=== PATIENT | female | born 1960 | race Caucasian/White ===

== ENCOUNTER 2016-07-17 15:49 | Observation (INO) ==
[2016-07-17] MEDS ORDERED: 0.9 % Sodium Chloride 1,000 ML IVC ONE ×2 (15:54→19:38)
--- NOTE | 2016-07-17 15:54 | Emergency Department Note ---
Disposition Clinical Impression: Generalized weakness, Hyperglycemia, Acute on chronic renal insufficiency, Hypotension Disposition: Admitted As Inpatient Condition: Fair General Adult HPI - General Chief complaint: ED Weakness Stated complaint: Generalized weakness Time Seen by Provider: 07/17/16 15:53 - Related Data Home Medications Medication Instructions Recorded Confirmed Aspirin Enteric Coated [Aspirin EC] 81 mg PO DAILY 12/30/14 07/17/16 Atorvastatin [Lipitor] 40 mg PO HS 12/30/14 07/17/16 Nitroglycerin [Nitrostat] 0.4 mg PO Q5M PRN 12/30/14 07/17/16 Sotalol HCl [Betapace] 80 mg PO BID 12/30/14 07/17/16 Gabapentin [Neurontin] 300 mg PO TID 10/11/15 07/17/16 Prazosin HCl [Minipress] 5 mg PO HS 10/11/15 07/17/16 Albuterol Sulfate [Ventolin Hfa] 2 puff IH QID PRN 10/12/15 07/17/16 Cholecalciferol (D-3) [Vitamin D] 1,000 unit PO BID 10/12/15 07/17/16 Cyclobenzaprine [Flexeril] 10 mg PO TID 10/12/15 07/17/16 Furosemide [Lasix] 40 mg PO QPM 10/12/15 07/17/16 Linagliptin [Tradjenta] 5 mg PO DAILY 10/12/15 07/17/16 Lisinopril [Zestril] 40 mg PO DAILY 10/12/15 07/17/16 Oxybutynin [Ditropan] 5 mg PO BID 10/12/15 07/17/16 Quetiapine Fumarate [Seroquel] 25 - 50 mg PO TID 10/12/15 07/17/16 Folic Acid 1 mg PO DAILY 02/29/16 07/17/16 Quetiapine Fumarate [Seroquel] 500 mg PO HS 02/29/16 07/17/16 Warfarin [Coumadin] 5 mg PO 1800 02/29/16 07/17/16 Buspirone HCl [Buspar] 7.5 mg PO BID 07/17/16 07/17/16 Furosemide [Lasix] 80 mg PO QAM 07/17/16 07/17/16 LORazepam [Lorazepam] 2 mg PO HS 07/17/16 07/17/16 Levothyroxine [Synthroid] 200 mcg PO QAM 07/17/16 07/17/16 Medroxyprogesterone Acetate 10 mg PO BID 07/17/16 07/17/16 [Provera] Metformin [Glucophage] 500 mg PO BIDWM 07/17/16 07/17/16 OxyCODONE/APAP 7.5/325 [Percocet 1 each PO Q6H PRN 07/17/16 07/17/16 7.5/325 MG] Pantoprazole Sodium [Protonix] 40 mg PO DAILY 07/17/16 07/17/16 Promethazine [Phenergan] 25 mg PO BID 07/17/16 07/17/16 Spironolactone [Aldactone] 25 mg PO DAILY 07/17/16 07/17/16 Trazodone HCl 100 mg PO HS 07/17/16 07/17/16 Previous Rx's Medication Instructions Recorded Amlodipine [Norvasc] 5 mg PO DAILY 30 Days 09/12/15 Isosorbide MONOnitrate (24 HR) 60 mg PO DAILY #30 tab.er.24h 10/15/15 [Imdur] Ranolazine [Ranexa] 500 mg PO BID #60 tab.er.12h 10/15/15 Docusate [Colace] 100 mg PO BID PRN #60 capsule 07/20/16 Allergies Allergy/AdvReac Type Severity Reaction Status Date / Time Latex, Natural Rubber Allergy Rash Verified 04/01/15 09:23 prednisone Allergy Rash Verified 04/01/15 09:23 Zolpidem [From Ambien] Allergy Hallucinati Verified 04/01/15 09:23 ng tape Allergy Rash Uncoded 09/08/15 03:19 Past Medical History - Past Medical History Medical history: Reports: arthritis, asthma, atrial fibrillation, coronary artery disease (mild, non-obstructive per [facility] in 2012. ), CVA, diabetes, GERD, hyperlipidemia, hypertension, myocardial infarction, osteoporosis, pulmonary embolus (August 2014, May 2015), renal disease, thyroid disease, TIA Surgical history: Reports: cholecystectomy, orthopedic, other Psychiatric history: Reports: anxiety, depression, PTSD, other [employer] history: Reports: no [employer] history - Social History Smoking Status: Never smoker Smokeless Tobacco Status: No Alcohol use: Reports: none Drug use: Reports: none Course Vital Signs Temperature 98.9 F 07/17/16 15:53 Pulse Rate 76 07/17/16 15:53 Respiratory Rate 18 07/17/16 15:53 Blood Pressure 70/46 07/17/16 15:53 O2 Sat by Pulse Oximetry 96 07/17/16 15:53 Temperature 98.0 F 07/20/16 14:47 Pulse Rate 79 07/20/16 14:47 Respiratory Rate 16 07/20/16 14:47 Blood Pressure 140/85 07/20/16 14:47 O2 Sat by Pulse Oximetry 92 L 07/20/16 16:37 Oxygen Delivery Oxygen Delivery Room Air Medical Decision Making - Lab Data Result diagrams: 07/18/16 00:31 07/19/16 04:08 Lab Results 07/17/16 07/17/16 07/17/16 Range/Units 17:14 17:20 17:20 WBC 10.3 (4.3-11.1) K/mcL RBC 4.55 (3.82-4.97) M/mcL Hgb 12.6 (11.5-15.4) g/dL Hct 38.0 (35.3-44.9) % MCV 83.5 (83.0-100.0) fL MCH 27.7 L (28.0-33.3) pg MCHC 33.2 (31.6-35.5) g/dL RDW 15.8 H (11.5-14.5) % Plt Count 292 (140-400) K/mcL MPV 9.6 (9.4-12.4) fL Immature Gran % 0.8 (0-4) % Seg Neutrophils % 60.8 % Lymphocytes % 30.4 % Monocytes % 7.0 % Eosinophils % 0.6 % Basophils % 0.4 % Neutrophils # 6.2 (1.6-8.9) K/mcL Lymphocytes # 3.1 (0.6-4.6) K/mcL Monocytes # 0.7 (0.0-1.3) K/mcL Eosinophils # 0.1 (0.0-0.6) K/mcL Basophils # 0.0 (0.0-0.2) K/mcL ESR 39 H (0-15) mm/hr Sodium 134 L (136-145) mEq/L Potassium 4.4 (3.5-4.5) mEq/L Chloride 105 (98-109) mEq/L Carbon Dioxide 13 L (19-29) mEq/L BUN 16 (7-20) mg/dL Creatinine 1.67 H (0.57-1.11) mg/dL Est GFR ( Amer) 39 L (> 60) Est GFR (Non-Af Amer) 32 L (> 60) BUN/Creatinine Ratio 10 (6-26) Glucose 344 H (70-99) mg/dL Calculated Osmolality 293 (280-300) Calcium 8.8 (8.6-10.8) mg/dL Ionized Calcium Cancelled Phosphorus 3.4 (2.3-4.7) mg/dL Magnesium 1.5 L (1.6-2.6) mg/dL Total Bilirubin 0.4 (0.2-1.2) mg/dL AST 10 (5-34) Units/L ALT 7 (0-55) Units/L Alkaline Phosphatase 76 (38-126) Units/L Creatine Kinase 34 (29-168) Units/L Troponin I (0-0.03) ng/mL Serum Total Protein 8.1 (6.0-8.3) g/dL Albumin 3.6 (3.5-5.0) g/dL Globulin 4.5 H (2.4-3.5) g/dL Albumin/Globulin Ratio 0.8 L (1.1-2.2) Beta-Hydroxybutyric Acd (0.02-0.27) mmol/L TSH 1.195 (0.350-4.840) mcIU/mL Urine Color (Yellow) Urine Clarity (Clear) Urine pH (5.0-8.0) pH Units Ur Specific [place] (1.010-1.025) Urine Protein (Neg-Trace) mg/dL Urine Glucose (UA) (Normal) mg/dL Urine Ketones (Negative) mg/dL Urine Blood (Negative) Urine Nitrite (Negative) Urine Bilirubin (Negative) Urine Urobilinogen (Normal) mg/dL Ur Leukocyte Esterase (Negative) Urine Microscopic RBC (0-3) per hpf Urine Microscopic WBC (0-3) per hpf Ur Squamous Epith Cells (None-Few) per lpf Calcium Oxalate Crystal Urine Bacteria (None-Few) per hpf Hyaline Casts (None-Few) per lpf Ur Culture Indicated? (NO) A. baumannii (TEM-PCR) (Not Detect) Ariela albicans (PCR) (Not Detect) C. glabrata (PCR) (Not Detect) C. krusei (PCR) (Not Detect) C. parapsilosis (PCR) (Not Detect) C. tropicalis (PCR) (Not Detect) Enterobacteriac sp PCR (Not Detect) E. cloacae complex PCR (Not Detect) Enterococcus sp PCR (Not Detect) E. coli (PCR) (Not Detect) H. influenzae DNA (Not Detect) Klebsiella oxytoca PCR (Not Detect) Klebsiella pneumoniae (Not Detect) Listeria (PCR) (Not Detect) N. meningitidis (PCR) (Not Detect) Proteus species (PCR) (Not Detect) Serratia marcescens PCR (Not Detect) Staphylococcus sp PCR (Not Detect) Staph aureus (PCR) (Not Detect) MRS (TEM-PCR) (Not Detect) Streptococcus sp PCR (Not Detect) Group A Strep DNA (Not Detect) Group B Strep (PCR) (Not Detect) Strep pneumoniae (PCR) (Not Detect) P. aeruginosa (TEM-PCR) (Not Detect) VRE (PCR) (Not Detect) KPC (blaKPC) Detect PCR (Not Detect) 07/17/16 07/17/16 07/17/16 Range/Units 17:20 17:20 17:20 WBC (4.3-11.1) K/mcL RBC (3.82-4.97) M/mcL Hgb (11.5-15.4) g/dL Hct (35.3-44.9) % MCV (83.0-100.0) fL MCH (28.0-33.3) pg MCHC (31.6-35.5) g/dL RDW (11.5-14.5) % Plt Count (140-400) K/mcL MPV (9.4-12.4) fL Immature Gran % (0-4) % Seg Neutrophils % % Lymphocytes % % Monocytes % % Eosinophils % % Basophils % % Neutrophils # (1.6-8.9) K/mcL Lymphocytes # (0.6-4.6) K/mcL Monocytes # (0.0-1.3) K/mcL Eosinophils # (0.0-0.6) K/mcL Basophils # (0.0-0.2) K/mcL ESR (0-15) mm/hr Sodium (136-145) mEq/L Potassium (3.5-4.5) mEq/L Chloride (98-109) mEq/L Carbon Dioxide (19-29) mEq/L BUN (7-20) mg/dL Creatinine (0.57-1.11) mg/dL Est GFR ( Amer) (> 60) Est GFR (Non-Af Amer) (> 60) BUN/Creatinine Ratio (6-26) Glucose (70-99) mg/dL Calculated Osmolality (280-300) Calcium (8.6-10.8) mg/dL Ionized Calcium Phosphorus (2.3-4.7) mg/dL Magnesium (1.6-2.6) mg/dL Total Bilirubin (0.2-1.2) mg/dL AST (5-34) Units/L ALT (0-55) Units/L Alkaline Phosphatase (38-126) Units/L Creatine Kinase (29-168) Units/L Troponin I 0.00 (0-0.03) ng/mL Serum Total Protein (6.0-8.3) g/dL Albumin (3.5-5.0) g/dL Globulin (2.4-3.5) g/dL Albumin/Globulin Ratio (1.1-2.2) Beta-Hydroxybutyric Acd 0.23 (0.02-0.27) mmol/L TSH (0.350-4.840) mcIU/mL Urine Color (Yellow) Urine Clarity (Clear) Urine pH (5.0-8.0) pH Units Ur Specific [place] (1.010-1.025) Urine Protein (Neg-Trace) mg/dL Urine Glucose (UA) (Normal) mg/dL Urine Ketones (Negative) mg/dL Urine Blood (Negative) Urine Nitrite (Negative) Urine Bilirubin (Negative) Urine Urobilinogen (Normal) mg/dL Ur Leukocyte Esterase (Negative) Urine Microscopic RBC (0-3) per hpf Urine Microscopic WBC (0-3) per hpf Ur Squamous Epith Cells (None-Few) per lpf Calcium Oxalate Crystal Urine Bacteria (None-Few) per hpf Hyaline Casts (None-Few) per lpf Ur Culture Indicated? (NO) A. baumannii (TEM-PCR) Not Detected (Not Detect) Ariela albicans (PCR) Not Detected (Not Detect) C. glabrata (PCR) Not Detected (Not Detect) C. krusei (PCR) Not Detected (Not Detect) C. parapsilosis (PCR) Not Detected (Not Detect) C. tropicalis (PCR) Not Detected (Not Detect) Enterobacteriac sp PCR Not Detected (Not Detect) E. cloacae complex PCR Not Detected (Not Detect) Enterococcus sp PCR Not Detected (Not Detect) E. coli (PCR) Not Detected (Not Detect) H. influenzae DNA Not Detected (Not Detect) Klebsiella oxytoca PCR Not Detected (Not Detect) Klebsiella pneumoniae Not Detected (Not Detect) Listeria (PCR) Not Detected (Not Detect) N. meningitidis (PCR) Not Detected (Not Detect) Proteus species (PCR) Not Detected (Not Detect) Serratia marcescens PCR Not Detected (Not Detect) Staphylococcus sp PCR DETECTED A (Not Detect) Staph aureus (PCR) Not Detected (Not Detect) MRS (TEM-PCR) Not Detected (Not Detect) Streptococcus sp PCR Not Detected (Not Detect) Group A Strep DNA Not Detected (Not Detect) Group B Strep (PCR) Not Detected (Not Detect) Strep pneumoniae (PCR) Not Detected (Not Detect) P. aeruginosa (TEM-PCR) Not Detected (Not Detect) VRE (PCR) Not Detected (Not Detect) KPC (blaKPC) Detect PCR Not Detected (Not Detect) 07/17/16 Range/Units 18:13 WBC (4.3-11.1) K/mcL RBC (3.82-4.97) M/mcL Hgb (11.5-15.4) g/dL Hct (35.3-44.9) % MCV (83.0-100.0) fL MCH (28.0-33.3) pg MCHC (31.6-35.5) g/dL RDW (11.5-14.5) % Plt Count (140-400) K/mcL MPV (9.4-12.4) fL Immature Gran % (0-4) % Seg Neutrophils % % Lymphocytes % % Monocytes % % Eosinophils % % Basophils % % Neutrophils # (1.6-8.9) K/mcL Lymphocytes # (0.6-4.6) K/mcL Monocytes # (0.0-1.3) K/mcL Eosinophils # (0.0-0.6) K/mcL Basophils # (0.0-0.2) K/mcL ESR (0-15) mm/hr Sodium (136-145) mEq/L Potassium (3.5-4.5) mEq/L Chloride (98-109) mEq/L Carbon Dioxide (19-29) mEq/L BUN (7-20) mg/dL Creatinine (0.57-1.11) mg/dL Est GFR ( Amer) (> 60) Est GFR (Non-Af Amer) (> 60) BUN/Creatinine Ratio (6-26) Glucose (70-99) mg/dL Calculated Osmolality (280-300) Calcium (8.6-10.8) mg/dL Ionized Calcium Phosphorus (2.3-4.7) mg/dL Magnesium (1.6-2.6) mg/dL Total Bilirubin (0.2-1.2) mg/dL AST (5-34) Units/L ALT (0-55) Units/L Alkaline Phosphatase (38-126) Units/L Creatine Kinase (29-168) Units/L Troponin I (0-0.03) ng/mL Serum Total Protein (6.0-8.3) g/dL Albumin (3.5-5.0) g/dL Globulin (2.4-3.5) g/dL Albumin/Globulin Ratio (1.1-2.2) Beta-Hydroxybutyric Acd (0.02-0.27) mmol/L TSH (0.350-4.840) mcIU/mL Urine Color Red A (Yellow) Urine Clarity Turbid A (Clear) Urine pH 5.0 (5.0-8.0) pH Units Ur Specific [place] > 1.030 H (1.010-1.025) Urine Protein 30 H (Neg-Trace) mg/dL Urine Glucose (UA) >=1000 H (Normal) mg/dL Urine Ketones Trace H (Negative) mg/dL Urine Blood Negative (Negative) Urine Nitrite Negative (Negative) Urine Bilirubin Moderate H (Negative) Urine Urobilinogen Normal (Normal) mg/dL Ur Leukocyte Esterase Trace H (Negative) Urine Microscopic RBC 5-15 H (0-3) per hpf Urine Microscopic WBC 5-15 H (0-3) per hpf Ur Squamous Epith Cells Many H (None-Few) per lpf Calcium Oxalate Crystal Present Urine Bacteria Few (None-Few) per hpf Hyaline Casts Few (None-Few) per lpf Ur Culture Indicated? YES A (NO) A. baumannii (TEM-PCR) (Not Detect) Ariela albicans (PCR) (Not Detect) C. glabrata (PCR) (Not Detect) C. krusei (PCR) (Not Detect) C. parapsilosis (PCR) (Not Detect) C. tropicalis (PCR) (Not Detect) Enterobacteriac sp PCR (Not Detect) E. cloacae complex PCR (Not Detect) Enterococcus sp PCR (Not Detect) E. coli (PCR) (Not Detect) H. influenzae DNA (Not Detect) Klebsiella oxytoca PCR (Not Detect) Klebsiella pneumoniae (Not Detect) Listeria (PCR) (Not Detect) N. meningitidis (PCR) (Not Detect) Proteus species (PCR) (Not Detect) Serratia marcescens PCR (Not Detect) Staphylococcus sp PCR (Not Detect) Staph aureus (PCR) (Not Detect) MRS (TEM-PCR) (Not Detect) Streptococcus sp PCR (Not Detect) Group A Strep DNA (Not Detect) Group B Strep (PCR) (Not Detect) Strep pneumoniae (PCR) (Not Detect) P. aeruginosa (TEM-PCR) (Not Detect) VRE (PCR) (Not Detect) KPC (blaKPC) Detect PCR (Not Detect) Attestation Statement - Attestation Attestation: I examined this patient and my medical decision-making was reviewed with the PAN SHOVER/PA/Advanced Practice Nurse/Resident Physician. I agree with the documented findings, disposition and treatment plan as described except to the extent set forth below. [id number] time provided Patient presents via EMS from home for generalized weakness. She reports a history of diabetes. Symptoms present for the past one week. She was able to transfer from the ambulance stretcher to the emergency department stretcher without assistance 18:27: Care to be endorsed to the oncoming physician at 7 PM pending labs and reevaluation.
[2016-07-17] MEDS ORDERED: 0.9 % Sodium Chloride 1,000 ML IV ONE (16:50)
[2016-07-17 17:36] LABS: Basophils % 0.4 %; Eosinophils # 0.1 K/mcL (0.0-0.6); Eosinophils % 0.6 %; Hemoglobin 12.6 g/dL (11.5-15.4); Immature Granulocytes % 0.8 % (0-4); Lymphocytes # 3.1 K/mcL (0.6-4.6); Lymphocytes % 30.4 %; Mean Corpuscular HGB Conc 33.2 g/dL (31.6-35.5); Mean Corpuscular Hemoglobin 27.7 pg (28.0-33.3); Mean Corpuscular Volume 83.5 fL (83.0-100.0); Mean Platelet Volume 9.6 fL (9.4-12.4); Monocytes # 0.7 K/mcL (0.0-1.3); Neutrophils # 6.2 K/mcL (1.6-8.9); Platelet Count 292 K/mcL (140-400); Red Blood Count 4.55 M/mcL (3.82-4.97); Red Cell Distribution Width 15.8 % (11.5-14.5); Segmented Neutrophils % 60.8 %
--- NOTE | 2016-07-17 17:45 | Emergency Department Note ---
Disposition Clinical Impression: Generalized weakness, Hyperglycemia, Acute on chronic renal insufficiency Hypotension Qualifiers: Hypotension type: unspecified hypotension type Qualified Code(s): I95.9 - Hypotension, unspecified Disposition: Still a Patient Condition: Fair Referrals: Ashwin Ellington, PAC [Primary Care Provider] - Forms: ED Satisfaction Letter Time of Disposition: 18:52 Weakness HPI - General Chief complaint: ED Weakness Stated complaint: Generalized weakness Time Seen by Provider: 07/17/16 15:53 Source: patient, EMS Limitations: no limitations Nursing Notes Reviewed: Yes Vital Signs Reviewed: Yes - History of Present Illness HPI Narrative: 56-year-old female brought in by EMS for generalized weakness, patient is a history of CVA with residual left-sided leg weakness, she states that her symptoms have been worse in the last few days. She has been dehydrated and weak. She states that she can barely move her left leg. Patient states that this happened gradually. Overall she has had a general decline in function in the last week or 2 since she had a spinal surgery with Dr. Rutherford in her L- spine. Patient states that she has no chest pain no abdominal pain some nausea but denies vomiting diarrhea or constipation. Patient chills. Pt Subjective Complaint: generalized weakness/fatigue, focal weakness (left leg baseline weak s/p CVA) Onset (ago): week(s) Duration: intermittent Location: generalized, LLE Migration: none Pain Severity: none Pain Scale: 0 If pain, quality: numbness Improves with: none Worsens with: movement Associated symptoms: Reports: denies other symptoms. Denies: chest pain, confusion, dark stools, fever/chills - Related Data Home Medications Medication Instructions Recorded Confirmed Aspirin Enteric Coated [Aspirin EC] 81 mg PO DAILY 12/30/14 02/29/16 Atorvastatin [Lipitor] 40 mg PO HS 12/30/14 02/29/16 Nitroglycerin [Nitrostat] 0.4 mg PO AD PRN 12/30/14 02/29/16 Sotalol HCl [Betapace] 80 mg PO BID 12/30/14 02/29/16 Gabapentin [Neurontin] 300 mg PO TID 10/11/15 02/29/16 Prazosin HCl [Minipress] 5 mg PO HS 10/11/15 02/29/16 Albuterol Sulfate [Ventolin Hfa] 2 puff IH QID PRN 10/12/15 02/29/16 Cholecalciferol (D-3) [Vitamin D] 1,000 unit PO BID 10/12/15 02/29/16 Cyclobenzaprine [Flexeril] 10 mg PO TID 10/12/15 02/29/16 Furosemide [Lasix] 40 mg PO BID 10/12/15 02/29/16 Levothyroxine [Synthroid] 175 mcg PO 0630 10/12/15 02/29/16 Linagliptin [Tradjenta] 5 mg PO DAILY 10/12/15 02/29/16 Lisinopril [Zestril] 40 mg PO DAILY 10/12/15 02/29/16 Oxybutynin [Ditropan] 5 mg PO BID 10/12/15 02/29/16 Quetiapine Fumarate [Seroquel] 25 - 50 mg PO TID 10/12/15 02/29/16 Folic Acid 1 mg PO DAILY 02/29/16 02/29/16 Oxycodone HCl/Acetaminophen 1 each PO Q4-6H PRN 02/29/16 02/29/16 [Percocet 7.5-325 mg Tablet] Quetiapine Fumarate [Seroquel] 500 mg PO HS 02/29/16 02/29/16 Warfarin [Coumadin] 5 mg PO 1800 02/29/16 02/29/16 Previous Rx's Medication Instructions Recorded Amlodipine [Norvasc] 5 mg PO DAILY 30 Days 09/12/15 Isosorbide MONOnitrate (24 HR) 60 mg PO DAILY #30 tab.er.24h 10/15/15 [Imdur] Ranolazine [Ranexa] 500 mg PO BID #60 tab.er.12h 10/15/15 OxyCODONE/APAP 7.5/325 [Percocet 1 each PO Q4H PRN #25 tablet 03/13/16 7.5/325 MG] Vancomycin [Vancocin] 1,000 mg IV Q12HR 6 Days 03/13/16 Allergies Allergy/AdvReac Type Severity Reaction Status Date / Time Latex, Natural Rubber Allergy Rash Verified 04/01/15 09:23 prednisone Allergy Rash Verified 04/01/15 09:23 Zolpidem [From Ambien] Allergy Hallucinati Verified 04/01/15 09:23 ng tape Allergy Rash Uncoded 09/08/15 03:19 Review of Systems: All systems were reviewed with historian and negative except as per below, or as documented in the HPI. Constitutional: Denies: fever, chills, weight changes Eyes: Denies: vision changes, eye pain ENT: Denies: nasal congestion, sore throat CV: Denies: chest pain, palpitations, leg swelling Resp: Denies: cough, dyspnea, wheezes, hemoptysis GI: Denies: abdominal pain, N/V/D/C, hematochezia, melena Denies: dysuria, hematuria MSK: Denies: back pain, neck pain, extremity pain Skin: Denies: new rashes, new lesions Neuro: She reports generalized weakness, and some focal weakness or left leg, which is her baseline Psych: Denies: anxiety, depression All systems ED: reviewed and negative except as stated. Past Medical History - Past Medical History Attestation: Yes The following information was validated with the patient. Source: patient Medical history: Reports: arthritis, asthma, atrial fibrillation, coronary artery disease (mild, non-obstructive per [facility] in 2012. ), CVA, diabetes, GERD, hyperlipidemia, hypertension, myocardial infarction, osteoporosis, pulmonary embolus (August 2014, May 2015), renal disease, thyroid disease, TIA Surgical history: Reports: cholecystectomy, orthopedic, other Psychiatric history: Reports: anxiety, depression, PTSD, other [employer] history: Reports: no [employer] history - Social History Smoking Status: Never smoker Smokeless Tobacco Status: No Alcohol use: Reports: none Drug use: Reports: none Physical Exam Constitutional: alert hypotensive, appears older than stated age, patient is morbidly obese mild distress Neck: normal inspection, neck is supple, trachea midline, no JVD Resp: normal chest inspection, CTA bilaterally, no resp distress, symmetric chest rise CV: RRR, no m/g/r, Pulses +2 Rad, +2 DP/PT bilaterally, no pedal edema GI: Abdomen is soft and obese, large pannus, no tenderness to palpation. Back: Postsurgical changes. Clean dry intact dressing Neuro: 4/5 muscle strength left lower extremity consistent with her baseline, otherwise no focal deficits neurologically, cranial nerves II through XII grossly intact bilaterally MSK: normal inspection, bilateral UE and LE with normal ROM and no deformities Psych: normal mood, normal affect Skin: No rashes, skin warm, dry, intact - General Limitations: no limitations General appearance: alert, in no apparent distress Course Course Narrative: 36-year-old female with multiple comorbidities presents with weakness generalized, will get full workup including septic workup blood cultures lactate , given 1 L of fluids while another liter fluids if she still hypotensive, - Reevaluation(s) Reevaluation #1: Plus blood pressure is 100/60, she has some improvement with lying supine, given that she has a peripheral IV that is a 20-gauge, that is not able to draw the peripheral IV: had to pursue a femoral stick to get blood, verbal consent with patient, she agreed to the procedure, poor R groin V/A visualization even with ultrasound, was able to obtain 20 mL of blood and held pressure to the right groin for 5 minutes patient tolerated well no complications. Time: 17:48 Reevaluation #2: Care signed out to Dr Cast /Nicole for follow up and ultimate disposition. Time: 18:54 Vital Signs Temperature 98.9 F 07/17/16 15:53 Pulse Rate 76 07/17/16 15:53 Respiratory Rate 18 07/17/16 15:53 Blood Pressure 70/46 07/17/16 15:53 O2 Sat by Pulse Oximetry 96 07/17/16 15:53 Temperature 98.9 F 07/17/16 15:53 Pulse Rate 72 07/17/16 18:44 Respiratory Rate 18 07/17/16 18:44 Blood Pressure 97/62 07/17/16 18:44 O2 Sat by Pulse Oximetry 97 07/17/16 18:44 Oxygen Delivery Oxygen Delivery Nasal Cannula Weakness - Differential Diagnosis Differential Diagnosis: Likely: acute myocardial infarction, sepsis/infection, metabolic - Medical Records Medical records reviewed: Yes I reviewed the patient's medical records. - Lab Data Lab results reviewed: Yes I reviewed the patient's lab results. Result diagrams: 07/17/16 17:20 07/17/16 17:14 Lab Results 07/17/16 07/17/16 07/17/16 Range/Units 17:14 17:20 17:20 WBC 10.3 (4.3-11.1) K/mcL RBC 4.55 (3.82-4.97) M/mcL Hgb 12.6 (11.5-15.4) g/dL Hct 38.0 (35.3-44.9) % MCV 83.5 (83.0-100.0) fL MCH 27.7 L (28.0-33.3) pg MCHC 33.2 (31.6-35.5) g/dL RDW 15.8 H (11.5-14.5) % Plt Count 292 (140-400) K/mcL MPV 9.6 (9.4-12.4) fL Immature Gran % 0.8 (0-4) % Seg Neutrophils % 60.8 % Lymphocytes % 30.4 % Monocytes % 7.0 % Eosinophils % 0.6 % Basophils % 0.4 % Neutrophils # 6.2 (1.6-8.9) K/mcL Lymphocytes # 3.1 (0.6-4.6) K/mcL Monocytes # 0.7 (0.0-1.3) K/mcL Eosinophils # 0.1 (0.0-0.6) K/mcL Basophils # 0.0 (0.0-0.2) K/mcL Sodium 134 L (136-145) mEq/L Potassium 4.4 (3.5-4.5) mEq/L Chloride 105 (98-109) mEq/L Carbon Dioxide 13 L (19-29) mEq/L BUN 16 (7-20) mg/dL Creatinine 1.67 H (0.57-1.11) mg/dL Est GFR ( Amer) 39 L (> 60) Est GFR (Non-Af Amer) 32 L (> 60) BUN/Creatinine Ratio 10 (6-26) Glucose 344 H (70-99) mg/dL Calculated Osmolality 293 (280-300) Calcium 8.8 (8.6-10.8) mg/dL Phosphorus 3.4 (2.3-4.7) mg/dL Magnesium 1.5 L (1.6-2.6) mg/dL Total Bilirubin 0.4 (0.2-1.2) mg/dL AST 10 (5-34) Units/L ALT 7 (0-55) Units/L Alkaline Phosphatase 76 (38-126) Units/L Creatine Kinase 34 (29-168) Units/L Troponin I 0.00 (0-0.03) ng/mL Serum Total Protein 8.1 (6.0-8.3) g/dL Albumin 3.6 (3.5-5.0) g/dL Globulin 4.5 H (2.4-3.5) g/dL Albumin/Globulin Ratio 0.8 L (1.1-2.2) TSH 1.195 (0.350-4.840) mcIU/mL Urine Color (Yellow) Urine Clarity (Clear) Urine pH (5.0-8.0) pH Units Ur Specific [place] (1.010-1.025) Urine Protein (Neg-Trace) mg/dL Urine Glucose (UA) (Normal) mg/dL Urine Ketones (Negative) mg/dL Urine Blood (Negative) Urine Nitrite (Negative) Urine Bilirubin (Negative) Urine Urobilinogen (Normal) mg/dL Ur Leukocyte Esterase (Negative) Urine Microscopic RBC (0-3) per hpf Urine Microscopic WBC (0-3) per hpf Ur Squamous Epith Cells (None-Few) per lpf Calcium Oxalate Crystal Urine Bacteria (None-Few) per hpf Hyaline Casts (None-Few) per lpf Ur Culture Indicated? (NO) 07/17/16 Range/Units 18:13 WBC (4.3-11.1) K/mcL RBC (3.82-4.97) M/mcL Hgb (11.5-15.4) g/dL Hct (35.3-44.9) % MCV (83.0-100.0) fL MCH (28.0-33.3) pg MCHC (31.6-35.5) g/dL RDW (11.5-14.5) % Plt Count (140-400) K/mcL MPV (9.4-12.4) fL Immature Gran % (0-4) % Seg Neutrophils % % Lymphocytes % % Monocytes % % Eosinophils % % Basophils % % Neutrophils # (1.6-8.9) K/mcL Lymphocytes # (0.6-4.6) K/mcL Monocytes # (0.0-1.3) K/mcL Eosinophils # (0.0-0.6) K/mcL Basophils # (0.0-0.2) K/mcL Sodium (136-145) mEq/L Potassium (3.5-4.5) mEq/L Chloride (98-109) mEq/L Carbon Dioxide (19-29) mEq/L BUN (7-20) mg/dL Creatinine (0.57-1.11) mg/dL Est GFR ( Amer) (> 60) Est GFR (Non-Af Amer) (> 60) BUN/Creatinine Ratio (6-26) Glucose (70-99) mg/dL Calculated Osmolality (280-300) Calcium (8.6-10.8) mg/dL Phosphorus (2.3-4.7) mg/dL Magnesium (1.6-2.6) mg/dL Total Bilirubin (0.2-1.2) mg/dL AST (5-34) Units/L ALT (0-55) Units/L Alkaline Phosphatase (38-126) Units/L Creatine Kinase (29-168) Units/L Troponin I (0-0.03) ng/mL Serum Total Protein (6.0-8.3) g/dL Albumin (3.5-5.0) g/dL Globulin (2.4-3.5) g/dL Albumin/Globulin Ratio (1.1-2.2) TSH (0.350-4.840) mcIU/mL Urine Color Red A (Yellow) Urine Clarity Turbid A (Clear) Urine pH 5.0 (5.0-8.0) pH Units Ur Specific [place] > 1.030 H (1.010-1.025) Urine Protein 30 H (Neg-Trace) mg/dL Urine Glucose (UA) >=1000 H (Normal) mg/dL Urine Ketones Trace H (Negative) mg/dL Urine Blood Negative (Negative) Urine Nitrite Negative (Negative) Urine Bilirubin Moderate H (Negative) Urine Urobilinogen Normal (Normal) mg/dL Ur Leukocyte Esterase Trace H (Negative) Urine Microscopic RBC 5-15 H (0-3) per hpf Urine Microscopic WBC 5-15 H (0-3) per hpf Ur Squamous Epith Cells Many H (None-Few) per lpf Calcium Oxalate Crystal Present Urine Bacteria Few (None-Few) per hpf Hyaline Casts Few (None-Few) per lpf Ur Culture Indicated? YES A (NO) - Radiology Data Radiology results reviewed: Yes I reviewed the patient's radiology results. - EKG Data EKG attestation: Yes I reviewed and interpreted this EKG. EKG results narrative: 77 bpm [place] 195 QRS 109, QTc 461 EKG shows normal: sinus rhythm Rate: normal Rhythm: NSR [place]/QRS: normal Interpretation: no acute changes - Core Measures AMI Core Measures Followed: No Measure Exclusions: not indicated S.B.A.R. - S.B.A.RSarah Transition of Care: 56-year-old female with generalized weakness, pending lab work, reevaluation of blood pressure, possible discharge home versus admission Situation: Demographics, MOA Background: Presenting Complaint, Relevant PMH, Meds, & Allergies Assessment: Vital Signs, Course and respsone to treatment, Exam Concerns, Patient/Family Expectation, Pertinant Lab Results, Outstanding Labs Recommendation: Barrier(s) to disposition, Recommendation based on pending studies, treatments, or consults S.B.A.RSarah Report Given to: Serene Oliveira Stratton S.B.A.R. Repor Time: 18:40
[2016-07-17 17:56] LABS: Albumin 3.6 g/dL (3.5-5.0); Albumin/Globulin Ratio 0.8 (1.1-2.2); Bilirubin,Total 0.4 mg/dL (0.2-1.2); Calcium 8.8 mg/dL (8.6-10.8); Globulin 4.5 g/dL (2.4-3.5); Magnesium 1.5 mg/dL (1.6-2.6); Phosphorous 3.4 mg/dL (2.3-4.7); Potassium 4.4 mEq/L (3.5-4.5); Total Protein 8.1 g/dL (6.0-8.3)
[2016-07-17 18:09] LABS: Thyroid Stimulating Hormone 1.195 mcIU/mL (0.350-4.840)
[2016-07-17 18:27] LABS: Bilirubin,Urine Moderate (Negative); Blood,Urine Negative (Negative); Clarity,Urine Turbid (Clear); Color,Urine Red (Yellow); Glucose,Urine (UA) >=1000 mg/dL (Normal); Ketones,Urine Trace mg/dL (Negative); Leukocyte Esterase,Urine Trace (Negative); Nitrite,Urine Negative (Negative); Protein,Urine 30 mg/dL (Neg-Trace); Specific Gravity,Urine > 1.030 (1.010-1.025); Urobilinogen,Urine Normal (Normal)
[2016-07-17 18:28] LABS: Squamous Epithelial Cell,Urine Many per lpf (None-Few)
[2016-07-17 18:38] LABS: Bacteria,Urine Few per hpf (None-Few); Calcium Oxalate Crystals,Urine Present; Hyaline Casts,Urine Few per lpf (None-Few)
--- NOTE | 2016-07-17 19:55 | Emergency Department Note ---
Disposition Clinical Impression: Generalized weakness, Hyperglycemia, Acute on chronic renal insufficiency Hypotension Qualifiers: Hypotension type: unspecified hypotension type Qualified Code(s): I95.9 - Hypotension, unspecified Disposition: Admitted As Inpatient Condition: Fair Weakness HPI - General Chief complaint: ED Weakness Stated complaint: Generalized weakness Time Seen by Provider: 07/17/16 15:53 Source: patient, EMS Limitations: no limitations Nursing Notes Reviewed: Yes Vital Signs Reviewed: Yes - History of Present Illness HPI Narrative: Patient received signout from Dr. Feliz at shift change. Please refer to his note for evaluation management prior to 7 PM. Patient seen and evaluatedt. History of present illness in brief: Mrs. Millan, 56-year-old female, presents with chief complaint of weakness. Onset progressive over the last 1-2 weeks. At baseline, patient is in a wheelchair with occasional ambulation assisted with a walker. Remote history of CVA with chronic left-sided weakness. Patient describes her symptoms as her legs occasionally giving out with occasional lightheadedness with flush feeling. Patient's notes that she is on 32 medications. Patient does have a history of hypertension however patient notes she has a history of both hypertension and hypotension. In the past, she has necessitated admission for symptomatic hypotension. Admits: Generalized weakness with near syncopal event. Denies: Fever, chills, nausea, vomiting, chest pain, palpitation, unusual numbness or tingling, abdominal pain, changes in bowel or bladder, confusion. PMH: Encephalopathy secondary to sepsis from cutaneous source, thoracic radiculopathy due to spinal osteoarthritis, iron deficiency anemia, CAD, DM type [id number], paroxysmal A. fib, morbid obesity. PSH: Recent spinal surgery by Dr. Rutherford Pt Subjective Complaint: generalized weakness/fatigue, focal weakness (left leg baseline weak s/p CVA) Location: generalized, LLE Pain Severity: none Pain Scale: 0 If pain, quality: numbness Improves with: none Worsens with: movement Associated symptoms: Reports: denies other symptoms. Denies: chest pain, confusion, dark stools, fever/chills - Related Data Home Medications Medication Instructions Recorded Confirmed Aspirin Enteric Coated [Aspirin EC] 81 mg PO DAILY 12/30/14 07/17/16 Atorvastatin [Lipitor] 40 mg PO HS 12/30/14 07/17/16 Nitroglycerin [Nitrostat] 0.4 mg PO Q5M PRN 12/30/14 07/17/16 Sotalol HCl [Betapace] 80 mg PO BID 12/30/14 07/17/16 Gabapentin [Neurontin] 300 mg PO TID 10/11/15 07/17/16 Prazosin HCl [Minipress] 5 mg PO HS 10/11/15 07/17/16 Albuterol Sulfate [Ventolin Hfa] 2 puff IH QID PRN 10/12/15 07/17/16 Cholecalciferol (D-3) [Vitamin D] 1,000 unit PO BID 10/12/15 07/17/16 Cyclobenzaprine [Flexeril] 10 mg PO TID 10/12/15 07/17/16 Furosemide [Lasix] 40 mg PO QPM 10/12/15 07/17/16 Linagliptin [Tradjenta] 5 mg PO DAILY 10/12/15 07/17/16 Lisinopril [Zestril] 40 mg PO DAILY 10/12/15 07/17/16 Oxybutynin [Ditropan] 5 mg PO BID 10/12/15 07/17/16 Quetiapine Fumarate [Seroquel] 25 - 50 mg PO TID 10/12/15 07/17/16 Folic Acid 1 mg PO DAILY 02/29/16 07/17/16 Quetiapine Fumarate [Seroquel] 500 mg PO HS 02/29/16 07/17/16 Warfarin [Coumadin] 5 mg PO 1800 02/29/16 07/17/16 Buspirone HCl [Buspar] 7.5 mg PO BID 07/17/16 07/17/16 Furosemide [Lasix] 80 mg PO QAM 07/17/16 07/17/16 LORazepam [Lorazepam] 2 mg PO HS 07/17/16 07/17/16 Levothyroxine [Synthroid] 200 mcg PO QAM 07/17/16 07/17/16 Medroxyprogesterone Acetate 10 mg PO BID 07/17/16 07/17/16 [Provera] Metformin [Glucophage] 500 mg PO BIDWM 07/17/16 07/17/16 OxyCODONE/APAP 7.5/325 [Percocet 1 each PO Q6H PRN 07/17/16 07/17/16 7.5/325 MG] Pantoprazole Sodium [Protonix] 40 mg PO DAILY 07/17/16 07/17/16 Promethazine [Phenergan] 25 mg PO BID 07/17/16 07/17/16 Spironolactone [Aldactone] 25 mg PO DAILY 07/17/16 07/17/16 Trazodone HCl 100 mg PO HS 07/17/16 07/17/16 Previous Rx's Medication Instructions Recorded Amlodipine [Norvasc] 5 mg PO DAILY 30 Days 09/12/15 Isosorbide MONOnitrate (24 HR) 60 mg PO DAILY #30 tab.er.24h 10/15/15 [Imdur] Ranolazine [Ranexa] 500 mg PO BID #60 tab.er.12h 10/15/15 Allergies Allergy/AdvReac Type Severity Reaction Status Date / Time Latex, Natural Rubber Allergy Rash Verified 04/01/15 09:23 prednisone Allergy Rash Verified 04/01/15 09:23 Zolpidem [From Ambien] Allergy Hallucinati Verified 04/01/15 09:23 ng tape Allergy Rash Uncoded 09/08/15 03:19 All systems ED: reviewed and negative except as stated. (as per HPI) Past Medical History - Past Medical History Medical history: Reports: arthritis, asthma, atrial fibrillation, coronary artery disease (mild, non-obstructive per [facility] in 2012. ), CVA, diabetes, GERD, hyperlipidemia, hypertension, myocardial infarction, osteoporosis, pulmonary embolus (August 2014, May 2015), renal disease, thyroid disease, TIA Surgical history: Reports: cholecystectomy, orthopedic, other Psychiatric history: Reports: anxiety, depression, PTSD, other HELMET BINDER history: Reports: no HELMET BINDER history - Social History Smoking Status: Never smoker Smokeless Tobacco Status: No Alcohol use: Reports: none Drug use: Reports: none Physical Exam General: Patient is alert, oriented, morbidly obese, hypertensive, in no acute distress. HEENT: No facial asymmetry. Head is normocephalic and atraumatic. Trachea midline. Oral mucosa moist. Cardiovascular: Heart regular rate and rhythm without clicks, rubs, gallops, or murmurs. No JVD. PMI nondisplaced. No pedal edema. Dorsalis pedis pulse 2+ bilaterally. Respiratory: Symmetric chest rise with poor respiratory effort. Bilateral breath sounds are clear without wheezing, crackles, or rhonchi. Abdomen: Bowel sounds present normoactive x-4 quadrants. Abdomen is soft, nondistended, and nontender. No organomegaly noted. Musculoskeletal: Right-sided muscle strength 5/5 and symmetric in upper and lower extremities. Left-sided muscle strength 4/5 and symmetric in upper and lower extremities; she reports this is her baseline. Neuro: Cranial nerves II through XII without deficit. Sensation light touch intact. Psych: Patient's affect is appropriate for situation. - General Limitations: no limitations General appearance: alert, in no apparent distress Course Course Narrative: Patient remains hypotensive with systolic in the 80s after fluid resuscitation initiated by day team. She remains symptomatic at this time. Will provide an additional liter and reassess. My suspicion is this is multifactorial given her polypharmacy as well as her history of paroxysmal hypotension/hypertension. Patient ambulated. Her BP stayed above 110. Her SpO2 reduced to 80%. No baseline O2 use at home. Will admit for hypoxia, hypotension, and inability to walk 2/2 gen. weakness & hypoxia. Spoke with Dr. Florian, he agrees to accept the patient. Vital Signs Temperature 98.9 F 07/17/16 15:53 Pulse Rate 76 07/17/16 15:53 Respiratory Rate 18 07/17/16 15:53 Blood Pressure 70/46 07/17/16 15:53 O2 Sat by Pulse Oximetry 96 07/17/16 15:53 Temperature 97.6 F 07/18/16 03:27 Pulse Rate 71 07/18/16 03:27 Respiratory Rate 15 07/18/16 03:27 Blood Pressure 113/77 07/18/16 03:27 O2 Sat by Pulse Oximetry 97 07/18/16 03:27 Oxygen Delivery Oxygen Delivery Room Air Weakness - Lab Data Result diagrams: 07/18/16 00:31 07/18/16 00:31 Lab Results 07/17/16 07/17/16 07/17/16 Range/Units 17:14 17:20 17:20 WBC 10.3 (4.3-11.1) K/mcL RBC 4.55 (3.82-4.97) M/mcL Hgb 12.6 (11.5-15.4) g/dL Hct 38.0 (35.3-44.9) % MCV 83.5 (83.0-100.0) fL MCH 27.7 L (28.0-33.3) pg MCHC 33.2 (31.6-35.5) g/dL RDW 15.8 H (11.5-14.5) % Plt Count 292 (140-400) K/mcL MPV 9.6 (9.4-12.4) fL Immature Gran % 0.8 (0-4) % Seg Neutrophils % 60.8 % Lymphocytes % 30.4 % Monocytes % 7.0 % Eosinophils % 0.6 % Basophils % 0.4 % Neutrophils # 6.2 (1.6-8.9) K/mcL Lymphocytes # 3.1 (0.6-4.6) K/mcL Monocytes # 0.7 (0.0-1.3) K/mcL Eosinophils # 0.1 (0.0-0.6) K/mcL Basophils # 0.0 (0.0-0.2) K/mcL ESR 39 H (0-15) mm/hr Sodium 134 L (136-145) mEq/L Potassium 4.4 (3.5-4.5) mEq/L Chloride 105 (98-109) mEq/L Carbon Dioxide 13 L (19-29) mEq/L BUN 16 (7-20) mg/dL Creatinine 1.67 H (0.57-1.11) mg/dL Est GFR ( Amer) 39 L (> 60) Est GFR (Non-Af Amer) 32 L (> 60) BUN/Creatinine Ratio 10 (6-26) Glucose 344 H (70-99) mg/dL Calculated Osmolality 293 (280-300) Calcium 8.8 (8.6-10.8) mg/dL Ionized Calcium Cancelled Phosphorus 3.4 (2.3-4.7) mg/dL Magnesium 1.5 L (1.6-2.6) mg/dL Total Bilirubin 0.4 (0.2-1.2) mg/dL AST 10 (5-34) Units/L ALT 7 (0-55) Units/L Alkaline Phosphatase 76 (38-126) Units/L Creatine Kinase 34 (29-168) Units/L Troponin I (0-0.03) ng/mL Serum Total Protein 8.1 (6.0-8.3) g/dL Albumin 3.6 (3.5-5.0) g/dL Globulin 4.5 H (2.4-3.5) g/dL Albumin/Globulin Ratio 0.8 L (1.1-2.2) Beta-Hydroxybutyric Acd (0.02-0.27) mmol/L TSH 1.195 (0.350-4.840) mcIU/mL Urine Color (Yellow) Urine Clarity (Clear) Urine pH (5.0-8.0) pH Units Ur Specific [place] (1.010-1.025) Urine Protein (Neg-Trace) mg/dL Urine Glucose (UA) (Normal) mg/dL Urine Ketones (Negative) mg/dL Urine Blood (Negative) Urine Nitrite (Negative) Urine Bilirubin (Negative) Urine Urobilinogen (Normal) mg/dL Ur Leukocyte Esterase (Negative) Urine Microscopic RBC (0-3) per hpf Urine Microscopic WBC (0-3) per hpf Ur Squamous Epith Cells (None-Few) per lpf Calcium Oxalate Crystal Urine Bacteria (None-Few) per hpf Hyaline Casts (None-Few) per lpf Ur Culture Indicated? (NO) 07/17/16 07/17/16 07/17/16 Range/Units 17:20 17:20 18:13 WBC (4.3-11.1) K/mcL RBC (3.82-4.97) M/mcL Hgb (11.5-15.4) g/dL Hct (35.3-44.9) % MCV (83.0-100.0) fL MCH (28.0-33.3) pg MCHC (31.6-35.5) g/dL RDW (11.5-14.5) % Plt Count (140-400) K/mcL MPV (9.4-12.4) fL Immature Gran % (0-4) % Seg Neutrophils % % Lymphocytes % % Monocytes % % Eosinophils % % Basophils % % Neutrophils # (1.6-8.9) K/mcL Lymphocytes # (0.6-4.6) K/mcL Monocytes # (0.0-1.3) K/mcL Eosinophils # (0.0-0.6) K/mcL Basophils # (0.0-0.2) K/mcL ESR (0-15) mm/hr Sodium (136-145) mEq/L Potassium (3.5-4.5) mEq/L Chloride (98-109) mEq/L Carbon Dioxide (19-29) mEq/L BUN (7-20) mg/dL Creatinine (0.57-1.11) mg/dL Est GFR ( Amer) (> 60) Est GFR (Non-Af Amer) (> 60) BUN/Creatinine Ratio (6-26) Glucose (70-99) mg/dL Calculated Osmolality (280-300) Calcium (8.6-10.8) mg/dL Ionized Calcium Phosphorus (2.3-4.7) mg/dL Magnesium (1.6-2.6) mg/dL Total Bilirubin (0.2-1.2) mg/dL AST (5-34) Units/L ALT (0-55) Units/L Alkaline Phosphatase (38-126) Units/L Creatine Kinase (29-168) Units/L Troponin I 0.00 (0-0.03) ng/mL Serum Total Protein (6.0-8.3) g/dL Albumin (3.5-5.0) g/dL Globulin (2.4-3.5) g/dL Albumin/Globulin Ratio (1.1-2.2) Beta-Hydroxybutyric Acd 0.23 (0.02-0.27) mmol/L TSH (0.350-4.840) mcIU/mL Urine Color Red A (Yellow) Urine Clarity Turbid A (Clear) Urine pH 5.0 (5.0-8.0) pH Units Ur Specific [place] > 1.030 H (1.010-1.025) Urine Protein 30 H (Neg-Trace) mg/dL Urine Glucose (UA) >=1000 H (Normal) mg/dL Urine Ketones Trace H (Negative) mg/dL Urine Blood Negative (Negative) Urine Nitrite Negative (Negative) Urine Bilirubin Moderate H (Negative) Urine Urobilinogen Normal (Normal) mg/dL Ur Leukocyte Esterase Trace H (Negative) Urine Microscopic RBC 5-15 H (0-3) per hpf Urine Microscopic WBC 5-15 H (0-3) per hpf Ur Squamous Epith Cells Many H (None-Few) per lpf Calcium Oxalate Crystal Present Urine Bacteria Few (None-Few) per hpf Hyaline Casts Few (None-Few) per lpf Ur Culture Indicated? YES A (NO) Attestation Statement - Attestation Attestation: For this encounter, I have reviewed the resident, BRAKE ASSEMBLER, or PA documentation, treatment plan, and medical decision making; and I have had face to face time with this patient. 56-year-old female received in signout from the day team pending laboratory evaluation and disposition. She presents to the emergency department for evaluation of acute onset generalized weakness. She does not have significant abnormality on her laboratory evaluation. Patient had a chest x-ray was does not show acute infiltrate. The patient had received 2-1/2 L of IV fluids however she developed hypotension multiple times in the emergency department. Patient also became hypoxic upon standing for her ambulation trial. The patient will be admitted to the hospital for hypotension, hypoxia, and inability to ambulate.
[2016-07-17] MEDS ORDERED: Ketorolac 15 MG/ML VIAL IVP ONE (20:59)
[2016-07-17] MEDS ORDERED: Benzonatate 100 MG CAPSULE PO PRN (22:45)
[2016-07-17] MEDS ORDERED: *HR* Morphine 2 MG/ML SYRINGE IVP PRN (22:45)
[2016-07-17] MEDS ORDERED: Naloxone 0.4 MG/ML INJ IVP PRN ×2 (22:45→23:30)
[2016-07-17] MEDS ORDERED: Pantoprazole 40 MG VIAL IVP STA (22:45)
[2016-07-17] MEDS ORDERED: Acetaminophen 325 MG TABLET PO PRN (22:45)
[2016-07-17] MEDS ORDERED: Nitroglycerin 0.4 MG TAB.SUBL SL PRN (23:00)
--- NOTE | 2016-07-17 23:11 | Internal Med History&Physical ---
Date of Encounter: 07/17/16 Time of Encounter: 23:00 Assessment and Plan (1) Adult failure to thrive syndrome Status: Chronic . (2) CVA, old, hemiparesis Status: Chronic . (3) High anion gap metabolic acidosis Status: Acute . (4) Acute kidney injury superimposed on CKD Status: Acute . (5) Dehydration with hyponatremia Status: Acute . (6) CKD (chronic kidney disease) stage 3, GFR 30-59 ml/min Status: Chronic . (7) Type 2 diabetes mellitus Status: Chronic . 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 (9) UTI (urinary tract infection) Status: Acute . Qualifiers: Urinary tract infection type: acute cystitis Hematuria presence: without hematuria Qualified Code(s): N30.00 - Acute cystitis without hematuria (10) Generalized weakness Status: Acute . (11) Adjustment reaction with anxiety and depression Status: Acute . (12) Chronic anticoagulation Status: Chronic . (13) Folate deficiency Status: Acute . (14) History of pulmonary embolism Status: Chronic . (15) Hypertension Status: Chronic . Qualifiers: Hypertension type: unspecified secondary hypertension Qualified Code(s): I15.9 - Secondary hypertension, unspecified; I15 - Secondary hypertension (16) Polypharmacy Status: Chronic . (17) Severe hypothyroidism Status: Chronic . (18) Thoracic radiculopathy due to osteoarthritis of spine Status: Chronic . (19) Thoracic spinal stenosis Status: Chronic . (20) CAD (coronary artery disease) Status: Chronic . Qualifiers: Coronary Disease-Associated Artery/Lesion type: [place] artery [place] vs. transplanted heart: [place] heart Associated angina: angina presence unspecified Qualified Code(s): I25.10 - Atherosclerotic heart disease of [place] coronary artery without angina pectoris (21) CHF (congestive heart failure) Status: Chronic . Qualifiers: Congestive heart failure type: diastolic Congestive heart failure chronicity: chronic Qualified Code(s): I50.32 - Chronic diastolic (congestive ) heart failure (22) Cervical stenosis of spinal canal Status: Chronic . (23) Dyslipidemia Status: Chronic . (24) Frequent falls Status: Chronic . (25) Hemiparesis affecting left side as late effect of cerebrovascular accident (CVA) Status: Chronic . (26) History of pulmonary embolism Status: Chronic . (27) History of venous thromboembolism Status: Chronic . (28) Iron deficiency anemia Status: Chronic . Qualifiers: Iron deficiency anemia type: unspecified iron deficiency Qualified Code(s) : D50.9 - Iron deficiency anemia, unspecified (29) Morbid obesity with BMI of 40.0-44.9, adult Status: Chronic . (30) Paroxysmal atrial fibrillation Status: Chronic . (31) Postural hypotension Status: Acute . (32) At risk for accident in home Status: Acute . (33) At risk for acid-base imbalance Status: Acute . (34) At risk for activity intolerance Status: Acute . (35) At risk for acute confusion Status: Acute . (36) At risk for adverse drug event Status: Acute . (37) Neurocardiogenic pre-syncope Status: Acute . Internal Medicine - H&P: HPI Chief complaint: Generalized weakness Admitted From: Emergency Dept Plans for Post Hospital Care: Home History of present illness: Ms. Millan is a 56 year old female history significant for old CVA with left hemiparesis/TIAs, nonobst CAD/AMI/diast CHF, H/O DVT/PE, hypertension, dyslipidemia, paroxysmal atrial fibrillation on sotalol therapy, chronic anticoagulation (warfarin), type 2 diabetes mellitus, diabetic peripheral neuropathy, chronic musculoskeletal pain, osteoarthritis, osteoporosis, DDD thoracolumbar spine w/ radiculopathy, iron deficiency anemia, vitamin D deficiency, hypothyroidism, stress urinary incontinence, depression and anxiety/ PTSD, GERD, migraines, nephrolithiasis,CKD III, H/O asthma, neurocardiogenic syncope/presyncope, morbid obesity, nonsmoker The patient was visited and interviewed and examined. Patient was admitted to [facility] via the emergency department when she presents via EMS services from home with complaints of generalized weakness. Worsening symptoms for 1 week impacting on ability to complete independent tasks of daily living. She was significant for remote CVA with residual left hemiplegia. At baseline ambulatory via wheelchair and assisted walking with walker. Diminished functional capacity within recent days. Patient describes symptoms as her legs simply giving out from beneath her. Able to stand and bear weight but attempts at gait are unsure. Occasional associated lightheadedness/ presyncope with a associated flushing feeling. Experienced such an event of presyncope on the day of presentation to the ED. Denies fevers chills night sweats nausea vomiting. Denies acute unilateral weakness or numbness paresthesias or pain. Denies any perceived palpitations or rapid or slow heart beats. Denies acute chest pain, neck pain, headache. Dehydrated and weak. SHe underwent thoracolumbar spinal surgery February 2016 for spinal stenosis. She notes that she has had general decline in function from that time forward. Worse in the 1-2 weeks prior to this presentation. She denies associated chest pain abdominal pain for lower respiratory complaints. Denies nausea vomiting diarrhea constipation. Denies flank pain fevers chills sweats. Findings in the ED: Temperature 98.1 pulse 70-76 respirations 18 PT 70-97/46-62 O2 saturation 96-97% 2 L per nasal cannula. WBC 10.3 hemoglobin 12.6 platelets 292,000. RDW 15.8. Differential normal. [place] panel sodium 134. Carbon dioxide 13. BUN 16 creatinine 1.67 GFR 32. Glucose 348 osmolality 293. Hepatic function normal. Magnesium 1.5. Phosphorus 3.4. TSH 1.195. Troponin 0.00. Urinalysis red. Specific gravity greater than 1.03. Protein large glucose and large ketones trace. Moderate bilirubin. Trace leukocyte esterase. 15 RBC. 15 WBC. Many squamous epithelial cells. Calcium oxalate crystals present. Few bacteria. Few hyalin casts. Chest x-ray no acute cardiopulmonary process. Small calcified granuloma within the right lung base. CT head scan demonstrates no acute intracranial abnormalities. No acute intracranial hemorrhage mass effect midline shift or fluid collection. No evidence of hydrocephalus. No evidence for acute infarct. EKG normal sinus rhythm. No acute ischemic changes. Cumulative laboratory and radiographic data base will be considered and discussed. Pertinent ancillary medical records including ECW and PCI documentation when available was reviewed and considered. Given the patient's presenting concerns, past medical history, clinical findings and symptoms, she is admitted at this time will undergo further evaluation and disposition. Orders were written as per Computerized physician order runner system.......................................................................... .................... Consultative opinion and will be sought as clinical circumstances justify. Pain management needs will be addressed. Laboratory radiographic data base will be updated as appropriate. Studies include: Cultures of blood and urine and sputum, negative cardiac injury panel, BNP, troponin metabolic and hematologic panel, magnesium phosphorus, ionized calcium, thyroid panel lipid profile, A1c C-peptide, CRP sedimentation rate, respiratory infection profile, respiratory virus panel, blood gas, lactic acid, serologies, etc. Precautions: Aspiration, fall, delirium protocol/surveillance initiated. Telemetry with continuous hemodynamic monitoring and pulse oximetry initiated. Empiric antibody coverage: Intravenous Rocephin and azithromycin pending culture data. Special studies: CT of the chest, chest x-ray, telemetry, EKG. Pulmonary toilet: Incentive spirometry, aerosol bronchodilator, mucolytic, antitussive, supplemental oxygen. Corticosteroid therapy. CPAP/BiPAP supplemental oxygen delivery employed. Aerosol Mucomyst therapy may be employed. Fluid and electrolyte repletion efforts will proceed. Careful attention to fluid balance and renal recovery will be emphasized. Avoidance of nephrotoxic exposure and adverse drug drug interaction in the setting of impaired renal function will be monitored closely. Acute coronary syndrome protocol/surveillance initiated. DVT and PUD prophylaxis initiated: PPI therapy, intermittent pneumatic cuffs. Subcutaneous heparin was held due to thrombocytopenia. Early ambulation will be encouraged. Immunization updates recommended. Influenza and pneumococcal vaccinations as part of ongoing preventative healthcare recommendations strongly recommended. Smoke cessation counseling briefly addressed. Patient is a nonsmoker. Advanced care directive discussion briefly addressed. Patient does not declare any healthcare restrictions at this time. Cardiovascular risk appraisal and cardiovascular risk reduction efforts will be emphasized. Physical occupational therapy may be counseled to evaluate patient's function capacity and progressive mobility of her circumstances justify. Sliding scale insulin coverage, ADA dietary restraint and schedule an as-needed basis fingerstick glucose assessments were initiated. Nutrition/diabetes education counseling may be considered as circumstances justify. Outpatient medication schedules will be reviewed confirmed and facilitated as appropriate. Reconciliation of home treatments including adjustment substitutions and reintroduction into the treatment regimen as necessary maintenance therapies for chronic pre-existing medical conditions. Plan of care has been reviewed and discussed in detail with the patient. Questions addressed. Hospital course and clinical findings, treatment response and potential consultative interventions. Patient is a risk for further acute clinical decline due to her age, chief complaints and comorbid conditions. Condition is serious. Prognosis is cautiously optimistic. CODE STATUS is full. Past Med Surg Social Fam HX - Past Medical History Source: old records reviewed Medical history: arthritis, asthma, atrial fibrillation, cardiomyopathy, COPD, coronary artery disease (mild, non-obstructive per [facility] in 2012. ), CVA, DVT, diabetes, GERD, hyperlipidemia, hypertension, kidney stones, migraine, myocardial infarction, osteoporosis, pulmonary embolus (August 2014, May 2015), renal disease, thyroid disease, TIA, other Psychiatric history: anxiety, depression, PTSD, other - Past Surgical History Surgical History: cholecystectomy, orthopedic, other, other - Social History Smoking Status: Never smoker Smokeless Tobacco Status: No Alcohol use: none Drug use: none Occupational status: unemployed Current living situation: With Family Activity Level: Uses cane/walker, Wheelchair bound, Bed bound, Mostly sedentary Recent Out of Country Travel Within the Last 8 Weeks: No Exposure or Possible Exposure to Illness During Travel: No - Family History Father Living Status: Still Living Hx Family Cardiac Disorders: Yes Hx Family Respiratory Disorders: Yes Hx Family Cancer: Yes Hx Family GI Disorders: Yes Hx Family Endocrine Disorder: Yes Hx Family Neuromuscular Disorders: Yes Hx Family Neurologic Disorders: Yes Hx Family HEENT Disorders: No Hx Family Autoimmune Disorders: No Mother Living Status: Hx Family Cardiac Disorders: Yes Hx Family Respiratory Disorders: Yes Hx Family Cancer: Yes Hx Family GI Disorders: Yes Hx Family Endocrine Disorder: Yes Hx Family Neuromuscular Disorders: No Hx Family Neurologic Disorders: No Hx Family HEENT Disorders: No Hx Family Autoimmune Disorders: No Brother Living Status: Still Living Hx Family Cardiac Disorders: Yes ([place]) Hx Family Respiratory Disorders: No Hx Family Cancer: No Hx Family GI Disorders: No Hx Family Endocrine Disorder: No Hx Family Neuromuscular Disorders: No Hx Family Neurologic Disorders: No Hx Family HEENT Disorders: No Hx Family Autoimmune Disorders: No Sister Living Status: Hx Family Cardiac Disorders: No Hx Family Respiratory Disorders: No Hx Family Cancer: Yes Hx Family GI Disorders: No Hx Family Endocrine Disorder: No Hx Family Neuromuscular Disorders: No Hx Family Neurologic Disorders: No Hx Family HEENT Disorders: No Hx Family Autoimmune Disorders: No Daughter Living Status: Still Living Hx Family Cardiac Disorders: No Hx Family Respiratory Disorders: No Hx Family Cancer: No Hx Family GI Disorders: No Hx Family Endocrine Disorder: No Hx Family Neuromuscular Disorders: No Hx Family Neurologic Disorders: No Hx Family HEENT Disorders: No Hx Family Autoimmune Disorders: No Internal Medicine - H&P: Meds Aspirin Enteric Coated [Aspirin EC] 81 mg PO DAILY 12/30/14 [History] Atorvastatin [Lipitor] 40 mg PO HS 12/30/14 [History] Nitroglycerin [Nitrostat] 0.4 mg PO Q5M PRN 12/30/14 [History] Sotalol HCl [Betapace] 80 mg PO BID 12/30/14 [History] Amlodipine [Norvasc] 5 mg PO DAILY 30 Days 09/12/15 [Rx] Gabapentin [Neurontin] 300 mg PO TID 10/11/15 [History] Prazosin HCl [Minipress] 5 mg PO HS 10/11/15 [History] Albuterol Sulfate [Ventolin Hfa] 2 puff IH QID PRN 10/12/15 [History] Cholecalciferol (D-3) [Vitamin D] 1,000 unit PO BID 10/12/15 [History] Cyclobenzaprine [Flexeril] 10 mg PO TID 10/12/15 [History] Furosemide [Lasix] 40 mg PO QPM 10/12/15 [History] Linagliptin [Tradjenta] 5 mg PO DAILY 10/12/15 [History] Lisinopril [Zestril] 40 mg PO DAILY 10/12/15 [History] Oxybutynin [Ditropan] 5 mg PO BID 10/12/15 [History] Quetiapine Fumarate [Seroquel] 25 - 50 mg PO TID 10/12/15 [History] Isosorbide MONOnitrate (24 HR) [Imdur] 60 mg PO DAILY #30 tab.er.24h 10/15/15 [ Rx] Ranolazine [Ranexa] 500 mg PO BID #60 tab.er.12h 10/15/15 [Rx] Folic Acid 1 mg PO DAILY 02/29/16 [History] Quetiapine Fumarate [Seroquel] 500 mg PO HS 02/29/16 [History] Warfarin [Coumadin] 5 mg PO 1800 02/29/16 [History] Buspirone HCl [Buspar] 7.5 mg PO BID 07/17/16 [History] Furosemide [Lasix] 80 mg PO QAM 07/17/16 [History] LORazepam [Lorazepam] 2 mg PO HS 07/17/16 [History] Levothyroxine [Synthroid] 200 mcg PO QAM 07/17/16 [History] Medroxyprogesterone Acetate [Provera] 10 mg PO BID 07/17/16 [History] Metformin [Glucophage] 500 mg PO BIDWM 07/17/16 [History] OxyCODONE/APAP 7.5/325 [Percocet 7.5/325 MG] 1 each PO Q6H PRN 07/17/16 [History ] Pantoprazole Sodium [Protonix] 40 mg PO DAILY 07/17/16 [History] Promethazine [Phenergan] 25 mg PO BID 07/17/16 [History] Spironolactone [Aldactone] 25 mg PO DAILY 07/17/16 [History] Trazodone HCl 100 mg PO HS 07/17/16 [History] Docusate [Colace] 100 mg PO BID PRN #60 capsule 07/20/16 [Rx] Allergies Latex, Natural Rubber Allergy (Verified 04/01/15 09:23) Rash prednisone Allergy (Verified 04/01/15 09:23) Rash Zolpidem [From Ambien] Allergy (Verified 04/01/15 09:23) Hallucinating tape Allergy (Uncoded 09/08/15 03:19) Rash All Systems PM: A 10-system review of systems was performed and is negative for pertinent findings except as documented above in the HPI. - Constitutional Constitutional: as per HPI, fatigue, malaise, weakness, no chills, no fever(s), no night sweats - EENT Eyes: as per HPI, no change in vision, no discharge, no pain, no photophobia Ears: as per HPI, no ear discharge, no ear pain, no tinnitus Nose, mouth and throat: as per HPI, no dysphagia, no nasal discharge, no neck pain, no sore throat - Cardiovascular Cardiovascular ROS IM: as per HPI, no chest pain, no diaphoresis, no dyspnea, no lightheadedness, no palpitations, no syncope - Respiratory Respiratory: as per HPI, no cough, no dyspnea, no wheezing, no excessive phlegm production - Gastrointestinal Gastrointestinal: as per HPI, no abdominal pain, no diarrhea, no hematemesis, no hematochezia, no melena, no nausea, no vomiting - Genitourinary Genitourinary: as per HPI, no change in urinary stream, no dysuria, no flank pain, no hematuria - Musculoskeletal Musculoskeletal ROS IM: as per HPI, back pain, muscle weakness, other, no numbness, no tingling - Integumentary Integumentary IM: as per HPI, no rash, no unusual bruising - Neurological Neurological ROS: as per HPI, abnormal gait, focal weakness, frequent falls, paresthesias, radicular pain, restless legs, weakness, other, no confusion, no convulsions, no numbness, no tingling, no tremor(s) - Psychiatric Psychiatric: as per HPI - Endocrine Endocrine IM: as per HPI - Hematologic/Lymphatic Hematologic/Lymphatic: as per HPI, no easy bruising - Allergic/Immunologic Allergic/Immunologic: as per HPI - Constitutional Vitals: Temp Pulse Resp BP Pulse Ox 98.9 F 74 18 117/65 97 07/17/16 15:53 07/17/16 20:56 07/17/16 22:48 07/17/16 22:48 07/17/16 20:56 General appearance: Present: mild distress, A&O X 3, morbidly obese, answers questions appropriately - Head Head exam: Present: atraumatic, normocephalic - Eye Eye exam: Present: EOMI, PERRL, conjuntiva pink, sclera anicteric Pupils: Present: normal accommodation, PERRL - ENT ENT exam: Present: mucous membranes moist, normal oropharynx - Neck Neck exam general surgery: Present: full ROM, supple, trachea midline. Absent: lymphadenopathy - Respiratory Respiratory exam: Present: decreased breath sounds, CTAB. Absent: accessory muscle use, rales, rhonchi, wheezes - Cardiovascular Cardiovascular exam: Present: distant heart sounds, RRR, +S1, +S2. Absent: diastolic murmur, gallop, rubs, systolic murmur - GI/Abdominal GI/Abdominal exam: Present: normal bowel sounds, soft, no peritoneal signs. Absent: distended, tenderness - Extremities Exam Extremities exam: Present: full ROM, warm, radial pulses palpable and symetrical. Absent: calf tenderness, cyanotic, pedal edema - Neurological Exam Neurological exam: Present: alert, CN II-XII intact, motor sensory deficit, oriented X3. Absent: strengths equal and symetr throughout, pronater drift, facial droop, speech deficit - Expanded Neurological Exam Neurological exam expanded: Present: ataxia, inattentive, protecting the airway. Absent: expressive aphasia, receptive aphasia, tremor Patient oriented to: Present: person, place, time Speech: Present: fluid speech Coma Scale Eye Opening: Spontaneous Coma Scale Motor Response: Obeys Commands Coma Scale Verbal Response: Oriented Coma Scale Total: 15 - Psychiatric Psychiatric exam: Present: normal affect, normal mood - Skin Skin exam: Present: dry, intact, warm Internal Med - H&P Results - Labs CBC & Chem 7: 07/18/16 00:31 07/19/16 04:08 - Impressions Vital Signs Temp Pulse Resp BP Pulse Ox 07/17/16 23:16 97.5 F L 64 15 117/76 95 07/17/16 22:48 18 117/65 07/17/16 20:56 74 18 115/95 97 07/17/16 19:07 93 18 107/66 97 07/17/16 18:44 72 18 97/62 97 07/17/16 18:17 68 18 101/76 98 07/17/16 18:02 78 18 79/47 97 07/17/16 17:49 67 18 88/55 97 07/17/16 17:29 82 18 102/62 98 07/17/16 17:14 71 18 92/61 97 07/17/16 16:45 73 18 84/58 97 07/17/16 16:30 76 18 82/49 98 07/17/16 15:53 98.9 F 76 18 70/46 96 Intake and Output 07/17/16 07/17/16 07/17/16 07:59 15:59 23:59 Intake Total 1999 Balance 1999 Intake: IV Fluids 1999 0.9 % Sodium Chloride 1, 1000 / 1000 000 ML @ 3750 mls/hr IV BOLUS ONE Rx#:[id number] 0.9 % Sodium Chloride 1, 1000 / 1000 000 ML @ 3750 mls/hr IVC .Q16M ONE Rx#:[id number] Other: Stool Characteristics Normal for Patient Weight 117.934 kg Patient Weight 07/17/16 23:59 Weight 117.934 kg Short CBC 07/17/16 Range/Units 17:20 WBC 10.3 (4.3-11.1) K/mcL Hgb 12.6 (11.5-15.4) g/dL Hct 38.0 (35.3-44.9) % Plt Count 292 (140-400) K/mcL Neutrophils # 6.2 (1.6-8.9) K/mcL BMP 07/17/16 Range/Units 17:14 Sodium 134 L (136-145) mEq/L Potassium 4.4 (3.5-4.5) mEq/L Chloride 105 (98-109) mEq/L Carbon Dioxide 13 L (19-29) mEq/L BUN 16 (7-20) mg/dL Creatinine 1.67 H (0.57-1.11) mg/dL Glucose 344 H (70-99) mg/dL Calcium 8.8 (8.6-10.8) mg/dL Cardiac Enzymes 07/17/16 Range/Units 17:20 Troponin I 0.00 (0-0.03) ng/mL Liver Function 07/17/16 Range/Units 17:14 Total Bilirubin 0.4 (0.2-1.2) mg/dL AST 10 (5-34) Units/L ALT 7 (0-55) Units/L Alkaline Phosphatase 76 (38-126) Units/L Albumin 3.6 (3.5-5.0) g/dL Urine 07/17/16 Range/Units 18:13 Urine Color Red A (Yellow) Urine Clarity Turbid A (Clear) Urine pH 5.0 (5.0-8.0) pH Units Ur Specific [place] > 1.030 H (1.010-1.025) Urine Protein 30 H (Neg-Trace) mg/dL Urine Glucose (UA) >=1000 H (Normal) mg/dL Abnormal lab results MCH 27.7 pg (28.0-33.3) L 07/17/16 17:20 RDW 15.8 % (11.5-14.5) H 07/17/16 17:20 ESR 39 mm/hr (0-15) H 07/17/16 17:20 Sodium 134 mEq/L (136-145) L 07/17/16 17:14 Carbon Dioxide 13 mEq/L (19-29) L 07/17/16 17:14 Creatinine 1.67 mg/dL (0.57-1.11) H 07/17/16 17:14 Est GFR ( Amer) 39 (> 60) L 07/17/16 17:14 Est GFR (Non-Af Amer) 32 (> 60) L 07/17/16 17:14 Glucose 344 mg/dL (70-99) H 07/17/16 17:14 Magnesium 1.5 mg/dL (1.6-2.6) L 07/17/16 17:14 Globulin 4.5 g/dL (2.4-3.5) H 07/17/16 17:14 Albumin/Globulin Ratio 0.8 (1.1-2.2) L 07/17/16 17:14 Urine Color Red (Yellow) A 07/17/16 18:13 Urine Clarity Turbid (Clear) A 07/17/16 18:13 Ur Specific [place] > 1.030 (1.010-1.025) H 07/17/16 18:13 Urine Protein 30 mg/dL (Neg-Trace) H 07/17/16 18:13 Urine Glucose (UA) >=1000 mg/dL (Normal) H 07/17/16 18:13 Urine Ketones Trace mg/dL (Negative) H 07/17/16 18:13 Urine Bilirubin Moderate (Negative) H 07/17/16 18:13 Ur Leukocyte Esterase Trace (Negative) H 07/17/16 18:13 Urine Microscopic RBC 5-15 per hpf (0-3) H 07/17/16 18:13 Urine Microscopic WBC 5-15 per hpf (0-3) H 07/17/16 18:13 Ur Squamous Epith Cells Many per lpf (None-Few) H 07/17/16 18:13 Ur Culture Indicated? YES (NO) A 07/17/16 18:13 Allergies Allergy/AdvReac Type Severity Reaction Status Date / Time Latex, Natural Rubber Allergy Rash Verified 04/01/15 09:23 prednisone Allergy Rash Verified 04/01/15 09:23 Zolpidem [From Ambien] Allergy Hallucinati Verified 04/01/15 09:23 ng tape Allergy Rash Uncoded 09/08/15 03:19 Laboratory Results WBC 10.3 K/mcL (4.3-11.1) 07/17/16 17:20 RBC 4.55 M/mcL (3.82-4.97) 07/17/16 17:20 Hgb 12.6 g/dL (11.5-15.4) 07/17/16 17:20 Hct 38.0 % (35.3-44.9) 07/17/16 17:20 MCV 83.5 fL (83.0-100.0) 07/17/16 17:20 MCH 27.7 pg (28.0-33.3) L 07/17/16 17:20 MCHC 33.2 g/dL (31.6-35.5) 07/17/16 17:20 RDW 15.8 % (11.5-14.5) H 07/17/16 17:20 Plt Count 292 K/mcL (140-400) 07/17/16 17:20 MPV 9.6 fL (9.4-12.4) 07/17/16 17:20 Immature Gran % 0.8 % (0-4) 07/17/16 17:20 Seg Neutrophils % 60.8 % 07/17/16 17:20 Lymphocytes % 30.4 % 07/17/16 17:20 Monocytes % 7.0 % 07/17/16 17:20 Eosinophils % 0.6 % 07/17/16 17:20 Basophils % 0.4 % 07/17/16 17:20 Neutrophils # 6.2 K/mcL (1.6-8.9) 07/17/16 17:20 Lymphocytes # 3.1 K/mcL (0.6-4.6) 07/17/16 17:20 Monocytes # 0.7 K/mcL (0.0-1.3) 07/17/16 17:20 Eosinophils # 0.1 K/mcL (0.0-0.6) 07/17/16 17:20 Basophils # 0.0 K/mcL (0.0-0.2) 07/17/16 17:20 ESR 39 mm/hr (0-15) H 07/17/16 17:20 Sodium 134 mEq/L (136-145) L 07/17/16 17:14 Potassium 4.4 mEq/L (3.5-4.5) 07/17/16 17:14 Chloride 105 mEq/L (98-109) 07/17/16 17:14 Carbon Dioxide 13 mEq/L (19-29) L 07/17/16 17:14 BUN 16 mg/dL (7-20) 07/17/16 17:14 Creatinine 1.67 mg/dL (0.57-1.11) H 07/17/16 17:14 Est GFR ( Amer) 39 (> 60) L 07/17/16 17:14 Est GFR (Non-Af Amer) 32 (> 60) L 07/17/16 17:14 BUN/Creatinine Ratio 10 (6-26) 07/17/16 17:14 Glucose 344 mg/dL (70-99) H 07/17/16 17:14 Calculated Osmolality 293 (280-300) 07/17/16 17:14 Calcium 8.8 mg/dL (8.6-10.8) 07/17/16 17:14 Ionized Calcium Cancelled 07/17/16 17:14 Phosphorus 3.4 mg/dL (2.3-4.7) 07/17/16 17:14 Magnesium 1.5 mg/dL (1.6-2.6) L 07/17/16 17:14 Total Bilirubin 0.4 mg/dL (0.2-1.2) 07/17/16 17:14 AST 10 Units/L (5-34) 07/17/16 17:14 ALT 7 Units/L (0-55) 07/17/16 17:14 Alkaline Phosphatase 76 Units/L (38-126) 07/17/16 17:14 Creatine Kinase 34 Units/L (29-168) 07/17/16 17:14 Troponin I 0.00 ng/mL (0-0.03) 07/17/16 17:20 Serum Total Protein 8.1 g/dL (6.0-8.3) 07/17/16 17:14 Albumin 3.6 g/dL (3.5-5.0) 07/17/16 17:14 Globulin 4.5 g/dL (2.4-3.5) H 07/17/16 17:14 Albumin/Globulin Ratio 0.8 (1.1-2.2) L 07/17/16 17:14 Beta-Hydroxybutyric Acd 0.23 mmol/L (0.02-0.27) 07/17/16 17:20 TSH 1.195 mcIU/mL (0.350-4.840) 07/17/16 17:14 Urine Color Red (Yellow) A 07/17/16 18:13 Urine Clarity Turbid (Clear) A 07/17/16 18:13 Urine pH 5.0 pH Units (5.0-8.0) 07/17/16 18:13 Ur Specific [place] > 1.030 (1.010-1.025) H 07/17/16 18:13 Urine Protein 30 mg/dL (Neg-Trace) H 07/17/16 18:13 Urine Glucose (UA) >=1000 mg/dL (Normal) H 07/17/16 18:13 Urine Ketones Trace mg/dL (Negative) H 07/17/16 18:13 Urine Blood Negative (Negative) 07/17/16 18:13 Urine Nitrite Negative (Negative) 07/17/16 18:13 Urine Bilirubin Moderate (Negative) H 07/17/16 18:13 Urine Urobilinogen Normal mg/dL (Normal) 07/17/16 18:13 Ur Leukocyte Esterase Trace (Negative) H 07/17/16 18:13 Urine Microscopic RBC 5-15 per hpf (0-3) H 07/17/16 18:13 Urine Microscopic WBC 5-15 per hpf (0-3) H 07/17/16 18:13 Ur Squamous Epith Cells Many per lpf (None-Few) H 07/17/16 18:13 Calcium Oxalate Crystal Present 07/17/16 18:13 Urine Bacteria Few per hpf (None-Few) 07/17/16 18:13 Hyaline Casts Few per lpf (None-Few) 07/17/16 18:13 Ur Culture Indicated? YES (NO) A 07/17/16 18:13 Impressions Chest X-Ray 07/17/16 15:54 IMPRESSION: No acute cardiopulmonary process. D/ / Lance Millard MD / Lance Millard MD Interpreting Provider: Lance Millard MD Head CT 07/17/16 15:54 IMPRESSION: No acute intracranial abnormality. D/ / Bladimir Hodge MD / Bladimir Hodge MD Interpreting Provider: Bladimir Hodge MD Allergies Latex, Natural Rubber Allergy (Verified 04/01/15 09:23) Rash prednisone Allergy (Verified 04/01/15 09:23) Rash Zolpidem [From Ambien] Allergy (Verified 04/01/15 09:23) Hallucinating tape Allergy (Uncoded 09/08/15 03:19) Rash Home Medications Medication Instructions Recorded Confirmed Type Aspirin Enteric Coated [Aspirin EC] 81 mg PO DAILY 12/30/14 07/17/16 History Atorvastatin [Lipitor] 40 mg PO HS 12/30/14 07/17/16 History Nitroglycerin [Nitrostat] 0.4 mg PO Q5M PRN 12/30/14 07/17/16 History Sotalol HCl [Betapace] 80 mg PO BID 12/30/14 07/17/16 History Gabapentin [Neurontin] 300 mg PO TID 10/11/15 07/17/16 History Prazosin HCl [Minipress] 5 mg PO HS 10/11/15 07/17/16 History Albuterol Sulfate [Ventolin Hfa] 2 puff IH QID PRN 10/12/15 07/17/16 History Cholecalciferol (D-3) [Vitamin D] 1,000 unit PO BID 10/12/15 07/17/16 History Cyclobenzaprine [Flexeril] 10 mg PO TID 10/12/15 07/17/16 History Furosemide [Lasix] 40 mg PO QPM 10/12/15 07/17/16 History Linagliptin [Tradjenta] 5 mg PO DAILY 10/12/15 07/17/16 History Lisinopril [Zestril] 40 mg PO DAILY 10/12/15 07/17/16 History Oxybutynin [Ditropan] 5 mg PO BID 10/12/15 07/17/16 History Quetiapine Fumarate [Seroquel] 25 - 50 mg PO TID 10/12/15 07/17/16 History Folic Acid 1 mg PO DAILY 02/29/16 07/17/16 History Quetiapine Fumarate [Seroquel] 500 mg PO HS 02/29/16 07/17/16 History Warfarin [Coumadin] 5 mg PO 1800 02/29/16 07/17/16 History Buspirone HCl [Buspar] 7.5 mg PO BID 07/17/16 07/17/16 History Furosemide [Lasix] 80 mg PO QAM 07/17/16 07/17/16 History LORazepam [Lorazepam] 2 mg PO HS 07/17/16 07/17/16 History Levothyroxine [Synthroid] 200 mcg PO QAM 07/17/16 07/17/16 History Medroxyprogesterone Acetate 10 mg PO BID 07/17/16 07/17/16 History [Provera] Metformin [Glucophage] 500 mg PO BIDWM 07/17/16 07/17/16 History OxyCODONE/APAP 7.5/325 [Percocet 1 each PO Q6H PRN 07/17/16 07/17/16 History 7.5/325 MG] Pantoprazole Sodium [Protonix] 40 mg PO DAILY 07/17/16 07/17/16 History Promethazine [Phenergan] 25 mg PO BID 07/17/16 07/17/16 History Spironolactone [Aldactone] 25 mg PO DAILY 07/17/16 07/17/16 History Trazodone HCl 100 mg PO HS 07/17/16 07/17/16 History I & O 07/14/16 07/15/16 07/16/16 07/17/16 23:59 23:59 23:59 23:59 Intake Total 1999 Balance 1999 Weight 117.934 kg Intake: IV Fluids 1999 0.9 % Sodium Chloride 1, 1000 / 1000 000 ML @ 3750 mls/hr IV BOLUS ONE Rx#:[id number] 0.9 % Sodium Chloride 1, 1000 / 1000 000 ML @ 3750 mls/hr IVC .Q16M ONE Rx#:[id number] Other: Stool Characteristics Normal for Patient Medications Acetaminophen (Tylenol) 650 mg PO Q6HR PRN PRN Reason: Mild Pain (1-3) Stop: 01/16/17 22:46 Aspirin (Aspirin Ec) 81 mg PO DAILY GAGE Stop: 01/17/17 09:01 Atorvastatin Calcium (Lipitor) 40 mg PO HS [facility] Stop: 01/17/17 21:01 Benzonatate (Tessalon) 200 mg PO TID PRN PRN Reason: Cough Stop: 01/16/17 22:46 Docusate Sodium (Colace) 100 mg PO BID PRN PRN Reason: Constipation Stop: 01/16/17 22:46 Folic Acid (Folic Acid) 1 mg PO DAILY [facility] Stop: 01/17/17 09:01 Gabapentin (Neurontin) 300 mg PO TID [facility] Stop: 01/17/17 09:01 Guaifenesin (Mucinex) 600 mg PO BID PRN PRN Reason: Congestion Stop: 01/16/17 22:46 Ceftriaxone Sodium 1,000 mg/ (Dextrose) 100 mls @ 200 mls/hr IVPB DAILY [facility] Stop: 01/17/17 09:01 Sodium Bicarbonate 100 meq/ (Sodium Chloride) 1,100 mls @ 100 mls/hr IVC .Q11H [facility] Stop: 01/16/17 23:01 Levothyroxine Sodium (Synthroid) 200 mcg PO QAM [facility] Stop: 01/17/17 09:01 Morphine Sulfate (Morphine Sulfate) 2 mg IVP Q4HR PRN PRN Reason: Severe Pain (7-10) Stop: 01/16/17 22:46 Naloxone HCl (Narcan) 0.4 mg IVP Q2MIN PRN PRN Reason: Opioid Reversal Stop: 01/16/17 22:46 Nitroglycerin (Nitroglycerin) 0.4 mg SL AD PRN PRN Reason: Chest Pain Stop: 01/16/17 23:01 Non-Formulary Medication (Buspirone Hcl [Buspar]) 7.5 mg PO BID [facility] Stop: 01/17/17 09:01 Non-Formulary Medication (Lorazepam [Lorazepam]) 2 mg PO HS [facility] Stop: 01/17/17 21:01 Non-Formulary Medication (Medroxyprogesterone Acetate [Provera]) 10 mg PO BID [facility] Stop: 01/17/17 09:01 Non-Formulary Medication (Sotalol Hcl [Betapace]) 80 mg PO BID [facility] Stop: 01/17/17 09:01 Non-Formulary Medication (Trazodone Hcl [Trazodone Hcl]) 100 mg PO HS [facility] Stop: 01/17/17 21:01 Omeprazole (Prilosec) 40 mg PO DAILY@0630 GAGE PRN Reason: Protocol Stop: 01/17/17 06:31 Oxybutynin Chloride (Ditropan) 5 mg PO BID GAGE PRN Reason: Protocol Stop: 01/17/17 09:01 Oxycodone HCl (Roxicodone) 10 mg PO Q6HR PRN PRN Reason: Moderate Pain (4-6) Stop: 01/16/17 22:46 Promethazine HCl (Phenergan) 12.5 mg IVP Q6HR PRN PRN Reason: Nausea And Vomiting Stop: 01/16/17 22:46 Ranolazine (Ranexa) 500 mg PO BID GAGE Stop: 01/17/17 09:01 Warfarin Sodium (Coumadin) 5 mg PO 1800 GAGE Stop: 01/17/17 18:01 Discontinued Medications Sodium Chloride (0.9 % Sodium Chloride) 1,000 mls @ 3,750 mls/hr IVC .Q16M ONE Stop: 07/17/16 16:09 Last Infusion: 07/17/16 16:50 Dose: 0 mls/hr Sodium Chloride (0.9 % Sodium Chloride) 1,000 mls @ 3,750 mls/hr IV BOLUS ONE Stop: 07/17/16 17:05 Last Infusion: 07/17/16 19:55 Dose: 0 mls/hr Sodium Chloride (0.9 % Sodium Chloride) 1,000 mls @ 3,750 mls/hr IVC .Q16M ONE Stop: 07/17/16 19:53 Last Admin: 07/17/16 20:19 Dose: 3,750 mls/hr Ceftriaxone Sodium 1,000 mg/ (Dextrose) 100 mls @ 200 mls/hr IVPB ONCE STA Stop: 07/17/16 23:14 Ketorolac Tromethamine (Toradol) 15 mg IVP ONCE ONE Stop: 07/17/16 21:00 Last Admin: 07/17/16 21:16 Dose: 15 mg Pantoprazole Sodium (Protonix) 40 mg IVP NOW STA Stop: 07/17/16 22:46 Nursing Notes 07/17/16 22:16 Transport Report by Ronald Rojas Date: 07/17/16 Transport Method: Wheelchair Latex, Natural Rubber Allergy (Verified 04/01/15 09:23) Rash prednisone Allergy (Verified 04/01/15 09:23) Rash Zolpidem [From Ambien] Allergy (Verified 11/05/15 09:23) Hallucinating tape Allergy (Uncoded 09/08/15 03:19) Rash Resuscitation Status 07/17/16 15:54 ECG 12 lead ECG [ECG] Stat Mode Of Transportation: Wheelchair Reason For Exam: weakness Exam Performed At:: [facility] Oxygen: 2 Mental Status: Fall Risk: Isolation: Nurse Required for Transport: No ___ Yes Limb Restrictions: No ___ Yes Behavioral issue/Risk for Elopement: No ___ Yes Telemetry Room Notification: Destination: MRI XRAY STRESS ULTRASOUND CT DIALYSIS ENDO OTHER: Depart Time: Nurse: Transporter: Arrive Time: Received by: ___ Return Time: Nurse: Transporter: ] Initialized on 07/17/16 22:16 - END OF NOTE 07/17/16 18:13 Nurse Note by Alex Price Urinary straight cath per Diane HOWARDt. Initialized on 07/17/16 18:13 - END OF NOTE 07/17/16 18:03 Nurse Note by Alex Price Notified Dr. Barfield of patient's blood pressure, 79/47, pulse 72. No new order at this time. Initialized on 07/17/16 18:03 - END OF NOTE 07/17/16 17:50 Nurse Note by Alex Price Notified Dr. Billingsley blood pressure 88/55. Patient requesting nausea medications. Initialized on 07/17/16 17:50 - END OF NOTE 07/17/16 17:30 Nurse Note by Alex Price Dr. completes fem-stick for blood for diagnostic testing. Patient tolerates well. Initialized on 07/17/16 17:30 - END OF NOTE 07/17/16 16:58 Nurse Note by Alex Price 2nd litre of 0.9 NACL placed on pressure bag. Lab at bedside to collect blood for diagnostic testing. Initialized on 07/17/16 16:58 - END OF NOTE 07/17/16 16:51 Nurse Note by Alex Price Notified Dr. Billingsley that patient's blood pressure 84/58 following 1000ml bolus of 0.9 NACL. No new orders for additional fluids. States awaiting labs. Phlebotomy at bedside. Initialized on 07/17/16 16:51 - END OF NOTE 07/17/16 16:31 Nurse Note by Alex Price Notified Dr. Billingsley/Dr. Barfield of patient's most recent blood pressure: 82/ 49. Placed IV fluids on pressure bag. Dr. Billingsley states to update him when 1000ml infused. 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 Initialized on 07/17/16 16:05 - END OF NOTE Orders 07/17/16 15:54 Cardiac monitoring [RC] .ONCE Glucose, blood poc measurement [RC] .ONCE Orthostatic Vital Signs [RC] .ONCE Vital Signs Assessment [RC] PROTOCOL CT head/brain wo con [CT] Stat Mode Of Transportation: Wheelchair Reason For Exam: weakness Exam Performed At:: [facility] Allergic to Contrast: No XR chest 1V portable [XR] Stat Mode Of Transportation: Wheelchair Reason For Exam: weaknesss Exam Performed At:: [facility] Additional Notes/Special Instructions: 3 0.9 % Sodium Chloride 1,000 ml IVC 3,750 mls/hr ECG 12 lead ECG [ECG] Stat Mode Of Transportation: Wheelchair Reason For Exam: weakness Exam Performed At:: [facility] 07/17/16 15:55 12 lead ECG assessment [RC] NOW 07/17/16 16:50 0.9 % Sodium Chloride 1,000 ml IV BOLUS 07/17/16 17:14 Comprehensive Metabolic Panel Stat Comment: Specimen: Send someone from the department to collect Creatine Kinase Stat Comment: Specimen: Send someone from the department to collect Magnesium Stat Comment: Specimen: Send someone from the department to collect Phosphorous Stat Comment: Specimen: Send someone from the department to collect Thyroid Stimulating Hormone Stat Comment: Specimen: Send someone from the department to collect 07/17/16 17:20 Beta-Hydroxybutyric Acid Stat Comment: Specimen: Send someone from the department to collect Complete Blood Count [HEME] Stat Comment: Specimen: Send someone from the department to collect Culture,Blood [BC] Stat Comment: IRA Source: Peripheral Venipuncture Quantity: 2 Specimen: Send someone from the department to collect Specimen Description: Erythrocyte Sedimentation Rate [HEME] Stat Comment: Specimen: Send someone from the department to collect Troponin I Stat Comment: Specimen: Send someone from the department to collect 07/17/16 18:13 Culture,Urine [RM] Stat IRA Source: [facility] Specimen Description: Urinalysis Reflex Cult & Micro [URIN] Stat Comment: Specimen: Has been collected 07/17/16 19:38 0.9 % Sodium Chloride 1,000 ml IVC 3,750 mls/hr 07/17/16 20:59 Ketorolac [Toradol] 15 mg IVP ONCE ONE 07/17/16 22:[address] Stat Comment: Reason for Visit: hypoxia, hypotension, inability to ambulate 07/17/16 22:45 Apply anti-embolic stockings [RC] .NOW Aspiration precautions [RC] .CONTINUOUS Falls precautions ([place]-Bond [RC] q12h Incentive Spirometry [RC] .6 TIMES PER HR WHILE AWAKE Orthostatic Vital Signs [RC] .ONCE Vital Signs Assessment [RC] Q4H C-Reactive Protein Stat Specimen: Send someone from the department to collect Comment: Cortisol,Random Stat Specimen: Send someone from the department to collect Comment: Erythrocyte Sedimentation Rate [HEME] Stat Specimen: Send someone from the department to collect Comment: Ionized Calcium Stat Specimen: Send someone from the department to collect Comment: Lactic Acid ([facility] Only) Stat Specimen: Send someone from the department to collect Comment: Thyroid Stimulating Hormone Stat Specimen: Send someone from the department to collect Comment: Venous Blood Gas Stat Specimen: Send someone from the department to collect Comment: Acetaminophen [Tylenol] 650 mg PO Q6HR PRN Benzonatate [Tessalon] 200 mg PO TID PRN CefTRIAXone [Rocephin] 1,000 mg D5% in Water (Mini-Bag+) [Dextrose 5% (Minibag +) 100 ML] 100 ml IVPB ONCE Docusate [Colace] 100 mg PO BID PRN GuaiFENesin ER [Mucinex] 600 mg PO BID PRN Morphine [Morphine Sulfate] 2 mg IVP Q4HR PRN Naloxone [Narcan] 0.4 mg IVP Q2MIN PRN OxyCODONE Immed Rel [Roxicodone] 10 mg PO Q6HR PRN Pantoprazole [Protonix] 40 mg IVP NOW STA Promethazine [Phenergan] 12.5 mg IVP Q6HR PRN Resuscitation Status: Active [RES] Routine Resuscitation Status: Full Code Comment: Up with Assist Daily Physician Instructions: Comment: 07/17/16 22:46 Peripheral IV [RC] CONT 07/17/16 22:50 Bed rest [RC] .CONT Physician Instructions: Bed rest w/bedside commode [RC] .PRN Cardiac Monitoring Med/Surg [RC] .CONT Telemetry Reason: Stroke/Syncope/TIA Continuous pulse oximetry [RC] CONT Comment: Measure intake and output [RC] QSHIFT Measure weight [RC] DAILY Oxygen via nasal cannula Nasal Cannula 2 lpm Comment: Titrate O2 to main O2 sat greater than: 92% RT has an order or consult [RC] NOW 07/17/16 22:54 Consult to Occupational Therapy [CONS] Routine Comment: Evaluate, develop and implement POC Consult to Physical Therapy [CONS] Routine Comment: Evaluate, develop and implement POC Consult to Cartridge Assembler [CONS] Routine Reason for SW Consult: DC planning 07/17/16 23:00 Troponin I Q6H Specimen: Send someone from the department to collect Comment: rapid urine drug screen [Drug Screen, Urine] [UCHEM] Stat Specimen: Pre-Collection Label Comment: 0.45 % Sodium Chloride [0.45% Sodium Chloride 1000 Ml 1000 Ml] 1,000 ml Sodium Bicarbonate 100 meq IVC 100 mls/hr Nitroglycerin 0.4 mg SL AD PRN 07/17/16 Dinner Diabetic Diet Diet Modifications: ED 3 07/18/16 04:00 Activated Partial Thrombo Time [COAG] AM 0400 Specimen: Send someone from the department to collect Comment: Basic Metabolic Panel AM 0400 Specimen: Send someone from the department to collect Comment: C-Peptide AM 0400 Specimen: Send someone from the department to collect Comment: Complete Blood Count w/o Diff [HEME] AM 0400 Specimen: Send someone from the department to collect Comment: Folate AM 0400 Specimen: Send someone from the department to collect Comment: Hgb A1C AM 0400 Specimen: Send someone from the department to collect Comment: Iron Profile AM 0400 Specimen: Send someone from the department to collect Comment: Lipid Panel AM 0400 Specimen: Send someone from the department to collect Comment: MMA (VIT B12 STATUS) AM 0400 Specimen: Send someone from the department to collect Comment: Magnesium AM 0400 Specimen: Send someone from the department to collect Comment: Phosphorous AM 0400 Specimen: Send someone from the department to collect Comment: Prothrombin Time INR [COAG] AM 0400 Specimen: Send someone from the department to collect Comment: Thyroxine (T4) Free AM 0400 Specimen: Send someone from the department to collect Comment: Thyroxine (T4) Total AM 0400 Specimen: Send someone from the department to collect Comment: Vitamin B12 AM 0400 Specimen: Send someone from the department to collect Comment: Vitamin D 1,25 Dihydroxy AM 0400 Specimen: Send someone from the department to collect Comment: Vitamin D 25 Hydroxy AM 0400 Specimen: Send someone from the department to collect Comment: 07/18/16 05:00 Troponin I Q6H Specimen: Send someone from the department to collect Comment: 07/18/16 06:30 Omeprazole [PriLOSEC] 40 mg PO DAILY@0630 07/18/16 09:00 Aspirin Enteric Coated [Aspirin EC] 81 mg PO DAILY Buspirone HCl [Buspar] 7.5 mg PO BID How will this medication be supplied?: Pharmacy to Subsitute CefTRIAXone [Rocephin] 1,000 mg D5% in Water (Mini-Bag+) [Dextrose 5% (Minibag +) 100 ML] 100 ml IVPB DAILY Folic Acid 1 mg PO DAILY Gabapentin [Neurontin] 300 mg PO TID Levothyroxine [Synthroid] 200 mcg PO QAM Medroxyprogesterone Acetate [Provera] 10 mg PO BID How will this medication be supplied?: Pharmacy to Subsitute Oxybutynin [Ditropan] 5 mg PO BID Ranolazine [Ranexa] 500 mg PO BID Sotalol HCl [Betapace] 80 mg PO BID How will this medication be supplied?: Pharmacy to Subsitute 07/18/16 11:00 Troponin I Q6H Specimen: Send someone from the department to collect Comment: 07/18/16 18:00 Warfarin [Coumadin] 5 mg PO 1800 07/18/16 21:00 Atorvastatin [Lipitor] 40 mg PO HS LORazepam [Lorazepam] 2 mg PO HS How will this medication be supplied?: Pharmacy to Subsitute Trazodone HCl [Trazodone HCl] 100 mg PO HS How will this medication be supplied?: Pharmacy to Subsitute 07/18/16 22:45 Up with Assist Daily Physician Instructions: Comment: 07/19/16 22:45 Up with Assist Daily Physician Instructions: Comment: 07/20/16 22:45 Up with Assist Daily Physician Instructions: Comment: 07/21/16 22:45 Up with Assist Daily Physician Instructions: Comment: Patient Problems Acute kidney injury superimposed on CKD (Acute) Acute on chronic renal insufficiency (Acute) Adjustment reaction with anxiety and depression (Acute) Dehydration with hyponatremia (Acute) Folate deficiency (Acute) Generalized weakness (Acute) High anion gap metabolic acidosis (Acute) Hyperglycemia (Acute) Hypomagnesemia (Acute) Hypotension (Acute) UTI (urinary tract infection) (Acute) 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) CKD (chronic kidney disease) stage 3, GFR 30-59 ml/min (Chronic) CVA, old, hemiparesis (Chronic) Chronic anticoagulation (Chronic) History of pulmonary embolism (Chronic) Hypertension (Chronic) Polypharmacy (Chronic) Severe hypothyroidism (Chronic) Thoracic radiculopathy due to osteoarthritis of spine (Chronic) Thoracic spinal stenosis (Chronic) Type 2 diabetes mellitus (Chronic) Vital Signs Temp Pulse Resp BP Pulse Ox 07/17/16 23:16 97.5 F L 64 15 117/76 95 07/17/16 22:48 18 117/65 07/17/16 20:56 74 18 115/95 97 07/17/16 19:07 93 18 107/66 97 07/17/16 18:44 72 18 97/62 97 07/17/16 18:17 68 18 101/76 98 07/17/16 18:02 78 18 79/47 97 07/17/16 17:49 67 18 88/55 97 07/17/16 17:29 82 18 102/62 98 07/17/16 17:14 71 18 92/61 97 07/17/16 16:45 73 18 84/58 97 07/17/16 16:30 76 18 82/49 98 07/17/16 15:53 98.9 F 76 18 70/46 96 Laboratory Results 07/17/16 07/17/16 07/17/16 Range/Units 17:14 17:20 17:20 WBC 10.3 (4.3-11.1) K/mcL RBC 4.55 (3.82-4.97) M/mcL Hgb 12.6 (11.5-15.4) g/dL Hct 38.0 (35.3-44.9) % MCV 83.5 (83.0-100.0) fL MCH 27.7 L (28.0-33.3) pg MCHC 33.2 (31.6-35.5) g/dL RDW 15.8 H (11.5-14.5) % Plt Count 292 (140-400) K/mcL MPV 9.6 (9.4-12.4) fL Immature Gran % 0.8 (0-4) % Seg Neutrophils % 60.8 % Lymphocytes % 30.4 % Monocytes % 7.0 % Eosinophils % 0.6 % Basophils % 0.4 % Neutrophils # 6.2 (1.6-8.9) K/mcL Lymphocytes # 3.1 (0.6-4.6) K/mcL Monocytes # 0.7 (0.0-1.3) K/mcL Eosinophils # 0.1 (0.0-0.6) K/mcL Basophils # 0.0 (0.0-0.2) K/mcL ESR 39 H (0-15) mm/hr Sodium 134 L (136-145) mEq/L Potassium 4.4 (3.5-4.5) mEq/L Chloride 105 (98-109) mEq/L Carbon Dioxide 13 L (19-29) mEq/L BUN 16 (7-20) mg/dL Creatinine 1.67 H (0.57-1.11) mg/dL Est GFR ( Amer) 39 L (> 60) Est GFR (Non-Af Amer) 32 L (> 60) BUN/Creatinine Ratio 10 (6-26) Glucose 344 H (70-99) mg/dL Calculated Osmolality 293 (280-300) Calcium 8.8 (8.6-10.8) mg/dL Ionized Calcium Cancelled Phosphorus 3.4 (2.3-4.7) mg/dL Magnesium 1.5 L (1.6-2.6) mg/dL Total Bilirubin 0.4 (0.2-1.2) mg/dL AST 10 (5-34) Units/L ALT 7 (0-55) Units/L Alkaline Phosphatase 76 (38-126) Units/L Creatine Kinase 34 (29-168) Units/L Troponin I (0-0.03) ng/mL Serum Total Protein 8.1 (6.0-8.3) g/dL Albumin 3.6 (3.5-5.0) g/dL Globulin 4.5 H (2.4-3.5) g/dL Albumin/Globulin Ratio 0.8 L (1.1-2.2) Beta-Hydroxybutyric Acd (0.02-0.27) mmol/L TSH 1.195 (0.350-4.840) mcIU/mL Urine Color (Yellow) Urine Clarity (Clear) Urine pH (5.0-8.0) pH Units Ur Specific Carrington (1.010-1.025) Urine Protein (Neg-Trace) mg/dL Urine Glucose (UA) (Normal) mg/dL Urine Ketones (Negative) mg/dL Urine Blood (Negative) Urine Nitrite (Negative) Urine Bilirubin (Negative) Urine Urobilinogen (Normal) mg/dL Ur Leukocyte Esterase (Negative) Urine Microscopic RBC (0-3) per hpf Urine Microscopic WBC (0-3) per hpf Ur Squamous Epith Cells (None-Few) per lpf Calcium Oxalate Crystal Urine Bacteria (None-Few) per hpf Hyaline Casts (None-Few) per lpf Ur Culture Indicated? (NO) 07/17/16 07/17/16 07/17/16 Range/Units 17:20 17:20 18:13 WBC (4.3-11.1) K/mcL RBC (3.82-4.97) M/mcL Hgb (11.5-15.4) g/dL Hct (35.3-44.9) % MCV (83.0-100.0) fL MCH (28.0-33.3) pg MCHC (31.6-35.5) g/dL RDW (11.5-14.5) % Plt Count (140-400) K/mcL MPV (9.4-12.4) fL Immature Gran % (0-4) % Seg Neutrophils % % Lymphocytes % % Monocytes % % Eosinophils % % Basophils % % Neutrophils # (1.6-8.9) K/mcL Lymphocytes # (0.6-4.6) K/mcL Monocytes # (0.0-1.3) K/mcL Eosinophils # (0.0-0.6) K/mcL Basophils # (0.0-0.2) K/mcL ESR (0-15) mm/hr Sodium (136-145) mEq/L Potassium (3.5-4.5) mEq/L Chloride (98-109) mEq/L Carbon Dioxide (19-29) mEq/L BUN (7-20) mg/dL Creatinine (0.57-1.11) mg/dL Est GFR ( Amer) (> 60) Est GFR (Non-Af Amer) (> 60) BUN/Creatinine Ratio (6-26) Glucose (70-99) mg/dL Calculated Osmolality (280-300) Calcium (8.6-10.8) mg/dL Ionized Calcium Phosphorus (2.3-4.7) mg/dL Magnesium (1.6-2.6) mg/dL Total Bilirubin (0.2-1.2) mg/dL AST (5-34) Units/L ALT (0-55) Units/L Alkaline Phosphatase (38-126) Units/L Creatine Kinase (29-168) Units/L Troponin I 0.00 (0-0.03) ng/mL Serum Total Protein (6.0-8.3) g/dL Albumin (3.5-5.0) g/dL Globulin (2.4-3.5) g/dL Albumin/Globulin Ratio (1.1-2.2) Beta-Hydroxybutyric Acd 0.23 (0.02-0.27) mmol/L TSH (0.350-4.840) mcIU/mL Urine Color Red A (Yellow) Urine Clarity Turbid A (Clear) Urine pH 5.0 (5.0-8.0) pH Units Ur Specific [place] > 1.030 H (1.010-1.025) Urine Protein 30 H (Neg-Trace) mg/dL Urine Glucose (UA) >=1000 H (Normal) mg/dL Urine Ketones Trace H (Negative) mg/dL Urine Blood Negative (Negative) Urine Nitrite Negative (Negative) Urine Bilirubin Moderate H (Negative) Urine Urobilinogen Normal (Normal) mg/dL Ur Leukocyte Esterase Trace H (Negative) Urine Microscopic RBC 5-15 H (0-3) per hpf Urine Microscopic WBC 5-15 H (0-3) per hpf Ur Squamous Epith Cells Many H (None-Few) per lpf Calcium Oxalate Crystal Present Urine Bacteria Few (None-Few) per hpf Hyaline Casts Few (None-Few) per lpf Ur Culture Indicated? YES A (NO) Assessments/Treatments 12 lead ECG assessment Start: 07/17/16 15: 52 Freq: Status: Complete Document 07/17/16 16:23 MAS (Rec: 07/17/16 16:23 [facility] [id number]) 12 lead ECG assessment Start: 07/17/16 15: 55 Freq: NOW Status: Complete Document 07/17/16 16:23 MAS (Rec: 07/17/16 16:23 [facility] [id number]) EKG Time EKG Completed 16:23 EKG performed by Rae EKG shown to and signed by Dr. Barfield Cardiac monitoring Start: 07/17/16 15: 52 Freq: Status: Complete Document 07/17/16 15:56 MAS (Rec: 07/17/16 15:57 MAS [id number]) Cardiac Monitoring Heart Rate 86 Monitoring Method Suspension Cord Tier Number 003 Educational Administrator Limits 60/120 Strip placed in Chart Yes Monitor History Reviewed Yes Memory Cleared Yes Collect Specimen: [id number] Start: 07/17/16 18: 13 Freq: ONCE Status: Complete Document 07/17/16 18:13 MAS (Rec: 07/17/16 18:13 MAS [id number]) ED Discharge Assessment Start: 07/17/16 15: 52 Freq: Status: Active Document 07/17/16 22:48 TLT (Rec: 07/17/16 22:51 TLT [id number]) ED Discharge Assessment ED Discharge Disposition Home ED Condition on Discharge Good Med Rec/Patient Pharmacy Completed? No Mode of Discharge Stretcher Admitted to 3B Bed assigned 3B32 Transported by cell technician Transported with IV Pain Scale 5 Pain Scale Used Standard (1-10) Blood Pressure 117/65 Heart rate 65 Respiratory Rate 18 Oxygen Delivery Room Air Oxygen Saturation 97 Critical Care Minutes 0 ED Weakness Assessment Start: 07/17/16 15: 52 Freq: Status: Complete Document 07/17/16 15:56 MAS (Rec: 07/17/16 15:57 MAS [id number]) Weakness Assessment Symptoms/Complaint Generalized Weakness Onset this am Duration Constant Context Unknown Improves With Nothing Level Of Consciousness Awake Alert Appropriate Patient Orientation Person Place Time Additional Neurological Symptoms dizziness Capillary Refill < 3 Seconds Respiratory Depth Normal Respiratory Effort Normal for Patient Spontaneous Non-Labored Abdomen Description Soft Non-Tender Large Stool Characteristics Normal for Patient Nausea/Vomiting Presence None Med Rec Tech Start: 07/17/16 22: 41 Freq: Status: Active Document 07/17/16 22:41 EJD (Rec: 07/17/16 22:41 EJD [id number]) Pharmacy Med Rec Tech Home Medicatons Reconciled? Yes Was this to catch up from previous day No Does patient take 10 or more medications Yes ? Does patient request medication No education Do home meds include Coumadin, Xarelto, Yes Pradaxa, Eliquis Added Patient Preferred Pharmacy Yes Verified Allergies Yes Would Patient Like to use [facility] Out No Patient Pharmacy Patient Rounding Start: 07/17/16 15: 52 Freq: Q30M Status: Complete Document 07/17/16 16:24 MAS (Rec: 07/17/16 16:24 MAS [id number]) Patient Rounding Safety Call Light Within Reach Bed Position Low Fall Precautions Bed Brake On Side Rails Up X2 Are the Floors Free From Trip Hazards? Yes Is the Room Free From Clutter? Yes Rounding Completed? Yes Patient Rounding Updated patient/family on Plan of Care Checked for Patient Positioning Patient Helped to Bathroom or Assisted with Bedpan or Urinal Patient Personal Items Placed Within Reach Checked Patient Pain Level Patient Awake Patient Verbalizes Pain/Symptoms No Improvement Document 07/17/16 16:30 MAS (Rec: 07/17/16 16:30 MAS [id number]) Patient Rounding Safety Call Light Within Reach Bed Position Low Fall Precautions Bed Brake On Side Rails Up X2 Are the Floors Free From Trip Hazards? Yes Is the Room Free From Clutter? Yes Rounding Completed? Yes Patient Rounding Updated patient/family on Plan of Care Checked for Patient Positioning Patient Helped to Bathroom or Assisted with Bedpan or Urinal Patient Personal Items Placed Within Reach Checked Patient Pain Level Patient Awake Patient Verbalizes Pain/Symptoms No Improvement Document 07/17/16 17:49 MAS (Rec: 07/17/16 17:50 MAS [id number]) Patient Rounding Safety Call Light Within Reach Bed Position Low Fall Precautions Bed Brake On Side Rails Up X2 Are the Floors Free From Trip Hazards? Yes Is the Room Free From Clutter? Yes Document 07/17/16 18:17 MAS (Rec: 07/17/16 18:18 MAS [id number]) Patient Rounding Safety Call Light Within Reach Bed Position Low Fall Precautions Bed Brake On Side Rails Up X2 Are the Floors Free From Trip Hazards? Yes Is the Room Free From Clutter? Yes Rounding Completed? Yes Patient Rounding Updated patient/family on Plan of Care Checked for Patient Positioning Patient Helped to Bathroom or Assisted with Bedpan or Urinal Patient Personal Items Placed Within Reach Checked Patient Pain Level Patient Awake Patient Verbalizes Pain/Symptoms No Improvement Patient Rounding Start: 07/17/16 23: 17 Freq: Status: Active Document 07/17/16 23:17 KW (Rec: 07/17/16 23:17 KW [id number]) Hourly Rounding Hourly Rounding Checked for Patient Positioning Patient Personal Items Placed Within Reach Hourly Rounding Completed Yes Patient Awake Is family present? No Safety Call Light Within Reach Bed Position Low Bed Exit Alarm Fall Precautions Phone Within Reach Bed Brake On Side Rails Up X2 Are the Floors Free From Trip Hazards? Yes Is the Room Free From Clutter? 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 Date of Insertion 07/17/16 Time of Insertion 16:05 Reason for IV Insertion Provide Access for IV Medication(s) Provide Access for Emergency IV Catheter Type Peripheral IV Gauge (gauge) 20 Site Observation Patent Dressing Applied Window Dressing Transparent Dressing Dry/Intact Patient Tolerance Tolerated Well Triage Start: 07/17/16 15: 52 Freq: Status: Complete Document 07/17/16 15:53 MAS (Rec: 07/17/16 15:55 MAS [id number]) Triage Chief Complaint triage ED Weakness Patient Stated Complaint generalized weakness KHURRAM 3 Onset (ago) hour(s) Description of Symptoms Patient to ed via ems, complaints of generalized weakness, dizziness, felt like she was going to pass out, onset today. General Appearance alert in no apparent distress Mode of arrival EMS Source patient EMS Limitations no limitations Ebola Risk: Travel/Contact With Anyone No From Affected Area/s Has Patient Experienced Ebola Symptoms No Temperature (97.6 F-99.6 F) 98.9 F Temperature Source Oral Pulse Rate 76 Respiratory Rate 18 Blood Pressure 70/46 O2 Sat by Pulse Oximetry (95-100) 96 Oxygen Delivery Room Air Height 1.7 m Weight 117.934 kg Weight Measurement Method Stated by Patient Pain Scale 10 Pain Scale Used Standard (1-10) Medical history arthritis asthma atrial fibrillation coronary artery disease CVA diabetes GERD hyperlipidemia hypertension myocardial infarction osteoporosis pulmonary embolus renal disease thyroid disease TIA Additional surgical history PMH RTKR, disc sx Psychiatric history anxiety depression PTSD other Smoking Status Former smoker Alcohol Use none Drug Use none Patient resides with/at Spouse Safety Concerns Feels Safe At This Time Do you currently feel hopless, have No thoughts of self harm, or thoughts of harming others History of fall in last 14 days? No Hx Now No DIRECTOR RELIGIOUS EDUCATION history no DIRECTOR RELIGIOUS EDUCATION history Coma Scale Eye Opening Spontaneous Coma Scale Motor Response Obeys Commands Coma Scale Verbal Response Oriented Coma Scale Total 15 Daughter Family Member Living Status Still Living Hx Family Cardiac Disorders No Hx Family Respiratory Disorders No Hx Family Cancer No Hx Family GI Disease No Hx Family Endocrine Disorder No Hx Family Neuromuscular Dysfunction No Hx Family Neurologic Problems No Hx Family HEENT Problems No Hx Family Autoimmune Disease Problems No Sister Family Member Living Status Hx Family Cardiac Disorders No Hx Family Respiratory Disorders No Hx Family Cancer Yes Hx Family GI Disease No Hx Family Endocrine Disorder No Hx Family Neuromuscular Dysfunction No Hx Family Neurologic Problems No Hx Family HEENT Problems No Hx Family Autoimmune Disease Problems No Brother Family Member Living Status Still Living Hx Family Cardiac Disorders Yes: [place] Hx Family Respiratory Disorders No Hx Family Cancer No Hx Family GI Disease No Hx Family Endocrine Disorder No Hx Family Neuromuscular Dysfunction No Hx Family Neurologic Problems No Hx Family HEENT Problems No Hx Family Autoimmune Disease Problems No Mother Family Member Living Status Hx Family Cardiac Disorders Yes Hx Family Respiratory Disorders Yes Hx Family Cancer Yes Hx Family GI Disease Yes Hx Family Endocrine Disorder Yes Hx Family Neuromuscular Dysfunction No Hx Family Neurologic Problems No Hx Family HEENT Problems No Hx Family Autoimmune Disease Problems No Father Family Member Living Status Still Living Hx Family Cardiac Disorders Yes Hx Family Respiratory Disorders Yes Hx Family Cancer Yes Hx Family GI Disease Yes Hx Family Endocrine Disorder Yes Hx Family Neuromuscular Dysfunction Yes Hx Family Neurologic Problems Yes Hx Family HEENT Problems No Hx Family Autoimmune Disease Problems No Vital Signs Assessment Start: 07/17/16 15: 52 Freq: Status: Active Document 07/17/16 16:30 MAS (Rec: 07/17/16 16:30 [id number] Vital Signs Pain Reported Pain Reported Pain Scale 4 Pain Scale Used Standard (1-10) Blood Pressure 82/49 Pulse Rate 76 Respiratory Rate 18 Pulse Oximetry (95-100) 98 Oxygen Delivery Nasal Cannula Oxygen Flow Rate (LPM) 2 Document 07/17/16 16:45 MAS (Rec: 07/17/16 16:49 [id number] Vital Signs Pain Reported Pain Reported Pain Scale 4 Pain Scale Used Standard (1-10) Blood Pressure 84/58 Blood Pressure Location Left Arm Source Automatic Cuff Position HOB Elevated Pulse Rate 73 Respiratory Rate 18 Pulse Oximetry (95-100) 97 Oxygen Delivery Nasal Cannula Document 07/17/16 17:29 MAS (Rec: 07/17/16 17:29 [id number] ED Vital Signs Pain Reported No Pain Reported Pain Scale 0 Pain Scale Used Standard (1-10) Blood Pressure 102/62 Blood Pressure Location Right Arm Source Automatic Cuff Position HOB Elevated Pulse Rate 82 Rhythm Regular Respiratory Rate 18 Pulse Oximetry (95-100) 98 Oxygen Delivery Nasal Cannula Document 07/17/16 17:49 MAS (Rec: 07/17/16 17:50 [id number]) ED Vital Signs Pain Reported Pain Reported Pain Scale 4 Pain Scale Used Standard (1-10) Blood Pressure 88/55 Blood Pressure Location Left Arm Source Automatic Cuff Position HOB Elevated Pulse Rate 67 Respiratory Rate 18 Depth Normal Effort Normal for Patient Spontaneous Non-Labored Pulse Oximetry (95-100) 97 Oxygen Delivery Nasal Cannula Oxygen Flow Rate (LPM) 2 Document 07/17/16 18:02 MAS (Rec: 07/17/16 18:03 [id number]) ED Vital Signs Pain Reported Pain Reported Pain Scale 5 Pain Scale Used Standard (1-10) Blood Pressure 79/47 Pulse Rate 78 Respiratory Rate 18 Pulse Oximetry (95-100) 97 Oxygen Delivery Room Air Document 07/17/16 18:17 MAS (Rec: 07/17/16 18:18 MAS [id number]) ED Vital Signs Pain Reported Pain Reported Pain Scale 4 Pain Scale Used Standard (1-10) Blood Pressure 101/76 Pulse Rate 68 Respiratory Rate 18 Pulse Oximetry (95-100) 98 Document 07/17/16 18:44 MAS (Rec: 07/17/16 18:45 [id number]) ED Vital Signs Pain Reported Pain Reported Pain Scale 4 Pain Scale Used Standard (1-10) Blood Pressure 97/62 Pulse Rate 72 Respiratory Rate 18 Pulse Oximetry (95-100) 97 Oxygen Delivery Nasal Cannula Oxygen Flow Rate (LPM) 2 Document 07/17/16 19:07 MAS (Rec: 07/17/16 19:08 [id number]) ED Vital Signs Pain Reported No Pain Reported Pain Scale 0 Pain Scale Used Standard (1-10) Blood Pressure 107/66 Pulse Rate 93 Respiratory Rate 18 Pulse Oximetry (95-100) 97 Oxygen Delivery Room Air Vital Signs Assessment Start: 07/17/16 15: 54 Freq: PROTOCOL Status: Complete Document 07/17/16 17:14 MAS (Rec: 07/17/16 17:15 MAS [id number]) ED Vital Signs Pain Reported Pain Reported Pain Scale 5 Pain Scale Used Standard (1-10) Blood Pressure 92/61 Blood Pressure Location Left Arm Source Automatic Cuff Position HOB Elevated Pulse Rate 71 Respiratory Rate 18 Pulse Oximetry (95-100) 97 Oxygen Delivery Nasal Cannula Oxygen Flow Rate (LPM) 2 Document 07/17/16 20:56 TLT (Rec: 07/17/16 20:57 TLT [id number]) ED Vital Signs Pain Reported No Pain Reported Blood Pressure 115/95 Pulse Rate 74 Respiratory Rate 18 Pulse Oximetry (95-100) 97 Vital Signs Assessment Start: 07/17/16 22: 45 Freq: Q4H Status: Active Document 07/17/16 23:16 KW (Rec: 07/17/16 23:17 KW [id number]) Vital Signs (Critical Care) Temperature (97.6 F-99.6 F) 98.9 F Temperature Source Oral Pulse Rate 74 Respiratory Rate 18 Pulse Oximetry (95-100) 97 Oxygen Flow Rate (Liters) 2 Blood Pressure 117/65 Vital Signs with MEWS Temperature (97.6 F-99.6 F) 97.5 F Temperature Source Oral Pulse Rate 64 Respiratory Rate 15 Pulse Oximetry (95-100) 95 Oxygen Delivery Nasal Cannula Oxygen Flow Rate (LPM) 3 Blood Pressure 117/76 Blood Pressure Location Left Arm Source Automatic Cuff Position Supine Neuro Status *recalled from last Alert documentation MEWS Score 1 Discharge Information ED Provider: Francisco Rivera Status: Departed Time Seen by Provider: 07/17/16 15:53 Condition: Fair Triaged At: 07/17/16 15:53 Emergency Discharge Date/Time: 07/17/16 23:04 Emergency Discharge Disposition: Still a Patient Clinical Impression Generalized weakness Hyperglycemia Acute on chronic renal insufficiency Hypotension Emergency Discharge Comment: 3B32 Admit Intervention Last Done ED Weakness Assessment 07/17/16 15:56 Query Result Weakness Symptoms/Complaint Generalized Weakness Weakness Onset this am Weakness Duration Constant Weakness Context Unknown Weakness Improves With Nothing Level Of Consciousness Awake Alert Appropriate Patient Orientation Person Place Time Additional Neurological Symptoms dizziness Capillary Refill < 3 Seconds Respiratory Depth Normal Respiratory Effort Normal for Patient Spontaneous Non-Labored Abdomen Description Soft Non-Tender Large Stool Characteristics Normal for Patient Nausea/Vomiting Presence None ED Discharge Assessment 07/17/16 22:48 Query Result ED Discharge Disposition Home ED Condition on Discharge Good Med Rec/Patient Phamracy completed? No ED Mode of Discharge Stretcher ED Admit to 3B Bed assigned 3B32 Transported by cell technician Transported with IV Severity scale (1-10) 5 Pain Scale Used Standard (1-10) Blood Pressure 117/65 Heart rate 65 Respiratory Rate 18 Oxygen Delivery Room Air Pulse Oximetry Reading 97 Critical Care Minutes 0 Observation Discharge Date/Time: Observation Discharge Disposition: Observation Discharge Comment: Instructions: Stand-Alone Forms: Prescriptions: Visit Report - Forms: - Referrals: Radiology Results Chest X-Ray 07/17/16 15:54 IMPRESSION: No acute cardiopulmonary process. D/ / Lance Millard MD / Lance Millard MD Interpreting Provider: Lance Millard MD Head CT 07/17/16 15:54
[2016-07-18] MEDS: Sodium Bicarbonate 100 MEQ in 0.45 % Sodium Chloride 1,000 ML IVC SCH ×2 (00:16→19:58)
[2016-07-18] MEDS: *HR* OxyCODONE Immed Rel 5 MG TABLET PO PRN ×4 (00:35→21:35)
[2016-07-18 00:45] LABS: Hematocrit 38.1 % (35.3-44.9); Hemoglobin 12.5 g/dL (11.5-15.4); Mean Corpuscular HGB Conc 32.8 g/dL (31.6-35.5); Mean Corpuscular Hemoglobin 27.7 pg (28.0-33.3); Mean Corpuscular Volume 84.5 fL (83.0-100.0); Mean Platelet Volume 9.6 fL (9.4-12.4); Platelet Count 256 K/mcL (140-400); Red Blood Count 4.51 M/mcL (3.82-4.97); Red Cell Distribution Width 15.8 % (11.5-14.5)
[2016-07-18 00:46] LABS: VBG HCO3 21.8 mEq/L (21-27); VBG PH 7.39 pH Units (7.32-7.42)
[2016-07-18 00:52] LABS: Ionized Calcium 1.08 mmol/L (1.15-1.35)
[2016-07-18 00:53] LABS: INR 2.2; Prothrombin Time 24.1 Seconds (9.4-12.1)
[2016-07-18 00:56] LABS: Activated Partial Thrombo Time 32.2 Seconds (26.0-36.0)
[2016-07-18 01:01] LABS: Hemoglobin A1C 10.8 %
[2016-07-18 01:05] LABS: Calcium 7.9 mg/dL (8.6-10.8); Chol/HDL Ratio 4.1 (0-4.9); Magnesium 1.5 mg/dL (1.6-2.6); Phosphorous 3.2 mg/dL (2.3-4.7); Potassium 4.3 mEq/L (3.5-4.5)
[2016-07-18 01:20] LABS: Thyroid Stimulating Hormone 1.397 mcIU/mL (0.350-4.840)
[2016-07-18 01:35] LABS: Folate 15.7 ng/mL (7.0-31.4)
[2016-07-18] MEDS ORDERED: Dextrose Gel 15 GM PO PRN ×2 (05:52)
[2016-07-18] MEDS ORDERED: D5% in Water 1,000 ML IV PRN (05:52)
[2016-07-18] MEDS ORDERED: *HR* Dextrose 50 % in Water (Syg) 50 ML SYRINGE IVP PRN (05:52)
[2016-07-18] MEDS ORDERED: Calcium Gluconate 1,000 MG in D5% in Water 100 ML IVPB ONE (05:55)
[2016-07-18] MEDS ORDERED: Magnesium Sulfate 1 GM in D5% in Water 100 ML IVPB ONE (05:55)
[2016-07-18 06:14] LABS: Amphetamine Screen,Urine Negative ng/mL (Cutoff=1000); Barbiturate Screen,Urine Negative ng/mL (Cutoff=200); Benzodiazepines Screen,Urine Negative ng/mL (Cutoff=200); Cannabinoid Screen,Urine Negative ng/mL (Cutoff = 50); Cocaine Screen,Urine Negative ng/mL (Cutoff= 300); Opiate Screen,Urine Negative ng/mL (Cutoff=300); Phencyclidine Screen,Urine Negative ng/mL (Cutoff=25)
[2016-07-18 06:24] LABS: Hemoglobin A1C 10.7 %
[2016-07-18] MEDS: Aspirin Enteric Coated 81 MG Tablet PO SCH (08:32)
[2016-07-18] MEDS: Ranolazine 500 MG TAB.ER.12H PO SCH ×2 (08:32→21:35)
[2016-07-18] MEDS: Folic Acid 1 MG TABLET PO SCH (08:32)
[2016-07-18] MEDS: Gabapentin 300 MG CAPSULE PO SCH ×3 (08:33→21:34)
[2016-07-18] MEDS: Insulin LISPRO 300 UNITS/3 ML VIAL SQ SCH ×7 (08:34→21:36)
[2016-07-18] MEDS: *HR* Promethazine 25 MG/ML VIAL IVP PRN (08:44)
--- NOTE | 2016-07-18 12:30 | Internal Med Progress Note ---
Date of Encounter: 07/18/16 Time of Encounter: 09:15 - Assessment and plan (1) Generalized weakness Current Visit: Yes Status: Acute Assessment and plan: Acute on chronic and progressively worsening over the past several months. OT and PT consultations pending. Unclear causation. Other than mild dehydration and abnormal urinalysis, workup thus far has been negative for acute processes. During my conversation with her, patient appears very unmotivated to change her situation under strength and herself. She is requesting for more help at home stating that her home health was canceled in April. ITS Impressions Chest X-Ray 07/17/16 15:54 IMPRESSION: No acute cardiopulmonary process. D/ / Lance Millard MD / Lance Millard MD Interpreting Provider: Lance Millard MD Head CT 07/17/16 15:54 IMPRESSION: No acute intracranial abnormality. D/ / Bladimir Hodge MD / Bladimir Hodge MD Interpreting Provider: Bladimir Hodge MD (2) Thoracic spinal stenosis Current Visit: Yes Status: Chronic Assessment and plan: Patient was seen in February 2016 for thoracic radiculopathy due to osteoarthritis of the spine and Dr. Rutherford performed at T8-T12 laminectomy on 03/11/16. She states that since she had that surgery, she feels that she has got progressively weaker. During that same inpatient stay, it appears as if she had a barium swallow evaluation and was changed to nectar thickened liquids , MBS pending during this visit. It also appears as if the patient had a heart catheter just prior to this surgery which revealed moderate two-vessel CAD and an ejection fraction of 60%. We will obtain imaging of head and spine. Patient stating that she has had 4 strokes in the past with several TIAs in addition to her for CVAs. We will obtain a head MRI. We will also perform imaging of her spine. (3) Dysphagia Current Visit: No Status: Acute Assessment and plan: Patient saying that when she attempted to eat breakfast this morning that she choked on a piece of toast. She states she has had increased choking episodes like this over the past several months. Of note, she did tolerate drinking sips of water without difficulty. Speech therapy brought on board to have recommended a modified barium swallow. Nothing by mouth in the meantime. (4) Physical deconditioning Current Visit: No Status: Chronic (5) Hemiparesis affecting left side as late effect of cerebrovascular accident ( CVA) Current Visit: Yes Status: Chronic (6) Hypomagnesemia Current Visit: Yes Status: Acute Assessment and plan: mild; repleting. will trend (7) UTI (urinary tract infection) Current Visit: Yes Status: Acute Assessment and plan: Abnormal urinalysis noted, continue ceftriaxone. Culture pending. Qualifiers: Urinary tract infection type: acute cystitis Hematuria presence: without hematuria Qualified Code(s): N30.00 - Acute cystitis without hematuria (8) CAD (coronary artery disease) Current Visit: Yes Status: Chronic Assessment and plan: Patient denies chest pain or shortness of breath. Qualifiers: Coronary Disease-Associated Artery/Lesion type: [place] artery [place] vs. transplanted heart: [place] heart Associated angina: angina presence unspecified Qualified Code(s): I25.10 - Atherosclerotic heart disease of [place] coronary artery without angina pectoris (9) CHF (congestive heart failure) Current Visit: Yes Status: Chronic Assessment and plan: Echocardiogram from 10/12/15 revealing mild diastolic dysfunction with preserved ejection fraction of 60-65%. She is on diuretics at home, suspect chronic diastolic heart failure. No acute exacerbation. Patient denies shortness of breath above her norm. Patient also denies pedal edema above her norm. Qualifiers: Congestive heart failure type: diastolic Congestive heart failure chronicity: chronic Qualified Code(s): I50.32 - Chronic diastolic (congestive ) heart failure (10) CKD (chronic kidney disease) stage 3, GFR 30-59 ml/min Current Visit: Yes Status: Chronic Assessment and plan: In review of her chart, it does not appear as if the patient has chronic kidney disease. Over the past several months, she has had normal renal functioning after being admitted for a couple of days and receiving hydration. In any event , her renal functioning is improving, we will continue to monitor (11) Chronic anticoagulation Current Visit: Yes Status: Chronic (12) Dyslipidemia Current Visit: Yes Status: Chronic Assessment and plan: Lipid panel unremarkable, recommend low-cholesterol diet and continue statin. (13) Hypertension Current Visit: Yes Status: Chronic Assessment and plan: Controlled, we will continue to trend and adjust medications as indicated. Qualifiers: Hypertension type: unspecified secondary hypertension Qualified Code(s): I15.9 - Secondary hypertension, unspecified; I15 - Secondary hypertension (14) Severe hypothyroidism Current Visit: Yes Status: Chronic Assessment and plan: TSH and free T4 normal (15) Type 2 diabetes mellitus Current Visit: Yes Status: Chronic Assessment and plan: Uncontrolled with an A1c of 10.7%. Continue sliding scale while admitted. Diabetes education on board. Qualifiers: Diabetes mellitus complication status: with unspecified complications Diabetes mellitus fdc insulin use: without buttermaker helper use Qualified Code( s): E11.8 - Type 2 diabetes mellitus with unspecified complications (16) DVT prophylaxis Current Visit: No Status: Acute Assessment and plan: INR therapeutic on Coumadin (17) Afib Current Visit: No Status: Chronic Assessment and plan: Rate controlled, therapeutic on Coumadin Qualifiers: Atrial fibrillation type: paroxysmal Qualified Code(s): I48.0 - Paroxysmal atrial fibrillation (18) Morbid obesity with BMI of 45.0-49.9, adult Current Visit: Yes Status: Chronic - Time Spent With Patient Greater than 35 minutes - Subjective Interval history: Patient seen and examined. On examination, patient is sitting upright in bed eating her breakfast. Patient stating she choked on a piece of her toast and she states she has been choking for several months while eating. Patient also stating she feels generally weak and tired. She states that her left side has become weaker and states that she is unable to stand up at this time. - Constitutional Vitals: Temp Pulse Resp BP Pulse Ox 97.5 F L 68 17 112/78 95 07/18/16 11:27 07/18/16 11:27 07/18/16 11:27 07/18/16 11:27 07/18/16 11:27 General appearance: Present: A&O X 3, morbidly obese, pleasant, no acute distress, answers questions appropriately - Head Head exam: Present: atraumatic, normocephalic - Eye Eye exam: Present: PERRL, conjuntiva pink, sclera anicteric Pupils: Present: PERRL - Neck Neck exam general surgery: Present: supple, trachea midline. Absent: lymphadenopathy - Respiratory Respiratory exam: Present: decreased breath sounds. Absent: accessory muscle use, rales, respiratory distress, rhonchi, wheezes - Cardiovascular Cardiovascular exam: Present: irregular rhythm, RRR, +S1, +S2. Absent: diastolic murmur, gallop, rubs, systolic murmur - GI/Abdominal GI/Abdominal exam: Present: normal bowel sounds, soft, no peritoneal signs. Absent: distended, tenderness - Extremities Exam Extremities exam: Present: warm, radial pulses palpable and symetrical. Absent : calf tenderness, cyanotic, pedal edema - Neurological Exam Neurological exam: Present: alert, CN II-XII intact, oriented X3, no focal deficits, pronater drift. Absent: strengths equal and symetr throughout, facial droop, speech deficit - Expanded Neurological Exam Neurological exam expanded: Present: protecting the airway Patient oriented to: Present: person, place, time Speech: Present: fluid speech Cranial Nerves: EOM's intact PM: Normal Neuro motor strength exam: LUE: 4, RUE: 5, LLE: 2/1, RLE: 5 Coma Scale Eye Opening: Spontaneous Coma Scale Motor Response: Obeys Commands Coma Scale Verbal Response: Oriented Coma Scale Total: 15 - Skin Skin exam: Present: dry, intact, pallor, warm Internal Medicine: Result - Labs CBC & Chem 7: 07/18/16 00:31 07/18/16 00:31 Labs: Short CBC 07/18/16 Range/Units 00:31 WBC 10.2 (4.3-11.1) K/mcL Hgb 12.5 (11.5-15.4) g/dL Hct 38.1 (35.3-44.9) % Plt Count 256 (140-400) K/mcL BMP 07/18/16 00:31 Sodium 135 L Potassium 4.3 Chloride 106 Carbon Dioxide 19 BUN 19 Creatinine 1.38 H Glucose 264 H Calcium 7.9 L Cardiac Enzymes 07/18/16 07/18/16 07/18/16 Range/Units 00:31 04:26 10:50 Troponin I 0.00 0.01 0.00 (0-0.03) ng/mL - ABG Interpretation ABG results: PT/INR, D-dimer PT 24.1 Seconds (9.4-12.1) H 07/18/16 00:31 Consult Discharge Plan - Plan Referrals: Ashwin Ellington, PAC [Primary Care Provider] -
[2016-07-18] MEDS: *HR* Warfarin 5 MG TABLET PO SCH (17:23)
[2016-07-18] MEDS ORDERED: Warfarin perPT PO PRN (18:00)
--- NOTE | 2016-07-18 18:17 | Electrocardiograph Report ---
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
[2016-07-18 19:30] LABS: Acinetobacter baumannii by PCR Not Detected (Not Detect); Enterococcus by PCR Not Detected (Not Detect); Staphylococcus aureus by PCR Not Detected (Not Detect); Streptococcus agalactiae(B)PCR Not Detected (Not Detect); Streptococcus by PCR Not Detected (Not Detect); Streptococcus pneumoniae PCR Not Detected (Not Detect); Streptococcus pyogenes (A) PCR Not Detected (Not Detect); blaKPC Carbapenem-Resist Gene Not Detected (Not Detect); mecA Methicillin-Resist Gene Not Detected (Not Detect); vanA/B Vancomycin-Resist Genes Not Detected (Not Detect)
[2016-07-18 19:31] LABS: Candida albicans by PCR Not Detected (Not Detect); Candida glabrata by PCR Not Detected (Not Detect); Candida krusei by PCR Not Detected (Not Detect); Candida parapsilosis by PCR Not Detected (Not Detect); Candida tropicalis by PCR Not Detected (Not Detect); Escherichia coli by PCR Not Detected (Not Detect); Klebsiella oxytoca by PCR Not Detected (Not Detect); Klebsiella pneumoniae by PCR Not Detected (Not Detect); Pseudomonas aeruginosa by PCR Not Detected (Not Detect); Serratia marcescens by PCR Not Detected (Not Detect)
[2016-07-18] MEDS ORDERED: Vancomycin 2,000 MG in D5% in Water 250 ML IVPB SCH (20:00)
[2016-07-18] MEDS ORDERED: Vancomycin 2,000 MG in D5% in Water 500 ML IVPB ONE (21:00)
[2016-07-18] MEDS: *HR* LORazepam 1 MG TABLET PO SCH (21:34)
[2016-07-18] MEDS: traZODone 50 MG TABLET PO SCH (21:35)
[2016-07-18] MEDS: Insulin DETEMIR 100 UNIT/ML X5UNITS SQ SCH (21:35)
[2016-07-19] MEDS: Sodium Bicarbonate 100 MEQ in 0.45 % Sodium Chloride 1,000 ML IVC SCH ×2 (00:35→19:44)
[2016-07-19 04:25] LABS: Prothrombin Time 22.1 Seconds (9.4-12.1)
[2016-07-19 04:40] LABS: BUN/Creatinine Ratio 14 (6-26); Blood Urea Nitrogen 11 mg/dL (7-20); Calcium 8.4 mg/dL (8.6-10.8); Carbon Dioxide 21 mEq/L (19-29); Chloride 106 mEq/L (98-109); Glucose 232 mg/dL (70-99); Magnesium 1.4 mg/dL (1.6-2.6); Osmolality,Calculated 289 (280-300); Potassium 4.5 mEq/L (3.5-4.5); Sodium 136 mEq/L (136-145); eGFR For African Americans > 60 (> 60); eGFR For Non-African Americans > 60 (> 60)
[2016-07-19] MEDS: Aspirin Enteric Coated 81 MG Tablet PO SCH (08:38)
[2016-07-19] MEDS: Folic Acid 1 MG TABLET PO SCH (08:38)
[2016-07-19] MEDS: Gabapentin 300 MG CAPSULE PO SCH ×3 (08:38→20:47)
[2016-07-19] MEDS: *HR* OxyCODONE Immed Rel 5 MG TABLET PO PRN ×2 (08:38→22:36)
[2016-07-19] MEDS: Ranolazine 500 MG TAB.ER.12H PO SCH ×2 (08:39→20:47)
[2016-07-19] MEDS: Insulin LISPRO 300 UNITS/3 ML VIAL SQ SCH ×7 (08:39→20:58)
[2016-07-19] MEDS ORDERED: Vancomycin 1,500 MG in D5% in Water 250 ML IVPB SCH (09:00)
[2016-07-19] MEDS: *HR* Promethazine 25 MG/ML VIAL IVP PRN ×2 (10:38→20:58)
--- NOTE | 2016-07-19 17:16 | Internal Med Progress Note ---
Date of Encounter: 07/19/16 Time of Encounter: 13:00 - Assessment and plan (1) Bacteremia Current Visit: Yes Status: Acute Assessment and plan: possibly contaminant Afebrile, no leukocytosis, follow repeat cultures Anticipate d/c a.m (2) Generalized weakness Current Visit: Yes Status: Acute Assessment and plan: Negative work up Possibly physically deconditioned OT/PT review noted, no acute PT needs There may be associated malingering Fall precaution (3) CAD (coronary artery disease) Current Visit: Yes Status: Chronic Assessment and plan: Patient denies chest pain or shortness of breath. Qualifiers: Coronary Disease-Associated Artery/Lesion type: [place] artery [place] vs. transplanted heart: [place] heart Associated angina: angina presence unspecified Qualified Code(s): I25.10 - Atherosclerotic heart disease of [place] coronary artery without angina pectoris (4) CHF (congestive heart failure) Current Visit: Yes Status: Chronic Assessment and plan: Echocardiogram from 10/12/15 revealing mild diastolic dysfunction with preserved ejection fraction of 60-65%. She is on diuretics at home, suspect chronic diastolic heart failure. No acute exacerbation. Patient denies shortness of breath above her norm. Patient also denies pedal edema above her norm. Qualifiers: Congestive heart failure type: diastolic Congestive heart failure chronicity: chronic Qualified Code(s): I50.32 - Chronic diastolic (congestive ) heart failure (5) CKD (chronic kidney disease) stage 3, GFR 30-59 ml/min Current Visit: Yes Status: Chronic Assessment and plan: In review of her chart, it does not appear as if the patient has chronic kidney disease. Over the past several months, she has had normal renal functioning after being admitted for a couple of days and receiving hydration. In any event , her renal functioning is improving, we will continue to monitor (6) Cervical stenosis of spinal canal Current Visit: Yes Status: Chronic Assessment and plan: Chronic, stable (7) Chronic anticoagulation Current Visit: Yes Status: Chronic Assessment and plan: Therapeutic INR (8) Dyslipidemia Current Visit: Yes Status: Chronic Assessment and plan: Lipid panel unremarkable, recommend low-cholesterol diet and continue statin. (9) Frequent falls Current Visit: Yes Status: Chronic (10) History of pulmonary embolism Current Visit: Yes Status: Chronic (11) History of venous thromboembolism Current Visit: Yes Status: Chronic (12) Hypertension Current Visit: Yes Status: Chronic Assessment and plan: Controlled, we will continue to trend and adjust medications as indicated. Qualifiers: Hypertension type: unspecified secondary hypertension Qualified Code(s): I15.9 - Secondary hypertension, unspecified; I15 - Secondary hypertension (13) Paroxysmal atrial fibrillation Current Visit: Yes Status: Chronic (14) Thoracic spinal stenosis Current Visit: Yes Status: Chronic Assessment and plan: Thoracic spine MRi with stable chronic changes No new intervention for now. (15) Dysphagia Current Visit: No Status: Acute Assessment and plan: Imaging negative Qualifiers: Dysphagia type: unspecified Qualified Code(s): R13.10 - Dysphagia, unspecified (16) Diabetes mellitus Current Visit: Yes Status: Chronic Assessment and plan: Uncontrolled A1C 10.9 Continue monitoring FS ACHS, basal , correctional and prandial insulin Qualifiers: Diabetes mellitus type: type 2 Diabetes mellitus complication status: without complication Diabetes mellitus mcc insulin use: unspecified mcc insulin use status Qualified Code(s): E11.9 - Type 2 diabetes mellitus without complications (17) Morbid obesity Current Visit: Yes Status: Chronic Qualifiers: Obesity type: due to excess calories Qualified Code(s): E66.01 - Morbid ( severe) obesity due to excess calories (18) Physical deconditioning Current Visit: Yes Status: Chronic (19) Syncopal episodes Current Visit: Yes Status: Chronic Assessment and plan: Resolved per patient Qualifiers: Syncope type: unspecified Qualified Code(s): R55 - Syncope and collapse - Subjective Interval history: 56 Y/O F with multiple chronic and stable medical co-morbidities She was admitted for evaluation of weakness Work up so far including CBC, renal function, TSH, Vitamin levels are all within acceptable limits INR is therapeutic PT/OT has reviewed and patient is not eligible for discharge to SNF even though she desperately wants to go to SNF Thoracic, Cervical, Lumbar, Brain MRIs did not show any acute events, evidence of chronic DJD, known to patient noted She has also complained of "choking" but fluoroscopy was normal and speech eval noted She has remained afebrile , no leukocytosis, she is tolerating orally and is otherwise ambulatory Her blood culture grew species in one bottle of 2. 07/17/16. Blood culture has been repeated and result is pending Will discontinue all antibiotics today and observe this patient, there does not currently seems to be a source for her bacteremia and growth in one bottle is possibly a contaminant - Constitutional Vitals: Temp Pulse Resp BP Pulse Ox 97.5 F L 69 17 131/72 98 07/19/16 15:02 07/19/16 15:02 07/19/16 15:02 07/19/16 15:02 07/19/16 15:02 General appearance: Present: A&O X 3, morbidly obese, pleasant, no acute distress, answers questions appropriately - Head Head exam: Present: atraumatic, normocephalic - Eye Eye exam: Present: PERRL, conjuntiva pink, sclera anicteric Pupils: Present: PERRL - Neck Neck exam general surgery: Present: supple, trachea midline. Absent: lymphadenopathy - Respiratory Respiratory exam: Present: CTAB. Absent: accessory muscle use, rales, rhonchi, wheezes - Cardiovascular Cardiovascular exam: Present: RRR, +S1, +S2. Absent: diastolic murmur, gallop, rubs, systolic murmur - GI/Abdominal GI/Abdominal exam: Present: normal bowel sounds, soft, no peritoneal signs. Absent: distended, tenderness - Extremities Exam Extremities exam: Present: warm, radial pulses palpable and symetrical. Absent : calf tenderness, cyanotic, pedal edema - Neurological Exam Neurological exam: Present: CN II-XII intact, oriented X3, no focal deficits. Absent: pronater drift, facial droop, speech deficit - Skin Skin exam: Present: dry, intact Internal Medicine: Result - Labs CBC & Chem 7: 07/18/16 00:31 07/19/16 04:08 Labs: BMP 07/19/16 04:08 Sodium 136 Potassium 4.5 Chloride 106 Carbon Dioxide 21 BUN 11 Creatinine 0.78 Glucose 232 H Calcium 8.4 L - ABG Interpretation ABG results: PT/INR, D-dimer PT 22.1 Seconds (9.4-12.1) H 07/19/16 04:08 - Impressions Impressions Brain MRI 07/18/16 13:02 IMPRESSION: Mild atrophy. No evidence of acute ischemia. D/ / 07/18/2016 19:45:45 Nehemias Pack MD / yasmin Interpreting Provider: Nehemias Pack MD Cervical Spine MRI 07/18/16 13:02 IMPRESSION: 1. Motion limited evaluation. 2. Moderate C4-5 and C5-6 spinal canal stenosis. 3. Moderate bilateral C5 and mild left C7 neural foraminal narrowing. D/ / Isacc Lang MD / Isacc Lang MD Interpreting Provider: Isacc Lang MD Lumbar Spine MRI 07/18/16 13:02 IMPRESSION: 1. No appreciable change since 03/01/2016 within limits of motion artifact. 2. Right eccentric posterior disc osteophyte complex at L4-5 causes mild spinal canal stenosis and moderate narrowing of the right lateral recess and right neural foramen. 3. Mild L2-3 and L3-4 spinal canal stenosis. 4. Mild bilateral L2 and L3 and left L4 neural foraminal narrowing. D/ / Isacc Lang MD / Isacc Lang MD Interpreting Provider: Isacc Lang MD Thoracic Spine MRI 07/18/16 13:02 IMPRESSION: 1. No acute abnormality of the thoracic spine. 2. Stable mild and moderate multilevel mid to lower thoracic spinal canal stenosis secondary to disc protrusions and ligamentum flavum and facet hypertrophy. D/ / Isacc Lang MD / Isacc Lang MD Interpreting Provider: Isacc Lang MD Consult Discharge Plan - Plan Referrals: Ashwin Ellingtno, PAC [Primary Care Provider] -
[2016-07-19] MEDS: *HR* Warfarin 5 MG TABLET PO SCH (17:40)
[2016-07-19] MEDS: traZODone 50 MG TABLET PO SCH (20:47)
[2016-07-19] MEDS: Insulin DETEMIR 100 UNIT/ML X5UNITS SQ SCH (20:47)
[2016-07-19] MEDS: *HR* LORazepam 1 MG TABLET PO SCH (20:47)
[2016-07-20 04:50] LABS: INR 2.1; Prothrombin Time 23.5 Seconds (9.4-12.1)
[2016-07-20] MEDS: *HR* OxyCODONE Immed Rel 5 MG TABLET PO PRN ×2 (04:59→11:16)
--- NOTE | 2016-07-20 08:00 | Discharge Summary ---
Date of Encounter: 07/20/16 Time of Encounter: 07:59 - Discharge Diagnosis (1) Bacteremia Priority: Secondary Status: Ruled-out (2) Generalized weakness Priority: Secondary Status: Acute (3) CAD (coronary artery disease) Priority: Secondary Status: Chronic Qualifiers: Coronary Disease-Associated Artery/Lesion type: [place] artery [place] vs. transplanted heart: [place] heart Associated angina: angina presence unspecified Qualified Code(s): I25.10 - Atherosclerotic heart disease of [place] coronary artery without angina pectoris (4) CHF (congestive heart failure) Priority: Secondary Status: Chronic Qualifiers: Congestive heart failure type: diastolic Congestive heart failure chronicity: chronic Qualified Code(s): I50.32 - Chronic diastolic (congestive ) heart failure (5) CKD (chronic kidney disease) stage 3, GFR 30-59 ml/min Priority: Secondary Status: Chronic (6) Cervical stenosis of spinal canal Priority: Secondary Status: Chronic (7) Chronic anticoagulation Priority: Secondary Status: Chronic (8) Dyslipidemia Priority: Secondary Status: Chronic (9) Frequent falls Priority: Secondary Status: Chronic (10) History of pulmonary embolism Priority: Secondary Status: Chronic (11) History of venous thromboembolism Priority: Secondary Status: Chronic (12) Hypertension Priority: Secondary Status: Chronic Qualifiers: Hypertension type: unspecified secondary hypertension Qualified Code(s): I15.9 - Secondary hypertension, unspecified; I15 - Secondary hypertension (13) Paroxysmal atrial fibrillation Priority: Secondary Status: Chronic (14) Thoracic spinal stenosis Priority: Secondary Status: Chronic (15) Dysphagia Priority: Primary Status: Acute Qualifiers: Dysphagia type: unspecified Qualified Code(s): R13.10 - Dysphagia, unspecified (16) Diabetes mellitus Priority: Secondary Status: Chronic Qualifiers: Diabetes mellitus type: type 2 Diabetes mellitus complication status: with hyperglycemia Diabetes mellitus mcfp insulin use: unspecified mcfp insulin use status Qualified Code(s): E11.65 - Type 2 diabetes mellitus with hyperglycemia (17) Morbid obesity Priority: Secondary Status: Chronic Qualifiers: Obesity type: due to excess calories Qualified Code(s): E66.01 - Morbid ( severe) obesity due to excess calories (18) Physical deconditioning Priority: Primary Status: Chronic (19) Syncopal episodes Priority: Secondary Status: Chronic Qualifiers: Syncope type: unspecified Qualified Code(s): R55 - Syncope and collapse (20) Dehydration Priority: Primary Status: Resolved - Discharge Medications Prescriptions: Docusate [Colace] 100 mg PO BID PRN #60 capsule PRN Reason: Constipation Home Medications: Aspirin Enteric Coated [Aspirin EC] 81 mg PO DAILY 12/30/14 [History] Atorvastatin [Lipitor] 40 mg PO HS 12/30/14 [History] Nitroglycerin [Nitrostat] 0.4 mg PO Q5M PRN 12/30/14 [History] Sotalol HCl [Betapace] 80 mg PO BID 12/30/14 [History] Amlodipine [Norvasc] 5 mg PO DAILY 30 Days 09/12/15 [Rx] Gabapentin [Neurontin] 300 mg PO TID 10/11/15 [History] Prazosin HCl [Minipress] 5 mg PO HS 10/11/15 [History] Albuterol Sulfate [Ventolin Hfa] 2 puff IH QID PRN 10/12/15 [History] Cholecalciferol (D-3) [Vitamin D] 1,000 unit PO BID 10/12/15 [History] Cyclobenzaprine [Flexeril] 10 mg PO TID 10/12/15 [History] Furosemide [Lasix] 40 mg PO QPM 10/12/15 [History] Linagliptin [Tradjenta] 5 mg PO DAILY 10/12/15 [History] Lisinopril [Zestril] 40 mg PO DAILY 10/12/15 [History] Oxybutynin [Ditropan] 5 mg PO BID 10/12/15 [History] Quetiapine Fumarate [Seroquel] 25 - 50 mg PO TID 10/12/15 [History] Isosorbide MONOnitrate (24 HR) [Imdur] 60 mg PO DAILY #30 tab.er.24h 10/15/15 [ Rx] Ranolazine [Ranexa] 500 mg PO BID #60 tab.er.12h 10/15/15 [Rx] Folic Acid 1 mg PO DAILY 02/29/16 [History] Quetiapine Fumarate [Seroquel] 500 mg PO HS 02/29/16 [History] Warfarin [Coumadin] 5 mg PO 1800 02/29/16 [History] Buspirone HCl [Buspar] 7.5 mg PO BID 07/17/16 [History] Furosemide [Lasix] 80 mg PO QAM 07/17/16 [History] LORazepam [Lorazepam] 2 mg PO HS 07/17/16 [History] Levothyroxine [Synthroid] 200 mcg PO QAM 07/17/16 [History] Medroxyprogesterone Acetate [Provera] 10 mg PO BID 07/17/16 [History] Metformin [Glucophage] 500 mg PO BIDWM 07/17/16 [History] OxyCODONE/APAP 7.5/325 [Percocet 7.5/325 MG] 1 each PO Q6H PRN 07/17/16 [History ] Pantoprazole Sodium [Protonix] 40 mg PO DAILY 07/17/16 [History] Promethazine [Phenergan] 25 mg PO BID 07/17/16 [History] Spironolactone [Aldactone] 25 mg PO DAILY 07/17/16 [History] Trazodone HCl 100 mg PO HS 07/17/16 [History] Docusate [Colace] 100 mg PO BID PRN #60 capsule 07/20/16 [Rx] Allergies/Adverse Reactions: Allergies Latex, Natural Rubber Allergy (Verified 04/01/15 09:23) Rash prednisone Allergy (Verified 04/01/15 09:23) Rash Zolpidem [From Ambien] Allergy (Verified 04/01/15 09:23) Hallucinating tape Allergy (Uncoded 09/08/15 03:19) Rash Procedures/tests Complete & Pending: Procedures Performed prior 72 hours Category Date Time Status MR cervical spine wo con [MR] Routine MRI 07/18/16 13:02 Completed MR head/brain wo con [MR] Routine MRI 07/18/16 13:02 Completed MR lumbar spine wo con [MR] Routine MRI 07/18/16 13:02 Completed MR thoracic spine wo con [MR] Routine MRI 07/18/16 13:02 Completed Date of admission: 07/17/16 22:44 Primary care physician: Ashwin Ellington Consults: 07/17/16 22:54 Consult to Occupational Therapy [CONS] Routine Comment: Evaluate, develop and implement POC Consult to Physical Therapy [CONS] Routine Comment: Evaluate, develop and implement POC Consult to Physical Security Engineer [CONS] Routine Reason for SW Consult: DC planning 07/18/16 05:52 Consult to Puller Over [CONS] Routine Comment: 07/18/16 08:53 Consult to Speech Therapy [CONS] Routine Comment: Evaluate, develop and implement POC Reason for Consult: pt having difficulty in swallowing Call Completed: No Discharging clinician: Bong Galindo Anticipated date of discharge: 07/20/16 - Patient Status Disposition: Home Health Service Condition: Fair Functional capacity at discharge: uses cane/walker Overall status at discharge: patient is progressing back to baseline - Discharge Instructions Follow Up With: Ashwin Ellington, PAC [Primary Care Provider] - - Diet and Activity Activity: resume usual activities as tolerated Diet: diabetic diet, low fat, low cholesterol, low salt diet Interval History: See below Hospital course: 56 Y/O F with multiple chronic and stable medical co-morbidities She was admitted for evaluation of weakness Work up so far including CBC, renal function, TSH, Vitamin levels are all within acceptable limits INR is therapeutic PT/OT has reviewed and patient is not eligible for discharge to SNF even though she desperately wants to go to SNF Thoracic, Cervical, Lumbar, Brain MRIs did not show any acute events, evidence of chronic DJD, known to patient noted She has also complained of "choking" but fluoroscopy was normal and speech eval noted She has remained afebrile , no leukocytosis, she is tolerating orally and is otherwise stable Her blood culture grew staph species in one bottle of 2. 2. Blood culture was repeated and patient received empiric vancomycin which was held 07/19. She has remained afebrile. Blood culture preliminary result today is negative Patient's renal function on admission showed some dehydration which may have been as a result of polyuria from hyperglycemia and uncontrolled DM with poor oral intake and use of diuretics . This has resolved in-patient Patient is seen at bedside today, with no new complains She is stable for discharge home to follow up with her own PCP Home services will be reinstated Resume home medications Patient is risk for readmission due to multiple chronic conditions and patient' s insistence on "needing to go to SNF" even though she does not qualify per PT/ OT review - Time Spent with Patient Total time spent providing and/or coordinating discharge services: Greater than 30 minutes (40 minutes spent) - Constitutional Vitals: Temp Pulse Resp BP Pulse Ox 97.8 F 73 18 128/85 97 07/20/16 07:43 07/20/16 07:43 07/20/16 07:43 07/20/16 07:43 07/20/16 07:43 General appearance: Present: A&O X 3, morbidly obese, pleasant, no acute distress, answers questions appropriately - Head Head exam: Present: atraumatic, normocephalic - Eye Eye exam: Present: PERRL, conjuntiva pink, sclera anicteric Pupils: Present: PERRL - Neck Neck exam general surgery: Present: supple, trachea midline. Absent: lymphadenopathy - Respiratory Respiratory exam: Present: CTAB. Absent: accessory muscle use, rales, rhonchi, wheezes - Cardiovascular Cardiovascular exam: Present: RRR, +S1, +S2. Absent: diastolic murmur, gallop, rubs, systolic murmur - GI/Abdominal GI/Abdominal exam: Present: normal bowel sounds, soft, no peritoneal signs. Absent: distended, tenderness - Extremities Exam Extremities exam: Present: warm, radial pulses palpable and symetrical. Absent : calf tenderness, cyanotic, pedal edema - Neurological Exam Neurological exam: Present: CN II-XII intact, oriented X3, no focal deficits. Absent: pronater drift, facial droop, speech deficit - Skin Skin exam: Present: dry, intact
[2016-07-20 08:10] LABS: C-Peptide 9.9 ng/mL (0.8-3.5)
[2016-07-20] MEDS: Insulin LISPRO 300 UNITS/3 ML VIAL SQ SCH ×4 (08:17→12:47)
[2016-07-20] MEDS: Aspirin Enteric Coated 81 MG Tablet PO SCH (08:18)
[2016-07-20] MEDS: Gabapentin 300 MG CAPSULE PO SCH (08:18)
[2016-07-20] MEDS: Folic Acid 1 MG TABLET PO SCH (08:18)
[2016-07-20] MEDS: Ranolazine 500 MG TAB.ER.12H PO SCH (08:19)
[2016-07-20] MEDS: *HR* Promethazine 25 MG/ML VIAL IVP PRN (11:23)
--- NOTE | 2016-07-20 12:14 | Physician Discharge Referral ---
Home Health/Hosp Referral Info Transfer to: Home Health Attending Provider: Mateo Provider in Charge Post Discharge: PCP - Diagnosis (1) Bacteremia Priority: Primary Status: Ruled-out (2) Generalized weakness Priority: Primary Status: Acute (3) CAD (coronary artery disease) Priority: Secondary Status: Chronic (4) CHF (congestive heart failure) Priority: Secondary Status: Chronic (5) CKD (chronic kidney disease) stage 3, GFR 30-59 ml/min Priority: Secondary Status: Chronic (6) Cervical stenosis of spinal canal Priority: Secondary Status: Chronic (7) Chronic anticoagulation Priority: Secondary Status: Chronic (8) Dyslipidemia Priority: Secondary Status: Chronic (9) Frequent falls Priority: Secondary Status: Chronic (10) History of pulmonary embolism Priority: Secondary Status: Chronic (11) History of venous thromboembolism Priority: Secondary Status: Chronic (12) Hypertension Priority: Secondary Status: Chronic (13) Paroxysmal atrial fibrillation Priority: Secondary Status: Chronic (14) Thoracic spinal stenosis Priority: Secondary Status: Chronic (15) Dysphagia Priority: Secondary Status: Acute (16) Diabetes mellitus Priority: Secondary Status: Chronic (17) Morbid obesity Priority: Secondary Status: Chronic (18) Physical deconditioning Priority: Secondary Status: Chronic (19) Syncopal episodes Priority: Primary Status: Chronic (20) Dehydration Priority: Primary Status: Resolved - Respiratory Orders Smoking Cessation: Smoking cessation has been advised. For more information, call the [place] Tobacco Quit Line at 9-215-BGAE-NOW. - Diet/Nutrition Diet/Nutrition Orders: Renal, Cardiac, No Concentrated Sweets - Activity Activity Orders: Up ad yunior - Services Needed Following services are medically necessary services: Home Health Aide - Transfer Medications Prescriptions: Docusate [Colace] 100 mg PO BID PRN #60 capsule PRN Reason: Constipation Home Medications: Aspirin Enteric Coated [Aspirin EC] 81 mg PO DAILY 12/30/14 [History] Atorvastatin [Lipitor] 40 mg PO HS 12/30/14 [History] Nitroglycerin [Nitrostat] 0.4 mg PO Q5M PRN 12/30/14 [History] Sotalol HCl [Betapace] 80 mg PO BID 12/30/14 [History] Amlodipine [Norvasc] 5 mg PO DAILY 30 Days 09/12/15 [Rx] Gabapentin [Neurontin] 300 mg PO TID 10/11/15 [History] Prazosin HCl [Minipress] 5 mg PO HS 10/11/15 [History] Albuterol Sulfate [Ventolin Hfa] 2 puff IH QID PRN 10/12/15 [History] Cholecalciferol (D-3) [Vitamin D] 1,000 unit PO BID 10/12/15 [History] Cyclobenzaprine [Flexeril] 10 mg PO TID 10/12/15 [History] Furosemide [Lasix] 40 mg PO QPM 10/12/15 [History] Linagliptin [Tradjenta] 5 mg PO DAILY 10/12/15 [History] Lisinopril [Zestril] 40 mg PO DAILY 10/12/15 [History] Oxybutynin [Ditropan] 5 mg PO BID 10/12/15 [History] Quetiapine Fumarate [Seroquel] 25 - 50 mg PO TID 10/12/15 [History] Isosorbide MONOnitrate (24 HR) [Imdur] 60 mg PO DAILY #30 tab.er.24h 10/15/15 [ Rx] Ranolazine [Ranexa] 500 mg PO BID #60 tab.er.12h 10/15/15 [Rx] Folic Acid 1 mg PO DAILY 02/29/16 [History] Quetiapine Fumarate [Seroquel] 500 mg PO HS 02/29/16 [History] Warfarin [Coumadin] 5 mg PO 1800 02/29/16 [History] Buspirone HCl [Buspar] 7.5 mg PO BID 07/17/16 [History] Furosemide [Lasix] 80 mg PO QAM 07/17/16 [History] LORazepam [Lorazepam] 2 mg PO HS 07/17/16 [History] Levothyroxine [Synthroid] 200 mcg PO QAM 07/17/16 [History] Medroxyprogesterone Acetate [Provera] 10 mg PO BID 07/17/16 [History] Metformin [Glucophage] 500 mg PO BIDWM 07/17/16 [History] OxyCODONE/APAP 7.5/325 [Percocet 7.5/325 MG] 1 each PO Q6H PRN 07/17/16 [History ] Pantoprazole Sodium [Protonix] 40 mg PO DAILY 07/17/16 [History] Promethazine [Phenergan] 25 mg PO BID 07/17/16 [History] Spironolactone [Aldactone] 25 mg PO DAILY 07/17/16 [History] Trazodone HCl 100 mg PO HS 07/17/16 [History] Docusate [Colace] 100 mg PO BID PRN #60 capsule 07/20/16 [Rx] Allergies/Adverse Reactions: Allergies Latex, Natural Rubber Allergy (Verified 04/01/15 09:23) Rash prednisone Allergy (Verified 04/01/15 09:23) Rash Zolpidem [From Ambien] Allergy (Verified 04/01/15 09:23) Hallucinating tape Allergy (Uncoded 09/08/15 03:19) Rash Certification: Further, I certify that my clinical findings support that this patient is homebound (i.e. absences from home require considerable and taxing effort and are for medical reasons or evangelical services or infrequently or short duration when for other reasons) because: Homebound Reason: Patient requires assistance of a person or device to safely leave home, Leaving home requires considerable and taxing effort due to condition Attestation: My signature below is to certify that this patient is under my care and that I, or nurse practitioner, or a physician's lpn or medical assistant working with me, has a face-to -face encounter with this patient.
[2016-07-20 14:48] VITALS: BP 140/85
[2016-07-20 15:23] LABS: Vitamin D 1,25 Dihydroxy 28.4 pg/mL (19.9-79.3)
[2016-07-20] MEDS ORDERED: Aminoglycoside Consult 1 EACH MC ONE (17:49)
[2016-07-21 07:48] LABS: MMA (VIT B12 STATUS) 0.15 umol/L (0.00-0.40)
== END 2016-07-20 17:50 | disposition home health service (06) ==
LOC: 3BNU 15:49 → EMEROO 15:49 → SUATTDRO 22:44 → 3BNU 23:04
PROVIDERS: ADMIT Family Medicine; ATTEND Internal Medicine

== ENCOUNTER 2016-10-29 12:00 | Inpatient (IN) ==
--- NOTE | 2016-10-29 12:04 | Emergency Department Note ---
Disposition Clinical Impression: Chest pain Disposition: Admitted As Inpatient General Adult HPI - General Chief complaint: ED Chest Pain Stated complaint: Chest Pain Time Seen by Provider: 10/29/16 12:01 - Related Data Home Medications Medication Instructions Recorded Confirmed Aspirin Enteric Coated [Aspirin EC] 81 mg PO DAILY 12/30/14 10/29/16 Atorvastatin [Lipitor] 40 mg PO HS 12/30/14 10/29/16 Nitroglycerin [Nitrostat] 0.4 mg PO Q5M PRN 12/30/14 10/29/16 Sotalol HCl [Betapace] 80 mg PO BID 12/30/14 10/29/16 Gabapentin [Neurontin] 300 mg PO TID 10/11/15 10/29/16 Prazosin HCl [Minipress] 5 mg PO HS 10/11/15 10/29/16 Albuterol Sulfate [Ventolin Hfa] 2 puff IH QID PRN 10/12/15 10/29/16 Cholecalciferol (D-3) [Vitamin D] 1,000 unit PO BID 10/12/15 10/29/16 Cyclobenzaprine [Flexeril] 10 mg PO TID 10/12/15 10/29/16 Furosemide [Lasix] 40 mg PO QPM 10/12/15 10/29/16 Linagliptin [Tradjenta] 5 mg PO DAILY 10/12/15 10/29/16 Lisinopril [Zestril] 40 mg PO DAILY 10/12/15 10/29/16 Oxybutynin [Ditropan] 5 mg PO BID 10/12/15 10/29/16 Quetiapine Fumarate [Seroquel] 25 - 75 mg PO TID 10/12/15 10/29/16 Folic Acid 1 mg PO DAILY 02/29/16 10/29/16 Quetiapine Fumarate [Seroquel] 400 mg PO HS 02/29/16 10/29/16 Warfarin [Coumadin] 2.5 mg PO DAILY 02/29/16 10/29/16 Buspirone HCl [Buspar] 7.5 mg PO BID 07/17/16 10/29/16 Furosemide [Lasix] 80 mg PO QAM 07/17/16 10/29/16 LORazepam [Lorazepam] 2 mg PO HS 07/17/16 10/29/16 Levothyroxine [Synthroid] 200 mcg PO QAM 07/17/16 10/29/16 Medroxyprogesterone Acetate 10 mg PO BID 07/17/16 10/29/16 [Provera] OxyCODONE/APAP 7.5/325 [Percocet 1 tab PO Q6H PRN 07/17/16 10/29/16 7.5/325 MG] Spironolactone [Aldactone] 25 mg PO DAILY 07/17/16 10/29/16 Trazodone HCl 100 mg PO HS 07/17/16 10/29/16 metFORMIN [Glucophage] 500 mg PO BID 07/17/16 10/29/16 Previous Rx's Medication Instructions Recorded amLODIPine [Norvasc] 5 mg PO DAILY 30 Days 09/12/15 Isosorbide MONOnitrate (24 HR) 60 mg PO DAILY #30 tab.er.24h 10/15/15 [Imdur] Ranolazine [Ranexa] 500 mg PO BID #60 tab.er.12h 10/15/15 Docusate [Colace] 100 mg PO BID PRN #60 capsule 07/20/16 Allergies Allergy/AdvReac Type Severity Reaction Status Date / Time Latex, Natural Rubber Allergy Rash Verified 04/01/15 09:23 prednisone Allergy Rash Verified 04/01/15 09:23 Zolpidem [From Ambien] Allergy Hallucinati Verified 04/01/15 09:23 ng tape Allergy Rash Uncoded 09/08/15 03:19 Past Medical History - Past Medical History Medical history: Reports: diabetes, renal disease, GERD, myocardial infarction, atrial fibrillation, hyperlipidemia, arthritis, hypertension, pulmonary embolus , osteoporosis, asthma, other, CVA, TIA, thyroid disease, migraine, kidney stones, coronary artery disease, cardiomyopathy, COPD, DVT Surgical history: Reports: cholecystectomy, orthopedic, other, other Psychiatric history: Reports: other, anxiety, depression, PTSD 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 history - Social History Smoking Status: Never smoker Smokeless Tobacco Status: No Alcohol use: Reports: none Drug use: Reports: none Course Vital Signs Temperature 98.4 F 10/29/16 12:01 Pulse Rate 105 10/29/16 12:01 Respiratory Rate 22 10/29/16 12:01 Blood Pressure 150/104 10/29/16 12:01 O2 Sat by Pulse Oximetry 96 10/29/16 12:01 Temperature 98.3 F 10/31/16 11:47 Pulse Rate 85 10/31/16 11:47 Respiratory Rate 17 10/31/16 11:47 Blood Pressure 113/78 10/31/16 11:47 O2 Sat by Pulse Oximetry 95 10/31/16 11:47 Oxygen Delivery Oxygen Delivery Nasal Cannula Medical Decision Making - Lab Data Result diagrams: 10/31/16 05:36 10/31/16 05:36 Lab Results 10/29/16 10/29/16 10/29/16 Range/Units 12:26 12:26 12:26 WBC 11.1 (4.3-11.1) K/mcL RBC 4.80 (3.82-4.97) M/mcL Hgb 13.4 (11.5-15.4) g/dL Hct 40.6 (35.3-44.9) % MCV 84.6 (83.0-100.0) fL MCH 27.9 L (28.0-33.3) pg MCHC 33.0 (31.6-35.5) g/dL RDW 14.4 (11.5-14.5) % Plt Count 314 (140-400) K/mcL MPV 9.3 L (9.4-12.4) fL Immature Gran % 0.7 (0-4) % Seg Neutrophils % 65.8 % Lymphocytes % 27.3 % Monocytes % 4.6 % Eosinophils % 1.1 % Basophils % 0.5 % Neutrophils # 7.3 (1.6-8.9) K/mcL Lymphocytes # 3.0 (0.6-4.6) K/mcL Monocytes # 0.5 (0.0-1.3) K/mcL Eosinophils # 0.1 (0.0-0.6) K/mcL Basophils # 0.1 (0.0-0.2) K/mcL Immature Plt Fraction 1.4 (1.1-6.1) % PT 28.8 H (9.4-12.1) Seconds INR 2.6 Sodium (136-145) mEq/L Potassium (3.5-4.5) mEq/L Chloride (98-109) mEq/L Carbon Dioxide (19-29) mEq/L BUN (7-20) mg/dL Creatinine (0.57-1.11) mg/dL Est GFR ( Amer) (> 60) Est GFR (Non-Af Amer) (> 60) BUN/Creatinine Ratio (6-26) Glucose (70-99) mg/dL Calculated Osmolality (280-300) Calcium (8.6-10.8) mg/dL Total Bilirubin (0.2-1.2) mg/dL Direct Bilirubin (0.0-0.5) mg/dL Indirect Bilirubin (0.0-1.2) mg/dL AST (5-34) Units/L ALT (0-55) Units/L Alkaline Phosphatase (38-126) Units/L Troponin I (0-0.03) ng/mL B-Natriuretic Peptide 18 (0-100) pg/mL Serum Total Protein (6.0-8.3) g/dL Albumin (3.5-5.0) g/dL Globulin (2.4-3.5) g/dL Albumin/Globulin Ratio (1.1-2.2) Lipase (8-78) Units/L 10/29/16 10/29/16 10/29/16 Range/Units 12:26 12:26 12:26 WBC (4.3-11.1) K/mcL RBC (3.82-4.97) M/mcL Hgb (11.5-15.4) g/dL Hct (35.3-44.9) % MCV (83.0-100.0) fL MCH (28.0-33.3) pg MCHC (31.6-35.5) g/dL RDW (11.5-14.5) % Plt Count (140-400) K/mcL MPV (9.4-12.4) fL Immature Gran % (0-4) % Seg Neutrophils % % Lymphocytes % % Monocytes % % Eosinophils % % Basophils % % Neutrophils # (1.6-8.9) K/mcL Lymphocytes # (0.6-4.6) K/mcL Monocytes # (0.0-1.3) K/mcL Eosinophils # (0.0-0.6) K/mcL Basophils # (0.0-0.2) K/mcL Immature Plt Fraction (1.1-6.1) % PT (9.4-12.1) Seconds INR Sodium 136 (136-145) mEq/L Potassium 3.6 (3.5-4.5) mEq/L Chloride 103 (98-109) mEq/L Carbon Dioxide 22 (19-29) mEq/L BUN 10 (7-20) mg/dL Creatinine 0.73 (0.57-1.11) mg/dL Est GFR ( Amer) > 60 (> 60) Est GFR (Non-Af Amer) > 60 (> 60) BUN/Creatinine Ratio 14 (6-26) Glucose 248 H (70-99) mg/dL Calculated Osmolality 289 (280-300) Calcium 9.3 (8.6-10.8) mg/dL Total Bilirubin 0.4 (0.2-1.2) mg/dL Direct Bilirubin 0.1 (0.0-0.5) mg/dL Indirect Bilirubin 0.3 (0.0-1.2) mg/dL AST 12 (5-34) Units/L ALT 9 (0-55) Units/L Alkaline Phosphatase 96 (38-126) Units/L Troponin I 0.00 (0-0.03) ng/mL B-Natriuretic Peptide (0-100) pg/mL Serum Total Protein 7.9 (6.0-8.3) g/dL Albumin 3.4 L (3.5-5.0) g/dL Globulin 4.5 H (2.4-3.5) g/dL Albumin/Globulin Ratio 0.8 L (1.1-2.2) Lipase 46 (8-78) Units/L Attestation Statement - Attestation Attestation: I examined this patient and my medical decision-making was reviewed with the BASS SINGER/PA/Advanced Practice Nurse/Resident Physician. I agree with the documented findings, disposition and treatment plan as described except to the extent set forth below. Face to face time provided Patient seen and evaluated in conjunction with the resident physician Dr. Oliveira. She presents by EMS from home complaining of intermittent left inframammary chest pain over the past 2 weeks. She took nitroglycerin which helped. She states she has a history of cardiac problems but does not have any coronary stents.
[2016-10-29] MEDS ORDERED: Aspirin 81 MG TAB.CHEW PO ONE (12:08)
--- NOTE | 2016-10-29 12:13 | Emergency Department Note ---
Disposition Clinical Impression: Chest pain Qualifiers: Chest pain type: unspecified Qualified Code(s): R07.9 - Chest pain, unspecified Disposition: Admitted As Inpatient Forms: ED Satisfaction Letter Chest Pain HPI - General Chief Complaint: ED Chest Pain Stated Complaint: Chest Pain Time Seen by Provider: 10/29/16 12:01 Source: patient, EMS Limitations: no limitations Vital Signs Reviewed: Yes Nursing Notes Reviewed: Yes - History of Present Illness HPI Narrative: Patient here for evaluation of left-sided chest pain that radiates to the jaw and is associated with headache. Patient states symptoms were going on for approximately 2 weeks. She states that she has been having associated dyspnea with exertion and orthopnea symptoms. Symptoms better leaning forward. Patient has sharp pain with deep inspiration but describes her overall chest pain that radiates under her left breast as a pressure or heaviness. She describes nausea but no vomiting as well as weakness and fatigue. Severity scale (1-10): 10 - Related Data Home Medications Medication Instructions Recorded Confirmed Aspirin Enteric Coated [Aspirin EC] 81 mg PO DAILY 12/30/14 07/17/16 Atorvastatin [Lipitor] 40 mg PO HS 12/30/14 07/17/16 Nitroglycerin [Nitrostat] 0.4 mg PO Q5M PRN 12/30/14 07/17/16 Sotalol HCl [Betapace] 80 mg PO BID 12/30/14 07/17/16 Gabapentin [Neurontin] 300 mg PO TID 10/11/15 07/17/16 Prazosin HCl [Minipress] 5 mg PO HS 10/11/15 07/17/16 Albuterol Sulfate [Ventolin Hfa] 2 puff IH QID PRN 10/12/15 07/17/16 Cholecalciferol (D-3) [Vitamin D] 1,000 unit PO BID 10/12/15 07/17/16 Cyclobenzaprine [Flexeril] 10 mg PO TID 10/12/15 07/17/16 Furosemide [Lasix] 40 mg PO QPM 10/12/15 07/17/16 Linagliptin [Tradjenta] 5 mg PO DAILY 10/12/15 07/17/16 Lisinopril [Zestril] 40 mg PO DAILY 10/12/15 07/17/16 Oxybutynin [Ditropan] 5 mg PO BID 10/12/15 07/17/16 Quetiapine Fumarate [Seroquel] 25 - 50 mg PO TID 10/12/15 07/17/16 Folic Acid 1 mg PO DAILY 02/29/16 07/17/16 Quetiapine Fumarate [Seroquel] 500 mg PO HS 02/29/16 07/17/16 Warfarin [Coumadin] 5 mg PO 1800 02/29/16 07/17/16 Buspirone HCl [Buspar] 7.5 mg PO BID 07/17/16 07/17/16 Furosemide [Lasix] 80 mg PO QAM 07/17/16 07/17/16 LORazepam [Lorazepam] 2 mg PO HS 07/17/16 07/17/16 Levothyroxine [Synthroid] 200 mcg PO QAM 07/17/16 07/17/16 Medroxyprogesterone Acetate 10 mg PO BID 07/17/16 07/17/16 [Provera] OxyCODONE/APAP 7.5/325 [Percocet 1 each PO Q6H PRN 07/17/16 07/17/16 7.5/325 MG] Pantoprazole Sodium [Protonix] 40 mg PO DAILY 07/17/16 07/17/16 Promethazine [Phenergan] 25 mg PO BID 07/17/16 07/17/16 Spironolactone [Aldactone] 25 mg PO DAILY 07/17/16 07/17/16 Trazodone HCl 100 mg PO HS 07/17/16 07/17/16 metFORMIN [Glucophage] 500 mg PO BIDWM 07/17/16 07/17/16 Previous Rx's Medication Instructions Recorded amLODIPine [Norvasc] 5 mg PO DAILY 30 Days 09/12/15 Isosorbide MONOnitrate (24 HR) 60 mg PO DAILY #30 tab.er.24h 10/15/15 [Imdur] Ranolazine [Ranexa] 500 mg PO BID #60 tab.er.12h 10/15/15 Docusate [Colace] 100 mg PO BID PRN #60 capsule 07/20/16 Allergies Allergy/AdvReac Type Severity Reaction Status Date / Time Latex, Natural Rubber Allergy Rash Verified 04/01/15 09:23 prednisone Allergy Rash Verified 04/01/15 09:23 Zolpidem [From Ambien] Allergy Hallucinati Verified 04/01/15 09:23 ng tape Allergy Rash Uncoded 09/08/15 03:19 Review of Systems: CONSTITUTIONAL: Weakness and fatigue. No fevers chills or weight loss. HEENT: Eyes: No visual changes. Ears, Nose, Throat: No hearing loss, difficulty talking or unable to swallow. SKIN: No rash or itching. CARDIOVASCULAR: Chest pain, pressure, discomfort. No palpitations or edema. RESPIRATORY: No shortness of breath, cough or sputum. GASTROINTESTINAL: Nausea No anorexia, vomiting or diarrhea. No abdominal pain or blood. GENITOURINARY: No burning on urination or hematuria. NEUROLOGICAL: No headache, dizziness, syncope, paralysis, ataxia, numbness or tingling in the extremities. No change in bowel or bladder control. MUSCULOSKELETAL: No muscle pain, back pain, joint pain or stiffness. 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 RADIOLOGIST PHYSICIAN history - Social History Smoking Status: Never smoker Alcohol use: Reports: none Drug use: Reports: none Physical Exam General appearance: NAD, conversant Eyes: anicteric sclerae, moist conjunctivae; PERRL HENT: Atraumatic; oropharynx clear with moist mucous membranes and no mucosal ulcerations Neck: Normal inspection; Trachea midline; FROM, supple Lungs: CTA, with normal respiratory effort and no intercostal retractions CV: RRR, no MRGs Abdomen: Soft, non-tender; no rebound or gaurding Extremities: No peripheral edema or extremity lymphadenopathy Skin: Normal temperature; no rash, ulcers or lesions Psych: Appropriate mood and affect Neuro: alert and oriented to person, place and time - General Limitations: no limitations General appearance: alert, in no apparent distress Course - Reevaluation(s) Reevaluation #1: During the patient's workup she had episodes of vomiting that she associated with left upper quadrant abdominal pain. This is a new symptom that was not explained previous workup and eval. Patient received expanded labs including a lipase and hepatic panel as well as a CT abdomen and pelvis which shows some minimal mesenteric panniculitis. This does not explain the patient's other symptoms of chest heaviness that resolved with nitroglycerin. - Consultations Consultation #1: Dr. Payne accepts for chest pain admission. Vital Signs Temperature 98.4 F 10/29/16 12:01 Pulse Rate 105 10/29/16 12:01 Respiratory Rate 22 10/29/16 12:01 Blood Pressure 150/104 10/29/16 12:01 O2 Sat by Pulse Oximetry 96 10/29/16 12:01 Temperature 98.4 F 10/29/16 12:01 Pulse Rate 95 10/29/16 13:48 Respiratory Rate 18 10/29/16 13:48 Blood Pressure 143/95 10/29/16 13:48 O2 Sat by Pulse Oximetry 96 10/29/16 13:48 Oxygen Delivery Oxygen Delivery Nasal Cannula Chest Pain - Medical Records Medical records reviewed: Yes I reviewed the patient's medical records. - Lab Data Lab results reviewed: Yes I reviewed the patient's lab results. Result diagrams: 10/29/16 12:26 10/29/16 12:26 Lab Results 10/29/16 10/29/16 10/29/16 Range/Units 12:26 12:26 12:26 WBC 11.1 (4.3-11.1) K/mcL RBC 4.80 (3.82-4.97) M/mcL Hgb 13.4 (11.5-15.4) g/dL Hct 40.6 (35.3-44.9) % MCV 84.6 (83.0-100.0) fL MCH 27.9 L (28.0-33.3) pg MCHC 33.0 (31.6-35.5) g/dL RDW 14.4 (11.5-14.5) % Plt Count 314 (140-400) K/mcL MPV 9.3 L (9.4-12.4) fL Immature Gran % 0.7 (0-4) % Seg Neutrophils % 65.8 % Lymphocytes % 27.3 % Monocytes % 4.6 % Eosinophils % 1.1 % Basophils % 0.5 % Neutrophils # 7.3 (1.6-8.9) K/mcL Lymphocytes # 3.0 (0.6-4.6) K/mcL Monocytes # 0.5 (0.0-1.3) K/mcL Eosinophils # 0.1 (0.0-0.6) K/mcL Basophils # 0.1 (0.0-0.2) K/mcL Immature Plt Fraction 1.4 (1.1-6.1) % PT 28.8 H (9.4-12.1) Seconds INR 2.6 Sodium (136-145) mEq/L Potassium (3.5-4.5) mEq/L Chloride (98-109) mEq/L Carbon Dioxide (19-29) mEq/L BUN (7-20) mg/dL Creatinine (0.57-1.11) mg/dL Est GFR ( Amer) (> 60) Est GFR (Non-Af Amer) (> 60) BUN/Creatinine Ratio (6-26) Glucose (70-99) mg/dL Calculated Osmolality (280-300) Calcium (8.6-10.8) mg/dL Total Bilirubin (0.2-1.2) mg/dL Direct Bilirubin (0.0-0.5) mg/dL Indirect Bilirubin (0.0-1.2) mg/dL AST (5-34) Units/L ALT (0-55) Units/L Alkaline Phosphatase (38-126) Units/L Troponin I (0-0.03) ng/mL B-Natriuretic Peptide 18 (0-100) pg/mL Serum Total Protein (6.0-8.3) g/dL Albumin (3.5-5.0) g/dL Globulin (2.4-3.5) g/dL Albumin/Globulin Ratio (1.1-2.2) Lipase (8-78) Units/L 10/29/16 10/29/16 10/29/16 Range/Units 12:26 12:26 12:26 WBC (4.3-11.1) K/mcL RBC (3.82-4.97) M/mcL Hgb (11.5-15.4) g/dL Hct (35.3-44.9) % MCV (83.0-100.0) fL MCH (28.0-33.3) pg MCHC (31.6-35.5) g/dL RDW (11.5-14.5) % Plt Count (140-400) K/mcL MPV (9.4-12.4) fL Immature Gran % (0-4) % Seg Neutrophils % % Lymphocytes % % Monocytes % % Eosinophils % % Basophils % % Neutrophils # (1.6-8.9) K/mcL Lymphocytes # (0.6-4.6) K/mcL Monocytes # (0.0-1.3) K/mcL Eosinophils # (0.0-0.6) K/mcL Basophils # (0.0-0.2) K/mcL Immature Plt Fraction (1.1-6.1) % PT (9.4-12.1) Seconds INR Sodium 136 (136-145) mEq/L Potassium 3.6 (3.5-4.5) mEq/L Chloride 103 (98-109) mEq/L Carbon Dioxide 22 (19-29) mEq/L BUN 10 (7-20) mg/dL Creatinine 0.73 (0.57-1.11) mg/dL Est GFR ( Amer) > 60 (> 60) Est GFR (Non-Af Amer) > 60 (> 60) BUN/Creatinine Ratio 14 (6-26) Glucose 248 H (70-99) mg/dL Calculated Osmolality 289 (280-300) Calcium 9.3 (8.6-10.8) mg/dL Total Bilirubin 0.4 (0.2-1.2) mg/dL Direct Bilirubin 0.1 (0.0-0.5) mg/dL Indirect Bilirubin 0.3 (0.0-1.2) mg/dL AST 12 (5-34) Units/L ALT 9 (0-55) Units/L Alkaline Phosphatase 96 (38-126) Units/L Troponin I 0.00 (0-0.03) ng/mL B-Natriuretic Peptide (0-100) pg/mL Serum Total Protein 7.9 (6.0-8.3) g/dL Albumin 3.4 L (3.5-5.0) g/dL Globulin 4.5 H (2.4-3.5) g/dL Albumin/Globulin Ratio 0.8 L (1.1-2.2) Lipase 46 (8-78) Units/L - Radiology Data Radiology results reviewed: Yes I reviewed the patient's radiology results. - EKG Data EKG attestation: Yes I reviewed and interpreted this EKG. EKG results narrative: EKG shows sinus rhythm with ventricular rate of 85. VT interval 176. QRS 108. QTC 427. Patient has no ST elevations or depressions. Patient has some T- wave flattening in inferior leads as well as significant Q-wave complexes in the inferior leads. Patient has poor R-wave progression throughout. All these findings are consistent with previous EKG of 07/17/69.
[2016-10-29] MEDS: Nitroglycerin 0.4 MG TAB.SUBL SL ONE ×3 (12:20→14:41)
[2016-10-29 12:33] LABS: Basophils # 0.1 K/mcL (0.0-0.2); Basophils % 0.5 %; Eosinophils # 0.1 K/mcL (0.0-0.6); Eosinophils % 1.1 %; Hematocrit 40.6 % (35.3-44.9); Hemoglobin 13.4 g/dL (11.5-15.4); Immature Granulocytes % 0.7 % (0-4); Immature Platelets 1.4 % (1.1-6.1); Lymphocytes % 27.3 %; Mean Corpuscular Hemoglobin 27.9 pg (28.0-33.3); Mean Corpuscular Volume 84.6 fL (83.0-100.0); Mean Platelet Volume 9.3 fL (9.4-12.4); Monocytes # 0.5 K/mcL (0.0-1.3); Monocytes % 4.6 %; Neutrophils # 7.3 K/mcL (1.6-8.9); Platelet Count 314 K/mcL (140-400); Red Cell Distribution Width 14.4 % (11.5-14.5); Segmented Neutrophils % 65.8 %
[2016-10-29 12:38] LABS: INR 2.6; Prothrombin Time 28.8 Seconds (9.4-12.1)
[2016-10-29 12:45] LABS: BUN/Creatinine Ratio 14 (6-26); Blood Urea Nitrogen 10 mg/dL (7-20); Calcium 9.3 mg/dL (8.6-10.8); Carbon Dioxide 22 mEq/L (19-29); Chloride 103 mEq/L (98-109); Glucose 248 mg/dL (70-99); Osmolality,Calculated 289 (280-300); Potassium 3.6 mEq/L (3.5-4.5); Sodium 136 mEq/L (136-145); eGFR For African Americans > 60 (> 60); eGFR For Non-African Americans > 60 (> 60)
[2016-10-29] MEDS ORDERED: *HR* OxyCODONE/APAP 5/325 TABLET PO ONE (12:47)
[2016-10-29] MEDS ORDERED: Ondansetron 4 MG/2 ML VIAL IVP ONE (12:47)
[2016-10-29] MEDS ORDERED: Metoclopramide 10 MG/2 ML VIAL IVP ONE (13:05)
[2016-10-29 13:25] LABS: Albumin 3.4 g/dL (3.5-5.0); Albumin/Globulin Ratio 0.8 (1.1-2.2); Bilirubin,Direct 0.1 mg/dL (0.0-0.5); Bilirubin,Indirect 0.3 mg/dL (0.0-1.2); Bilirubin,Total 0.4 mg/dL (0.2-1.2); Globulin 4.5 g/dL (2.4-3.5); Total Protein 7.9 g/dL (6.0-8.3)
[2016-10-29] MEDS ORDERED: Naloxone 0.4 MG/ML INJ IVP PRN (15:34)
[2016-10-29] MEDS ORDERED: Dextrose Gel 15 GM PO PRN ×2 (15:56)
[2016-10-29] MEDS ORDERED: D5% in Water 1,000 ML IVC PRN (15:56)
[2016-10-29] MEDS ORDERED: *HR* Dextrose 50 % in Water (Syg) 50 ML SYRINGE IVP PRN (15:56)
[2016-10-29] MEDS ORDERED: *HR* Morphine 2 MG/ML SYRINGE IVP ONE (16:03)
--- NOTE | 2016-10-29 16:11 | Event Note ---
Date of Encounter: 10/29/16 Time of Encounter: 16:09 Patient seen and examined with nurse practitioner. Patient presents with 2 weeks of chest pain. Rule out acute coronary syndrome. Actually she had 2 prior coronary angiograms last was last year showing no inclusive disease. She has history of prior venous thromboembolism. Her pain is not pleuritic. INR is 2.6. We will check D-dimer and r/o pulmonary embolism F elevated. X-ray does not show any widened mediastinum. Will check blood pressure in both arms. Repeat EKG now.
--- NOTE | 2016-10-29 16:12 | Internal Med History&Physical ---
Date of Encounter: 10/29/16 Time of Encounter: 15:30 Assessment and Plan (1) Chest pain Current visit: Yes Status: Acute Assess: Mrs. Millan presents with chief complaint of chest pain that radiates bilaterally to jaws and shoulders that she describes as a sharp pain with inspiration that becomes a left-sided heaviness/pressure under her breast. Mrs. Millan reports that this began two weeks ago and has become progressively worse over the past week. She reports SOB with minimal exertion. She also reports nausea with the pain but denies vomiting or diarrhea. Patient has history of NM (8 months ago), atrial fibrillation, hyperlipidemia, hypertension, pulmonary embolus, CVA x3 (last stroke was 2 months ago), TIAs, CAD, and DVT. Patient has previous echocardiogram, nuclear stress test, heart catheterization, and chest CT in 2016 as well as MRI of brain in 2017. Plan: Continuous cardiac telemetry Bilateral BP stat to rule out aortic dissection Troponins trended x2 Nitroglycerin PRN SL Continuous SpO2 monitoring Cardiology consult ordered and placed Continue Norvasc Continue Isosorbide Continue Lisinopril Continue Spironolactone Monitor patient and vital signs Cardiac diet ordered Qualifiers: Chest pain type: chest pain on breathing Qualified Code(s): R07.1 - Chest pain on breathing (2) Diabetes Current visit: Yes Status: Chronic Assess: Patient presents with history of chronic DM type 2. Plan: ACHS blood glucose monitoring ordered Hold Metformin and linagliptin Low-dose insulin correction dosing ordered Hypoglycemia protocol ordered Diabetic diet ordered Qualifiers: Diabetes mellitus type: type 2 Diabetes mellitus complication status: with hyperglycemia Diabetes mellitus residential insulin use: without residential use Qualified Code(s): E11.65 - Type 2 diabetes mellitus with hyperglycemia (3) Hypertension Current visit: Yes Status: Chronic Assess: Patient presents with history of chronic hypertension. Plan: Bilateral BP ordered Continue Norvasc Continue lisinopril Continue spironolactone Monitor patient and vital signs Qualifiers: Hypertension type: unspecified secondary hypertension Qualified Code(s): I15.9 - Secondary hypertension, unspecified; I15 - Secondary hypertension (4) Dyslipidemia Current visit: Yes Status: Chronic Assess: Patient presents with history of chronic hyperlipidemia. Plan: Lipid panel ordered Continue Lipitor (5) Hemiparesis affecting left side as late effect of cerebrovascular accident ( CVA) Current visit: Yes Status: Chronic Assess: Patient has history of left-sided weakness related to 3 previous strokes, with a stroke occurring approximately 2 months ago. On examination, patient exhibits left-sided weakness but is neurologically intact otherwise. Plan: OT consult ordered PT consult ordered SW consult ordered to assess for home care needs (6) Morbid obesity with BMI of 40.0-44.9, adult Current visit: Yes Status: Chronic Assess: Patient presents with history of morbid obesity with BMI of 44.4. Plan: Nutrition consult ordered to assess for dietary education (7) DVT prophylaxis Current visit: Yes Status: Acute Assess: Patient placed on DVT prophylaxis due to history of PEs, CVAs, TIAs, and cardiac symptoms. Plan: D-dimer ordered Continue coumadin therapy Continue aspirin therapy SCDs ordered for bilateral lower legs Monitor patient for SOB and/or lower leg pain/claudication Internal Medicine - H&P: HPI Chief complaint: Chest pain Admitted From: Emergency Dept Plans for Post Hospital Care: Home History of present illness: Mrs. Millan is a 56 year old female who presents from the ED with chief complaint of chest pain that radiates bilaterally to jaws and shoulders that she describes as a sharp pain with inspiration that becomes a left-sided heaviness/pressure under her breast. Mrs. Millan reports that this began two weeks ago and has become progressively worse over the past week. She reports SOB with minimal exertion. She also reports nausea with the pain but denies vomiting or diarrhea. She also reports headache that has no specific pain location. Patient has no history of migraines. Mrs. Millan has a history of diabetes, stage III renal disease, NM (8 months ago), atrial fibrillation, hyperlipidemia, hypertension, pulmonary embolus, CVA x3 (last stroke was 2 months ago), TIAs, CAD, DVT, arthritis, osteoporosis, asthma, COPD, anxiety, depression, and PTSD. Patient denies history of GERD, migraines, and kidney stones as stated in previous HPIs. Mrs. Millan reports constant back pain related to previous back surgeries. Patient also reports seeing vary dark blood in stool 2 days ago and two weeks previously. Patient has previous echocardiogram, nuclear stress test, heart catheterization, and chest CT in 2016. She also had videofluoroscopic swallow and MRI of the brain in 2017. Patient will be admitted as inpatient with chest pain work-up, including continuous cardiac monitoring, troponin trending x2, continuation of coumadin and aspirin therapy, D-Dimer, and bialteral blood pressures. Follow-up labs ordered. Patient to be monitored closely. Past Med Surg Social Fam HX - Past Medical History Medical history: arthritis, asthma, atrial fibrillation, cardiomyopathy, COPD, coronary artery disease, CVA, DVT, diabetes, hyperlipidemia, hypertension, myocardial infarction, osteoporosis, pulmonary embolus, renal disease, thyroid disease, TIA, other Psychiatric history: other, anxiety, depression, PTSD - Past Surgical History Surgical History: cholecystectomy, orthopedic, other (Two knee surgeries on left knee, one knee surgery on right with knee replacement, and two back surgeries in 1990), other (Removal of two cysts on bilateral ovaries) - Social History Smoking Status: Never smoker Smokeless Tobacco Status: No Alcohol use: none Drug use: none Occupational status: unemployed Current living situation: Home, With Family Recent Out of Country Travel Within the Last 8 Weeks: No Exposure or Possible Exposure to Illness During Travel: No - Family History Father Race: Family Member Ethnicity: Non- Living Status: Still Living Hx Family Cardiac Disorders: Yes (HD) Hx Family Cancer: Yes (Renal) Hx Family Endocrine Disorder: Yes (DM) Hx Family Neuromuscular Disorders: Yes Hx Family Neurologic Disorders: Yes Hx Family HEENT Disorders: No Hx Family Autoimmune Disorders: No Mother Race: Family Member Ethnicity: Non- Living Status: Age at : 58 Cause of : HD Hx Family Cardiac Disorders: Yes (HD) Hx Family Cancer: Yes (Breast) Hx Family Endocrine Disorder: Yes (DM) Hx Family Neuromuscular Disorders: No Hx Family Neurologic Disorders: No Hx Family HEENT Disorders: No Hx Family Autoimmune Disorders: No Brother Race: Family Member Ethnicity: Non- Living Status: Still Living Hx Family Cardiac Disorders: Yes (NM) Hx Family Respiratory Disorders: No Hx Family Cancer: No Hx Family GI Disorders: No Hx Family Endocrine Disorder: No Hx Family Neuromuscular Disorders: No Hx Family Neurologic Disorders: No Hx Family HEENT Disorders: No Hx Family Autoimmune Disorders: No Sister Race: Family Member Ethnicity: Non- Living Status: Still Living Hx Family Cardiac Disorders: No Hx Family Respiratory Disorders: No Hx Family Cancer: Yes (Ovarian) Hx Family GI Disorders: No Hx Family Endocrine Disorder: No Hx Family Neuromuscular Disorders: No Hx Family Neurologic Disorders: No Hx Family HEENT Disorders: No Hx Family Autoimmune Disorders: No Daughter Living Status: Still Living Hx Family Cardiac Disorders: No Hx Family Respiratory Disorders: No Hx Family Cancer: No Hx Family GI Disorders: No Hx Family Endocrine Disorder: No Hx Family Neuromuscular Disorders: No Hx Family Neurologic Disorders: No Hx Family HEENT Disorders: No Hx Family Autoimmune Disorders: No Internal Medicine - H&P: Meds Aspirin Enteric Coated [Aspirin EC] 81 mg PO DAILY 12/30/14 [History] Atorvastatin [Lipitor] 40 mg PO HS 12/30/14 [History] Nitroglycerin [Nitrostat] 0.4 mg PO Q5M PRN 12/30/14 [History] Sotalol HCl [Betapace] 80 mg PO BID 12/30/14 [History] amLODIPine [Norvasc] 5 mg PO DAILY 30 Days 09/12/15 [Rx] Gabapentin [Neurontin] 300 mg PO TID 10/11/15 [History] Prazosin HCl [Minipress] 5 mg PO HS 10/11/15 [History] Albuterol Sulfate [Ventolin Hfa] 2 puff IH QID PRN 10/12/15 [History] Cholecalciferol (D-3) [Vitamin D] 1,000 unit PO BID 10/12/15 [History] Cyclobenzaprine [Flexeril] 10 mg PO TID 10/12/15 [History] Furosemide [Lasix] 40 mg PO QPM 10/12/15 [History] Linagliptin [Tradjenta] 5 mg PO DAILY 10/12/15 [History] Lisinopril [Zestril] 40 mg PO DAILY 10/12/15 [History] Oxybutynin [Ditropan] 5 mg PO BID 10/12/15 [History] Quetiapine Fumarate [Seroquel] 25 - 75 mg PO TID 10/12/15 [History] Isosorbide MONOnitrate (24 HR) [Imdur] 60 mg PO DAILY #30 tab.er.24h 10/15/15 [ Rx] Ranolazine [Ranexa] 500 mg PO BID #60 tab.er.12h 10/15/15 [Rx] Folic Acid 1 mg PO DAILY 02/29/16 [History] Quetiapine Fumarate [Seroquel] 400 mg PO HS 02/29/16 [History] Warfarin [Coumadin] 2.5 mg PO DAILY 02/29/16 [History] Buspirone HCl [Buspar] 7.5 mg PO BID 07/17/16 [History] Furosemide [Lasix] 80 mg PO QAM 07/17/16 [History] LORazepam [Lorazepam] 2 mg PO HS 07/17/16 [History] Levothyroxine [Synthroid] 200 mcg PO QAM 07/17/16 [History] Medroxyprogesterone Acetate [Provera] 10 mg PO BID 07/17/16 [History] OxyCODONE/APAP 7.5/325 [Percocet 7.5/325 MG] 1 tab PO Q6H PRN 07/17/16 [History] Spironolactone [Aldactone] 25 mg PO DAILY 07/17/16 [History] Trazodone HCl 100 mg PO HS 07/17/16 [History] metFORMIN [Glucophage] 500 mg PO BID 07/17/16 [History] Docusate [Colace] 100 mg PO BID PRN #60 capsule 07/20/16 [Rx] Allergies Latex, Natural Rubber Allergy (Verified 04/01/15 09:23) Rash prednisone Allergy (Verified 04/01/15 09:23) Rash Zolpidem [From Ambien] Allergy (Verified 04/01/15 09:23) Hallucinating tape Allergy (Uncoded 09/08/15 03:19) Rash All Systems PM: A 10-system review of systems was performed and is negative for pertinent findings except as documented above in the HPI. - Constitutional Constitutional: no chills, no fever(s), no night sweats - EENT Eyes: no change in vision, no discharge, no pain, no photophobia Ears: no ear discharge, no ear pain, no tinnitus Nose, mouth and throat: no dysphagia, no nasal discharge, no neck pain, no sore throat - Breasts Breasts: as per HPI - Cardiovascular Cardiovascular ROS IM: as per HPI, chest pain, dyspnea on exertion - Respiratory Respiratory: as per HPI, cough (Dry cough, most likely related to patient taking lisinopril), dyspnea on exertion, pain on inspiration - Gastrointestinal Gastrointestinal: as per HPI, hematochezia (Two days ago, then two weeks prior. Patient describes as very dark blood.) - Genitourinary Genitourinary: no change in urinary stream, no dysuria, no flank pain, no hematuria Menstruation: as per HPI - Musculoskeletal Musculoskeletal ROS IM: as per HPI, back pain - Integumentary Integumentary IM: unusual bruising (Related to taking coumadin), no rash - Neurological Neurological ROS: as per HPI (Left-sided weakness) - Psychiatric Psychiatric: as per HPI - Endocrine Endocrine IM: as per HPI - Hematologic/Lymphatic Hematologic/Lymphatic: as per HPI, easy bruising (Related to taking coumadin) - Allergic/Immunologic Allergic/Immunologic: as per HPI - Constitutional Vitals: Temp Pulse Resp BP Pulse Ox 97.9 F 79 16 163/92 96 10/29/16 15:46 10/29/16 15:46 10/29/16 15:46 10/29/16 15:46 10/29/16 15:46 General appearance: Present: cooperative, mild distress, A&O X 3, morbidly obese , pleasant, answers questions appropriately - Head Head exam: Present: atraumatic, normocephalic - Eye Eye exam: Present: PERRL, conjuntiva pink, sclera anicteric Pupils: Present: PERRL - ENT ENT exam: Present: normal exam, normal external ear exam - Neck Neck exam general surgery: Present: supple, trachea midline. Absent: lymphadenopathy - Respiratory Respiratory exam: Present: CTAB. Absent: accessory muscle use, rales, rhonchi, wheezes - Cardiovascular Cardiovascular exam: Present: RRR, +S1, +S2. Absent: diastolic murmur, gallop, rubs, systolic murmur - GI/Abdominal GI/Abdominal exam: Present: normal bowel sounds, soft, no peritoneal signs. Absent: distended, tenderness - Rectal Rectal exam: Present: deferred - Additional comments: exam deferred. - Extremities Exam Extremities exam: Present: warm, radial pulses palpable and symetrical. Absent : calf tenderness, cyanotic, pedal edema - Back Exam Back exam: Present: normal inspection - Neurological Exam Neurological exam: Present: alert, altered, CN II-XII intact, oriented X3, pronater drift (Left side) - Psychiatric Psychiatric exam: Present: normal affect, normal mood - Skin Skin exam: Present: dry, intact Internal Med - H&P Results - Labs CBC & Chem 7: 10/29/16 12:26 10/29/16 12:26 - EKG Data EKG shows normal: sinus rhythm - EKG Data Prior EKG available for review: yes When compared to previous EKG: there is no significant change Interpretation IM: suggestive of ischemia EKG comments: 10/29/16 16:43 EKG dated 07/17/16 shows: sinus rhythm, voltage criteria for LVH, possible anterior myocardial infarction of indeterminate age. EKG dated 10/29/16 shows: sinus rhythm, left ventricular hypertrophy and ST-T change, possible anterior myocardial infarction of indeterminate age. - Diagnostic Studies CT scan - abdomen Additional comments: CT of the abdomen/pelvis without contrast dated 10/29/16 shows: Overall Impression: No evidence of obstructive uropathy Subtle injection is seen of central mesenteric fat, for which mesenteric panniculitis could be considered in the appropriate clinical setting. Small bilateral pleural effusions. Chest x-ray Additional comments: 1-View CXR of the chest dated 10/29/16 shows: No acute or focal bony abnormality is identified. Heart size and mediastinal contours are within normal limits. No focal pulmonary consolidation, edema, or effusion is seen.
[2016-10-29] MEDS: Furosemide 40 MG TABLET PO SCH (16:35)
[2016-10-29] MEDS: Insulin LISPRO 300 UNITS/3 ML VIAL SQ SCH (16:42)
[2016-10-29] MEDS: *HR* OxyCODONE/APAP 7.5/325 TABLET PO PRN (19:39)
[2016-10-29] MEDS: Ondansetron 4 MG/2 ML VIAL IVP PRN (19:39)
[2016-10-29] MEDS ORDERED: Insulin LISPRO 300 UNITS/3 ML VIAL SQ SCH (21:00)
[2016-10-29] MEDS ORDERED: NON-FORMULARY MEDICATION 1 EACH EACH (Quetiapine Fumarate [Seroquel] 400 MG) PO SCH (21:00)
[2016-10-29 21:59] LABS: Hemoglobin A1C 10.6 %
[2016-10-29] MEDS: Gabapentin 300 MG CAPSULE PO SCH (22:02)
[2016-10-29] MEDS: *HR* LORazepam 1 MG TABLET PO SCH (22:03)
[2016-10-29] MEDS: Cholecalciferol (D-3) 1,000 UNIT TABLET PO SCH (22:03)
[2016-10-29] MEDS: traZODone 50 MG TABLET PO SCH (22:04)
[2016-10-29] MEDS: Ranolazine 500 MG TAB.ER.12H PO SCH (22:05)
[2016-10-29] MEDS: Nystatin POWDER 30 GM BOTTLE TP SCH (22:06)
[2016-10-29] MEDS: Nitroglycerin 0.4 MG TAB.SUBL SL PRN ×2 (23:35→23:43)
[2016-10-30 00:37] LABS: Basophils % 0.5 %; Eosinophils # 0.1 K/mcL (0.0-0.6); Eosinophils % 1.5 %; Hematocrit 39.3 % (35.3-44.9); Hemoglobin 12.7 g/dL (11.5-15.4); Immature Granulocytes % 1.2 % (0-4); Immature Platelets 1.4 % (1.1-6.1); Lymphocytes % 34.8 %; Mean Corpuscular HGB Conc 32.3 g/dL (31.6-35.5); Mean Corpuscular Hemoglobin 27.6 pg (28.0-33.3); Mean Corpuscular Volume 85.4 fL (83.0-100.0); Mean Platelet Volume 9.7 fL (9.4-12.4); Monocytes # 0.5 K/mcL (0.0-1.3); Monocytes % 5.3 %; Neutrophils # 4.8 K/mcL (1.6-8.9); Platelet Count 304 K/mcL (140-400); Red Cell Distribution Width 14.6 % (11.5-14.5); Segmented Neutrophils % 56.7 %
[2016-10-30 00:52] LABS: Prothrombin Time 21.7 Seconds (9.4-12.1)
[2016-10-30 00:55] LABS: Activated Partial Thrombo Time 38.8 Seconds (26.0-36.0); BUN/Creatinine Ratio 15 (6-26); Blood Urea Nitrogen 12 mg/dL (7-20); Calcium 9.1 mg/dL (8.6-10.8); Carbon Dioxide 25 mEq/L (19-29); Chloride 103 mEq/L (98-109); Glucose 366 mg/dL (70-99); Osmolality,Calculated 299 (280-300); Potassium 3.9 mEq/L (3.5-4.5); Sodium 137 mEq/L (136-145); eGFR For African Americans > 60 (> 60); eGFR For Non-African Americans > 60 (> 60)
[2016-10-30 00:57] LABS: Chol/HDL Ratio 4.4 (0-4.9); Cholesterol 177 mg/dL (< 200); HDL Cholesterol 40 mg/dL (40-59); LDL Cholesterol,Calculated 86 mg/dL (0-99); Magnesium 1.7 mg/dL (1.6-2.6); Triglycerides 257 mg/dL (< 150); eGFR For African Americans > 60 (> 60); eGFR For Non-African Americans > 60 (> 60)
[2016-10-30] MEDS: *HR* OxyCODONE/APAP 7.5/325 TABLET PO PRN ×2 (01:40→13:40)
[2016-10-30] MEDS: Nitroglycerin 0.4 MG TAB.SUBL SL PRN ×2 (02:38→05:30)
[2016-10-30] MEDS ORDERED: *HR* Morphine 2 MG/ML SYRINGE IVP ONE (03:12)
[2016-10-30] MEDS ORDERED: GuaiFENesin Liq 200 MG/10 ML UDC PO PRN (03:48)
[2016-10-30] MEDS ORDERED: Nitroglycerin 0.4 MG PATCH.TD24 TD ONE (05:53)
[2016-10-30] MEDS: Insulin LISPRO 300 UNITS/3 ML VIAL SQ SCH ×4 (09:05→21:51)
[2016-10-30] MEDS: Cholecalciferol (D-3) 1,000 UNIT TABLET PO SCH ×2 (09:07→21:53)
[2016-10-30] MEDS: Spironolactone 25 MG TABLET PO SCH (09:07)
[2016-10-30] MEDS: amLODIPine 5 MG TABLET PO SCH (09:07)
[2016-10-30] MEDS: Pantoprazole 40 MG VIAL IVP SCH (09:07)
[2016-10-30] MEDS: Folic Acid 1 MG TABLET PO SCH (09:08)
[2016-10-30] MEDS: *HR* Warfarin 5 MG TABLET PO SCH (09:08)
[2016-10-30] MEDS: Furosemide 40 MG TABLET PO SCH ×2 (09:08→17:15)
[2016-10-30] MEDS: Isosorbide MONOnitrate (24 HR) 60 MG TAB.ER.24H PO SCH (09:09)
[2016-10-30] MEDS: Ranolazine 500 MG TAB.ER.12H PO SCH ×2 (09:09→21:52)
[2016-10-30] MEDS: Lisinopril 20 MG TABLET PO SCH (09:09)
[2016-10-30] MEDS: Aspirin Enteric Coated 81 MG Tablet PO SCH (09:09)
[2016-10-30] MEDS: Nystatin POWDER 30 GM BOTTLE TP SCH ×2 (09:10→21:54)
[2016-10-30] MEDS: Insulin DETEMIR 100 UNIT/ML X5UNITS SQ SCH ×2 (09:14→21:50)
[2016-10-30] MEDS: Gabapentin 300 MG CAPSULE PO SCH ×3 (10:53→21:53)
--- NOTE | 2016-10-30 16:15 | Electrocardiograph Report ---
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
--- NOTE | 2016-10-30 16:16 | Electrocardiograph Report ---
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
[2016-10-30 16:19] LABS: ABG Base Excess 1.5 mEq/L (-2.0 to 3.0); ABG HCO3 27.2 mEQ/L (21-27); ABG Oxygen Saturation 95 % (95-98); ABG PCO2 46 mmHg (35-45); ABG PH 7.38 pH Units (7.32-7.45); ABG PO2 79 mmHg (85-104); ABG TCO2 28.6 mEq/L (20-26)
[2016-10-30 16:20] LABS: Blood Gas FiO2 36 %
--- NOTE | 2016-10-30 16:34 | Electrocardiograph Report ---
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
--- NOTE | 2016-10-30 17:39 | Internal Med Progress Note ---
Date of Encounter: 10/30/16 Time of Encounter: 12:50 - Assessment and plan (1) Chest pain Current Visit: Yes Status: Acute Assessment and plan: Initial labs, EKG, chest XRay showed no acute abnormality. Telemetry monitoring remains uneventful. Serial Troponins remain negative. Patient underwent complete cardiac workup recently, including cardiac catheterization, which showed non-occlusive disease, and recommended medical management. Less likely cardiac pain. Patient continues to report intermittent drowsiness and weakness; ABG reviewed, no CO2 retention/acidosis. Will check CK level; PT evaluation recommended ECF placement, however patient wishes to be discharged home. environmental services attendant consult. Qualifiers: Chest pain type: unspecified Qualified Code(s): R07.9 - Chest pain, unspecified (2) Physical deconditioning Current Visit: Yes Status: Chronic Assessment and plan: Patient would likely benefit from placement for rehab; (3) Anemia Current Visit: Yes Status: Chronic Qualifiers: Anemia type: iron deficiency Qualified Code(s): D50.8 - Other iron deficiency anemias (4) Diabetes mellitus Current Visit: Yes Status: Chronic Assessment and plan: Uncontrolled, HbA1C noted to be 10.6%. Blood sugars noted to be elevated. Will add basal insulin and increase sliding scale insulin; diabetic diet. Qualifiers: Diabetes mellitus type: type 2 Diabetes mellitus complication status: with hyperglycemia Diabetes mellitus retirement insulin use: with retirement use Qualified Code(s): E11.65 - Type 2 diabetes mellitus with hyperglycemia; Z79.4 - custodial (current) use of insulin (5) Paroxysmal atrial fibrillation Current Visit: Yes Status: Chronic (6) History of venous thromboembolism Current Visit: No Status: Chronic (7) CAD (coronary artery disease) Current Visit: Yes Status: Chronic Qualifiers: Coronary Disease-Associated Artery/Lesion type: [place] artery [place] vs. transplanted heart: [place] heart Associated angina: angina presence unspecified Qualified Code(s): I25.10 - Atherosclerotic heart disease of [place] coronary artery without angina pectoris (8) Hyperlipidemia Current Visit: Yes Status: Chronic Assessment and plan: Lipid profile reviewed, shows elevated TGs and LDL-cholesterol. StART STATIN; Qualifiers: Hyperlipidemia type: mixed hyperlipidemia Qualified Code(s): E78.2 - Mixed hyperlipidemia - Subjective Interval history: Reports feeling tired and weak, like being hit by a train; no chest pain, dyspnea, orthopnea; no nausea, emesis, abdominal pain; - Constitutional Vitals: Temp Pulse Resp BP Pulse Ox 97.7 F 81 14 104/52 93 10/30/16 17:05 10/30/16 17:05 10/30/16 17:05 10/30/16 17:13 10/30/16 17:05 General appearance: Present: cooperative, A&O X 3, morbidly obese, pleasant, answers questions appropriately - Respiratory Respiratory exam: Present: CTAB. Absent: accessory muscle use, rales, rhonchi, wheezes - Cardiovascular Cardiovascular exam: Present: RRR, +S1, +S2. Absent: diastolic murmur, gallop, rubs, systolic murmur - GI/Abdominal GI/Abdominal exam: Present: normal bowel sounds, soft, no peritoneal signs. Absent: distended, tenderness - Extremities Exam Extremities exam: Present: full ROM, warm, radial pulses palpable and symetrical. Absent: calf tenderness, cyanotic, pedal edema Internal Medicine: Result - Labs CBC & Chem 7: 10/30/16 00:21 10/30/16 00:21 Labs: Short CBC 10/30/16 Range/Units 00:21 WBC 8.5 (4.3-11.1) K/mcL Hgb 12.7 (11.5-15.4) g/dL Hct 39.3 (35.3-44.9) % Plt Count 304 (140-400) K/mcL Neutrophils # 4.8 (1.6-8.9) K/mcL BMP 10/30/16 10/30/16 00:21 00:21 Sodium 137 Potassium 3.9 Chloride 103 Carbon Dioxide 25 BUN 12 Creatinine 0.82 0.81 Glucose 366 H Calcium 9.1 Cardiac Enzymes 10/29/16 10/30/16 Range/Units 18:19 00:21 Troponin I 0.01 0.00 (0-0.03) ng/mL - ABG Interpretation ABG results: ABG ABG pH 7.38 pH Units (7.32-7.45) 10/30/16 16:00 ABG pCO2 46 mmHg (35-45) H 10/30/16 16:00 ABG pO2 79 mmHg (85-104) L 10/30/16 16:00 ABG O2 Saturation 95 % (95-98) 10/30/16 16:00 PT/INR, D-dimer PT 21.7 Seconds (9.4-12.1) H 10/30/16 00:21 D-Dimer < 215 ng/mLFEU (0-500) 10/29/16 16:28 - VTE Documentation of Mechanical Device: Intermittent pneumatic compression device Consult Discharge Plan - Plan Referrals: Mickie Sweeney, EUGENE [Advanced Practice Nurse] -
[2016-10-30 18:31] LABS: Creatine Kinase 29 Units/L (29-168)
[2016-10-30] MEDS: Ondansetron 4 MG/2 ML VIAL IVP PRN (20:32)
[2016-10-30] MEDS: *HR* LORazepam 1 MG TABLET PO SCH (21:52)
[2016-10-30] MEDS: traZODone 50 MG TABLET PO SCH (21:54)
[2016-10-31 06:52] LABS: Basophils # 0.1 K/mcL (0.0-0.2); Basophils % 0.6 %; Eosinophils # 0.2 K/mcL (0.0-0.6); Eosinophils % 1.8 %; Hematocrit 37.6 % (35.3-44.9); Immature Platelets 1.8 % (1.1-6.1); Lymphocytes # 3.2 K/mcL (0.6-4.6); Lymphocytes % 32.9 %; Mean Corpuscular HGB Conc 31.9 g/dL (31.6-35.5); Mean Corpuscular Hemoglobin 27.7 pg (28.0-33.3); Mean Corpuscular Volume 86.8 fL (83.0-100.0); Mean Platelet Volume 9.5 fL (9.4-12.4); Monocytes # 0.5 K/mcL (0.0-1.3); Monocytes % 5.5 %; Neutrophils # 5.6 K/mcL (1.6-8.9); Platelet Count 258 K/mcL (140-400); Red Blood Count 4.33 M/mcL (3.82-4.97); Red Cell Distribution Width 14.7 % (11.5-14.5); Segmented Neutrophils % 57.2 %
[2016-10-31 07:09] LABS: BUN/Creatinine Ratio 22 (6-26); Blood Urea Nitrogen 17 mg/dL (7-20); Calcium 9.4 mg/dL (8.6-10.8); Carbon Dioxide 22 mEq/L (19-29); Chloride 103 mEq/L (98-109); Glucose 274 mg/dL (70-99); Osmolality,Calculated 291 (280-300); Potassium 4.1 mEq/L (3.5-4.5); Sodium 135 mEq/L (136-145); eGFR For African Americans > 60 (> 60); eGFR For Non-African Americans > 60 (> 60)
[2016-10-31] MEDS ORDERED: 0.9 % Sodium Chloride 250 ML ONE (08:28)
[2016-10-31] MEDS ORDERED: 0.9 % Sodium Chloride 250 ML IVC ONE (08:42)
[2016-10-31] MEDS: Folic Acid 1 MG TABLET PO SCH (08:50)
[2016-10-31] MEDS: Aspirin Enteric Coated 81 MG Tablet PO SCH (08:50)
[2016-10-31] MEDS: Cholecalciferol (D-3) 1,000 UNIT TABLET PO SCH ×2 (08:50→20:50)
[2016-10-31] MEDS: Pantoprazole 40 MG VIAL IVP SCH (08:51)
[2016-10-31] MEDS: Insulin LISPRO 300 UNITS/3 ML VIAL SQ SCH ×4 (08:52→20:50)
[2016-10-31] MEDS: Nystatin POWDER 30 GM BOTTLE TP SCH ×2 (08:53→21:01)
[2016-10-31] MEDS: Spironolactone 25 MG TABLET PO SCH (08:53)
[2016-10-31] MEDS: Insulin DETEMIR 100 UNIT/ML X5UNITS SQ SCH ×2 (08:54→20:50)
[2016-10-31] MEDS: Furosemide 40 MG TABLET PO SCH ×2 (08:54→16:45)
[2016-10-31] MEDS: Isosorbide MONOnitrate (24 HR) 60 MG TAB.ER.24H PO SCH (08:54)
[2016-10-31] MEDS: amLODIPine 5 MG TABLET PO SCH (08:54)
[2016-10-31] MEDS: Lisinopril 20 MG TABLET PO SCH (08:54)
[2016-10-31] MEDS: Ranolazine 500 MG TAB.ER.12H PO SCH ×2 (08:54→20:49)
[2016-10-31] MEDS: Gabapentin 300 MG CAPSULE PO SCH ×3 (08:54→20:49)
[2016-10-31] MEDS: *HR* Warfarin 5 MG TABLET PO SCH (08:55)
[2016-10-31 12:14] LABS: Bilirubin,Urine Negative (Negative); Blood,Urine Negative (Negative); Clarity,Urine Cloudy (Clear); Color,Urine Yellow (Yellow); Glucose,Urine (UA) >=1000 mg/dL (Normal); Ketones,Urine Negative (Negative); Leukocyte Esterase,Urine Negative (Negative); Nitrite,Urine Negative (Negative); PH,Urine 5.5 pH Units (5.0-8.0); Protein,Urine Negative (Neg-Trace); Specific Gravity,Urine 1.027 (1.010-1.025); Urobilinogen,Urine Normal (Normal)
[2016-10-31 12:16] LABS: Bacteria,Urine Few per hpf (None-Few); Hyaline Casts,Urine None Seen per lpf (None-Few); RBC,Urine 0-3 per hpf (0-3); Squamous Epithelial Cell,Urine Many per lpf (None-Few)
[2016-10-31] MEDS: Acetaminophen 325 MG TABLET PO PRN (16:45)
--- NOTE | 2016-10-31 18:18 | Internal Med Progress Note ---
Date of Encounter: 10/31/16 Time of Encounter: 09:05 - Assessment and plan (1) Chest pain Current Visit: Yes Status: Acute Assessment and plan: Patient denied chest pain to me today. She said that his resolved. Labs, EKG, chest x-ray were negative, as well as troponins. Recent cardiac catheter showed nonobstructive disease cardiology recommended medical management. Patient has had intermittent drowsiness and weakness. Prior blood gas shows no retention or acidosis. Patient remains on telemetry Continue to monitor vital signs and patient condition Monitor labs Qualifiers: Chest pain type: chest pain on breathing Qualified Code(s): R07.1 - Chest pain on breathing (2) Physical deconditioning Current Visit: Yes Status: Chronic Assessment and plan: Chronic. Physical therapy has recommended intermediate facility for walker, gait balance and strength rehabilitation. donor services coordinator is on board we will discuss this with patient tomorrow. She has been too drowsy today to discuss important decisions. (3) Anemia Current Visit: Yes Status: Chronic Assessment and plan: Chronic. Iron deficiency. Hemoglobin is stable at 12. Continue to monitor. Qualifiers: Anemia type: iron deficiency Qualified Code(s): D50.8 - Other iron deficiency anemias (4) Diabetes mellitus Current Visit: Yes Status: Chronic Assessment and plan: Sliding scale insulin Accu-Cheks before meals at bedtime Diabetic diet A1c 10.6 Patient needs more diet/diabetes education. 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 Troponins have been negative. Recent cardiac workup was negative and cardiology recommends medical management. Continue aspirin, statin, beta corazon. Continue telemetry Qualifiers: Coronary Disease-Associated Artery/Lesion type: [place]nee artery [place] vs. transplanted heart: shawnee heart Associated angina: angina presence unspecified Qualified Code(s): I25.10 - Atherosclerotic heart disease of shawnee coronary artery without angina pectoris (7) Hyperlipidemia Current Visit: Yes Status: Chronic Assessment and plan: Chronic. Continue statin. Qualifiers: Hyperlipidemia type: mixed hyperlipidemia Qualified Code(s): E78.2 - Mixed hyperlipidemia (8) Drowsiness Current Visit: Yes Status: Acute Assessment and plan: Patient has been drowsy all day today. Onset during the night. Patient is arousable briefly and does answer questions appropriately. Her speech is slurred. All of her a.m. medications including anything sedating and for blood pressure were held, patient did arouse in the afternoon. Her was here and when he went to the cafeteria to get food and came back she was drowsy again. She says this happened one week ago at home and it lasted for 3 days. Her did not bring her to the emergency department for evaluation, instead stayed with her and let her sleep for 3 days. Patient's speech is slurred and slow. Head CT was ordered, no acute intracranial abnormality. No acute hemorrhage mass effect or midline shift. There is no extra-axial fluid collection no acute sinusitis. A urine was ordered. Urine was cloudy, specific gravity was high, glucose greater than 1000, 5-15 white cells, few bacteria. Culture was triggered and is pending. It is negative for leukocyte esterase. Patient has no leukocytosis , fever, back pain, or urinary symptoms. Will wait for culture. Hold medications as needed for sedation In reviewing patient's history, she does have a history of polypharmacy, and overdose. I have ordered a urine drug screen. I feel this is not the cause of the drowsiness due to the fact that she was alert and oriented and in discussing chest pain on admission. Continue to monitor patient's condition Continue telemetry (9) Obesity, morbid, BMI 40.0-49.9 Current Visit: Yes Status: Acute Assessment and plan: Chronic. Lifestyle changes. - Time Spent With Patient less than 15 minutes - Subjective Interval history: Patient was seen and assessed at 9:05 AM. She is exceptionally drowsy. Her speech is slurred. She was arousable and did answer questions appropriately. She said that she has a history of the same at home 1 week ago and it lasted for 3 days. She said that her did not bring her to the emergency department for evaluation, he just stayed with her and let her sleep for [address] without contrast was ordered as well as a fluid bolus and hold all a.m. medications. I went to see her later in the afternoon and she was sitting up talking, however after her went to the cafeteria to get some dinner at about 5:30 PM became drowsy again. We will continue to monitor her condition. - Constitutional Vitals: Temp Pulse Resp BP Pulse Ox 97.5 F L 89 15 116/82 95 10/31/16 15:21 10/31/16 15:21 10/31/16 15:21 10/31/16 15:21 10/31/16 15:21 General appearance: Present: cooperative, A&O X 3, morbidly obese, pleasant, answers questions appropriately - Head Head exam: Present: normal inspection - Eye Eye exam: Present: normal appearance, conjuntiva pink. Absent: nystagmus - ENT ENT exam: Present: mucous membranes moist, normal exam, normal external ear exam - Respiratory Respiratory exam: Present: CTAB. Absent: accessory muscle use, rales, respiratory distress, rhonchi, stridor, wheezes, tachypnea - Cardiovascular Cardiovascular exam: Present: RRR, +S1, +S2. Absent: bradycardia, clicks, diastolic murmur, gallop, JVD, systolic murmur, tachycardia - GI/Abdominal GI/Abdominal exam: Present: normal bowel sounds, soft. Absent: distended, firm , guarding, hernia, hepatomegaly, tenderness - Extremities Exam Extremities exam: Present: normal capillary refill, normal inspection, pedal edema, warm, radial pulses palpable and symetrical. Absent: calf tenderness, tenderness - Psychiatric Psychiatric exam: Present: flat affect - Skin Skin exam: Present: dry, intact, normal color. Absent: cyanosis, rash, urticaria Internal Medicine: Result - Labs CBC & Chem 7: 10/31/16 05:36 10/31/16 05:36 Labs: Short CBC 10/31/16 Range/Units 05:36 WBC 9.8 (4.3-11.1) K/mcL Hgb 12.0 (11.5-15.4) g/dL Hct 37.6 (35.3-44.9) % Plt Count 258 (140-400) K/mcL Neutrophils # 5.6 (1.6-8.9) K/mcL BMP 10/31/16 05:36 Sodium 135 L Potassium 4.1 Chloride 103 Carbon Dioxide 22 BUN 17 Creatinine 0.79 Glucose 274 H Calcium 9.4 Urine 10/31/16 Range/Units 12:08 Urine Color Yellow (Yellow) Urine Clarity Cloudy A (Clear) Urine pH 5.5 (5.0-8.0) pH Units Ur Specific [place] 1.027 H (1.010-1.025) Urine Protein Negative (Neg-Trace) mg/dL Urine Glucose (UA) >=1000 H (Normal) mg/dL - ABG Interpretation ABG results: ABG ABG pH 7.38 pH Units (7.32-7.45) 10/30/16 16:00 ABG pCO2 46 mmHg (35-45) H 10/30/16 16:00 ABG pO2 79 mmHg (85-104) L 10/30/16 16:00 ABG O2 Saturation 95 % (95-98) 10/30/16 16:00 PT/INR, D-dimer PT 21.7 Seconds (9.4-12.1) H 10/30/16 00:21 D-Dimer < 215 ng/mLFEU (0-500) 10/29/16 16:28 - Impressions Impressions Head CT 10/31/16 10:15 IMPRESSION: No acute intracranial abnormality. D/ / Rasheed López MD / Rasheed López MD Interpreting Provider: Rasheed López MD - VTE Documentation of Mechanical Device: Intermittent pneumatic compression device Consult Discharge Plan - Plan Referrals: Ashwin Ellington, PAC [Primary Care Provider] -
[2016-10-31] MEDS: *HR* OxyCODONE/APAP 7.5/325 TABLET PO PRN (20:49)
[2016-10-31] MEDS: traZODone 50 MG TABLET PO SCH (21:01)
[2016-10-31] MEDS: *HR* LORazepam 1 MG TABLET PO SCH (21:01)
[2016-11-01] MEDS: Acetaminophen 325 MG TABLET PO PRN (00:12)
[2016-11-01] MEDS: Nitroglycerin 0.4 MG TAB.SUBL SL PRN ×2 (01:31→10:27)
[2016-11-01] MEDS: *HR* OxyCODONE/APAP 7.5/325 TABLET PO PRN ×3 (03:02→20:02)
[2016-11-01] MEDS ORDERED: *HR* HYDROcodone/Acet 7.5/325 mg TABLET PO ONE (05:31)
[2016-11-01] MEDS: Ranolazine 500 MG TAB.ER.12H PO SCH ×2 (08:14→20:03)
[2016-11-01] MEDS: Aspirin Enteric Coated 81 MG Tablet PO SCH (08:14)
[2016-11-01] MEDS: Isosorbide MONOnitrate (24 HR) 60 MG TAB.ER.24H PO SCH (08:14)
[2016-11-01] MEDS: Spironolactone 25 MG TABLET PO SCH (08:14)
[2016-11-01] MEDS: Gabapentin 300 MG CAPSULE PO SCH ×3 (08:15→20:02)
[2016-11-01] MEDS: Furosemide 40 MG TABLET PO SCH ×2 (08:15→17:27)
[2016-11-01] MEDS: Cholecalciferol (D-3) 1,000 UNIT TABLET PO SCH ×2 (08:15→20:03)
[2016-11-01] MEDS: *HR* Warfarin 5 MG TABLET PO SCH (08:16)
[2016-11-01] MEDS: Folic Acid 1 MG TABLET PO SCH (08:17)
[2016-11-01] MEDS: Insulin LISPRO 300 UNITS/3 ML VIAL SQ SCH ×4 (08:18→20:42)
[2016-11-01] MEDS: Pantoprazole 40 MG VIAL IVP SCH (08:18)
[2016-11-01] MEDS: amLODIPine 5 MG TABLET PO SCH (08:18)
[2016-11-01] MEDS: Lisinopril 20 MG TABLET PO SCH (08:19)
[2016-11-01] MEDS: Nystatin POWDER 30 GM BOTTLE TP SCH ×2 (08:20→21:52)
[2016-11-01] MEDS: Insulin DETEMIR 100 UNIT/ML X5UNITS SQ SCH ×2 (09:03→20:38)
[2016-11-01] MEDS: Ondansetron 4 MG/2 ML VIAL IVP PRN (12:34)
--- NOTE | 2016-11-01 15:39 | Electrocardiograph Report ---
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
--- NOTE | 2016-11-01 15:40 | Electrocardiograph Report ---
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
--- NOTE | 2016-11-01 16:51 | Internal Med Progress Note ---
Date of Encounter: 11/01/16 Time of Encounter: 11:30 - Assessment and plan (1) Chest pain with low risk of acute coronary syndrome Current Visit: No Status: Acute Assessment and plan: Troponin negative, EKG - NSR, cardiac workup recently is negative (2) Diabetes mellitus Current Visit: Yes Status: Acute Assessment and plan: Hyperglycemia, type 2, insulin sliding scale Qualifiers: Diabetes mellitus type: type 2 Diabetes mellitus complication status: without complication Diabetes mellitus termite inspector insulin use: without skilled nursing use Qualified Code(s): E11.9 - Type 2 diabetes mellitus without complications (3) Hyperlipidemia Current Visit: Yes Status: Acute Assessment and plan: statin Qualifiers: Hyperlipidemia type: mixed hyperlipidemia Qualified Code(s): E78.2 - Mixed hyperlipidemia (4) Obesity, morbid, BMI 40.0-49.9 Current Visit: Yes Status: Acute Assessment and plan: Chronic. Lifestyle changes. (5) Physical deconditioning Current Visit: Yes Status: Acute Assessment and plan: needs PT/OT, anticipate d/c to SNF - Time Spent With Patient less than 15 minutes - Subjective Interval history: Patient awake and alert. Not in any distress. Denies shortness of breath. Complains of left side chest pain, radiating to left arm, rates it 4/10. No aggravating or alleviating factors. Chronic chest pain - likely musculoskeletal. No fever. No other acute events or complaints. - Constitutional Vitals: Temp Pulse Resp BP Pulse Ox 97.9 F 86 17 90/63 97 11/01/16 16:23 11/01/16 16:23 11/01/16 16:23 11/01/16 16:23 11/01/16 16:23 General appearance: Present: cooperative, A&O X 3, morbidly obese, pleasant, answers questions appropriately - Neck Neck exam general surgery: Present: supple - Respiratory Respiratory exam: Present: CTAB. Absent: rhonchi, wheezes - Cardiovascular Cardiovascular exam: Present: RRR, +S1, +S2 Additional comments: mild chest wall tenderness - GI/Abdominal GI/Abdominal exam: Present: soft. Absent: guarding, tenderness - Extremities Exam Extremities exam: Present: radial pulses palpable and symetrical. Absent: cyanotic - Neurological Exam Neurological exam: Present: alert, oriented X3, no focal deficits Internal Medicine: Result - Labs CBC & Chem 7: 10/31/16 05:36 10/31/16 05:36 Labs: Cardiac Enzymes 11/01/16 Range/Units 10:27 Troponin I 0.00 (0-0.03) ng/mL - ABG Interpretation ABG results: ABG ABG pH 7.38 pH Units (7.32-7.45) 10/30/16 16:00 ABG pCO2 46 mmHg (35-45) H 10/30/16 16:00 ABG pO2 79 mmHg (85-104) L 10/30/16 16:00 ABG O2 Saturation 95 % (95-98) 10/30/16 16:00 PT/INR, D-dimer PT 21.7 Seconds (9.4-12.1) H 10/30/16 00:21 D-Dimer < 215 ng/mLFEU (0-500) 10/29/16 16:28 - VTE Documentation of Mechanical Device: Intermittent pneumatic compression device Consult Discharge Plan - Plan Referrals: Ashwin Ellington, PAC [Primary Care Provider] -
[2016-11-01] MEDS: *HR* LORazepam 1 MG TABLET PO SCH (20:05)
[2016-11-01] MEDS: traZODone 50 MG TABLET PO SCH (20:06)
[2016-11-01] MEDS: *HR* HYDROmorphone (PF) 1 MG/ML SYRINGE IVP PRN (23:00)
[2016-11-02] MEDS: *HR* HYDROmorphone (PF) 1 MG/ML SYRINGE IVP PRN ×2 (03:38→19:55)
[2016-11-02] MEDS: *HR* OxyCODONE/APAP 7.5/325 TABLET PO PRN ×2 (06:30→16:21)
[2016-11-02 08:29] LABS: Amphetamine Screen,Urine Negative ng/mL (Cutoff=1000); Barbiturate Screen,Urine Negative ng/mL (Cutoff=200); Benzodiazepines Screen,Urine Positive ng/mL (Cutoff=200); Cannabinoid Screen,Urine Negative ng/mL (Cutoff = 50); Cocaine Screen,Urine Negative ng/mL (Cutoff= 300); Opiate Screen,Urine Positive ng/mL (Cutoff=300); Phencyclidine Screen,Urine Negative ng/mL (Cutoff=25)
[2016-11-02] MEDS: Insulin LISPRO 300 UNITS/3 ML VIAL SQ SCH ×4 (09:06→20:08)
[2016-11-02] MEDS: Spironolactone 25 MG TABLET PO SCH (09:07)
[2016-11-02] MEDS: *HR* Warfarin 5 MG TABLET PO SCH (09:07)
[2016-11-02] MEDS: Aspirin Enteric Coated 81 MG Tablet PO SCH (09:07)
[2016-11-02] MEDS: Isosorbide MONOnitrate (24 HR) 60 MG TAB.ER.24H PO SCH (09:08)
[2016-11-02] MEDS: Folic Acid 1 MG TABLET PO SCH (09:08)
[2016-11-02] MEDS: amLODIPine 5 MG TABLET PO SCH (09:09)
[2016-11-02] MEDS: Furosemide 40 MG TABLET PO SCH ×2 (09:09→16:20)
[2016-11-02] MEDS: Nystatin POWDER 30 GM BOTTLE TP SCH ×2 (09:09→19:58)
[2016-11-02] MEDS: Gabapentin 300 MG CAPSULE PO SCH ×3 (09:09→19:55)
[2016-11-02] MEDS: Pantoprazole 40 MG VIAL IVP SCH (09:09)
[2016-11-02] MEDS: Insulin DETEMIR 100 UNIT/ML X5UNITS SQ SCH ×2 (09:09→20:10)
[2016-11-02] MEDS: Lisinopril 20 MG TABLET PO SCH (09:10)
[2016-11-02] MEDS: Cholecalciferol (D-3) 1,000 UNIT TABLET PO SCH ×2 (09:10→19:54)
[2016-11-02] MEDS: Ranolazine 500 MG TAB.ER.12H PO SCH ×2 (09:10→19:55)
[2016-11-02] MEDS: Nitroglycerin 0.4 MG TAB.SUBL SL PRN (13:52)
--- NOTE | 2016-11-02 16:09 | Internal Med Progress Note ---
Date of Encounter: 11/02/16 Time of Encounter: 11:00 - Assessment and plan (1) Chest pain with low risk of acute coronary syndrome Current Visit: No Status: Acute Assessment and plan: Troponin negative, EKG - NSR, cardiac workup recently is negative likely musculoskeletal (2) Hypoxia Current Visit: Yes Status: Acute Assessment and plan: likely due to COPD, Duonebs, O2 via NC probable ANA PAULA and obesity hypoventilation (3) COPD (chronic obstructive pulmonary disease) Current Visit: Yes Status: Acute Assessment and plan: stable, not in exacerbation, continue Albuterol PRN Qualifiers: COPD type: unspecified COPD Qualified Code(s): J44.9 - Chronic obstructive pulmonary disease, unspecified (4) Diabetes mellitus Current Visit: Yes Status: Acute Assessment and plan: Hyperglycemia, type 2, insulin sliding scale Levemir BID Qualifiers: Diabetes mellitus type: type 2 Diabetes mellitus complication status: without complication Diabetes mellitus correction insulin use: without manager long term care use Qualified Code(s): E11.9 - Type 2 diabetes mellitus without complications (5) Hyperlipidemia Current Visit: Yes Status: Acute Assessment and plan: statin Qualifiers: Hyperlipidemia type: mixed hyperlipidemia Qualified Code(s): E78.2 - Mixed hyperlipidemia (6) Obesity, morbid, BMI 40.0-49.9 Current Visit: Yes Status: Acute Assessment and plan: Chronic. Lifestyle changes. encourage weight loss (7) Physical deconditioning Current Visit: Yes Status: Acute Assessment and plan: needs PT/OT, advised d/c to SNF, but patient refuses needs PT/OT at home - Time Spent With Patient less than 15 minutes - Subjective Interval history: Patient awake and alert. Not in any distress. Complains of persistent left side chest pain, radiating to left arm, rates it 4/10. No aggravating or alleviating factors. Chronic chest pain - likely musculoskeletal. No fever. Patient has been hypoxic on RA, likely due to COPD and possible ANA PAULA. She does qualify for home oxygen. Complains of mild shortness of breath at times. Has been advised short-term rehab facility. She has refused. No other acute events or complaints. - Constitutional Vitals: Temp Pulse Resp BP Pulse Ox 98 F 83 16 107/75 96 11/02/16 15:55 11/02/16 15:55 11/02/16 15:55 11/02/16 15:55 11/02/16 15:55 General appearance: Present: cooperative, A&O X 3, morbidly obese, pleasant, answers questions appropriately - Head Head exam: Present: atraumatic - Neck Neck exam general surgery: Present: supple - Respiratory Respiratory exam: Present: CTAB. Absent: rhonchi, wheezes - Cardiovascular Cardiovascular exam: Present: RRR, +S1, +S2 - GI/Abdominal GI/Abdominal exam: Present: soft. Absent: guarding, tenderness - Extremities Exam Extremities exam: Present: pedal edema, radial pulses palpable and symetrical. Absent: cyanotic - Neurological Exam Neurological exam: Present: alert, oriented X3, no focal deficits Internal Medicine: Result - Labs CBC & Chem 7: 10/31/16 05:36 10/31/16 05:36 - ABG Interpretation ABG results: ABG ABG pH 7.38 pH Units (7.32-7.45) 10/30/16 16:00 ABG pCO2 46 mmHg (35-45) H 10/30/16 16:00 ABG pO2 79 mmHg (85-104) L 10/30/16 16:00 ABG O2 Saturation 95 % (95-98) 10/30/16 16:00 PT/INR, D-dimer PT 21.7 Seconds (9.4-12.1) H 10/30/16 00:21 D-Dimer < 215 ng/mLFEU (0-500) 10/29/16 16:28 - VTE Documentation of Mechanical Device: Intermittent pneumatic compression device Consult Discharge Plan - Plan Referrals: Ashwin Ellington, PAC [Primary Care Provider] -
--- NOTE | 2016-11-02 16:14 | Electrocardiograph Report ---
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
[2016-11-02] MEDS ORDERED: Ipratropium/Albuterol Neb 3 ML IH PRN (16:17)
[2016-11-02] MEDS: *HR* LORazepam 1 MG TABLET PO SCH (19:55)
[2016-11-02] MEDS: traZODone 50 MG TABLET PO SCH (19:55)
[2016-11-02] MEDS: Ondansetron 4 MG/2 ML VIAL IVP PRN (20:08)
[2016-11-02] MEDS ORDERED: Insulin DETEMIR 100 UNIT/ML X5UNITS SQ SCH (21:00)
--- NOTE | 2016-11-03 09:16 | Discharge Summary ---
Date of Encounter: 11/03/16 Time of Encounter: 08:10 - Discharge Diagnosis (1) Chest pain with low risk of acute coronary syndrome Priority: Primary Status: Acute Comments: Troponin negative, EKG - NSR, cardiac workup recently is negative probable musculoskeletal - costchondritis (2) Hypoxia Priority: Primary Status: Acute Comments: likely due to COPD, Duonebs, O2 via NC probable ANA PAULA and obesity hypoventilation (3) COPD (chronic obstructive pulmonary disease) Priority: Secondary Status: Acute Comments: stable, not in exacerbation, continue Albuterol PRN Qualifiers: COPD type: unspecified COPD Qualified Code(s): J44.9 - Chronic obstructive pulmonary disease, unspecified (4) Diabetes mellitus Priority: Secondary Status: Acute Comments: Hyperglycemia, type 2 Levemir BID Qualifiers: Diabetes mellitus type: type 2 Diabetes mellitus complication status: without complication Diabetes mellitus usp insulin use: without usp use Qualified Code(s): E11.9 - Type 2 diabetes mellitus without complications (5) Hyperlipidemia Priority: Secondary Status: Acute Comments: statin Qualifiers: Hyperlipidemia type: mixed hyperlipidemia Qualified Code(s): E78.2 - Mixed hyperlipidemia (6) Obesity, morbid, BMI 40.0-49.9 Priority: Secondary Status: Acute Comments: Chronic. Lifestyle changes. encourage weight loss (7) Physical deconditioning Priority: Secondary Status: Acute Comments: needs PT/OT, advised d/c to SNF, but patient refuses needs PT/OT at home - Discharge Medications Prescriptions: Insulin DETEMIR [Levemir] 10 unit SQ BID 30 Days Home Medications: Aspirin Enteric Coated [Aspirin EC] 81 mg PO DAILY 12/30/14 [History] Atorvastatin [Lipitor] 40 mg PO HS 12/30/14 [History] Nitroglycerin [Nitrostat] 0.4 mg PO Q5M PRN 12/30/14 [History] Sotalol HCl [Betapace] 80 mg PO BID 12/30/14 [History] amLODIPine [Norvasc] 5 mg PO DAILY 30 Days 09/12/15 [Rx] Gabapentin [Neurontin] 300 mg PO TID 10/11/15 [History] Prazosin HCl [Minipress] 5 mg PO HS 10/11/15 [History] Albuterol Sulfate [Ventolin Hfa] 2 puff IH QID PRN 10/12/15 [History] Cholecalciferol (D-3) [Vitamin D] 1,000 unit PO BID 10/12/15 [History] Cyclobenzaprine [Flexeril] 10 mg PO TID 10/12/15 [History] Furosemide [Lasix] 40 mg PO QPM 10/12/15 [History] Linagliptin [Tradjenta] 5 mg PO DAILY 10/12/15 [History] Lisinopril [Zestril] 40 mg PO DAILY 10/12/15 [History] Oxybutynin [Ditropan] 5 mg PO BID 10/12/15 [History] Quetiapine Fumarate [Seroquel] 25 - 75 mg PO TID 10/12/15 [History] Isosorbide MONOnitrate (24 HR) [Imdur] 60 mg PO DAILY #30 tab.er.24h 10/15/15 [ Rx] Ranolazine [Ranexa] 500 mg PO BID #60 tab.er.12h 10/15/15 [Rx] Folic Acid 1 mg PO DAILY 02/29/16 [History] Warfarin [Coumadin] 2.5 mg PO DAILY 02/29/16 [History] Buspirone HCl [Buspar] 7.5 mg PO BID 07/17/16 [History] Furosemide [Lasix] 80 mg PO QAM 07/17/16 [History] LORazepam [Lorazepam] 2 mg PO HS 07/17/16 [History] Levothyroxine [Synthroid] 200 mcg PO QAM 07/17/16 [History] Medroxyprogesterone Acetate [Provera] 10 mg PO BID 07/17/16 [History] OxyCODONE/APAP 7.5/325 [Percocet 7.5/325 MG] 1 tab PO Q6H PRN 07/17/16 [History] Spironolactone [Aldactone] 25 mg PO DAILY 07/17/16 [History] Trazodone HCl 100 mg PO HS 07/17/16 [History] metFORMIN [Glucophage] 500 mg PO BID 07/17/16 [History] Docusate [Colace] 100 mg PO BID PRN #60 capsule 07/20/16 [Rx] Insulin DETEMIR [Levemir] 10 unit SQ BID 30 Days 11/03/16 [Rx] Ipratropium/Albuterol Neb [Duoneb] 3 ml IH [id number] PRN #0 inhsol 11/03/16 [Rx] Nystatin POWDER [Nystop] 1 appl TP BID bottle 11/03/16 [Rx] Omeprazole [PriLOSEC] 20 mg PO DAILY@0630 capsule. 11/03/16 [Rx] Allergies/Adverse Reactions: Allergies Latex, Natural Rubber Allergy (Verified 04/01/15 09:23) Rash prednisone Allergy (Verified 04/01/15 09:23) Rash Zolpidem [From Ambien] Allergy (Verified 04/01/15 09:23) Hallucinating tape Allergy (Uncoded 09/08/15 03:19) Rash Date of admission: 11/02/16 16:51 Primary care physician: Ashwin Ellington Anticipated date of discharge: 11/03/16 - Patient Status Disposition: Home Health Service Condition: Fair Overall status at discharge: patient is progressing back to baseline - Discharge Instructions Instructions: Insulin Detemir (Injection), Chest Pain (DC), Diabetes Mellitus Type 2 in Adults (DC), Chronic Obstructive Pulmonary Disease (DC) Follow Up With: Ashwin Ellington, PAC [Primary Care Provider] - - Diet and Activity Activity: as per physical therapy, resume usual activities as tolerated, wear oxygen at all times Diet: diabetic diet Hospital course: Ms. Millan is a 56 year old female with a past medical history of hypertension, hyperlipidemia, diabetes, COPD, CHF and chronic chest pain. Patient presenting complaint chest pain. Initially on the left side radiating to left arm and neck. She recently had extensive cardiac workup done which was found to be normal. She has had stress tests recently. She was continued on aspirin and statin given her stay in the hospital. Patient is morbidly obese and does have physical deconditioning. She was evaluated by physical therapy in the hospital. They recommended inpatient rehabilitation admission. From. Patient refuses to go to inpatient rehabilitation facility and wants to go home. Initial EKG shows normal sinus rhythm. Troponins are negative 4. Patient tolerated all her meds well. All her home meds were continued. Patient is tolerating oral diet well. She has been ambulating and seems to be back at her baseline. Labs and vitals are fairly within normal limits. Patient has been explained about the plan of care and condition in detail. She understood and agreed had no questions. No family members at the time of discharge. No acute events or convocation director executive communications in the hospital. Blood glucose has been elevated during her stay and she is being discharged for workup. She will be continuing all her home medications as before. Patient has been encouraged about weight loss. She does have chest wall tenderness. Chest pain could be due to costochondritis. Patient does have chronic hypoxia IT seems. She does qualify for home oxygen. She does have COPD and morbid obesity. Probably has some underlying obstructive sleep apnea and probable obesity hypoventilation. Again patient has been encouraged about weight loss and also was advised to go to short-term rehabilitation facility. Patient refuses. She states she feels better today and wants to go home today. Patient has been advised to follow-up with primary care physician within the next 3-4 days. - Time Spent with Patient Total time spent providing and/or coordinating discharge services: Less than 30 minutes - Constitutional Vitals: Temp Pulse Resp BP Pulse Ox 97.5 F L 87 17 123/78 92 11/03/16 07:02 11/03/16 07:02 11/03/16 07:02 11/03/16 07:02 11/03/16 07:02 General appearance: Present: cooperative, A&O X 3, morbidly obese, pleasant, answers questions appropriately - Head Head exam: Present: atraumatic - ENT ENT exam: Present: mucous membranes moist - Neck Neck exam general surgery: Present: supple - Respiratory Respiratory exam: Present: CTAB. Absent: rhonchi, wheezes - Cardiovascular Cardiovascular exam: Present: RRR, +S1, +S2 Additional comments: mild chest wall tenderness+ - GI/Abdominal GI/Abdominal exam: Present: soft. Absent: guarding, tenderness Additional comments: obese - Extremities Exam Extremities exam: Present: pedal edema, radial pulses palpable and symetrical. Absent: cyanotic - Neurological Exam Neurological exam: Present: alert, oriented X3, no focal deficits - VTE Documentation of Mechanical Device: Intermittent pneumatic compression device
[2016-11-03] MEDS: Insulin LISPRO 300 UNITS/3 ML VIAL SQ SCH (09:17)
[2016-11-03] MEDS: Spironolactone 25 MG TABLET PO SCH (09:18)
[2016-11-03] MEDS: Aspirin Enteric Coated 81 MG Tablet PO SCH (09:18)
[2016-11-03] MEDS: *HR* Warfarin 5 MG TABLET PO SCH (09:19)
[2016-11-03] MEDS: Folic Acid 1 MG TABLET PO SCH (09:20)
[2016-11-03] MEDS: Insulin DETEMIR 100 UNIT/ML X5UNITS SQ SCH (09:20)
[2016-11-03] MEDS: Isosorbide MONOnitrate (24 HR) 60 MG TAB.ER.24H PO SCH (09:20)
[2016-11-03] MEDS: Furosemide 40 MG TABLET PO SCH (09:20)
[2016-11-03] MEDS: Nystatin POWDER 30 GM BOTTLE TP SCH (09:21)
[2016-11-03] MEDS: Gabapentin 300 MG CAPSULE PO SCH (09:21)
[2016-11-03] MEDS: Cholecalciferol (D-3) 1,000 UNIT TABLET PO SCH (09:21)
[2016-11-03] MEDS: amLODIPine 5 MG TABLET PO SCH (09:21)
[2016-11-03] MEDS: Ranolazine 500 MG TAB.ER.12H PO SCH (09:21)
[2016-11-03] MEDS: Lisinopril 20 MG TABLET PO SCH (09:21)
[2016-11-03 11:52] VITALS: BP 113/77
== END 2016-11-03 13:03 | disposition home health service (06) | DRG 144 ==
LOC: EMEROO 12:00 → 3BNU 12:00
PROVIDERS: ADMIT Hospitalist; ATTEND Nurse Practitioner Family

== ENCOUNTER 2016-11-19 21:31 | Observation (INO) ==
--- NOTE | 2016-11-19 21:54 | Emergency Department Note ---
Disposition Clinical Impression: Chest pain Qualifiers: Chest pain type: unspecified Qualified Code(s): R07.9 - Chest pain, unspecified Disposition: Admitted As Inpatient Condition: Good Time of Disposition: 23:37 General Adult HPI - General Chief complaint: ED Chest Pain Stated complaint: CP / WEAKNESS Time Seen by Provider: 11/19/16 21:39 Source: patient, EMS Mode of arrival: ambulatory Limitations: no limitations Nursing Notes Reviewed: Yes Vital Signs Reviewed: Yes - History of Present Illness HPI Narrative: 56-year-old female with past medical history of OR, COPD, CHF, PE presents with intermittent left sided sharp chest pain with shortness of breath over the last 3 days. She is not able to name anything that makes her pain worse, but does say that her shortness of breath is worse with lying flat. Her pain was improved with nitroglycerin and she states that she has used it several times in the last few days including 2 times today. She states that earlier today she had the pain which was remitted after 2 nitroglycerin tablets. She states that it returned more significant this evening so she came in for evaluation. Pain has been an 8 out of 10 for the last hour or so. She states it feels similar to prior heart attack. She denies any diaphoresis, headache, near syncope, fever, vomiting, abdominal pain, change in urination or bowel movements , rashes or edema. She states she has not had a left heart catheter for the last couple years and that the most recent one showed blockages that were not significant enough to stent. Pain Scale: 8 - Related Data Home Medications Medication Instructions Recorded Confirmed Aspirin Enteric Coated [Aspirin EC] 81 mg PO DAILY 12/30/14 10/29/16 Atorvastatin [Lipitor] 40 mg PO HS 12/30/14 10/29/16 Nitroglycerin [Nitrostat] 0.4 mg PO Q5M PRN 12/30/14 10/29/16 Sotalol HCl [Betapace] 80 mg PO BID 12/30/14 10/29/16 Gabapentin [Neurontin] 300 mg PO TID 10/11/15 10/29/16 Prazosin HCl [Minipress] 5 mg PO HS 10/11/15 10/29/16 Albuterol Sulfate [Ventolin Hfa] 2 puff IH QID PRN 10/12/15 10/29/16 Cholecalciferol (D-3) [Vitamin D] 1,000 unit PO BID 10/12/15 10/29/16 Cyclobenzaprine [Flexeril] 10 mg PO TID 10/12/15 10/29/16 Furosemide [Lasix] 40 mg PO QPM 10/12/15 10/29/16 Linagliptin [Tradjenta] 5 mg PO DAILY 10/12/15 10/29/16 Lisinopril [Zestril] 40 mg PO DAILY 10/12/15 10/29/16 Oxybutynin [Ditropan] 5 mg PO BID 10/12/15 10/29/16 Quetiapine Fumarate [Seroquel] 25 - 75 mg PO TID 10/12/15 10/29/16 Folic Acid 1 mg PO DAILY 02/29/16 10/29/16 Warfarin [Coumadin] 2.5 mg PO DAILY 02/29/16 10/29/16 Buspirone HCl [Buspar] 7.5 mg PO BID 07/17/16 10/29/16 Furosemide [Lasix] 80 mg PO QAM 07/17/16 10/29/16 LORazepam [Lorazepam] 2 mg PO HS 07/17/16 10/29/16 Levothyroxine [Synthroid] 200 mcg PO QAM 07/17/16 10/29/16 Medroxyprogesterone Acetate 10 mg PO BID 07/17/16 10/29/16 [Provera] OxyCODONE/APAP 7.5/325 [Percocet 1 tab PO Q6H PRN 07/17/16 10/29/16 7.5/325 MG] Spironolactone [Aldactone] 25 mg PO DAILY 07/17/16 10/29/16 Trazodone HCl 100 mg PO HS 07/17/16 10/29/16 metFORMIN [Glucophage] 500 mg PO BID 07/17/16 10/29/16 Previous Rx's Medication Instructions Recorded amLODIPine [Norvasc] 5 mg PO DAILY 30 Days 09/12/15 Isosorbide MONOnitrate (24 HR) 60 mg PO DAILY #30 tab.er.24h 10/15/15 [Imdur] Ranolazine [Ranexa] 500 mg PO BID #60 tab.er.12h 10/15/15 Docusate [Colace] 100 mg PO BID PRN #60 capsule 07/20/16 Insulin DETEMIR [Levemir] 10 unit SQ BID 30 Days 11/03/16 Ipratropium/Albuterol Neb [Duoneb] 3 ml IH [id number] PRN #0 inhsol 11/03/16 Nystatin POWDER [Nystop] 1 appl TP BID bottle 11/03/16 Omeprazole [PriLOSEC] 20 mg PO DAILY@0630 capsule. 11/03/16 Allergies Allergy/AdvReac Type Severity Reaction Status Date / Time Latex, Natural Rubber Allergy Rash Verified 11/19/16 21:46 prednisone Allergy Rash Verified 11/19/16 21:46 Zolpidem [From Ambien] Allergy Hallucinati Verified 11/19/16 21:46 ng tape Allergy Rash Uncoded 09/08/15 03:19 All systems ED: reviewed and negative except as stated. Past Medical History - Past Medical History Attestation: Yes The following information was validated with the patient. Source: patient Medical history: Reports: arthritis, asthma, atrial fibrillation, cardiomyopathy , CHF, COPD, coronary artery disease, CVA, DVT, diabetes, hyperlipidemia, hypertension, kidney stones, migraine, myocardial infarction, osteoporosis, pulmonary embolus, renal disease, thyroid disease, TIA, other Surgical history: Reports: cholecystectomy, orthopedic, other, other Psychiatric history: Reports: other, anxiety, depression, PTSD [employer] history: Reports: no [employer] history - Social History Smoking Status: Never smoker Smokeless Tobacco Status: No Alcohol use: Reports: none Drug use: Reports: none Physical Exam - Head Head exam: atraumatic, normocephalic, normal inspection - Eye Eye exam: Present: normal appearance, PERRL, EOMI - ENT ENT exam: normal exam, normal oropharynx, mucous membranes moist - Neck Neck exam: Present: normal inspection, full ROM, trachea midline - Chest Chest is nontender with normal inspection. Equal rise. - Respiratory No wheezing, but diminished breath sounds throughout. Partially limited due to body habitus. Cardiovascular Cardiovascular exam: Present: regular rate, normal rhythm, normal heart sounds - Abdominal Exam Abdominal exam: Present: soft, Non-Tender. Absent: tenderness, distention, guarding, rebound, rigidity - Extremities Exam No pitting edema with equal pulses in all extremities. - Back Exam Back exam: Present: normal inspection, full ROM. Absent: tenderness, CVA tenderness (R), CVA tenderness (L) - Neurological Exam Neurological exam: Present: alert, oriented X3, CN II-XII intact - Psychiatric Psychiatric exam: Present: normal affect, normal mood - Skin Skin exam: Present: warm, dry, intact, normal color - General Limitations: no limitations General appearance: alert, in no apparent distress Course - Reevaluation(s) Reevaluation #1: Troponin was negative. Patient was hyperglycemic consistent with her history of diabetes without DKA. Initial and repeat EKG are stable and did not show any definite ischemia. Symptoms are remitted after 2 nitroglycerin tablets. CTA of the chest was negative for PE or dissection or pneumonia. Given patient' s symptoms at rest and significant cardiac history we will admit her for further evaluation. Time: 23:18 Reevaluation #2: Patient stable for admission to hospitalist service. She is pain-free at this time. She had 2 stable EKGs. Time: 23:37 Vital Signs Temperature 98.9 F 11/19/16 21:33 Pulse Rate 111 11/19/16 21:33 Respiratory Rate 20 11/19/16 21:33 Blood Pressure 131/91 11/19/16 21:33 O2 Sat by Pulse Oximetry 95 11/19/16 21:33 Temperature 98.9 F 11/19/16 21:33 Pulse Rate 110 11/19/16 22:42 Respiratory Rate 14 11/19/16 23:56 Blood Pressure 129/89 11/19/16 23:56 O2 Sat by Pulse Oximetry 95 11/19/16 22:42 Oxygen Delivery Oxygen Delivery Nasal Cannula Medical Decision Making - Medical Records Medical records reviewed: Yes I reviewed the patient's medical records. - Lab Data Lab results reviewed: Yes I reviewed the patient's lab results. Result diagrams: 11/19/16 21:46 11/19/16 21:46 Lab Results 11/19/16 11/19/16 11/19/16 Range/Units 21:46 21:46 21:46 WBC 9.5 (4.3-11.1) K/mcL RBC 4.69 (3.82-4.97) M/mcL Hgb 13.0 (11.5-15.4) g/dL Hct 40.2 (35.3-44.9) % MCV 85.7 (83.0-100.0) fL MCH 27.7 L (28.0-33.3) pg MCHC 32.3 (31.6-35.5) g/dL RDW 14.6 H (11.5-14.5) % Plt Count 284 (140-400) K/mcL MPV 9.8 (9.4-12.4) fL Immature Gran % 0.8 (0-4) % Seg Neutrophils % 61.0 % Lymphocytes % 32.4 % Monocytes % 4.4 % Eosinophils % 0.9 % Basophils % 0.5 % Neutrophils # 5.8 (1.6-8.9) K/mcL Lymphocytes # 3.1 (0.6-4.6) K/mcL Monocytes # 0.4 (0.0-1.3) K/mcL Eosinophils # 0.1 (0.0-0.6) K/mcL Basophils # 0.1 (0.0-0.2) K/mcL PT 64.1 H* (9.4-12.1) Seconds INR 5.6 H* VBG pH (7.32-7.42) pH Units VBG pCO2 (41-51) mmHg VBG pO2 (25-40) mmHg VBG HCO3 (21-27) mEq/L Sodium 136 (136-145) mEq/L Potassium 3.9 (3.5-4.5) mEq/L Chloride 100 (98-109) mEq/L Carbon Dioxide 25 (19-29) mEq/L BUN 16 (7-20) mg/dL Creatinine 0.84 (0.57-1.11) mg/dL Est GFR ( Amer) > 60 (> 60) Est GFR (Non-Af Amer) > 60 (> 60) BUN/Creatinine Ratio 19 (6-26) Glucose 302 H (70-99) mg/dL Calculated Osmolality 294 (280-300) Calcium 9.5 (8.6-10.8) mg/dL Troponin I (0-0.03) ng/mL Beta-Hydroxybutyric Acd (0.02-0.27) mmol/L 11/19/16 11/19/16 11/19/16 Range/Units 21:46 21:46 22:13 WBC (4.3-11.1) K/mcL RBC (3.82-4.97) M/mcL Hgb (11.5-15.4) g/dL Hct (35.3-44.9) % MCV (83.0-100.0) fL MCH (28.0-33.3) pg MCHC (31.6-35.5) g/dL RDW (11.5-14.5) % Plt Count (140-400) K/mcL MPV (9.4-12.4) fL Immature Gran % (0-4) % Seg Neutrophils % % Lymphocytes % % Monocytes % % Eosinophils % % Basophils % % Neutrophils # (1.6-8.9) K/mcL Lymphocytes # (0.6-4.6) K/mcL Monocytes # (0.0-1.3) K/mcL Eosinophils # (0.0-0.6) K/mcL Basophils # (0.0-0.2) K/mcL PT (9.4-12.1) Seconds INR VBG pH 7.41 (7.32-7.42) pH Units VBG pCO2 51 (41-51) mmHg VBG pO2 42 H (25-40) mmHg VBG HCO3 32.3 H (21-27) mEq/L Sodium (136-145) mEq/L Potassium (3.5-4.5) mEq/L Chloride (98-109) mEq/L Carbon Dioxide (19-29) mEq/L BUN (7-20) mg/dL Creatinine (0.57-1.11) mg/dL Est GFR ( Amer) (> 60) Est GFR (Non-Af Amer) (> 60) BUN/Creatinine Ratio (6-26) Glucose (70-99) mg/dL Calculated Osmolality (280-300) Calcium (8.6-10.8) mg/dL Troponin I 0.00 (0-0.03) ng/mL Beta-Hydroxybutyric Acd 0.18 (0.02-0.27) mmol/L - EKG Data EKG #1 EKG attestation: Yes I reviewed and interpreted this EKG. EKG results narrative: EKG shows sinus tachycardia at 110 with left axis deviation and normal intervals. No ST elevation or depression. Nonspecific diffuse ST changes. No significant change when compared with 11/02/2016 other than rate. Repeat EKG after pain was remitted with nitroglycerin was unchanged from prior. Again with nonspecific changes, left axis deviation, no ST elevation or depression, and a rate of 111 with sinus tachycardia. Attestation Statement - Attestation Attestation: I, Francisco Rivera, examined this patient and my medical decision-making was reviewed with the MANDREL PULLER/PA/Advanced Practice Nurse/Resident Physician. I agree with the documented findings, disposition and treatment plan as described except to the extent set forth below. 56-year-old female presents with concerns of chest pain and increasing weakness over the past 48 hours. Patient states the chest pain is sharp and has been intermittent however she described associated nausea and shortness of breath with this pain. Patient has a history of coronary artery disease with a heart catheterization performed within the past year showing 60% blockage which was not stented at that time. Patient's pain improved with nitroglycerin in the emergency department. EKG did not show evidence of acute STEMI. Initial troponin was negative. Patient INR was significantly elevated however we also obtained a CTA of the chest to rule out PE secondary the patient's history of blood clots and her being [place] high risk. Patient felt comfortable to be admitted to the hospital for further evaluation of her acute chest pain to rule out ACS.
[2016-11-19 21:59] LABS: Basophils # 0.1 K/mcL (0.0-0.2); Basophils % 0.5 %; Eosinophils # 0.1 K/mcL (0.0-0.6); Eosinophils % 0.9 %; Hematocrit 40.2 % (35.3-44.9); Immature Granulocytes % 0.8 % (0-4); Lymphocytes # 3.1 K/mcL (0.6-4.6); Lymphocytes % 32.4 %; Mean Corpuscular HGB Conc 32.3 g/dL (31.6-35.5); Mean Corpuscular Hemoglobin 27.7 pg (28.0-33.3); Mean Corpuscular Volume 85.7 fL (83.0-100.0); Mean Platelet Volume 9.8 fL (9.4-12.4); Monocytes # 0.4 K/mcL (0.0-1.3); Monocytes % 4.4 %; Neutrophils # 5.8 K/mcL (1.6-8.9); Platelet Count 284 K/mcL (140-400); Red Blood Count 4.69 M/mcL (3.82-4.97); Red Cell Distribution Width 14.6 % (11.5-14.5)
[2016-11-19 22:10] LABS: INR 5.6; Prothrombin Time 64.1 Seconds (9.4-12.1)
[2016-11-19 22:12] LABS: BUN/Creatinine Ratio 19 (6-26); Blood Urea Nitrogen 16 mg/dL (7-20); Calcium 9.5 mg/dL (8.6-10.8); Carbon Dioxide 25 mEq/L (19-29); Chloride 100 mEq/L (98-109); Glucose 302 mg/dL (70-99); Osmolality,Calculated 294 (280-300); Potassium 3.9 mEq/L (3.5-4.5); Sodium 136 mEq/L (136-145); eGFR For African Americans > 60 (> 60); eGFR For Non-African Americans > 60 (> 60)
[2016-11-19] MEDS: Nitroglycerin 0.4 MG TAB.SUBL SL STA ×2 (22:17→22:47)
[2016-11-19 22:24] LABS: VBG HCO3 32.3 mEq/L (21-27); VBG PH 7.41 pH Units (7.32-7.42)
[2016-11-19] MEDS ORDERED: 0.9 % Sodium Chloride 1,000 ML IVC ONE (23:13)
[2016-11-19] MEDS ORDERED: *HR* OxyCODONE/APAP 5/325 TABLET PO ONE (23:27)
[2016-11-20] MEDS ORDERED: Naloxone 0.4 MG/ML INJ IVP PRN (00:41)
[2016-11-20] MEDS ORDERED: Ondansetron 4 MG/2 ML VIAL IVP PRN (00:41)
[2016-11-20] MEDS ORDERED: D5% in Water 1,000 ML IVC PRN ×2 (00:48→02:00)
[2016-11-20] MEDS ORDERED: *HR* Dextrose 50 % in Water (Syg) 50 ML SYRINGE IVP PRN (00:48)
[2016-11-20] MEDS ORDERED: Dextrose Gel 15 GM PO PRN ×2 (00:48)
[2016-11-20] MEDS ORDERED: Ipratropium/Albuterol Neb 3 ML IH PRN (00:49)
--- NOTE | 2016-11-20 01:10 | Internal Med History&Physical ---
Date of Encounter: 11/20/16 Time of Encounter: 01:00 Assessment and Plan (1) Chest pain with low risk of acute coronary syndrome Current visit: No Status: Acute Acute on chronic chest pain - multiple admissions for similar complaints Improved with nitroglycerin LHC - done in February 2016 shows moderate 2 vessel coronary artery disease and LV EF of 60% - advised optimal medical therapy EKG - sinus tachycardia with no acute ST-T changes, no significant change when compared with previous EKG Troponin negative, trend troponin CT angiography of the chest - negative for pulmonary embolism and no acute pulmonary abnormality Supratherapeutic INR, repeat labs in a.m. Continue all home medications including aspirin and statin (2) Diabetes mellitus Current visit: No Status: Chronic Type 2 diabetes mellitus, insulin-dependent, hyperglycemia Sliding scale insulin, glucose checks, Levemir Qualifiers: Diabetes mellitus type: type 2 Diabetes mellitus complication status: with hyperglycemia Diabetes mellitus longterm insulin use: with longterm use Qualified Code(s): E11.65 - Type 2 diabetes mellitus with hyperglycemia; Z79.4 - halfway (current) use of insulin (3) COPD (chronic obstructive pulmonary disease) Current visit: No Status: Chronic Stable, not in exacerbation, continue albuterol breathing treatment - on home oxygen Continue O2 via nasal cannula Probable underlying obstructive sleep apnea and obesity hypoventilation, causing chronic hypoxia Qualifiers: COPD type: unspecified COPD Qualified Code(s): J44.9 - Chronic obstructive pulmonary disease, unspecified (4) Chronic anticoagulation Current visit: No Status: Chronic History of PE and DVT and atrial fibrillation - on Coumadin for anticoagulation Supratherapeutic INR No active bleeding, monitor PT and INR By mouth vitamin K 5 mg if patient has any bleeding (5) History of venous thromboembolism Current visit: No Status: Chronic History of PE and DVT, now on Coumadin (6) History of CVA (cerebrovascular accident) Current visit: No Status: Chronic History of multiple CVAs, with mild left-sided hemiparesis No evidence of acute CVA and this time - no focal weakness, no slurred speech (7) Hyperlipidemia Current visit: No Status: Chronic Continue statin Qualifiers: Hyperlipidemia type: mixed hyperlipidemia Qualified Code(s): E78.2 - Mixed hyperlipidemia (8) Obesity, morbid, BMI 40.0-49.9 Current visit: No Status: Chronic Chronic, advised lifestyle changes, encouraged weight loss (9) Polypharmacy Current visit: No Status: Chronic (10) Physical deconditioning Current visit: No Status: Chronic Needs physical therapy and OT Internal Medicine - H&P: HPI Chief complaint: Chest pain and generalized weakness Admitted From: Emergency Dept History of present illness: Ms. Millan is a 56 year old female with past medical history of COPD, atrial fibrillation, cardiomyopathy, CHF, coronary artery disease, CVA, DVT, diabetes, hyperlipidemia and hypertension and PE. She presents to ED with complaints of chest pain that started about 3 days ago. Patient does have chronic chest pain and states this episode started 3 days ago and has gradually worsened. Patient has been admitted multiple times for some more complaints. Patient states her pain improved with nitroglycerin. She decided to come to the ED because of persistent pain. She states the pain is on the left side of her chest and starts from underneath her left breast and sometimes radiates to her left arm. With pain 8 / 10 and is intermittent. Aggravated with exertion. Patient does have chronic shortness of breath she says which is worse with laying flat. Denies palpitations denies cough or lightheadedness. She does have dizziness at times. No headache no abdominal pain no vomiting or diarrhea. Patient denies any bleeding. She states she has been taking all her meds regularly. Initial workup in the ED is negative except for supratherapeutic INR. Again patient was asked about any abnormal bleeding and she denies any bleeding. On examination patient is awake and alert. Not in any distress. Able to provide all history. She is pain-free at this time. No family members at bedside. Patient has been explained about her condition and plan of care. She understood and agreed. No unanswered questions. Patient is being admitted for chest pain. We will trend her troponin. Continue all her home meds. She is anticoagulated on Coumadin and her INR is supratherapeutic. We will watch for any bleeding and we will give vitamin K if she does have bleeding. Patient is on multiple medications we will continue her home medications at this time. Past Med Surg Social Fam HX - Past Medical History Medical history: arthritis, asthma, atrial fibrillation, cardiomyopathy, CHF, COPD, coronary artery disease, CVA, DVT, diabetes, hyperlipidemia, hypertension , kidney stones, migraine, myocardial infarction, osteoporosis, pulmonary embolus, renal disease, thyroid disease, TIA, other Psychiatric history: other, anxiety, depression, PTSD - Past Surgical History Surgical History: cholecystectomy, orthopedic, other, other - Social History Smoking Status: Never smoker Smokeless Tobacco Status: No Alcohol use: none Drug use: none - Family History Father Family Member Ethnicity: Non- Living Status: Still Living Hx Family Cardiac Disorders: Yes (HD) Hx Family Respiratory Disorders: Yes Hx Family Cancer: Yes (Renal) Hx Family GI Disorders: Yes Hx Family Endocrine Disorder: Yes (DM) Hx Family Neuromuscular Disorders: Yes Hx Family Neurologic Disorders: Yes Hx Family HEENT Disorders: No Hx Family Autoimmune Disorders: No Mother Family Member Ethnicity: Non- Living Status: Hx Family Cardiac Disorders: Yes (HD) Hx Family Respiratory Disorders: Yes Hx Family Cancer: Yes (Breast) Hx Family GI Disorders: Yes Hx Family Endocrine Disorder: Yes (DM) Hx Family Neuromuscular Disorders: No Hx Family Neurologic Disorders: No Hx Family HEENT Disorders: No Hx Family Autoimmune Disorders: No Brother Family Member Ethnicity: Non- Living Status: Still Living Hx Family Cardiac Disorders: Yes (NE) Hx Family Respiratory Disorders: No Hx Family Cancer: No Hx Family GI Disorders: No Hx Family Endocrine Disorder: No Hx Family Neuromuscular Disorders: No Hx Family Neurologic Disorders: No Hx Family HEENT Disorders: No Hx Family Autoimmune Disorders: No Sister Family Member Ethnicity: Non- Living Status: Still Living Hx Family Cardiac Disorders: No Hx Family Respiratory Disorders: No Hx Family Cancer: Yes (Ovarian) Hx Family GI Disorders: No Hx Family Endocrine Disorder: No Hx Family Neuromuscular Disorders: No Hx Family Neurologic Disorders: No Hx Family HEENT Disorders: No Hx Family Autoimmune Disorders: No Daughter Living Status: Still Living Hx Family Cardiac Disorders: No Hx Family Respiratory Disorders: No Hx Family Cancer: No Hx Family GI Disorders: No Hx Family Endocrine Disorder: No Hx Family Neuromuscular Disorders: No Hx Family Neurologic Disorders: No Hx Family HEENT Disorders: No Hx Family Autoimmune Disorders: No Internal Medicine - H&P: Meds Aspirin Enteric Coated [Aspirin EC] 81 mg PO DAILY 12/30/14 [History] Atorvastatin [Lipitor] 40 mg PO HS 12/30/14 [History] Nitroglycerin [Nitrostat] 0.4 mg PO Q5M PRN 12/30/14 [History] Sotalol HCl [Betapace] 80 mg PO BID 12/30/14 [History] amLODIPine [Norvasc] 5 mg PO DAILY 30 Days 09/12/15 [Rx] Gabapentin [Neurontin] 300 mg PO TID 10/11/15 [History] Prazosin HCl [Minipress] 5 mg PO HS 10/11/15 [History] Albuterol Sulfate [Ventolin Hfa] 2 puff IH QID PRN 10/12/15 [History] Cholecalciferol (D-3) [Vitamin D] 1,000 unit PO BID 10/12/15 [History] Cyclobenzaprine [Flexeril] 10 mg PO TID 10/12/15 [History] Furosemide [Lasix] 40 mg PO QPM 10/12/15 [History] Linagliptin [Tradjenta] 5 mg PO DAILY 10/12/15 [History] Lisinopril [Zestril] 40 mg PO DAILY 10/12/15 [History] Oxybutynin [Ditropan] 5 mg PO BID 10/12/15 [History] Quetiapine Fumarate [Seroquel] 25 - 75 mg PO TID 10/12/15 [History] Isosorbide MONOnitrate (24 HR) [Imdur] 60 mg PO DAILY #30 tab.er.24h 10/15/15 [ Rx] Ranolazine [Ranexa] 500 mg PO BID #60 tab.er.12h 10/15/15 [Rx] Folic Acid 1 mg PO DAILY 02/29/16 [History] Warfarin [Coumadin] 2.5 mg PO DAILY 02/29/16 [History] Buspirone HCl [Buspar] 7.5 mg PO BID 07/17/16 [History] Furosemide [Lasix] 80 mg PO QAM 07/17/16 [History] LORazepam [Lorazepam] 2 mg PO HS 07/17/16 [History] Levothyroxine [Synthroid] 200 mcg PO QAM 07/17/16 [History] Medroxyprogesterone Acetate [Provera] 10 mg PO BID 07/17/16 [History] OxyCODONE/APAP 7.5/325 [Percocet 7.5/325 MG] 1 tab PO Q6H PRN 07/17/16 [History] Spironolactone [Aldactone] 25 mg PO DAILY 07/17/16 [History] Trazodone HCl 100 mg PO HS 07/17/16 [History] metFORMIN [Glucophage] 500 mg PO BID 07/17/16 [History] Docusate [Colace] 100 mg PO BID PRN #60 capsule 07/20/16 [Rx] Insulin DETEMIR [Levemir] 10 unit SQ BID 30 Days 11/03/16 [Rx] Ipratropium/Albuterol Neb [Duoneb] 3 ml IH [id number] PRN #0 inhsol 11/03/16 [Rx] Nystatin POWDER [Nystop] 1 appl TP BID bottle 11/03/16 [Rx] Omeprazole [PriLOSEC] 20 mg PO DAILY@0630 capsule. 11/03/16 [Rx] Allergies Latex, Natural Rubber Allergy (Verified 11/19/16 21:46) Rash prednisone Allergy (Verified 11/19/16 21:46) Rash Zolpidem [From Ambien] Allergy (Verified 11/19/16 21:46) Hallucinating tape Allergy (Uncoded 09/08/15 03:19) Rash All Systems PM: A 10-system review of systems was performed and is negative for pertinent findings except as documented above in the HPI. - Constitutional Constitutional: fatigue, weakness, no fever(s) - EENT Eyes: no blurry vision, no loss of vision - Cardiovascular Cardiovascular ROS IM: chest pain, dyspnea on exertion, orthopnea, no dyspnea, no lightheadedness, no syncope - Respiratory Respiratory: dyspnea on exertion, no cough, no dyspnea, no wheezing, no chest congestion - Gastrointestinal Gastrointestinal: nausea, no abdominal pain, no cramping, no diarrhea, no vomiting - Genitourinary Genitourinary: as per HPI, no abnormal menses, no abnormal vaginal bleeding - Musculoskeletal Musculoskeletal ROS IM: arthralgias, back pain - Neurological Neurological ROS: dizziness, paresthesias, no abnormal gait, no abnormal speech , no focal weakness, no loss of vision, no numbness, no tingling - Hematologic/Lymphatic Hematologic/Lymphatic: no easy bleeding - Constitutional Vitals: Temp Pulse Resp BP Pulse Ox 98.2 F 103 18 191/103 99 11/20/16 00:28 11/20/16 00:28 11/20/16 00:28 11/20/16 00:28 11/20/16 00:28 General appearance: Present: A&O X 3, morbidly obese, pleasant, no acute distress, answers questions appropriately - Head Head exam: Present: atraumatic - Eye Eye exam: Present: EOMI - Neck Neck exam general surgery: Present: supple - Respiratory Respiratory exam: Present: CTAB. Absent: rales, rhonchi, wheezes - Cardiovascular Cardiovascular exam: Present: irregular rhythm, +S1, +S2, systolic murmur, tachycardia - GI/Abdominal GI/Abdominal exam: Present: distended (Obese), soft. Absent: firm, guarding, tenderness - Extremities Exam Extremities exam: Present: pedal edema (Mild), radial pulses palpable and symetrical. Absent: cyanotic, tenderness - Neurological Exam Neurological exam: Present: alert, oriented X3, no focal deficits Internal Med - H&P Results - Labs CBC & Chem 7: 11/19/16 21:46 11/19/16 21:46
[2016-11-20] MEDS: *HR* Morphine 2 MG/ML SYRINGE IVP PRN ×3 (02:19→12:25)
[2016-11-20] MEDS: Gabapentin 300 MG CAPSULE PO SCH ×4 (02:33→22:02)
[2016-11-20] MEDS: traZODone 50 MG TABLET PO SCH ×2 (02:34→22:03)
[2016-11-20] MEDS: Cholecalciferol (D-3) 1,000 UNIT TABLET PO SCH ×3 (02:34→22:00)
[2016-11-20] MEDS: Ranolazine 500 MG TAB.ER.12H PO SCH ×3 (02:35→22:01)
[2016-11-20] MEDS: Insulin LISPRO 300 UNITS/3 ML VIAL SQ SCH ×5 (02:37→22:02)
[2016-11-20] MEDS: Nitroglycerin 0.4 MG TAB.SUBL SL PRN ×2 (03:17→03:47)
[2016-11-20] MEDS: Insulin DETEMIR 100 UNIT/ML X5UNITS SQ SCH ×3 (03:37→21:59)
[2016-11-20 04:10] LABS: Basophils # 0.1 K/mcL (0.0-0.2); Basophils % 0.6 %; Eosinophils # 0.1 K/mcL (0.0-0.6); Eosinophils % 1.3 %; Hematocrit 38.6 % (35.3-44.9); Hemoglobin 12.8 g/dL (11.5-15.4); Immature Granulocytes % 0.7 % (0-4); Lymphocytes # 3.4 K/mcL (0.6-4.6); Lymphocytes % 35.6 %; Mean Corpuscular HGB Conc 33.2 g/dL (31.6-35.5); Mean Corpuscular Hemoglobin 28.6 pg (28.0-33.3); Mean Corpuscular Volume 86.2 fL (83.0-100.0); Mean Platelet Volume 9.5 fL (9.4-12.4); Monocytes # 0.5 K/mcL (0.0-1.3); Monocytes % 4.9 %; Neutrophils # 5.5 K/mcL (1.6-8.9); Platelet Count 277 K/mcL (140-400); Red Blood Count 4.48 M/mcL (3.82-4.97); Red Cell Distribution Width 14.6 % (11.5-14.5); Segmented Neutrophils % 56.9 %
[2016-11-20 04:20] LABS: INR 4.9; Prothrombin Time 55.6 Seconds (9.4-12.1)
[2016-11-20 04:25] LABS: BUN/Creatinine Ratio 23 (6-26); Blood Urea Nitrogen 17 mg/dL (7-20); Carbon Dioxide 22 mEq/L (19-29); Chloride 102 mEq/L (98-109); Glucose 244 mg/dL (70-99); Magnesium 1.3 mg/dL (1.6-2.6); Osmolality,Calculated 294 (280-300); Potassium 4.1 mEq/L (3.5-4.5); Sodium 137 mEq/L (136-145); eGFR For African Americans > 60 (> 60); eGFR For Non-African Americans > 60 (> 60)
[2016-11-20] MEDS: Famotidine 20 MG/2 ML VIAL IVP SCH ×2 (05:20→17:32)
[2016-11-20] MEDS ORDERED: Insulin LISPRO 300 UNITS/3 ML VIAL SQ SCH (06:00)
[2016-11-20] MEDS: Folic Acid 1 MG TABLET PO SCH (07:59)
[2016-11-20] MEDS: Aspirin Enteric Coated 81 MG Tablet PO SCH (07:59)
[2016-11-20] MEDS: Isosorbide MONOnitrate (24 HR) 60 MG TAB.ER.24H PO SCH (07:59)
[2016-11-20] MEDS: Furosemide 40 MG TABLET PO SCH (08:00)
[2016-11-20] MEDS: amLODIPine 5 MG TABLET PO SCH (08:00)
[2016-11-20] MEDS: Lisinopril 20 MG TABLET PO SCH (08:01)
[2016-11-20] MEDS: Spironolactone 25 MG TABLET PO SCH (08:01)
[2016-11-20] MEDS ORDERED: Insulin DETEMIR 100 UNIT/ML X5UNITS SQ SCH (09:00)
[2016-11-20] MEDS ORDERED: Cholecalciferol (D-3) 1,000 UNIT TABLET PO SCH (09:00)
[2016-11-20] MEDS ORDERED: Ranolazine 500 MG TAB.ER.12H PO SCH (09:00)
[2016-11-20] MEDS ORDERED: Gabapentin 300 MG CAPSULE PO SCH (09:00)
--- NOTE | 2016-11-20 09:15 | Cardiology Consult Note ---
Date of Encounter: 11/20/16 Time of Encounter: 09:00 Assessment and Plan (1) Chest pain Current Visit: Yes Status: Acute Presents with atypical chest pain symptoms. Troponin negative x2, no ischemic ECG changes. [facility] 02/2016: mild-moderate non-obstructive CAD, medical management recommended. TTE 09/2015: LVEF 60-65%, mild LVDD, normal RV structure and function, borderline PH, so significant valvular dysfunction, normal wall motion. Pain reproducible--worsens with cough/deep breathing and palpation. No further cardiac testing recommended at this time. Continue current CV medications. Will arrange for outpatient follow-up with [facility]; anticipate sign- off once seen by Dr. Wilson. Qualifiers: Chest pain type: chest pain on breathing Qualified Code(s): R07.1 - Chest pain on breathing (2) Paroxysmal atrial fibrillation Current Visit: Yes Status: Chronic Hx of PAF on sotalol and anticoagulated on Coumadin (Hx of AFib, PE/DVT). Patient states PCP at [facility] follows INR; INR supratherapeutic upon presentation. ECG 11/20/16: HR 106 SR, QT/QTc 365,427 ms. No PAF noted per telemetry review. Discussion w patient/family: The assessment and plan as outlined above was discussed with the patient and/or family members who expressed understanding and agreement. All questions were answered. Thank you for involving us in the care of your patient. Please call with any questions. The patient will be discussed and reviewed with Dr. Wilson; changes to be made accordingly. History of Present Illness Consult date: 11/20/16 Requesting physician: Anupam Beard Consult reason: Chest pain Chief complaint: chest pain History of present illness: Ms. Millan is a 56 year old female with PMHx significant for PAF (sotalol, coumadin), CVA/TIA x3, DMII, GERD, obesity, COPD, and non-occlusive CAD who presents to the ED with constant left-sided chest heaviness with radiation to left arm and left leg since . Associated symptoms include fatigue, shortness of breath, and reported slurred speech. Reports pain worsened with laying flat, coughing, and while taking deep breaths. She reports she did take x3 NTG tabs over the weekend which improved but did not alleviate pain. Troponin negative x2, no ischemic ECG changes noted. She has poor compliance and outpatient follow-up--has been discharged from [facility] and also [facility]. Prior CV testing: [facility] 03/06/16: mild-moderate non-obstructive CAD. 50% pLAD, LCx angiographically free of disease, 20% mRCA stenosis and 20% dRCA stenosis. TTE 10/12/15: LVEF 60-65%, mild LVDD, normal wall motion. Past Med Surg Social Fam HX - Past Medical History Attestation: Yes The following information was validated with the patient. Source: patient, old records reviewed Medical history: arthritis, asthma, atrial fibrillation, COPD, coronary artery disease, CVA, DVT, diabetes, hyperlipidemia, hypertension, kidney stones, migraine, osteoporosis, pulmonary embolus, renal disease, thyroid disease, TIA Psychiatric history: anxiety, depression, PTSD - Past Surgical History Surgical History: cholecystectomy, orthopedic, other, other - Social History Smoking Status: Never smoker Smokeless Tobacco Status: No Alcohol use: none Drug use: none - Family History Father Family Member Ethnicity: Non- Living Status: Still Living Hx Family Cardiac Disorders: Yes (HD) Hx Family Respiratory Disorders: Yes Hx Family Cancer: Yes (Renal) Hx Family GI Disorders: Yes Hx Family Endocrine Disorder: Yes (DM) Hx Family Neuromuscular Disorders: Yes Hx Family Neurologic Disorders: Yes Hx Family HEENT Disorders: No Hx Family Autoimmune Disorders: No Mother Family Member Ethnicity: Non- Living Status: Hx Family Cardiac Disorders: Yes (HD) Hx Family Respiratory Disorders: Yes Hx Family Cancer: Yes (Breast) Hx Family GI Disorders: Yes Hx Family Endocrine Disorder: Yes (DM) Hx Family Neuromuscular Disorders: No Hx Family Neurologic Disorders: No Hx Family HEENT Disorders: No Hx Family Autoimmune Disorders: No Brother Family Member Ethnicity: Non- Living Status: Still Living Hx Family Cardiac Disorders: Yes (VT) Hx Family Respiratory Disorders: No Hx Family Cancer: No Hx Family GI Disorders: No Hx Family Endocrine Disorder: No Hx Family Neuromuscular Disorders: No Hx Family Neurologic Disorders: No Hx Family HEENT Disorders: No Hx Family Autoimmune Disorders: No Sister Family Member Ethnicity: Non- Living Status: Still Living Hx Family Cardiac Disorders: No Hx Family Respiratory Disorders: No Hx Family Cancer: Yes (Ovarian) Hx Family GI Disorders: No Hx Family Endocrine Disorder: No Hx Family Neuromuscular Disorders: No Hx Family Neurologic Disorders: No Hx Family HEENT Disorders: No Hx Family Autoimmune Disorders: No Daughter Living Status: Still Living Hx Family Cardiac Disorders: No Hx Family Respiratory Disorders: No Hx Family Cancer: No Hx Family GI Disorders: No Hx Family Endocrine Disorder: No Hx Family Neuromuscular Disorders: No Hx Family Neurologic Disorders: No Hx Family HEENT Disorders: No Hx Family Autoimmune Disorders: No Medications and Allergies Aspirin Enteric Coated [Aspirin EC] 81 mg PO DAILY 12/30/14 [History] Atorvastatin [Lipitor] 40 mg PO HS 12/30/14 [History] Nitroglycerin [Nitrostat] 0.4 mg PO Q5M PRN 12/30/14 [History] Sotalol HCl [Betapace] 80 mg PO BID 12/30/14 [History] amLODIPine [Norvasc] 5 mg PO DAILY 30 Days 09/12/15 [Rx] Gabapentin [Neurontin] 600 mg PO TID 10/11/15 [History] Prazosin HCl [Minipress] 5 mg PO HS 10/11/15 [History] Albuterol Sulfate [Ventolin Hfa] 2 puff IH QID PRN 10/12/15 [History] Cholecalciferol (D-3) [Vitamin D] 1,000 unit PO BID 10/12/15 [History] Cyclobenzaprine [Flexeril] 10 mg PO TID 10/12/15 [History] Lisinopril [Zestril] 40 mg PO DAILY 10/12/15 [History] Oxybutynin [Ditropan] 5 mg PO BID 10/12/15 [History] Quetiapine Fumarate [Seroquel] 500 mg PO TID 10/12/15 [History] Isosorbide MONOnitrate (24 HR) [Imdur] 60 mg PO DAILY #30 tab.er.24h 10/15/15 [ Rx] Ranolazine [Ranexa] 500 mg PO BID #60 tab.er.12h 10/15/15 [Rx] Folic Acid 1 mg PO DAILY 02/29/16 [History] Warfarin [Coumadin] 2.5 mg PO DAILY 02/29/16 [History] Buspirone HCl [Buspar] 7.5 mg PO BID 07/17/16 [History] Furosemide [Lasix] 80 mg PO QAM 07/17/16 [History] LORazepam [Lorazepam] 2 mg PO HS 07/17/16 [History] Levothyroxine [Synthroid] 200 mcg PO QAM 07/17/16 [History] Medroxyprogesterone Acetate [Provera] 10 mg PO BID 07/17/16 [History] OxyCODONE/APAP 7.5/325 [Percocet 7.5/325 MG] 1 tab PO Q6H PRN 07/17/16 [History] Spironolactone [Aldactone] 25 mg PO DAILY 07/17/16 [History] Trazodone HCl 100 mg PO HS 07/17/16 [History] metFORMIN [Glucophage] 500 mg PO BID 07/17/16 [History] Insulin DETEMIR [Levemir] 10 unit SQ BID 30 Days 11/03/16 [Rx] Ipratropium/Albuterol Neb [Duoneb] 3 ml IH [id number] PRN #0 inhsol 11/03/16 [Rx] Nystatin POWDER [Nystop] 1 appl TP BID bottle 11/03/16 [Rx] Allergies Latex, Natural Rubber Allergy (Verified 11/19/16 21:46) Rash prednisone Allergy (Verified 11/19/16 21:46) Rash Zolpidem [From Ambien] Allergy (Verified 11/19/16 21:46) Hallucinating tape Allergy (Uncoded 09/08/15 03:19) Rash All Systems Review: A 10-system review of systems was performed and is negative for pertinent findings except as documented above in the HPI. - Cardiovascular Cardiovascular: as per HPI Physical Examination Vital Signs, Last 4 Hours Temp Pulse Resp BP Pulse Ox 11/20/16 06:52 98.1 F 93 17 113/74 95 General: Conversant, No Apparent Distress, Other (morbidly obese) HEENT: Atraumatic, Normocephaly, Mucus Membranes Moist Cardiac: Reg Rate and Rhythm, Normal S1 and S2 Lungs: Normal Breath Sounds Neuro: Alert and responsive Abdomen: Other (obese) Skin: No rashes noted on visualized skin Musculoskeletal: No Chest Wall Tenderness Extremities: No Edema, Normal Pulses Results 11/20/16 04:00 11/20/16 04:00 Lab Results 11/20/16 11/20/16 11/20/16 04:00 04:00 04:00 WBC 9.7 Hgb 12.8 Hct 38.6 Plt Count 277 INR 4.9 H* Sodium Potassium Chloride Carbon Dioxide BUN Creatinine Glucose Calcium Magnesium Troponin I 0.00 B-Natriuretic Peptide 11/20/16 11/20/16 04:00 04:00 WBC Hgb Hct Plt Count INR Sodium 137 Potassium 4.1 Chloride 102 Carbon Dioxide 22 BUN 17 Creatinine 0.74 Glucose 244 H Calcium 9.0 Magnesium 1.3 L Troponin I B-Natriuretic Peptide 18 - Imaging and Cardiology Echo: report reviewed Cardiac cath: report reviewed Other Results: 12 hour tele: avg HR=99 SR. Significant artifact limits intrepretation. - EKG Interpretation EKG results cardiology: personally reviewed Consult Discharge Plan - Plan Referrals: Ashwin Ellington, PAC [Primary Care Provider] -
[2016-11-20] MEDS ORDERED: Magnesium Sulfate 2 GM in D5% in Water 100 ML IVPB ONE (10:02)
--- NOTE | 2016-11-20 13:42 | Electrocardiograph Report ---
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
[2016-11-20] MEDS: Acetaminophen 325 MG TABLET PO PRN (14:32)
--- NOTE | 2016-11-20 15:10 | Electrocardiograph Report ---
[place] [address] Test Date: 2016-11-19 Pat Name: Myla Millan Department: 102 Room: 3B Gender: F Review Rn: : 1960 Requested By: Philipp Karimi Order Number: [id number] Reading MD: Jackson Molina MD Measurements Intervals [place] Rate: 111 P: 34 DC: 190 QRS: -18 QRSD: 107 T: 51 QT: 341 QTc: 407 Interpretive Statements SINUS TACHYCARDIA VOLTAGE CRITERIA FOR LVH Poor R wave progression Electronically Signed On 11-20-2016 15:09:09 EDT by Jackson Molina MD
--- NOTE | 2016-11-20 15:12 | Electrocardiograph Report ---
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
--- NOTE | 2016-11-20 15:13 | Electrocardiograph Report ---
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
--- NOTE | 2016-11-20 17:43 | Event Note ---
Date of Encounter: 11/20/16 Time of Encounter: 17:41 56/female Multiple medical issues. Many admissions in last 6 months for similar complaint which is chest pain, back pain, shortness of breath. She has been completely worked up in the past. She was seen by cardiology today. Per cardiology no further workup and patient can be follow-up in outpatient cardiology in 2 weeks. Possible discharge tomorrow
--- NOTE | 2016-11-20 17:57 | Internal Med Progress Note ---
<Ronald Carranza - Last Filed: 11/20/16 17:54> Date of Encounter: 11/20/16 Time of Encounter: 08:45 - Assessment and plan (1) Chest pain with low risk of acute coronary syndrome Current Visit: No Status: Acute Assessment and plan: Patient presented with atypical chest pain symptoms. Troponins 3 negative, no ischemic changes seen on EKG. Left heart catheter in February 2016 demonstrated mild to moderate nonobstructing CAD with recommendations of medical management at that time. Transthoracic echocardiogram from September 2015 demonstrated left ventricle ejection fraction of 60-65% with mild left ventricular diastolic dysfunction, normal right ventricular structure and function, borderline pulmonary hypertension, no significant valvular dysfunction and normal wall motion. Patient is seen by cardiology who recommended no further cardiac testing at this time, continue with current cardiac vascular medications. - Cardiology will arrange follow-up outpatients with [place] [facility] (2) Paroxysmal atrial fibrillation Current Visit: Yes Status: Chronic Assessment and plan: Patient is a history of proximal atrial fibrillation is currently on sotalol and anticoagulation with Coumadin which is supratherapeutic. She is on chronic anticoagulation for history of atrial fibrillation, pulmonary embolism and DVT. - Currently in normal sinus rhythm. Plan: - Continue rate control medications and anticoagulation - Continue cardiac monitoring (3) Falls frequently Current Visit: No Status: Chronic Assessment and plan: Patient has a history of falls. Limited mobility with previous history of CVAs , morbid obesity. She mentions that she gets around with the assistance of her and otherwise uses a wheelchair. (4) Physical deconditioning Current Visit: No Status: Chronic Assessment and plan: Patient is severely deconditioned, limited mobility and morbid obesity. (5) Morbid obesity Current Visit: No Status: Chronic Assessment and plan: Patient has a BMI of 46.6 and would benefit from diet control, tolerated exercise to prolong longevity. Qualifiers: Obesity type: due to excess calories Qualified Code(s): E66.01 - Morbid ( severe) obesity due to excess calories (6) History of CVA (cerebrovascular accident) Current Visit: No Status: Chronic Assessment and plan: Patient has known history of multiple CVAs and TIAs. Currently without symptoms of acute infarct. - Continue simvastatin and current anticoagulation. (7) Diastolic heart failure Current Visit: Yes Status: Acute Assessment and plan: Patient is a history of diastolic heart failure as mentioned above. Currently without signs of exacerbation. Plan: - Continue diuresis - Continue maximizing cardiac medications with statin, CHRISTIANO inhibitor, blood pressure control, spironolactone - 2 L fluid restrictions, 2 g sodium restrictions, strict intake and output recording and daily weights. - Continue cardiac monitoring Qualifiers: Qualified Code(s): I50.30 - Unspecified diastolic (congestive) heart failure (8) Hypothyroidism Current Visit: Yes Status: Acute Assessment and plan: Stable. Continue Synthroid at 200mcg by mouth every morning Qualifiers: Qualified Code(s): E03.9 - Hypothyroidism, unspecified - Subjective Interval history: Ms. Millan [id number] female seen about a patient bedside this morning. She is alert awake interactive in no acute distress. She does complain of some bilateral lower leg numbness along with chronic low back pain. She feels that her chest pain has improved and denies any current radiation. She denies any nausea vomiting diarrhea constipation. She denies any other acute concerns at this time. - Constitutional Vitals: Temp Pulse Resp BP Pulse Ox 98.0 F 70 16 89/56 96 11/20/16 16:24 11/20/16 16:24 11/20/16 16:24 11/20/16 16:24 11/20/16 16:24 General appearance: Present: A&O X 3, morbidly obese, pleasant, no acute distress, answers questions appropriately Exam: General: Patient alert, awake, oriented 3, interactive, in no acute distress HEENT: Normocephalic, atraumatic, pupils equal reactive to light, nasal cavity patent and open septum median position, oral mucosa moist, uvula midline, neck supple trachea midline no palpable lymphadenopathy, no thyromegaly. Chest: Symmetric bilateral correlating with respiratory effort, effort nonlabored. Cardiac: Regular rate and rhythm, positive S1, S2, no bruits appreciated bilateral carotids, Radial pulses 2+ bilateral, posterior tibial and dorsal pedal pulses 2+ bilateral. Respiratory: Clear to auscultation all lung [place] Abdomen: Soft, obese, nontender, positive bowel sounds, no palpable masses appreciated on examination Extremities: Symmetric bilateral, 1+ edema bilateral lower extremities, patient moving all 4 extremities spontaneously. Neurologic: No focal deficits appreciated on examination. Face symmetric, muscle strength symmetric bilateral upper and lower extremities. Internal Medicine: Result - Labs CBC & Chem 7: 11/20/16 04:00 11/20/16 04:00 Labs: Short CBC 11/20/16 Range/Units 04:00 WBC 9.7 (4.3-11.1) K/mcL Hgb 12.8 (11.5-15.4) g/dL Hct 38.6 (35.3-44.9) % Plt Count 277 (140-400) K/mcL Neutrophils # 5.5 (1.6-8.9) K/mcL BMP 11/20/16 04:00 Sodium 137 Potassium 4.1 Chloride 102 Carbon Dioxide 22 BUN 17 Creatinine 0.74 Glucose 244 H Calcium 9.0 Cardiac Enzymes 11/20/16 11/20/16 11/20/16 Range/Units 04:00 09:49 16:21 Troponin I 0.00 0.00 0.00 (0-0.03) ng/mL - ABG Interpretation ABG results: PT/INR, D-dimer PT 55.6 Seconds (9.4-12.1) H* 11/20/16 04:00 - Impressions Impressions Lumbar Spine X-Ray 11/20/16 14:56 IMPRESSION: Stable degenerative changes in the mid lumbar spine. D/ / Garry Real MD / Garry Real MD Interpreting Provider: Garry Real MD Consult Discharge Plan - Plan Additional Instructions: 1. Follow-up with your primary care provider in the next 3-5 days 2. Take all prescriptions as prescribed, any concerns or questions contact her primary care provider. 3. Return to the emergency department if: Recurrence of chest pain, chest pressure, palpitations, shortness of breath, abdominal pain nausea vomiting diarrhea constipation. Or any other concerning medical symptoms or signs. Referrals: Ashwin Ellington, PAC [Primary Care Provider] - <José Miguel Bergeron - Last Filed: 11/21/16 12:54> Date of Encounter: 11/21/16 - Constitutional Vitals: Temp Pulse Resp BP Pulse Ox 98.0 F 91 16 142/75 95 11/21/16 11:07 11/21/16 11:07 11/21/16 11:07 11/21/16 11:07 11/21/16 11:07 Internal Medicine: Result - Labs CBC & Chem 7: 11/21/16 07:13 11/21/16 07:13 Labs: Short CBC 11/21/16 Range/Units 07:13 WBC 10.4 (4.3-11.1) K/mcL Hgb 11.9 (11.5-15.4) g/dL Hct 37.0 (35.3-44.9) % Plt Count 233 (140-400) K/mcL Neutrophils # 7.4 (1.6-8.9) K/mcL BMP 11/21/16 07:13 Sodium 137 Potassium 4.1 Chloride 103 Carbon Dioxide 27 BUN 25 H Creatinine 0.94 Glucose 266 H Calcium 9.5 Cardiac Enzymes 11/20/16 Range/Units 16:21 Troponin I 0.00 (0-0.03) ng/mL Liver Function 11/21/16 Range/Units 07:13 Total Bilirubin 0.2 (0.2-1.2) mg/dL AST 18 (5-34) Units/L ALT 16 (0-55) Units/L Alkaline Phosphatase 98 (38-126) Units/L Albumin 2.8 L (3.5-5.0) g/dL Urine 11/21/16 Range/Units 04:40 Urine Color Yellow (Yellow) Urine Clarity Cloudy A (Clear) Urine pH 5.5 (5.0-8.0) pH Units Ur Specific [place] 1.028 H (1.010-1.025) Urine Protein Negative (Neg-Trace) mg/dL Urine Glucose (UA) 500 H (Normal) mg/dL - ABG Interpretation ABG results: PT/INR, D-dimer PT 46.7 Seconds (9.4-12.1) H* 11/21/16 11:55 - Impressions Impressions Lumbar Spine X-Ray 11/20/16 14:56 IMPRESSION: Stable degenerative changes in the mid lumbar spine. D/ / Garry Real MD / Garry Real MD Interpreting Provider: Garry Real MD - Attending Attestation I examined this patient and my medical decision-making was reviewed with the SALES ACCOUNT SPECIALIST/PA/Advanced Practice Nurse/Resident Physician. I agree with the documented findings, disposition and treatment plan as described except to the extent set forth below. this is event note please do not bill
[2016-11-20] MEDS ORDERED: Furosemide 40 MG TABLET PO SCH (18:00)
[2016-11-20] MEDS ORDERED: traZODone 50 MG TABLET PO SCH (21:00)
[2016-11-21 04:49] LABS: Bilirubin,Urine Negative (Negative); Blood,Urine Small (Negative); Clarity,Urine Cloudy (Clear); Color,Urine Yellow (Yellow); Glucose,Urine (UA) 500 mg/dL (Normal); Ketones,Urine Negative (Negative); Leukocyte Esterase,Urine Small (Negative); Nitrite,Urine Negative (Negative); PH,Urine 5.5 pH Units (5.0-8.0); Protein,Urine Negative (Neg-Trace); Specific Gravity,Urine 1.028 (1.010-1.025); Urobilinogen,Urine Normal (Normal)
[2016-11-21 04:51] LABS: Bacteria,Urine Few per hpf (None-Few); Hyaline Casts,Urine None Seen per lpf (None-Few); Squamous Epithelial Cell,Urine Many per lpf (None-Few); WBC,Urine 15-30 per hpf (0-3)
[2016-11-21] MEDS: Famotidine 20 MG/2 ML VIAL IVP SCH (05:08)
[2016-11-21] MEDS: *HR* Morphine 2 MG/ML SYRINGE IVP PRN (05:08)
[2016-11-21 07:29] LABS: Basophils # 0.1 K/mcL (0.0-0.2); Basophils % 0.5 %; Eosinophils # 0.1 K/mcL (0.0-0.6); Eosinophils % 1.2 %; Hemoglobin 11.9 g/dL (11.5-15.4); Immature Granulocytes % 0.8 % (0-4); Lymphocytes # 2.2 K/mcL (0.6-4.6); Lymphocytes % 21.4 %; Mean Corpuscular HGB Conc 32.2 g/dL (31.6-35.5); Mean Corpuscular Hemoglobin 28.5 pg (28.0-33.3); Mean Corpuscular Volume 88.5 fL (83.0-100.0); Mean Platelet Volume 9.2 fL (9.4-12.4); Monocytes # 0.5 K/mcL (0.0-1.3); Monocytes % 4.8 %; Neutrophils # 7.4 K/mcL (1.6-8.9); Platelet Count 233 K/mcL (140-400); Red Blood Count 4.18 M/mcL (3.82-4.97); Red Cell Distribution Width 14.9 % (11.5-14.5); Segmented Neutrophils % 71.3 %
[2016-11-21 07:41] LABS: Alanine Aminotransferase 16 Units/L (0-55); Albumin 2.8 g/dL (3.5-5.0); Albumin/Globulin Ratio 0.7 (1.1-2.2); Alkaline Phosphatase 98 Units/L (38-126); Aspartate Amino Transferase 18 Units/L (5-34); BUN/Creatinine Ratio 27 (6-26); Bilirubin,Total 0.2 mg/dL (0.2-1.2); Blood Urea Nitrogen 25 mg/dL (7-20); Calcium 9.5 mg/dL (8.6-10.8); Carbon Dioxide 27 mEq/L (19-29); Chloride 103 mEq/L (98-109); Glucose 266 mg/dL (70-99); Osmolality,Calculated 298 (280-300); Potassium 4.1 mEq/L (3.5-4.5); Sodium 137 mEq/L (136-145); Total Protein 6.8 g/dL (6.0-8.3); eGFR For African Americans > 60 (> 60); eGFR For Non-African Americans > 60 (> 60)
[2016-11-21] MEDS: Gabapentin 300 MG CAPSULE PO SCH (09:39)
[2016-11-21] MEDS: Aspirin Enteric Coated 81 MG Tablet PO SCH (09:39)
[2016-11-21] MEDS: Ranolazine 500 MG TAB.ER.12H PO SCH (09:39)
[2016-11-21] MEDS: Lisinopril 20 MG TABLET PO SCH (09:39)
[2016-11-21] MEDS: Cholecalciferol (D-3) 1,000 UNIT TABLET PO SCH (09:39)
[2016-11-21] MEDS: Spironolactone 25 MG TABLET PO SCH (09:39)
[2016-11-21] MEDS: Folic Acid 1 MG TABLET PO SCH (09:40)
[2016-11-21] MEDS: Insulin LISPRO 300 UNITS/3 ML VIAL SQ SCH (09:41)
[2016-11-21] MEDS: Isosorbide MONOnitrate (24 HR) 60 MG TAB.ER.24H PO SCH (09:53)
[2016-11-21] MEDS: Furosemide 40 MG TABLET PO SCH (09:54)
[2016-11-21] MEDS: amLODIPine 5 MG TABLET PO SCH (09:54)
[2016-11-21] MEDS: Insulin DETEMIR 100 UNIT/ML X5UNITS SQ SCH (09:56)
[2016-11-21 11:11] VITALS: BP 142/75
[2016-11-21] MEDS ORDERED: Insulin LISPRO 300 UNITS/3 ML VIAL SQ SCH (11:51)
--- NOTE | 2016-11-21 11:52 | Discharge Summary ---
<José Miguel Bergeron P - Last Filed: 11/21/16 12:54> Date of Encounter: 11/21/16 - Discharge Medications Home Medications: Aspirin Enteric Coated [Aspirin EC] 81 mg PO DAILY 12/30/14 [History] Atorvastatin [Lipitor] 40 mg PO HS 12/30/14 [History] Nitroglycerin [Nitrostat] 0.4 mg PO Q5M PRN 12/30/14 [History] Sotalol HCl [Betapace] 80 mg PO BID 12/30/14 [History] amLODIPine [Norvasc] 5 mg PO DAILY 30 Days 09/12/15 [Rx] Gabapentin [Neurontin] 600 mg PO TID 10/11/15 [History] Prazosin HCl [Minipress] 5 mg PO HS 10/11/15 [History] Albuterol Sulfate [Ventolin Hfa] 2 puff IH QID PRN 10/12/15 [History] Cholecalciferol (D-3) [Vitamin D] 1,000 unit PO BID 10/12/15 [History] Cyclobenzaprine [Flexeril] 10 mg PO TID 10/12/15 [History] Lisinopril [Zestril] 40 mg PO DAILY 10/12/15 [History] Oxybutynin [Ditropan] 5 mg PO BID 10/12/15 [History] Quetiapine Fumarate [Seroquel] 500 mg PO TID 10/12/15 [History] Isosorbide MONOnitrate (24 HR) [Imdur] 60 mg PO DAILY #30 tab.er.24h 10/15/15 [ Rx] Ranolazine [Ranexa] 500 mg PO BID #60 tab.er.12h 10/15/15 [Rx] Folic Acid 1 mg PO DAILY 02/29/16 [History] Warfarin [Coumadin] 2.5 mg PO DAILY 02/29/16 [History] Buspirone HCl [Buspar] 7.5 mg PO BID 07/17/16 [History] Furosemide [Lasix] 80 mg PO QAM 07/17/16 [History] LORazepam [Lorazepam] 2 mg PO HS 07/17/16 [History] Levothyroxine [Synthroid] 200 mcg PO QAM 07/17/16 [History] Medroxyprogesterone Acetate [Provera] 10 mg PO BID 07/17/16 [History] OxyCODONE/APAP 7.5/325 [Percocet 7.5/325 MG] 1 tab PO Q6H PRN 07/17/16 [History] Spironolactone [Aldactone] 25 mg PO DAILY 07/17/16 [History] Trazodone HCl 100 mg PO HS 07/17/16 [History] metFORMIN [Glucophage] 500 mg PO BID 07/17/16 [History] Insulin DETEMIR [Levemir] 10 unit SQ BID 30 Days 11/03/16 [Rx] Ipratropium/Albuterol Neb [Duoneb] 3 ml IH [id number] PRN #0 inhsol 11/03/16 [Rx] Nystatin POWDER [Nystop] 1 appl TP BID bottle 11/03/16 [Rx] Allergies/Adverse Reactions: Allergies Latex, Natural Rubber Allergy (Verified 11/19/16 21:46) Rash prednisone Allergy (Verified 11/19/16 21:46) Rash Zolpidem [From Ambien] Allergy (Verified 11/19/16 21:46) Hallucinating tape Allergy (Uncoded 09/08/15 03:19) Rash Procedures/tests Complete & Pending: Procedures Performed prior 72 hours Category Date Time Status ECG 12 lead ECG [ECG] AM 0600 Y 11/20/16 06:00 Completed ECG 12 lead ECG [ECG] Routine Y 11/20/16 03:30 Completed Date of admission: 11/19/16 23:55 Primary care physician: Ashwin Ellington Consults: 11/20/16 00:57 Consult to Physical Therapy [CONS] Routine Comment: Evaluate, develop and implement POC Reason for Consult: pt eval and ambulate Consult to Cartography Supervisor [CONS] Routine Reason for SW Consult: d/c planning 11/20/16 03:38 Consult to Cardiology [CONS] Routine Comment: Consulting Provider: Cardiology Justine Reason for Consult: chronic cehst pain, CHF Call Completed: No - Patient Status Disposition: Home Health Service Condition: Good - Discharge Instructions Follow Up With: Ashwin Ellington PAC [Primary Care Provider] - 12/07/16 2:20 pm Additional Instructions: 1. Follow-up with your primary care provider in the next 3-5 days 2. Take all prescriptions as prescribed, any concerns or questions contact her primary care provider. 3. Return to the emergency department if: Recurrence of chest pain, chest pressure, palpitations, shortness of breath, abdominal pain nausea vomiting diarrhea constipation. Or any other concerning medical symptoms or signs. Hospital course: Ms. Millan is a 56 year old female - Time Spent with Patient Total time spent providing and/or coordinating discharge services: - Constitutional Vitals: Temp Pulse Resp BP Pulse Ox 98.0 F 91 16 142/75 95 11/21/16 11:07 11/21/16 11:07 11/21/16 11:07 11/21/16 11:07 11/21/16 11:07 - Attending Attestation I examined this patient and my medical decision-making was reviewed with the WASHROOM CLEANER/PA/Advanced Practice Nurse/Resident Physician. I agree with the documented findings, disposition and treatment plan as described except to the extent set forth below. <Ronald Carranza - Last Filed: 11/21/16 17:50> Date of Encounter: 11/21/16 Time of Encounter: 11:47 - Discharge Diagnosis (1) Chest pain with low risk of acute coronary syndrome Priority: Primary Status: Acute (2) Paroxysmal atrial fibrillation Priority: Primary Status: Chronic (3) Falls frequently Priority: Secondary Status: Chronic (4) Physical deconditioning Priority: Secondary Status: Chronic (5) Morbid obesity Priority: Secondary Status: Chronic Qualifiers: Obesity type: due to excess calories Qualified Code(s): E66.01 - Morbid ( severe) obesity due to excess calories (6) History of CVA (cerebrovascular accident) Priority: Secondary Status: Chronic (7) Diastolic heart failure Priority: Secondary Status: Acute Qualifiers: Qualified Code(s): I50.30 - Unspecified diastolic (congestive) heart failure (8) Hypothyroidism Priority: Secondary Status: Acute Qualifiers: Qualified Code(s): E03.9 - Hypothyroidism, unspecified Procedures/tests Complete & Pending: Procedures Performed prior 72 hours Category Date Time Status ECG 12 lead ECG [ECG] AM 0600 Y 11/20/16 06:00 Completed ECG 12 lead ECG [ECG] Routine Y 11/20/16 03:30 Completed Date of admission: 11/19/16 23:55 Primary care physician: Ashwin Ellington Consults: 11/20/16 00:57 Consult to Physical Therapy [CONS] Routine Comment: Evaluate, develop and implement POC Reason for Consult: pt eval and ambulate Consult to Cartography Supervisor [CONS] Routine Reason for SW Consult: d/c planning 11/20/16 03:38 Consult to Cardiology [CONS] Routine Comment: Consulting Provider: Dorian Fletcher Reason for Consult: chronic cehst pain, CHF Call Completed: No Discharging clinician: Ronald Carranza Anticipated date of discharge: 11/21/16 - Patient Status Functional capacity at discharge: uses cane/walker Overall status at discharge: patient is progressing back to baseline - Diet and Activity Activity: as per physical therapy Diet: diabetic diet, low fat, low cholesterol, low salt diet Interval History: Ms. Millan is a 56 year old female with past medical history of COPD, atrial fibrillation, cardiomyopathy, CHF, coronary artery disease, CVA, DVT, diabetes, hyperlipidemia and hypertension and PE. She presents to ED with complaints of chest pain that started about 3 days prior to the visit. She received lab draws for Troponin, CBC,CMP all without significant findings. CTA negative for PE, CXR without significant findings, EKG was Sinus tachycardia at 110. Patient was admitted to general medical floor and placed on rn cardiac rehab for Chest pain evaluation . Resent hospital records were reviewed and cardiology was consulted who evaluated the patient and found NO evidence of ACS and agreed with medical management. She complained of low back pain with radiculopathy that was chronic and lumbar x-ray was obtained without any acute findings. She remained stable throughout her inpatient stay and was seen and evaluated on and deemed stable for discharge home with close follow up with her PCP. Hospital course: Ms. Millan is a 56 year old female - Time Spent with Patient Total time spent providing and/or coordinating discharge services: - Constitutional Vitals: Temp Pulse Resp BP Pulse Ox 98.0 F 91 16 142/75 95 11/21/16 11:07 11/21/16 11:07 11/21/16 11:07 11/21/16 11:07 11/21/16 11:07 General appearance: Present: A&O X 3, morbidly obese, pleasant, no acute distress, answers questions appropriately Exam: General: Patient alert, awake, oriented 3, interactive, in no acute distress HEENT: Normocephalic, atraumatic, pupils equal reactive to light, nasal cavity patent and open septum median position, oral mucosa moist, uvula midline, neck supple trachea midline no palpable lymphadenopathy, no thyromegaly. Chest: Symmetric bilateral correlating with respiratory effort, effort nonlabored. Cardiac: Regular rate and rhythm, positive S1, S2, no bruits appreciated bilateral carotids, Radial pulses 2+ bilateral, posterior tibial and dorsal pedal pulses 2+ bilateral. Respiratory: Clear to auscultation all lung [place] Abdomen: Soft, obese, nontender, positive bowel sounds, no palpable masses appreciated on examination Extremities: Symmetric bilateral, trace edema bilateral lower extremities, patient moving all 4 extremities spontaneously. Neurologic: No focal deficits appreciated on examination. Face symmetric, muscle strength symmetric bilateral upper and lower extremities.
--- NOTE | 2016-11-21 11:56 | Physician Discharge Referral ---
<Ronald Carranza - Last Filed: 11/21/16 11:55> Home Health/Hosp Referral Info Transfer to: Home Health Provider in Charge Post Discharge: PCP - Diagnosis (1) Chest pain with low risk of acute coronary syndrome Priority: Primary Status: Acute (2) Paroxysmal atrial fibrillation Priority: Primary Status: Chronic (3) Falls frequently Priority: Secondary Status: Chronic (4) Physical deconditioning Priority: Secondary Status: Chronic (5) Morbid obesity Priority: Secondary Status: Chronic (6) History of CVA (cerebrovascular accident) Priority: Secondary Status: Chronic (7) Diastolic heart failure Priority: Secondary Status: Acute (8) Hypothyroidism Priority: Secondary Status: Acute - Respiratory Orders Smoking Cessation: Smoking cessation has been advised. For more information, call the [place] Tobacco Quit Line at 6-572-KGFZ-NOW. - Diet/Nutrition Diet/Nutrition Orders: No Added Salt (ELAINA), Cardiac (And diabetic diet) - Activity Activity Orders: Ambulate - Services Needed Following services are medically necessary services: Nursing, Home Health Aide, Physical Therapy, Occupational Therapy - Transfer Medications Home Medications: Aspirin Enteric Coated [Aspirin EC] 81 mg PO DAILY 12/30/14 [History] Atorvastatin [Lipitor] 40 mg PO HS 12/30/14 [History] Nitroglycerin [Nitrostat] 0.4 mg PO Q5M PRN 12/30/14 [History] Sotalol HCl [Betapace] 80 mg PO BID 12/30/14 [History] amLODIPine [Norvasc] 5 mg PO DAILY 30 Days 09/12/15 [Rx] Gabapentin [Neurontin] 600 mg PO TID 10/11/15 [History] Prazosin HCl [Minipress] 5 mg PO HS 10/11/15 [History] Albuterol Sulfate [Ventolin Hfa] 2 puff IH QID PRN 10/12/15 [History] Cholecalciferol (D-3) [Vitamin D] 1,000 unit PO BID 10/12/15 [History] Cyclobenzaprine [Flexeril] 10 mg PO TID 10/12/15 [History] Lisinopril [Zestril] 40 mg PO DAILY 10/12/15 [History] Oxybutynin [Ditropan] 5 mg PO BID 10/12/15 [History] Quetiapine Fumarate [Seroquel] 500 mg PO TID 10/12/15 [History] Isosorbide MONOnitrate (24 HR) [Imdur] 60 mg PO DAILY #30 tab.er.24h 10/15/15 [ Rx] Ranolazine [Ranexa] 500 mg PO BID #60 tab.er.12h 10/15/15 [Rx] Folic Acid 1 mg PO DAILY 02/29/16 [History] Warfarin [Coumadin] 2.5 mg PO DAILY 02/29/16 [History] Buspirone HCl [Buspar] 7.5 mg PO BID 07/17/16 [History] Furosemide [Lasix] 80 mg PO QAM 07/17/16 [History] LORazepam [Lorazepam] 2 mg PO HS 07/17/16 [History] Levothyroxine [Synthroid] 200 mcg PO QAM 07/17/16 [History] Medroxyprogesterone Acetate [Provera] 10 mg PO BID 07/17/16 [History] OxyCODONE/APAP 7.5/325 [Percocet 7.5/325 MG] 1 tab PO Q6H PRN 07/17/16 [History] Spironolactone [Aldactone] 25 mg PO DAILY 07/17/16 [History] Trazodone HCl 100 mg PO HS 07/17/16 [History] metFORMIN [Glucophage] 500 mg PO BID 07/17/16 [History] Insulin DETEMIR [Levemir] 10 unit SQ BID 30 Days 11/03/16 [Rx] Ipratropium/Albuterol Neb [Duoneb] 3 ml IH [id number] PRN #0 inhsol 11/03/16 [Rx] Nystatin POWDER [Nystop] 1 appl TP BID bottle 11/03/16 [Rx] Allergies/Adverse Reactions: Allergies Latex, Natural Rubber Allergy (Verified 11/19/16 21:46) Rash prednisone Allergy (Verified 11/19/16 21:46) Rash Zolpidem [From Ambien] Allergy (Verified 11/19/16 21:46) Hallucinating tape Allergy (Uncoded 09/08/15 03:19) Rash Certification: Further, I certify that my clinical findings support that this patient is homebound (i.e. absences from home require considerable and taxing effort and are for medical reasons or denominational services or infrequently or short duration when for other reasons) because: Homebound Reason: Patient requires assistance of a person or device to safely leave home, Leaving home requires considerable and taxing effort due to condition Attestation: My signature below is to certify that this patient is under my care and that I, or nurse practitioner, or a physician's assistant professor of biochemistry working with me, has a face-to -face encounter with this patient. <José Miguel Bergeron P - Last Filed: 11/21/16 12:54> - Respiratory Orders Smoking Cessation: Smoking cessation has been advised. For more information, call the [place] Tobacco Quit Line at 9-732-KBMMNOW. Certification: Further, I certify that my clinical findings support that this patient is homebound (i.e. absences from home require considerable and taxing effort and are for medical reasons or denominational services or infrequently or short duration when for other reasons) because: Attestation: My signature below is to certify that this patient is under my care and that I, or nurse practitioner, or a physician's assistant professor of biochemistry working with me, has a face-to -face encounter with this patient.
[2016-11-21] MEDS: Acetaminophen 325 MG TABLET PO PRN (12:10)
[2016-11-21 12:18] LABS: INR 4.1
[2016-11-21 12:21] LABS: Prothrombin Time 46.7 Seconds (9.4-12.1)
== END 2016-11-21 17:13 | disposition home health service (06) ==
LOC: 3BNU 21:31 → EMEROO 21:31 → 3BNU 11-20 00:31
PROVIDERS: ADMIT Family Medicine; ATTEND Registered Nurse

== ENCOUNTER 2016-12-04 22:08 | Observation (INO) ==
[2016-12-04 23:18] LABS: Basophils # 0.1 K/mcL (0.0-0.2); Basophils % 0.6 %; Eosinophils # 0.1 K/mcL (0.0-0.6); Eosinophils % 0.9 %; Hematocrit 42.9 % (35.3-44.9); Hemoglobin 14.2 g/dL (11.5-15.4); Immature Granulocytes % 0.7 % (0-4); Lymphocytes # 3.6 K/mcL (0.6-4.6); Lymphocytes % 33.8 %; Mean Corpuscular HGB Conc 33.1 g/dL (31.6-35.5); Mean Corpuscular Hemoglobin 27.8 pg (28.0-33.3); Mean Platelet Volume 9.8 fL (9.4-12.4); Monocytes # 0.6 K/mcL (0.0-1.3); Monocytes % 5.6 %; Neutrophils # 6.2 K/mcL (1.6-8.9); Platelet Count 324 K/mcL (140-400); Red Blood Count 5.11 M/mcL (3.82-4.97); Red Cell Distribution Width 14.6 % (11.5-14.5); Segmented Neutrophils % 58.4 %
--- NOTE | 2016-12-04 23:26 | Emergency Department Note ---
Disposition Clinical Impression: Chest pain Qualifiers: Chest pain type: unspecified Qualified Code(s): R07.9 - Chest pain, unspecified Disposition: Admitted As Inpatient Condition: Good Time of Disposition: 02:54 Chest Pain HPI - General Chief Complaint: ED Chest Pain Stated Complaint: Chest Pain/HERNANDES Time Seen by Provider: 12/04/16 23:09 Source: patient, EMS Mode of arrival: ambulatory Limitations: no limitations Vital Signs Reviewed: Yes Nursing Notes Reviewed: Yes - History of Present Illness HPI Narrative: 56-year-old female history of CAD, TIA, hypertension, insulin-dependent diabetes mellitus, atrial fibrillation on Coumadin presents with chest pain. This occurred while at rest 1400 left-sided chest pain with radiation down her left arm. She took a total of 2 nitro with complete relief, 15 minutes afterwards 5 minutes apart. She reports a history of CAD in the past with no stent intervention. Review of her heart cath 2016 showed minimal stenosis 50%. Patient took aspirin earlier this morning. She has a history of atrial fibrillation on Coumadin. Patient reports past 2 days she is been having worsening headache described as a throbbing squeezing sensation around the head. History of this in the past she was diagnosed as a TIA. Denies any recent head trauma or falls. Severity scale (1-10): 10 - Related Data Home Medications Medication Instructions Recorded Confirmed Aspirin Enteric Coated [Aspirin EC] 81 mg PO DAILY 12/30/14 12/05/16 Atorvastatin [Lipitor] 40 mg PO HS 12/30/14 12/05/16 Nitroglycerin [Nitrostat] 0.4 mg PO Q5M PRN 12/30/14 12/05/16 Sotalol HCl [Betapace] 80 mg PO BID 12/30/14 12/05/16 Gabapentin [Neurontin] 600 mg PO TID 10/11/15 12/05/16 Prazosin HCl [Minipress] 5 mg PO HS 10/11/15 12/05/16 Albuterol Sulfate [Ventolin Hfa] 2 puff IH QID PRN 10/12/15 12/05/16 Cholecalciferol (D-3) [Vitamin D] 1,000 unit PO BID 10/12/15 12/05/16 Cyclobenzaprine [Flexeril] 10 mg PO TID 10/12/15 12/05/16 Lisinopril [Zestril] 40 mg PO DAILY 10/12/15 12/05/16 Oxybutynin [Ditropan] 5 mg PO BID 10/12/15 12/05/16 Quetiapine Fumarate [Seroquel] 500 mg PO TID 10/12/15 12/05/16 Folic Acid 1 mg PO DAILY 02/29/16 12/05/16 Warfarin [Coumadin] 5 mg PO DAILY 02/29/16 12/05/16 Buspirone HCl [Buspar] 7.5 mg PO BID 07/17/16 12/05/16 Furosemide [Lasix] 80 mg PO QAM 07/17/16 12/05/16 LORazepam [Lorazepam] 2 mg PO HS 07/17/16 12/05/16 Levothyroxine [Synthroid] 200 mcg PO QAM 07/17/16 12/05/16 Medroxyprogesterone Acetate 10 mg PO BID 07/17/16 12/05/16 [Provera] OxyCODONE/APAP 7.5/325 [Percocet 1 tab PO Q6H PRN 07/17/16 12/05/16 7.5/325 MG] Spironolactone [Aldactone] 25 mg PO DAILY 07/17/16 12/05/16 Trazodone HCl 100 mg PO HS 07/17/16 12/05/16 metFORMIN [Glucophage] 500 mg PO BID 07/17/16 12/05/16 Insulin ASPART [Novolog Flexpen] 0 unit SQ TIDWM MDD PER SLIDING 12/05/16 SCALE Linagliptin [Tradjenta] 5 mg PO DAILY 12/05/16 12/05/16 Oxygen 3 l .ROUTE CONT 12/05/16 12/05/16 Previous Rx's Medication Instructions Recorded amLODIPine [Norvasc] 5 mg PO DAILY 30 Days 09/12/15 Isosorbide MONOnitrate (24 HR) 60 mg PO DAILY #30 tab.er.24h 10/15/15 [Imdur] Ranolazine [Ranexa] 500 mg PO BID #60 tab.er.12h 10/15/15 Insulin DETEMIR [Levemir] 10 unit SQ BID 30 Days 11/03/16 Ipratropium/Albuterol Neb [Duoneb] 3 ml IH [id number] PRN #0 inhsol 11/03/16 Nystatin POWDER [Nystop] 1 appl TP BID bottle 11/03/16 Allergies Allergy/AdvReac Type Severity Reaction Status Date / Time Latex, Natural Rubber Allergy Rash Verified 11/19/16 21:46 prednisone Allergy Rash Verified 11/19/16 21:46 Zolpidem [From Ambien] Allergy Hallucinati Verified 11/19/16 21:46 ng tape Allergy Rash Uncoded 09/08/15 03:19 All systems ED: reviewed and negative except as stated. Constitutional: Reports: weakness (left side). Denies: fever, chills Cardiovascular: Reports: chest pain. Denies: palpitations, dyspnea on exertion Respiratory: Reports: dyspnea. Denies: cough Gastrointestinal: Denies: abdominal pain, nausea, vomiting Chest Pain PMH - Past Medical History Medical history: Reports: arthritis, asthma, atrial fibrillation, COPD, coronary artery disease, CVA, DVT, diabetes, hyperlipidemia, hypertension, kidney stones, migraine, osteoporosis, pulmonary embolus, renal disease, thyroid disease, TIA Surgical history: Reports: cholecystectomy, orthopedic, other, other Psychiatric history: Reports: anxiety, depression, PTSD DIRECTOR MBA history: Reports: no DIRECTOR MBA history - Social History Smoking Status: Never smoker Alcohol use: Reports: none Drug use: Reports: none Physical Exam - General Limitations: no limitations General appearance: alert, in no apparent distress - Head Head exam: atraumatic, normocephalic, normal inspection - Eye Eye exam: Present: normal appearance, PERRL, EOMI - ENT ENT exam: normal exam, normal oropharynx, mucous membranes moist - Neck Neck exam: Present: normal inspection, full ROM, trachea midline - Chest Chest inspection: Present: normal inspection, symmetric chest wall rise, tenderness (pain reproducible on left chest wall) - Respiratory Respiratory exam: Present: normal lung sounds bilaterally. Absent: respiratory distress, wheezes - Cardiovascular Cardiovascular exam: Present: regular rate, normal rhythm, normal heart sounds - Abdominal Exam Abdominal exam: Present: soft, Non-Tender, normal bowel sounds. Absent: tenderness, distention, guarding, rebound, rigidity - Extremities Exam Extremities exam: Present: normal inspection, full ROM, normal capillary refill. Absent: tenderness, pedal edema, calf tenderness - Back Exam Back exam: Present: normal inspection, full ROM. Absent: tenderness - Neurological Exam Neurological exam: Present: alert, oriented X3, CN II-XII intact, other ( chronic intermittent left sided weakness, unsure if new) - Expanded Neurological Exam Patient oriented to: Present: person, place, time Speech: Present: fluid speech Cranial nerves: EOM function (II, III, IV, ): Normal, facial sensation (V): Normal, facial palsy (VII): Normal, gag reflex (IX): Normal, spinal accessory function (XI): Normal, tongue deviation (XII): Normal Cerebellar function: normal gait Motor strength - LUE: 4/5 Motor strength - RUE: 5/5 Motor strength - LLE: 4/5 Motor strength - RLE: 5/5 Upper motor neuron exam: yasmin neglect: Absent bilaterally, pronator drift: Absent bilaterally Sensory exam upper extremity: light touch: Abnormal Left Sensory exam lower extremity: light touch: Abnormal Left - Psychiatric Psychiatric exam: Present: normal affect, normal mood - Skin Skin exam: Present: warm, dry, intact, normal color Course Course Narrative: 56 year old female presents with chest pain and headache. Describes angina symptoms, left side chest pain with radiation to the left shoulder, improved after 2 nitro. History of CAD without any stenting. Neurologic exam is normal without any focal neuro deficits. During my history taking patient had full ROM of LUE and LLE. She was seen with her left leg crossed and left arm holding her head. During my examination she displayed weakness in the LLE and unable to fully flex the knee or lift off the bed. She displayed good interactive video technician strength but showed some weakness in the LUE compared to RUE. CT head obtained. Chest pain workup initiated. HEART score is 4 pending troponin. EKG is sinus tachy with LVH , no acute ischmie changes. Dispositino pending workup, will likely need admission. Patient is in agreement with this plan. Will hold off on nitro at this time as she is complaining of a headache possibly secondary to the nitro. Dilaudid ordered for pain. - Reevaluation(s) Reevaluation #1: Pain resolved after the Dilaudid. Patient was chest pain free for approximately an hour. Chest pain returned again but after 2 nitro patient is currently asymptomatic free again. HEART score is 5. Will need admission to medicine for cardiac observation and trend troponin to rule out ACS and likely unstable angina. Patient is in agreement with this plan. Time: 02:19 Reevaluation #2: Patient's chest pain has returned again. Nitro paste placed, chest pain free - Consultations Consultation #1: Admission accepted by Dr. Payne, on-call hospitalist, for chest pain R/O ACS. Informed of negative CT head, no signs of stroke or TIA. No further orders at this time. Vital Signs Temperature 97.7 F 12/04/16 22:09 Pulse Rate 109 12/04/16 22:09 Respiratory Rate 20 12/04/16 22:09 Blood Pressure 159/105 12/04/16 22:09 O2 Sat by Pulse Oximetry 97 12/04/16 22:09 Temperature 97.6 F 12/05/16 18:29 Pulse Rate 69 12/05/16 18:29 Respiratory Rate 18 12/05/16 18:29 Blood Pressure 82/47 12/05/16 18:29 O2 Sat by Pulse Oximetry 97 12/05/16 18:29 Oxygen Delivery Oxygen Delivery Room Air Chest Pain - Medical Records Medical records reviewed: Yes I reviewed the patient's medical records. - Lab Data Lab results reviewed: Yes I reviewed the patient's lab results. Result diagrams: 12/04/16 23:10 12/04/16 23:10 Lab Results 12/04/16 12/04/16 12/04/16 Range/Units 23:10 23:10 23:10 WBC 10.5 (4.3-11.1) K/mcL RBC 5.11 H (3.82-4.97) M/mcL Hgb 14.2 (11.5-15.4) g/dL Hct 42.9 (35.3-44.9) % MCV 84.0 (83.0-100.0) fL MCH 27.8 L (28.0-33.3) pg MCHC 33.1 (31.6-35.5) g/dL RDW 14.6 H (11.5-14.5) % Plt Count 324 (140-400) K/mcL MPV 9.8 (9.4-12.4) fL Immature Gran % 0.7 (0-4) % Seg Neutrophils % 58.4 % Lymphocytes % 33.8 % Monocytes % 5.6 % Eosinophils % 0.9 % Basophils % 0.6 % Neutrophils # 6.2 (1.6-8.9) K/mcL Lymphocytes # 3.6 (0.6-4.6) K/mcL Monocytes # 0.6 (0.0-1.3) K/mcL Eosinophils # 0.1 (0.0-0.6) K/mcL Basophils # 0.1 (0.0-0.2) K/mcL Sodium 135 L (136-145) mEq/L Potassium 4.2 (3.5-4.5) mEq/L Chloride 103 (98-109) mEq/L Carbon Dioxide 21 (19-29) mEq/L BUN 13 (7-20) mg/dL Creatinine 0.93 (0.57-1.11) mg/dL Est GFR ( Amer) > 60 (> 60) Est GFR (Non-Af Amer) > 60 (> 60) BUN/Creatinine Ratio 14 (6-26) Glucose 310 H (70-99) mg/dL Calculated Osmolality 292 (280-300) Calcium 9.7 (8.6-10.8) mg/dL Troponin I 0.00 (0-0.03) ng/mL - Radiology Data Radiology results reviewed: Yes I reviewed the patient's radiology results. Chest X-Ray 12/04/16 22:26 IMPRESSION: No acute cardiopulmonary process. D/ / 12/04/2016 22:57:38 Lance Hung MD / janine Interpreting Provider: Lance Hugn MD Head CT 12/05/16 00:38 IMPRESSION: No acute intracranial abnormality. D/ / Karen Chavez MD / Karen Chavez MD Interpreting Provider: Karen Chavez MD - EKG Data EKG attestation: Yes I reviewed and interpreted this EKG. EKG results narrative: EKG performed 2218 sinus tachycardia 103 bpm, poor R-R wave progression, normal axis, there are no ST elevations or depressions, no T-wave inversions. Left ventricular hypertrophy seen in aVL. Intervals are within normal limits MS interval 185 QRS 108 QT QTC 352 412. Compared to old EKG performed 11/20/2016 shows consistent findings sinus tachycardia. No acute ischemic changes. Heart Score - Score History: Moderately Suspicious EKG: Non Specific repolarisation Disturbance Age: 45-65 Risk Factors: Equal/Greater than 3 risk factor or history of atherosclerotic disease Troponin: Less than normal limit HEART Score Total: 5 Attestation Statement - Attestation Attestation: I personally interviewed and examined this patient and my medical decision- making was reviewed with the ED Resident Physician, Dr. Stevens I agree with the documented findings, disposition and treatment plan as described except to the extent set forth below. Pt is a 56 yo wf, hx CAD with c/o CP relieved with nitro. Pt with recurrence of L CP on arrival to ED, and relieved with nitro. Also c/o mild gen grad in onset HERNANDES with L sided weakenss. Pt reports hx multiple TIA's and CVA, most recent in , in which she still has mild weakness of LUE/LLE. Pt with mild 4/5 strength in LUE/LLE compared to RUE/RLE on initial exam, which pt states is "normal for her". Agree with PE as documented. EKG with no acute changes. CT brain wnl. CXR wnl. Labs wnl. Will admit for CP.
[2016-12-04 23:32] LABS: BUN/Creatinine Ratio 14 (6-26); Blood Urea Nitrogen 13 mg/dL (7-20); Calcium 9.7 mg/dL (8.6-10.8); Carbon Dioxide 21 mEq/L (19-29); Chloride 103 mEq/L (98-109); Glucose 310 mg/dL (70-99); Osmolality,Calculated 292 (280-300); Potassium 4.2 mEq/L (3.5-4.5); Sodium 135 mEq/L (136-145); eGFR For African Americans > 60 (> 60); eGFR For Non-African Americans > 60 (> 60)
[2016-12-05] MEDS ORDERED: *HR* HYDROmorphone (PF) 1 MG/ML SYRINGE IVP ONE (00:39)
[2016-12-05] MEDS ORDERED: Ondansetron 4 MG/2 ML VIAL IVP ONE (00:39)
[2016-12-05] MEDS: Nitroglycerin 0.4 MG TAB.SUBL SL PRN ×6 (02:08→16:04)
[2016-12-05] MEDS ORDERED: Nitroglycerin 1 INCH/GM PACKET TP ONE (02:53)
--- NOTE | 2016-12-05 03:19 | Internal Med History&Physical ---
Date of Encounter: 12/05/16 Time of Encounter: 03:16 Assessment and Plan (1) Chest pain Current visit: No Status: Acute Patient was recently admitted with chest pain 2 weeks ago; cardiology was consulted and opted to continue medical management without intervention Pain was relieved with Nitro, which we will continue here PRN for chest pain; may consider adding IV Nitro if pain relief is ineffective Initial troponin negative, so will obtain x2; upon chart review patient has numerous troponins collected without a single positive result Her last LHC was in February 2016 which showed non-obstructive CAD, no need for repeat imaging at this point Obtain echocardiogram as she has not gotten on since last September which showed diastolic dysfunction with EF 60-65% Qualifiers: Chest pain type: chest pain on breathing Qualified Code(s): R07.1 - Chest pain on breathing (2) Paroxysmal atrial fibrillation Current visit: No Status: Chronic Initially presented with sinus tachycardia Continue home Coumadin for AC and Sotalol for rate control Obtain PT/INR (3) Insulin dependent diabetes mellitus Current visit: Yes Status: Chronic A1c checked last month was 10.6 Will start on basal dose of Levemir in addition to medium dose SSI, accuchecks ACHS Holding home oral anti-diabetics (4) CAD (coronary artery disease) Current visit: No Status: Chronic Continue home ASA and increasing dose of Imdur and Lipitor while inpatient Qualifiers: Coronary Disease-Associated Artery/Lesion type: [place] artery [place] vs. transplanted heart: [place] heart Associated angina: angina presence unspecified Qualified Code(s): I25.10 - Atherosclerotic heart disease of [place] coronary artery without angina pectoris (5) COPD (chronic obstructive pulmonary disease) Current visit: No Status: Chronic Not currently in exacerbation upon admission Will continue home breathing treatments and support with supplemental oxygen Qualifiers: COPD type: unspecified COPD Qualified Code(s): J44.9 - Chronic obstructive pulmonary disease, unspecified (6) DVT prophylaxis Current visit: No Status: Acute Continue home Coumadin Internal Medicine - H&P: HPI Chief complaint: chest pain Admitted From: Home Plans for Post Hospital Care: Home History of present illness: Ms. Millan is a 56 year old female who presents to the emergency department with chest pain. She states chest pain started around 1 PM yesterday while she was at rest at home. She has previous MIs in the past, but states this one is worse than her previous episodes as the pain is more severe. She states the pain is just beneath the left breast and radiates to her left arm and jaw, and worsens with cough. She has taken several doses of nitroglycerin while in the emergency department with some relief of pain. She also has associated shortness of breath even at rest, despite her usual 3 L of oxygen which she uses for COPD. Patient also reports some nausea but has not yet to vomit. She does have history of paroxysmal A. fib and is currently on Coumadin. She states there are no palpitations but she has had some diaphoresis. She also has a history of stroke and has left-sided lower extremity deficits. Past Med Surg Social Fam HX - Past Medical History Medical history: arthritis, asthma, atrial fibrillation, COPD, coronary artery disease, CVA, DVT, diabetes, hyperlipidemia, hypertension, kidney stones, migraine, osteoporosis, pulmonary embolus, renal disease, thyroid disease, TIA Psychiatric history: anxiety, depression, PTSD - Past Surgical History Surgical History: cholecystectomy, orthopedic, other, other - Social History Smoking Status: Never smoker Smokeless Tobacco Status: No Alcohol use: none Drug use: none - Family History Father Family Member Ethnicity: Non- Living Status: Still Living Hx Family Cardiac Disorders: Yes (HD) Hx Family Respiratory Disorders: Yes Hx Family Cancer: Yes (Renal) Hx Family GI Disorders: Yes Hx Family Endocrine Disorder: Yes (DM) Hx Family Neuromuscular Disorders: Yes Hx Family Neurologic Disorders: Yes Hx Family HEENT Disorders: No Hx Family Autoimmune Disorders: No Mother Family Member Ethnicity: Non- Living Status: Hx Family Cardiac Disorders: Yes (HD) Hx Family Respiratory Disorders: Yes Hx Family Cancer: Yes (Breast) Hx Family GI Disorders: Yes Hx Family Endocrine Disorder: Yes (DM) Hx Family Neuromuscular Disorders: No Hx Family Neurologic Disorders: No Hx Family HEENT Disorders: No Hx Family Autoimmune Disorders: No Brother Family Member Ethnicity: Non- Living Status: Still Living Hx Family Cardiac Disorders: Yes (MT) Hx Family Respiratory Disorders: No Hx Family Cancer: No Hx Family GI Disorders: No Hx Family Endocrine Disorder: No Hx Family Neuromuscular Disorders: No Hx Family Neurologic Disorders: No Hx Family HEENT Disorders: No Hx Family Autoimmune Disorders: No Sister Family Member Ethnicity: Non- Living Status: Still Living Hx Family Cardiac Disorders: No Hx Family Respiratory Disorders: No Hx Family Cancer: Yes (Ovarian) Hx Family GI Disorders: No Hx Family Endocrine Disorder: No Hx Family Neuromuscular Disorders: No Hx Family Neurologic Disorders: No Hx Family HEENT Disorders: No Hx Family Autoimmune Disorders: No Daughter Living Status: Still Living Hx Family Cardiac Disorders: No Hx Family Respiratory Disorders: No Hx Family Cancer: No Hx Family GI Disorders: No Hx Family Endocrine Disorder: No Hx Family Neuromuscular Disorders: No Hx Family Neurologic Disorders: No Hx Family HEENT Disorders: No Hx Family Autoimmune Disorders: No Internal Medicine - H&P: Meds Aspirin Enteric Coated [Aspirin EC] 81 mg PO DAILY 12/30/14 [History] Atorvastatin [Lipitor] 40 mg PO HS 12/30/14 [History] Nitroglycerin [Nitrostat] 0.4 mg PO Q5M PRN 12/30/14 [History] Sotalol HCl [Betapace] 80 mg PO BID 12/30/14 [History] amLODIPine [Norvasc] 5 mg PO DAILY 30 Days 09/12/15 [Rx] Gabapentin [Neurontin] 600 mg PO TID 10/11/15 [History] Prazosin HCl [Minipress] 5 mg PO HS 10/11/15 [History] Albuterol Sulfate [Ventolin Hfa] 2 puff IH QID PRN 10/12/15 [History] Cholecalciferol (D-3) [Vitamin D] 1,000 unit PO BID 10/12/15 [History] Cyclobenzaprine [Flexeril] 10 mg PO TID 10/12/15 [History] Lisinopril [Zestril] 40 mg PO DAILY 10/12/15 [History] Oxybutynin [Ditropan] 5 mg PO BID 10/12/15 [History] Quetiapine Fumarate [Seroquel] 500 mg PO TID 10/12/15 [History] Isosorbide MONOnitrate (24 HR) [Imdur] 60 mg PO DAILY #30 tab.er.24h 10/15/15 [ Rx] Ranolazine [Ranexa] 500 mg PO BID #60 tab.er.12h 10/15/15 [Rx] Folic Acid 1 mg PO DAILY 02/29/16 [History] Warfarin [Coumadin] 2.5 mg PO DAILY 02/29/16 [History] Buspirone HCl [Buspar] 7.5 mg PO BID 07/17/16 [History] Furosemide [Lasix] 80 mg PO QAM 07/17/16 [History] LORazepam [Lorazepam] 2 mg PO HS 07/17/16 [History] Levothyroxine [Synthroid] 200 mcg PO QAM 07/17/16 [History] Medroxyprogesterone Acetate [Provera] 10 mg PO BID 07/17/16 [History] OxyCODONE/APAP 7.5/325 [Percocet 7.5/325 MG] 1 tab PO Q6H PRN 07/17/16 [History] Spironolactone [Aldactone] 25 mg PO DAILY 07/17/16 [History] Trazodone HCl 100 mg PO HS 07/17/16 [History] metFORMIN [Glucophage] 500 mg PO BID 07/17/16 [History] Insulin DETEMIR [Levemir] 10 unit SQ BID 30 Days 11/03/16 [Rx] Ipratropium/Albuterol Neb [Duoneb] 3 ml IH [id number] PRN #0 inhsol 11/03/16 [Rx] Nystatin POWDER [Nystop] 1 appl TP BID bottle 11/03/16 [Rx] Allergies Latex, Natural Rubber Allergy (Verified 11/19/16 21:46) Rash prednisone Allergy (Verified 11/19/16 21:46) Rash Zolpidem [From Ambien] Allergy (Verified 11/19/16 21:46) Hallucinating tape Allergy (Uncoded 09/08/15 03:19) Rash All Systems PM: A 10-system review of systems was performed and is negative for pertinent findings except as documented above in the HPI. - Constitutional Constitutional: no chills, no fever(s), no night sweats - EENT Eyes: no change in vision, no discharge, no pain, no photophobia Ears: no ear discharge, no ear pain, no tinnitus Nose, mouth and throat: no dysphagia, no nasal discharge, no neck pain, no sore throat - Cardiovascular Cardiovascular ROS IM: chest pain, diaphoresis, dyspnea, irregular heart rhythm , no lightheadedness, no palpitations, no syncope - Respiratory Respiratory: cough, dyspnea, no wheezing, no excessive phlegm production - Gastrointestinal Gastrointestinal: nausea, no abdominal pain, no diarrhea, no hematemesis, no hematochezia, no melena, no vomiting - Genitourinary Genitourinary: no change in urinary stream, no dysuria, no flank pain, no hematuria - Musculoskeletal Musculoskeletal ROS IM: no numbness, no tingling - Integumentary Integumentary IM: no rash, no unusual bruising - Neurological Neurological ROS: weakness (left leg s/p CVA), no confusion, no convulsions, no focal weakness, no numbness, no tingling, no tremor(s) - Constitutional Vitals: Temp Pulse Resp BP Pulse Ox 97.7 F 107 18 143/102 95 12/04/16 22:09 12/05/16 03:01 12/05/16 03:01 12/05/16 03:01 12/05/16 03:01 General appearance: Present: cooperative, mild distress (from chest pain), pleasant, no acute distress, answers questions appropriately - Head Head exam: Present: atraumatic, normocephalic - Eye Eye exam: Present: PERRL, conjuntiva pink, sclera anicteric - Neck Neck exam general surgery: Present: supple, trachea midline. Absent: lymphadenopathy - Respiratory Respiratory exam: Present: CTAB. Absent: accessory muscle use, rales, rhonchi, wheezes - Cardiovascular Cardiovascular exam: Present: +S1, +S2, tachycardia. Absent: diastolic murmur, gallop, rubs, systolic murmur - GI/Abdominal GI/Abdominal exam: Present: normal bowel sounds, soft, no peritoneal signs. Absent: distended, tenderness - Extremities Exam Extremities exam: Present: warm, radial pulses palpable and symetrical. Absent : calf tenderness, cyanotic, pedal edema - Neurological Exam Neurological exam: Present: alert, no focal deficits. Absent: strengths equal and symetr throughout (4/5 strength in LLE, 5/5 in other extremities), facial droop, speech deficit - Skin Skin exam: Present: dry, intact Internal Med - H&P Results - Labs CBC & Chem 7: 12/04/16 23:10 12/04/16 23:10
[2016-12-05] MEDS ORDERED: Ondansetron ODT 4 MG TAB.RAPDIS SL PRN (03:56)
[2016-12-05] MEDS ORDERED: Dextrose Gel 15 GM PO PRN ×2 (03:56)
[2016-12-05] MEDS ORDERED: *HR* Dextrose 50 % in Water (Syg) 50 ML SYRINGE IVP PRN (03:56)
[2016-12-05] MEDS ORDERED: D5% in Water 1,000 ML IVC PRN (03:56)
[2016-12-05] MEDS ORDERED: Naloxone 0.4 MG/ML INJ IVP PRN (03:56)
[2016-12-05] MEDS ORDERED: Ipratropium/Albuterol Neb 3 ML IH PRN (04:00)
--- NOTE | 2016-12-05 04:17 | Event Note ---
Date of Encounter: 12/05/16 Time of Encounter: 04:15 Patient seen and examined with medical clerical assistant. Headache and chest pain suspect that it is related to hypertension. She is on a Nitro patch now. Will increase her long-acting nitrates. Optimal blood pressure control. She had an angiogram last year shows noninclusive coronary disease. Serial troponin. 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 She is on Coumadin and therefore risk for PE should be minimal. Pain is also non-pleuritic. Because of risk factors will Check D- dimer
[2016-12-05 05:29] LABS: INR 3.3; Prothrombin Time 37.4 Seconds (9.4-12.1)
[2016-12-05] MEDS: *HR* OxyCODONE/APAP 7.5/325 TABLET PO PRN ×2 (05:33→11:34)
[2016-12-05 05:37] LABS: Chol/HDL Ratio 4.4 (0-4.9)
[2016-12-05] MEDS: Insulin LISPRO 300 UNITS/3 ML VIAL SQ SCH ×3 (08:02→16:35)
[2016-12-05] MEDS ORDERED: Lisinopril 20 MG TABLET PO SCH (09:00)
[2016-12-05] MEDS ORDERED: *HR* Warfarin 5 MG TABLET PO SCH (09:00)
[2016-12-05] MEDS ORDERED: Spironolactone 25 MG TABLET PO SCH (09:00)
[2016-12-05] MEDS ORDERED: Furosemide 40 MG TABLET PO SCH (09:00)
--- NOTE | 2016-12-05 11:16 | Internal Med Progress Note ---
Date of Encounter: 12/05/16 Time of Encounter: 10:30 - Assessment and plan (1) Chest pain Current Visit: Yes Status: Acute Assessment and plan: Patient still complaining of left-sided anterior chest pain. Chest x-ray negative. Chest pain is reproducible with palpation and worsens with movement consistent with musculoskeletal etiology. Patient was seen for same complaint and was seen by cardiology on 11/20/16 who recommended medical management and follow-up outpatient. Patient had a left heart catheter in February 2016 that revealed mild to moderate nonobstructive CAD. Her last echo was in September 2015 where she revealed an ejection fraction of 60-65%. Last echo greater than 1 year ago, we will repeat given that she is endorsing shortness of breath and dyspnea on exertion with weakness. Troponins negative 3, low suspicion for acute coronary syndrome. ITS Impressions Chest X-Ray 12/04/16 22:26 IMPRESSION: No acute cardiopulmonary process. D/ / 12/04/2016 22:57:38 Lance Hung MD / janine Interpreting Provider: Lance Hung MD (2) Headache Current Visit: Yes Status: Acute Assessment and plan: Patient currently complains of a headache that has persisted over the last 2-3 days although she has not mentioned it prior to today. Head CT negative. Patient is concerned because she states that when she has headaches like this, that they "turn into strokes." Blood pressure is now better controlled, will give migraine cocktail and monitor her response. ITS Impressions Head CT 12/05/16 00:38 IMPRESSION: No acute intracranial abnormality. D/ / Karen Chavez MD / Karen Chavez MD Interpreting Provider: Karen Chavez MD (3) Frequent falls Current Visit: No Status: Chronic Assessment and plan: Acute on chronic. This is patient's third admission in the last month. During her last visit, ECF placement was recommended however she declined and was sent home with home health services. Patient stating that she is no longer able to walk with her walker. We will bring OT and PT on board. Patient stating that she has fallen 5 or 6 times in the last month. She denies any injuries or loss of consciousness. Her description of the falls are consistent with mechanical etiology. (4) CVA, old, hemiparesis Current Visit: No Status: Chronic Assessment and plan: Her physical examination is inconsistent but it appears as if she has residual left-sided weakness. No dysphagia or facial asymmetry. (5) Generalized weakness Current Visit: No Status: Acute (6) Insulin dependent diabetes mellitus Current Visit: Yes Status: Chronic Assessment and plan: Uncontrolled with an A1c of 10.6% last month. Continue sliding scale while admitted. (7) DVT prophylaxis Current Visit: No Status: Acute Assessment and plan: therapeutic on Coumadin (8) Hypothyroidism Current Visit: No Status: Chronic Assessment and plan: TSH checked in June, normal, follow-up outpatient. Qualifiers: Hypothyroidism type: unspecified Qualified Code(s): E03.9 - Hypothyroidism , unspecified (9) Afib Current Visit: No Status: Chronic Assessment and plan: Rate controlled and therapeutic on Coumadin Qualifiers: Atrial fibrillation type: paroxysmal Qualified Code(s): I48.0 - Paroxysmal atrial fibrillation (10) CAD (coronary artery disease) Current Visit: No Status: Chronic Qualifiers: Coronary Disease-Associated Artery/Lesion type: [place] artery [place] vs. transplanted heart: [place] heart Associated angina: angina presence unspecified Qualified Code(s): I25.10 - Atherosclerotic heart disease of [place] coronary artery without angina pectoris (11) CHF (congestive heart failure) Current Visit: No Status: Chronic Assessment and plan: Chronic diastolic heart failure, no acute exacerbation. No pedal edema or shortness of breath above her norm. Is on furosemide at home as well as spironolactone. Qualifiers: Congestive heart failure type: diastolic Congestive heart failure chronicity: chronic Qualified Code(s): I50.32 - Chronic diastolic (congestive ) heart failure (12) COPD (chronic obstructive pulmonary disease) Current Visit: No Status: Chronic Assessment and plan: No acute exacerbation. Patient denies shortness of breath above her norm. She is on 3 L per nasal cannula at home, currently on 4 L here, we will titrate down to her baseline as she tolerates. Qualifiers: COPD type: unspecified COPD Qualified Code(s): J44.9 - Chronic obstructive pulmonary disease, unspecified (13) Chronic respiratory failure Current Visit: Yes Status: Chronic Qualifiers: Respiratory failure complication: unspecified whether with hypoxia or hypercapnia Qualified Code(s): J96.10 - Chronic respiratory failure, unspecified whether with hypoxia or hypercapnia (14) Chronic anticoagulation Current Visit: No Status: Chronic (15) History of pulmonary embolism Current Visit: No Status: Chronic Assessment and plan: Patient denies shortness of breath above her norm, therapeutic on Coumadin (16) Hyperlipidemia Current Visit: No Status: Chronic Assessment and plan: Triglycerides 188, rest of lipid panel unremarkable. Recommend continue statin and low-cholesterol diet Qualifiers: Hyperlipidemia type: mixed hyperlipidemia Qualified Code(s): E78.2 - Mixed hyperlipidemia (17) Hypertension Current Visit: No Status: Chronic Assessment and plan: Uncontrolled upon presentation, currently normotensive, will trend Qualifiers: Hypertension type: unspecified secondary hypertension Qualified Code(s): I15.9 - Secondary hypertension, unspecified; I15 - Secondary hypertension (18) Morbid obesity with BMI of 40.0-44.9, adult Current Visit: No Status: Chronic - Subjective Interval history: Patient seen and examined. On examination, patient sitting upright in bed watching television. She is complaining of continued left-sided chest pain. She is also now endorsing a severe headache that started 2-3 days ago. She is concerned as she states that headaches this severe usually "turn into strokes." She is also concerned about her weakness and states that she can no longer use her walker. She is endorsing 5-6 falls in the past month at home. She denies vision changes. - Constitutional Vitals: Temp Pulse Resp BP Pulse Ox 97.5 F L 98 18 117/81 95 12/05/16 07:25 12/05/16 07:25 12/05/16 07:25 12/05/16 07:25 12/05/16 07:25 General appearance: Present: cooperative, mild distress (2/2 pain), pleasant, obese, answers questions appropriately - Head Head exam: Present: atraumatic, normocephalic - Eye Eye exam: Present: PERRL, conjuntiva pink, sclera anicteric Pupils: Present: PERRL - Neck Neck exam general surgery: Present: supple, trachea midline. Absent: lymphadenopathy - Respiratory Respiratory exam: Present: chest wall tenderness (left anterior), decreased breath sounds. Absent: accessory muscle use, rales, respiratory distress, rhonchi, wheezes - Cardiovascular Cardiovascular exam: Present: RRR, +S1, +S2. Absent: diastolic murmur, gallop, rubs, systolic murmur - GI/Abdominal GI/Abdominal exam: Present: normal bowel sounds, soft, no peritoneal signs. Absent: distended, tenderness - Extremities Exam Extremities exam: Present: warm, radial pulses palpable and symetrical. Absent : calf tenderness, cyanotic, pedal edema - Neurological Exam Neurological exam: Present: alert, CN II-XII intact, oriented X3, no focal deficits. Absent: strengths equal and symetr throughout, pronater drift, facial droop, speech deficit - Expanded Neurological Exam Neurological exam expanded: Present: protecting the airway Patient oriented to: Present: person, place, time Speech: Present: fluid speech Cranial Nerves: EOM's intact PM: Normal, gag reflex PM: Normal Neuro motor strength exam: LUE: 4, RUE: 5, LLE: 4, RLE: 5 Coma Scale Eye Opening: Spontaneous Coma Scale Motor Response: Obeys Commands Coma Scale Verbal Response: Oriented Coma Scale Total: 15 - Skin Skin exam: Present: dry, intact, normal color, warm Internal Medicine: Result - Labs CBC & Chem 7: 12/04/16 23:10 12/04/16 23:10 Labs: Cardiac Enzymes 12/05/16 12/05/16 Range/Units 04:59 10:32 Troponin I 0.01 0.01 (0-0.03) ng/mL - ABG Interpretation ABG results: PT/INR, D-dimer PT 37.4 Seconds (9.4-12.1) H 12/05/16 04:59 D-Dimer < 215 ng/mLFEU (0-500) 12/05/16 04:59 Consult Discharge Plan - Plan Referrals: Ashwin Ellington, PAC [Primary Care Provider] -
[2016-12-05] MEDS: Isosorbide MONOnitrate (24 HR) 60 MG TAB.ER.24H PO SCH (11:33)
[2016-12-05] MEDS: Ranolazine 500 MG TAB.ER.12H PO SCH ×2 (11:34→22:37)
[2016-12-05] MEDS: Aspirin Enteric Coated 81 MG Tablet PO SCH (11:34)
[2016-12-05] MEDS: Gabapentin 300 MG CAPSULE PO SCH ×3 (11:34→22:33)
[2016-12-05] MEDS: amLODIPine 5 MG TABLET PO SCH (11:35)
[2016-12-05] MEDS ORDERED: Prochlorperazine 10 MG/2 ML VIAL IVP ONE (12:25)
[2016-12-05] MEDS ORDERED: Ketorolac 30 MG/ML VIAL IVP ONE (12:25)
--- NOTE | 2016-12-05 16:32 | Electrocardiograph Report ---
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
[2016-12-05] MEDS: Acetaminophen 325 MG TABLET PO PRN (18:48)
[2016-12-05] MEDS ORDERED: Insulin LISPRO 300 UNITS/3 ML VIAL SQ SCH (21:00)
[2016-12-05] MEDS ORDERED: 0.9 % Sodium Chloride 1,000 ML IVC ONE (21:12)
[2016-12-05] MEDS: Insulin DETEMIR 100 UNIT/ML X5UNITS SQ SCH (22:37)
[2016-12-06 05:26] LABS: Basophils # 0.1 K/mcL (0.0-0.2); Basophils % 0.5 %; Eosinophils # 0.2 K/mcL (0.0-0.6); Eosinophils % 1.5 %; Hematocrit 38.4 % (35.3-44.9); Immature Granulocytes % 0.8 % (0-4); Lymphocytes # 3.4 K/mcL (0.6-4.6); Mean Corpuscular HGB Conc 31.3 g/dL (31.6-35.5); Mean Corpuscular Hemoglobin 27.6 pg (28.0-33.3); Mean Corpuscular Volume 88.3 fL (83.0-100.0); Mean Platelet Volume 9.6 fL (9.4-12.4); Monocytes # 0.6 K/mcL (0.0-1.3); Monocytes % 6.2 %; Neutrophils # 5.5 K/mcL (1.6-8.9); Platelet Count 299 K/mcL (140-400); Red Blood Count 4.35 M/mcL (3.82-4.97); Red Cell Distribution Width 15.2 % (11.5-14.5)
[2016-12-06 05:28] LABS: INR 2.5; Prothrombin Time 28.1 Seconds (9.4-12.1)
[2016-12-06 05:37] LABS: Calcium 8.7 mg/dL (8.6-10.8); Potassium 4.7 mEq/L (3.5-4.5)
[2016-12-06] MEDS: *HR* OxyCODONE/APAP 7.5/325 TABLET PO PRN ×3 (06:43→23:38)
[2016-12-06] MEDS: Nitroglycerin 0.4 MG TAB.SUBL SL PRN ×2 (06:55→07:04)
[2016-12-06] MEDS: Gabapentin 300 MG CAPSULE PO SCH ×3 (08:40→20:44)
[2016-12-06] MEDS: Isosorbide MONOnitrate (24 HR) 60 MG TAB.ER.24H PO SCH (08:41)
[2016-12-06] MEDS: Aspirin Enteric Coated 81 MG Tablet PO SCH (08:41)
[2016-12-06] MEDS: Ranolazine 500 MG TAB.ER.12H PO SCH ×2 (08:41→20:43)
[2016-12-06] MEDS: Insulin LISPRO 300 UNITS/3 ML VIAL SQ SCH ×4 (08:41→20:45)
[2016-12-06] MEDS: amLODIPine 5 MG TABLET PO SCH (08:41)
[2016-12-06] MEDS: Acetaminophen 325 MG TABLET PO PRN ×2 (08:43→18:00)
[2016-12-06] MEDS ORDERED: 0.9 % Sodium Chloride 1,000 ML IVC SCH (08:45)
--- NOTE | 2016-12-06 10:09 | Electrocardiograph Report ---
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
--- NOTE | 2016-12-06 11:52 | Cardiology Consult Note ---
Date of Encounter: 12/06/16 Time of Encounter: 11:30 Assessment and Plan (1) Chest pain Current Visit: Yes Status: Acute Presents with atypical chest pain symptoms. Doubt ACS. Troponin negative x4, no ischemic ECG changes. [facility] 02/2016: mild-moderate non-obstructive CAD, medical management recommended. TTE 12/05/16: LVEF 55-60%, mild cLVH, normal wall motion Pain reproducible--worsens with cough/deep breathing and palpation; likely musculoskeletal in etiology. No further cardiac testing recommended at this time. Continue current CV medications, will imdur to 30 mg daily as patient reports increase in headaches. Brain MRI pending for memory loss--patient states similar symptoms with prior TIA/CVAs. Further ischemic evaluation contraindication if CVA/TIA suspected. Will arrange for outpatient follow-up with [facility]; anticipate sign- off once seen by Dr. Molina. Qualifiers: Chest pain type: chest pain on breathing Qualified Code(s): R07.1 - Chest pain on breathing (2) Paroxysmal atrial fibrillation Current Visit: Yes Status: Chronic Hx of PAF on sotalol and anticoagulated on Coumadin (Hx of AFib, PE/DVT). Patient states PCP at [facility] follows INR. ECG 12/05/16: HR 103 SR, QT/QTc 352,412 ms. No PAF noted per telemetry review. (3) MARIBEL (acute kidney injury) Current Visit: Yes Status: Acute Likely secondary to hypotension. On IVF. Recommend conservative titration of antihypertensives. Patient states is compliant with all medications. Decrease imdur to 30 mg daily. Defer further mgmt to primary service. Discussion w patient/family: The assessment and plan as outlined above was discussed with the patient and/or family members who expressed understanding and agreement. All questions were answered. Thank you for involving us in the care of your patient. Please call with any questions. The patient will be discussed and reviewed with Dr. Molina; changes to be made accordingly. Anticipate sign-off from Cardiology. History of Present Illness Consult date: 12/06/16 Requesting physician: Fay Meyers Consult reason: Chest pain Chief complaint: Headache, memory loss History of present illness: Ms. Millan is a 56 year old female with PMHx significant for PAF (sotalol, coumadin), CVA/TIA x3, DMII, GERD, obesity, COPD, and non-occlusive CAD who presents to the ED with persistent headache and memory loss over the past 2 weeks. She reports compliance with medications. Also reports nearly constant left-sided chest pain. Reports pain worsens with palpation, coughing, and while taking deep breaths. She has been given NTG tabs since admission, pain helps pain at times and sometimes does not. Troponin negative x4, no ischemic ECG changes noted. She has poor compliance and outpatient follow-up--has been discharged from [facility] [place] and also [place]. Prior CV testing: [facility] 03/06/16: mild-moderate non-obstructive CAD. 50% pLAD, LCx angiographically free of disease, 20% mRCA stenosis and 20% dRCA stenosis. TTE 10/12/15: LVEF 60-65%, mild LVDD, normal wall motion. TTE 12/05/16: LVEF 55=60%, mild cLVH, normal RV structure and function, no PH , no significant valvular dysfunction, normal wall motion Past Med Surg Social Fam HX - Past Medical History Attestation: Yes The following information was validated with the patient. Source: patient, old records reviewed Medical history: arthritis, asthma, atrial fibrillation, COPD, coronary artery disease (non-occlusive), CVA, DVT, diabetes, hyperlipidemia, hypertension, kidney stones, migraine, osteoporosis, pulmonary embolus, renal disease, thyroid disease, TIA Psychiatric history: anxiety, depression, PTSD - Past Surgical History Surgical History: cholecystectomy, orthopedic, other - Social History Smoking Status: Never smoker Smokeless Tobacco Status: No Alcohol use: none Drug use: none - Family History Father Family Member Ethnicity: Non- Living Status: Still Living Hx Family Cardiac Disorders: Yes (HD) Hx Family Respiratory Disorders: Yes Hx Family Cancer: Yes (Renal) Hx Family GI Disorders: Yes (Liver) Hx Family Endocrine Disorder: Yes (DM) Hx Family Neuromuscular Disorders: Yes (Parkinsons) Hx Family Neurologic Disorders: Yes (Dementia) Hx Family HEENT Disorders: No Hx Family Autoimmune Disorders: No Mother Family Member Ethnicity: Non- Living Status: Hx Family Cardiac Disorders: Yes (HD) Hx Family Respiratory Disorders: Yes Hx Family Cancer: Yes (Breast) Hx Family GI Disorders: Yes Hx Family Endocrine Disorder: Yes (DM) Hx Family Neuromuscular Disorders: No Hx Family Neurologic Disorders: No Hx Family HEENT Disorders: No Hx Family Autoimmune Disorders: No Brother Family Member Ethnicity: Non- Living Status: Still Living Hx Family Cardiac Disorders: Yes (VT) Hx Family Respiratory Disorders: No Hx Family Cancer: No Hx Family GI Disorders: No Hx Family Endocrine Disorder: No Hx Family Neuromuscular Disorders: No Hx Family Neurologic Disorders: No Hx Family HEENT Disorders: No Hx Family Autoimmune Disorders: No Sister Family Member Ethnicity: Non- Living Status: Still Living Hx Family Cardiac Disorders: No Hx Family Respiratory Disorders: No Hx Family Cancer: Yes (Ovarian) Hx Family GI Disorders: No Hx Family Endocrine Disorder: No Hx Family Neuromuscular Disorders: No Hx Family Neurologic Disorders: No Hx Family HEENT Disorders: No Hx Family Autoimmune Disorders: No Daughter Living Status: Still Living Hx Family Cardiac Disorders: No Hx Family Respiratory Disorders: No Hx Family Cancer: No Hx Family GI Disorders: No Hx Family Endocrine Disorder: No Hx Family Neuromuscular Disorders: No Hx Family Neurologic Disorders: No Hx Family HEENT Disorders: No Hx Family Autoimmune Disorders: No Hx Family Psychosocial Disorders: Yes (Depression) Medications and Allergies Aspirin Enteric Coated [Aspirin EC] 81 mg PO DAILY 12/30/14 [History] Atorvastatin [Lipitor] 40 mg PO HS 12/30/14 [History] Nitroglycerin [Nitrostat] 0.4 mg PO Q5M PRN 12/30/14 [History] Sotalol HCl [Betapace] 80 mg PO BID 12/30/14 [History] amLODIPine [Norvasc] 5 mg PO DAILY 30 Days 09/12/15 [Rx] Gabapentin [Neurontin] 600 mg PO TID 10/11/15 [History] Prazosin HCl [Minipress] 5 mg PO HS 10/11/15 [History] Albuterol Sulfate [Ventolin Hfa] 2 puff IH QID PRN 10/12/15 [History] Cholecalciferol (D-3) [Vitamin D] 1,000 unit PO BID 10/12/15 [History] Cyclobenzaprine [Flexeril] 10 mg PO TID 10/12/15 [History] Lisinopril [Zestril] 40 mg PO DAILY 10/12/15 [History] Oxybutynin [Ditropan] 5 mg PO BID 10/12/15 [History] Quetiapine Fumarate [Seroquel] 500 mg PO TID 10/12/15 [History] Isosorbide MONOnitrate (24 HR) [Imdur] 60 mg PO DAILY #30 tab.er.24h 10/15/15 [ Rx] Ranolazine [Ranexa] 500 mg PO BID #60 tab.er.12h 10/15/15 [Rx] Folic Acid 1 mg PO DAILY 02/29/16 [History] Warfarin [Coumadin] 5 mg PO DAILY 02/29/16 [History] Buspirone HCl [Buspar] 7.5 mg PO BID 07/17/16 [History] Furosemide [Lasix] 80 mg PO QAM 07/17/16 [History] LORazepam [Lorazepam] 2 mg PO HS 07/17/16 [History] Levothyroxine [Synthroid] 200 mcg PO QAM 07/17/16 [History] Medroxyprogesterone Acetate [Provera] 10 mg PO BID 07/17/16 [History] OxyCODONE/APAP 7.5/325 [Percocet 7.5/325 MG] 1 tab PO Q6H PRN 07/17/16 [History] Spironolactone [Aldactone] 25 mg PO DAILY 07/17/16 [History] Trazodone HCl 100 mg PO HS 07/17/16 [History] metFORMIN [Glucophage] 500 mg PO BID 07/17/16 [History] Insulin DETEMIR [Levemir] 10 unit SQ BID 30 Days 11/03/16 [Rx] Ipratropium/Albuterol Neb [Duoneb] 3 ml IH [id number] PRN #0 inhsol 11/03/16 [Rx] Nystatin POWDER [Nystop] 1 appl TP BID bottle 11/03/16 [Rx] Insulin ASPART [Novolog Flexpen] 0 unit SQ TIDWM MDD PER SLIDING SCALE 12/05/16 [History] Linagliptin [Tradjenta] 5 mg PO DAILY 12/05/16 [History] Oxygen 3 l .ROUTE CONT 12/05/16 [History] Allergies Latex, Natural Rubber Allergy (Verified 11/19/16 21:46) Rash prednisone Allergy (Verified 11/19/16 21:46) Rash Zolpidem [From Ambien] Allergy (Verified 11/19/16 21:46) Hallucinating tape Allergy (Uncoded 09/08/15 03:19) Rash All Systems Review: A 10-system review of systems was performed and is negative for pertinent findings except as documented above in the HPI. - Cardiovascular Cardiovascular: as per HPI Physical Examination Vital Signs, Last 4 Hours Temp Pulse Resp BP Pulse Ox 12/06/16 11:40 98.0 F 70 18 90/56 98 General: Conversant, No Apparent Distress, Other (morbidly obese) HEENT: Atraumatic, Normocephaly Cardiac: Reg Rate and Rhythm, Normal S1 and S2 Lungs: Normal Breath Sounds Neuro: Alert and responsive Abdomen: Soft Skin: No rashes noted on visualized skin Musculoskeletal: No Chest Wall Tenderness Extremities: No Edema, Normal Pulses Results 12/06/16 05:16 12/06/16 05:16 Lab Results 12/05/16 12/06/16 12/06/16 21:49 05:16 05:16 WBC 9.8 Hgb 12.0 D Hct 38.4 Plt Count 299 INR Sodium 135 L Potassium 4.7 H Chloride 105 Carbon Dioxide 23 BUN 25 H D Creatinine 1.77 H D Glucose 334 H Calcium 8.7 Troponin I 0.00 12/06/16 05:16 WBC Hgb Hct Plt Count INR 2.5 Sodium Potassium Chloride Carbon Dioxide BUN Creatinine Glucose Calcium Troponin I Active Medications Acetaminophen (Tylenol) 650 mg PO Q6HR PRN PRN Reason: Mild Pain (1-3) Stop: 06/06/17 03:57 Last Admin: 12/06/16 08:43 Dose: 650 mg Albuterol Sulfate (Albuterol Inhaler) 2 puff IH QIDR [facility] Stop: 06/06/17 05:01 Last Admin: 12/06/16 10:41 Dose: 2 puff Albuterol/Ipratropium (Duoneb) 3 ml IH [id number] PRN; Protocol PRN Reason: Shortness Of Breath/Wheezing Stop: 06/06/17 04:01 Amlodipine Besylate (Norvasc) 5 mg PO DAILY [facility] PRN Reason: Protocol Stop: 06/06/17 09:01 Last Admin: 12/06/16 08:41 Dose: 5 mg Aspirin (Aspirin Ec) 81 mg PO DAILY [facility] Stop: 06/06/17 09:01 Last Admin: 12/06/16 08:41 Dose: 81 mg Atorvastatin Calcium (Lipitor) 80 mg PO HS [facility] Stop: 06/06/17 21:01 Last Admin: 12/05/16 21:26 Dose: 80 mg Buspirone HCl (Buspar) 7.5 mg PO BID PRN PRN Reason: Anxiety Stop: 06/06/17 04:01 Cyclobenzaprine HCl (Flexeril) 10 mg PO TID [facility] Stop: 06/07/17 09:01 Last Admin: 12/06/16 08:56 Dose: 10 mg Dextrose/Water (Dextrose 50% (Syg)) 25 ml IVP AD PRN PRN Reason: Hypoglycemia Stop: 06/06/17 03:57 Docusate Sodium (Colace) 100 mg PO BID PRN PRN Reason: Constipation Stop: 06/06/17 03:57 Furosemide (Lasix) 80 mg PO QAM [facility] Stop: 06/06/17 09:01 Last Admin: 12/05/16 11:33 Dose: 80 mg Gabapentin (Neurontin) 600 mg PO TID [facility] Stop: 06/06/17 09:01 Last Admin: 12/06/16 08:40 Dose: 600 mg Glucagon (Glucagen) 1 mg IM ONCE PRN PRN Reason: Hypoglycemia Stop: 06/06/17 03:57 Glucose (Gluctose) 15 gm PO ONCE PRN PRN Reason: Hypoglycemia Stop: 06/06/17 03:57 Glucose (Gluctose) 30 gm PO ONCE PRN PRN Reason: Hypoglycemia Stop: 06/06/17 03:57 Dextrose (Dextrose 5%) 1,000 mls @ 100 mls/hr IVC .Q10H PRN PRN Reason: HYPOGLYCEMIA Stop: 06/06/17 03:57 Sodium Chloride (0.9 % Sodium Chloride) 1,000 mls @ 125 mls/hr IVC .Q8H [facility] Stop: 12/06/16 16:44 Last Admin: 12/06/16 08:56 Dose: 125 mls/hr Insulin Detemir (Levemir) 14 unit 0.15 unit/kg (14 unit) SQ [facility] Stop: 06/06/17 21:01 Last Admin: 12/05/16 22:37 Dose: 14 unit Insulin Human Lispro (Humalog) 0 units SQ [facility] PRN Reason: Protocol Stop: 06/06/17 21:01 Last Admin: 12/05/16 22:37 Dose: 6 units Insulin Human Lispro (Humalog) 0 units SQ TIDAC [facility] PRN Reason: Protocol Stop: 06/06/17 07:31 Last Admin: 12/06/16 08:41 Dose: 10 units Isosorbide Mononitrate (Imdur) 30 mg PO DAILY [facility] Stop: 06/08/17 09:01 Levothyroxine Sodium (Synthroid) 200 mcg PO QAM [facility] Stop: 06/06/17 09:01 Last Admin: 12/06/16 08:40 Dose: 200 mcg Lisinopril (Zestril) 40 mg PO DAILY [facility] Stop: 06/06/17 09:01 Last Admin: 12/05/16 11:34 Dose: 40 mg Medroxyprogesterone Acetate (Provera) 10 mg PO BID [facility] Stop: 06/07/17 09:01 Last Admin: 12/06/16 10:17 Dose: 10 mg Naloxone HCl (Narcan) 0.4 mg IVP Q2MIN PRN PRN Reason: Opioid Reversal Stop: 06/06/17 03:57 Nitroglycerin (Nitroglycerin) 0.4 mg SL Q5MIN PRN PRN Reason: Chest Pain Stop: 06/06/17 02:03 Last Admin: 12/06/16 07:04 Dose: 0.4 mg Omeprazole (Prilosec) 20 mg PO DAILY@0630 [facility] PRN Reason: Protocol Stop: 06/06/17 06:31 Last Admin: 12/06/16 06:30 Dose: 20 mg Ondansetron HCl (Zofran Odt) 4 mg SL Q8HR PRN PRN Reason: Nausea And Vomiting Stop: 06/06/17 03:57 Last Admin: 12/05/16 07:25 Dose: 4 mg Oxybutynin Chloride (Ditropan) 5 mg PO BID [facility] PRN Reason: Protocol Stop: 06/07/17 09:01 Last Admin: 12/06/16 08:56 Dose: 5 mg Oxycodone/Acetaminophen (Percocet 7.5/325) 1 each PO Q6H PRN PRN Reason: Moderate Pain Stop: 06/06/17 04:01 Last Admin: 12/06/16 06:43 Dose: 1 each Prazosin HCl (Minipress) 5 mg PO HS [facility] Stop: 06/07/17 21:01 Ranolazine (Ranexa) 500 mg PO BID [facility] Stop: 06/06/17 09:01 Last Admin: 12/06/16 08:41 Dose: 500 mg Sotalol HCl (Betapace) 80 mg PO BID [facility] Stop: 06/06/17 09:01 Last Admin: 12/06/16 08:41 Dose: 80 mg Spironolactone (Aldactone) 25 mg PO DAILY [facility] Stop: 06/06/17 09:01 Last Admin: 12/05/16 11:34 Dose: 25 mg - Imaging and Cardiology Chest Xray: report reviewed Echo: report reviewed Cardiac cath: report reviewed Other Results: 12 hour tele: avg HR=73, no significant event noted. - EKG Interpretation EKG results cardiology: personally reviewed Consult Discharge Plan - Plan Referrals: Ashwin Ellington, PAC [Primary Care Provider] -
--- NOTE | 2016-12-06 17:25 | Internal Med Progress Note ---
Date of Encounter: 12/06/16 Time of Encounter: 14:30 - Assessment and plan (1) MARIBEL (acute kidney injury) Current Visit: Yes Status: Acute Assessment and plan: Acute kidney injury noted overnight. Her diuretics were stopped and she was placed on gentle IV fluids. Cardiology brought on board and have decreased her Imdur dosage. Hypotension noted and has remained stable. Heart rate stable. We will continue to trend. Patient received multiple doses of nitroglycerin in a short period of time, nitroglycerin has been stopped, will also hold sedating medications. Will recheck in the a.m. (2) Chest pain Current Visit: Yes Status: Acute Assessment and plan: Patient still complaining of left-sided anterior chest pain. Cardiology was brought on board secondary to her persistent pain and multiple doses of nitroglycerin given. Nitro has been discontinued and Imdur dosage has been decreased. Per cardiology, patient with normal EF and wall motion and recently had a heart catheter that revealed nonobstructive CAD. No ECG changes. Troponin negative 4. Cardiology has cleared the patient for outpatient follow- up and acute coronary syndrome has been ruled out. Her pain is consistent with musculoskeletal etiology. Chest x-ray negative. Patient was seen for same complaint and was seen by cardiology on 11/20/16 who recommended medical management and follow-up outpatient. Patient had a left heart catheter in February 2016 that revealed mild to moderate nonobstructive CAD. Her last echo was in September 2015 where she revealed an ejection fraction of 60-65%. Last echo greater than 1 year ago, and a repeat echo from this visit revealing preserved ejection fraction of 55-60% with mild diastolic dysfunction. ITS Impressions Chest X-Ray 12/04/16 22:26 IMPRESSION: No acute cardiopulmonary process. D/ : / 12/04/2016 22:57:38 Lance [facility] Inter[facility]ting Provider: Lance Hung MD Echocardiogram impressions: LVEF 55-60%. Normal LV chamber size and function. Mild concentric left ventricular hypertrophy. Mild left ventricular diastolic dysfunction. Normal right ventricular structure and function. No evidence of pulmonary hypertension. No significant valvular dysfunction. (3) Headache Current Visit: Yes Status: Acute Assessment and plan: Patient is still endorsing headache although she states it is better than earlier today. Suspect her multiple doses of nitroglycerin could be contributing and the nitroglycerin has been discontinued. Her Imdur dosages also been decreased per cardiology. Migraine cocktail was effective however reluctant to give it at this time given her drowsiness on examination and hypotension. We will continue to monitor. No vision changes. MRI performed as the patient was complaining of memory issues and was very concerned she had another stroke. Acute CVA ruled out. MRI unremarkable for acute processes. ITS Impressions Head CT 12/05/16 00:38 IMPRESSION: No acute intracranial abnormality. D/ / Karen Chavez MD / Karen Chavez MD Interpreting Provider: Karen Chavez MD Brain MRI 12/06/16 08:33 IMPRESSION: Motion artifact degrades the images. There is no acute brain parenchymal abnormality. There are no areas of restricted diffusion to suggest an acute ischemic event. D/ / 12/06/2016 13:39:09 Dahiana Llanos MD / [facility] Interpreting Provider: Dahiana Llanos MD (4) Frequent falls Current Visit: No Status: Chronic Assessment and plan: Acute on chronic. This is patient's third admission in the last month. During her last visit, ECF placement was recommended however she declined and was sent home with home health services. Patient stating that she is no longer able to walk with her walker and is now amenable to ECF placement. She states that her told her that she was going downhill fast and encouraged her to go to ECF and she is now amenable. director of medical staff services on board. OT and PT of both recommended ECF placement. Patient stating that she has fallen 5 or 6 times in the last month. She denies any injuries or loss of consciousness. Her description of the falls are consistent with mechanical etiology. (5) CVA, old, hemiparesis Current Visit: No Status: Chronic Assessment and plan: Her physical examination is inconsistent but it appears as if she has residual left-sided weakness. No dysphagia or facial asymmetry. MRI negative for acute processes. (6) Generalized weakness Current Visit: No Status: Acute Assessment and plan: Seen and evaluated by occupational and physical therapy both of whom recommended ECF placement. This placement has been recommended several times on prior admissions but the patient has always refused. She informed me today that her states that she is "going downhill fast" and she is now amenable to go to a fpc. She is requesting [facility] but only if she can have her own room. director of medical staff services on board. (7) Insulin dependent diabetes mellitus Current Visit: Yes Status: Chronic Assessment and plan: Uncontrolled with an A1c of 10.6% last month. Continue sliding scale while admitted. Her brought her and fast food and a large milkshake and now her glucoses in excess of 400, will increase sliding scale. (8) DVT prophylaxis Current Visit: No Status: Acute Assessment and plan: therapeutic on Coumadin (9) Hypothyroidism Current Visit: No Status: Chronic Assessment and plan: TSH checked in June, normal, follow-up outpatient. Qualifiers: Hypothyroidism type: unspecified Qualified Code(s): E03.9 - Hypothyroidism , unspecified (10) Afib Current Visit: No Status: Chronic Assessment and plan: Rate controlled and therapeutic on Coumadin Qualifiers: Atrial fibrillation type: paroxysmal Qualified Code(s): I48.0 - Paroxysmal atrial fibrillation (11) CAD (coronary artery disease) Current Visit: No Status: Chronic Qualifiers: Coronary Disease-Associated Artery/Lesion type: [place] artery [place] vs. transplanted heart: [place] heart Associated angina: angina presence unspecified Qualified Code(s): I25.10 - Atherosclerotic heart disease of [place] coronary artery without angina pectoris (12) CHF (congestive heart failure) Current Visit: No Status: Chronic Assessment and plan: Chronic diastolic heart failure, no acute exacerbation. No pedal edema or shortness of breath above her norm. Is on furosemide at home as well as spironolactone that are currently being held secondary to MARIBEL overnight. Qualifiers: Congestive heart failure type: diastolic Congestive heart failure chronicity: chronic Qualified Code(s): I50.32 - Chronic diastolic (congestive ) heart failure (13) COPD (chronic obstructive pulmonary disease) Current Visit: No Status: Chronic Assessment and plan: No acute exacerbation. Patient denies shortness of breath above her norm. She is on 3 L per nasal cannula at home, currently on 4 L here, we will titrate down to her baseline as she tolerates. Qualifiers: COPD type: unspecified COPD Qualified Code(s): J44.9 - Chronic obstructive pulmonary disease, unspecified (14) Chronic respiratory failure Current Visit: Yes Status: Chronic Qualifiers: Respiratory failure complication: unspecified whether with hypoxia or hypercapnia Qualified Code(s): J96.10 - Chronic respiratory failure, unspecified whether with hypoxia or hypercapnia (15) Chronic anticoagulation Current Visit: No Status: Chronic (16) History of pulmonary embolism Current Visit: No Status: Chronic Assessment and plan: Patient denies shortness of breath above her norm, therapeutic on Coumadin. D- dimer negative. (17) Hyperlipidemia Current Visit: No Status: Chronic Assessment and plan: Triglycerides 188, rest of lipid panel unremarkable. Recommend continue statin and low-cholesterol diet Qualifiers: Hyperlipidemia type: mixed hyperlipidemia Qualified Code(s): E78.2 - Mixed hyperlipidemia (18) Hypertension Current Visit: No Status: Chronic Assessment and plan: Hypertensive upon presentation, now is hypotensive. Gentle IVF given and diuretics held. Imdur dosage decreased per cardiology. Will continue to trend. HR stable. Qualifiers: Hypertension type: unspecified secondary hypertension Qualified Code(s): I15.9 - Secondary hypertension, unspecified; I15 - Secondary hypertension (19) Morbid obesity with BMI of 40.0-44.9, adult Current Visit: No Status: Chronic - Subjective Interval history: Patient seen and examined. On examination, patient initially asleep in bed and awakens easily to voice. She complains of a continued headache though states it has slightly improved throughout the day. She is concerned because she feels as if she has lost her memory. She states that she called her but states that she kept asking him who he was. She can recount the entire conversation however. She states she is eating well. - Constitutional Vitals: Temp Pulse Resp BP Pulse Ox 98 F 77 15 80/55 96 12/06/16 16:13 12/06/16 16:13 12/06/16 16:13 12/06/16 16:13 12/06/16 16:13 General appearance: Present: cooperative, A&O X 3, morbidly obese, pleasant, no acute distress, answers questions appropriately - Head Head exam: Present: atraumatic, normocephalic - Eye Eye exam: Present: PERRL, conjuntiva pink, sclera anicteric Pupils: Present: PERRL - Neck Neck exam general surgery: Present: supple, trachea midline. Absent: lymphadenopathy - Respiratory Respiratory exam: Present: decreased breath sounds. Absent: accessory muscle use, rales, respiratory distress, rhonchi, wheezes - Cardiovascular Cardiovascular exam: Present: RRR, +S1, +S2. Absent: diastolic murmur, gallop, rubs, systolic murmur - GI/Abdominal GI/Abdominal exam: Present: normal bowel sounds, soft, no peritoneal signs. Absent: distended, tenderness - Extremities Exam Extremities exam: Present: warm, radial pulses palpable and symetrical. Absent : calf tenderness, cyanotic, pedal edema - Neurological Exam Neurological exam: Present: alert, CN II-XII intact, oriented X3, no focal deficits. Absent: pronater drift, facial droop, speech deficit - Skin Skin exam: Present: dry, intact, pallor, warm Internal Medicine: Result - Labs CBC & Chem 7: 12/06/16 05:16 12/06/16 05:16 Labs: Short CBC 12/06/16 Range/Units 05:16 WBC 9.8 (4.3-11.1) K/mcL Hgb 12.0 D (11.5-15.4) g/dL Hct 38.4 (35.3-44.9) % Plt Count 299 (140-400) K/mcL Neutrophils # 5.5 (1.6-8.9) K/mcL BMP 12/06/16 05:16 Sodium 135 L Potassium 4.7 H Chloride 105 Carbon Dioxide 23 BUN 25 H D Creatinine 1.77 H D Glucose 334 H Calcium 8.7 Cardiac Enzymes 12/05/16 Range/Units 21:49 Troponin I 0.00 (0-0.03) ng/mL - ABG Interpretation ABG results: PT/INR, D-dimer PT 28.1 Seconds (9.4-12.1) H 12/06/16 05:16 D-Dimer < 215 ng/mLFEU (0-500) 12/05/16 04:59 - Impressions Impressions Brain MRI 12/06/16 08:33 IMPRESSION: Motion artifact degrades the images. There is no acute brain parenchymal abnormality. There are no areas of restricted diffusion to suggest an acute ischemic event. D/ / 12/06/2016 13:39:09 Dahiana Llanos MD / [facility] Interpreting Provider: Dahiana Llanos MD Consult Discharge Plan - Plan Referrals: Ashwin Ellington, PAC [Primary Care Provider] -
[2016-12-06] MEDS: Insulin DETEMIR 100 UNIT/ML X5UNITS SQ SCH (20:44)
[2016-12-07] MEDS ORDERED: Ketorolac 15 MG/ML VIAL IVP ONE (01:55)
[2016-12-07] MEDS ORDERED: Prochlorperazine 10 MG/2 ML VIAL IVP ONE (01:56)
[2016-12-07] MEDS ORDERED: Ketorolac 15 MG/ML VIAL ONE (04:00)
[2016-12-07] MEDS ORDERED: Prochlorperazine 10 MG/2 ML VIAL ONE (04:00)
[2016-12-07 05:56] LABS: Prothrombin Time 22.3 Seconds (9.4-12.1)
[2016-12-07 07:04] LABS: BUN/Creatinine Ratio 16 (6-26); Blood Urea Nitrogen 15 mg/dL (7-20); Calcium 8.7 mg/dL (8.6-10.8); Carbon Dioxide 21 mEq/L (19-29); Chloride 105 mEq/L (98-109); Glucose 395 mg/dL (70-99); Osmolality,Calculated 291 (280-300); Potassium 4.7 mEq/L (3.5-4.5); Sodium 132 mEq/L (136-145); eGFR For African Americans > 60 (> 60); eGFR For Non-African Americans > 60 (> 60)
[2016-12-07] MEDS: Aspirin Enteric Coated 81 MG Tablet PO SCH (08:04)
[2016-12-07] MEDS: amLODIPine 5 MG TABLET PO SCH (08:04)
[2016-12-07] MEDS: Gabapentin 300 MG CAPSULE PO SCH ×3 (08:04→20:56)
[2016-12-07] MEDS: Isosorbide MONOnitrate (24 HR) 30 MG TAB.ER.24H PO SCH (08:05)
[2016-12-07] MEDS: Ranolazine 500 MG TAB.ER.12H PO SCH ×2 (08:05→20:56)
[2016-12-07] MEDS: Insulin LISPRO 300 UNITS/3 ML VIAL SQ SCH ×4 (08:06→20:57)
--- NOTE | 2016-12-07 12:59 | Internal Med Progress Note ---
Date of Encounter: 12/07/16 Time of Encounter: 09:45 - Assessment and plan (1) MARIBEL (acute kidney injury) Current Visit: Yes Status: Resolved (2) Chest pain Current Visit: Yes Status: Acute Assessment and plan: Patient still complaining of left-sided anterior chest pain. Cardiology was brought on board secondary to her persistent pain and multiple doses of nitroglycerin given. Nitro has been discontinued and Imdur dosage has been decreased. Per cardiology, patient with normal EF and wall motion and recently had a heart catheter that revealed nonobstructive CAD. No ECG changes. Troponin negative 4. Cardiology has cleared the patient for outpatient follow- up and acute coronary syndrome has been ruled out. Her pain is consistent with musculoskeletal etiology as it is reproducible with palpation. Chest x-ray negative. Patient was seen for same complaint and was seen by cardiology on 11/20/16 who recommended medical management and follow-up outpatient. Patient had a left heart catheter in February 2016 that revealed mild to moderate nonobstructive CAD. Her last echo was in September 2015 where she revealed an ejection fraction of 60-65%. Last echo greater than 1 year ago, and a repeat echo from this visit revealing preserved ejection fraction of 55-60% with mild diastolic dysfunction. ITS Impressions Chest X-Ray 12/04/16 22:26 IMPRESSION: No acute cardiopulmonary process. D/ : / 12/04/2016 22:57:38 Lance Hung MD / [facility] Interpreting Provider: Lance Hung MD Echocardiogram impressions: LVEF 55-60%. Normal LV chamber size and function. Mild concentric left ventricular hypertrophy. Mild left ventricular diastolic dysfunction. Normal right ventricular structure and function. No evidence of pulmonary hypertension. No significant valvular dysfunction. (3) Headache Current Visit: Yes Status: Acute Assessment and plan: Patient is still endorsing headache although she states it is better than than yesterday. She is continually asking for more pain medication but understands that her drowsiness and hypotension preclude her from getting any sedative medications. There have been several occurrences when she'll ask her nurse for pain medication and when the nurse comes back with the medication, the patient is back asleep so the medication will not be given. She was informed that we are not going to wake her up to give her medication especially with her low BP. She understands this. Migraine cocktail was effective however reluctant to give it at this time given her drowsiness on examination and hypotension. We will continue to monitor. No vision changes. MRI performed as the patient was complaining of memory issues and was very concerned she had another stroke. Acute CVA ruled out. MRI unremarkable for acute processes. ITS Impressions Head CT 12/05/16 00:38 IMPRESSION: No acute intracranial abnormality. D/ / Karen Chavez MD / Karen Chavez MD Interpreting Provider: Karen Chavez MD Brain MRI 12/06/16 08:33 IMPRESSION: Motion artifact degrades the images. There is no acute brain parenchymal abnormality. There are no areas of restricted diffusion to suggest an acute ischemic event. D/ / 12/06/2016 13:39:09 Dahiana Llanos MD / [facility] Interpreting Provider: Dahiana Llanos MD (4) Frequent falls Current Visit: No Status: Chronic Assessment and plan: Acute on chronic. This is patient's third admission in the last month. During her last visit, ECF placement was recommended however she declined and was sent home with home health services. Patient stating that she is no longer able to walk with her walker and is now amenable to ECF placement. She states that her told her that she was going downhill fast and encouraged her to go to ECF and she is now amenable. public services librarian on board. OT and PT of both recommended ECF placement. Patient stating that she has fallen 5 or 6 times in the last month. She denies any injuries or loss of consciousness. Her description of the falls are consistent with mechanical etiology. According to social insurance administrator, patient will likely not be accepted due to a prior auth until possibly sunday. She is not safe to return home secondary to elevated fall risk. (5) CVA, old, hemiparesis Current Visit: No Status: Chronic Assessment and plan: Her physical examination is inconsistent but it appears as if she has residual left-sided weakness. She uses her left hand and arm however without limitation at times. No dysphagia or facial asymmetry. MRI negative for acute processes. (6) Generalized weakness Current Visit: No Status: Acute Assessment and plan: Seen and evaluated by occupational and physical therapy both of whom recommended ECF placement. This placement has been recommended several times on prior admissions but the patient has always refused. She informed me today that her states that she is "going downhill fast" and she is now amenable to go [facility] a [facility]. She is requesting [facility] but only if she can have her own room. public services librarian on board- september be until Sunday 2/2 insurance prior auth. (7) Insulin dependent diabetes mellitus Current Visit: Yes Status: Chronic Assessment and plan: Uncontrolled with an A1c of 10.6% last month. Continue sliding scale while admitted. Her brought her and fast food and a large milkshake yesterday and her glucoses exceeded 400, so her sliding scale was increased- current glucose 296- will increase her basal rate slightly and monitor. (8) DVT prophylaxis Current Visit: No Status: Acute Assessment and plan: therapeutic on Coumadin (9) Hypothyroidism Current Visit: No Status: Chronic Assessment and plan: TSH checked in June, normal, follow-up outpatient. Qualifiers: Hypothyroidism type: unspecified Qualified Code(s): E03.9 - Hypothyroidism , unspecified (10) Afib Current Visit: No Status: Chronic Assessment and plan: Rate controlled and therapeutic on Coumadin Qualifiers: Atrial fibrillation type: paroxysmal Qualified Code(s): I48.0 - Paroxysmal atrial fibrillation (11) CAD (coronary artery disease) Current Visit: No Status: Chronic Qualifiers: Coronary Disease-Associated Artery/Lesion type: [place] artery [place] vs. transplanted heart: [place] heart Associated angina: angina presence unspecified Qualified Code(s): I25.10 - Atherosclerotic heart disease of [place] coronary artery without angina pectoris (12) CHF (congestive heart failure) Current Visit: No Status: Chronic Assessment and plan: Chronic diastolic heart failure, no acute exacerbation. No pedal edema or shortness of breath above her norm. Is on furosemide at home as well as spironolactone that were held yesterday secondary to MARIBEL that has since resolved. Will add back in diuretics and monitor her response. Qualifiers: Congestive heart failure type: diastolic Congestive heart failure chronicity: chronic Qualified Code(s): I50.32 - Chronic diastolic (congestive ) heart failure (13) COPD (chronic obstructive pulmonary disease) Current Visit: No Status: Chronic Assessment and plan: No acute exacerbation. Patient denies shortness of breath above her norm. She is on 3 L per nasal cannula at home, currently on 3.5 L here, we will titrate down to her baseline as she tolerates. Qualifiers: COPD type: unspecified COPD Qualified Code(s): J44.9 - Chronic obstructive pulmonary disease, unspecified (14) Chronic respiratory failure Current Visit: Yes Status: Chronic Qualifiers: Respiratory failure complication: unspecified whether with hypoxia or hypercapnia Qualified Code(s): J96.10 - Chronic respiratory failure, unspecified whether with hypoxia or hypercapnia (15) Chronic anticoagulation Current Visit: No Status: Chronic (16) History of pulmonary embolism Current Visit: No Status: Chronic Assessment and plan: Patient denies shortness of breath above her norm, therapeutic on Coumadin. D- dimer negative. (17) Hyperlipidemia Current Visit: No Status: Chronic Assessment and plan: Triglycerides 188, rest of lipid panel unremarkable. Recommend continue statin and low-cholesterol diet Qualifiers: Hyperlipidemia type: mixed hyperlipidemia Qualified Code(s): E78.2 - Mixed hyperlipidemia (18) Hypertension Current Visit: No Status: Chronic Assessment and plan: Hypertensive upon presentation, now is hypotensive. Gentle IVF given and diuretics held yesterday. BP slightly improved and stable. Imdur dosage decreased per cardiology. Will continue to trend. HR stable. Qualifiers: Hypertension type: unspecified secondary hypertension Qualified Code(s): I15.9 - Secondary hypertension, unspecified; I15 - Secondary hypertension (19) Morbid obesity with BMI of 40.0-44.9, adult Current Visit: No Status: Chronic - Subjective Interval history: Patient seen and examined. On examination, patient initially asleep in bed and awakens easily to voice. She stated she did not sleep well last night due to her chronic back pain. She states she is eating well. She continues to endorse chronic headache and chronic chest pain. - Constitutional Vitals: Temp Pulse Resp BP Pulse Ox 97.9 F 75 16 101/65 96 12/07/16 12:08 12/07/16 12:08 12/07/16 12:08 12/07/16 12:08 12/07/16 12:08 General appearance: Present: cooperative, A&O X 3, morbidly obese, pleasant, no acute distress, answers questions appropriately - Head Head exam: Present: atraumatic, normocephalic - Eye Eye exam: Present: PERRL, conjuntiva pink, sclera anicteric Pupils: Present: PERRL - Neck Neck exam general surgery: Present: supple, trachea midline. Absent: lymphadenopathy - Respiratory Respiratory exam: Present: chest wall tenderness, decreased breath sounds. Absent: accessory muscle use, rales, respiratory distress, rhonchi, wheezes - Cardiovascular Cardiovascular exam: Present: RRR, +S1, +S2. Absent: diastolic murmur, gallop, rubs, systolic murmur - GI/Abdominal GI/Abdominal exam: Present: distended, normal bowel sounds, soft, no peritoneal signs. Absent: tenderness - Extremities Exam Extremities exam: Present: warm, radial pulses palpable and symetrical. Absent : calf tenderness, cyanotic, pedal edema - Neurological Exam Neurological exam: Present: alert, CN II-XII intact, oriented X3, no focal deficits. Absent: strengths equal and symetr throughout (mild left-sided weakness- inconsistent however), pronater drift, facial droop, speech deficit - Skin Skin exam: Present: dry, intact, pallor, warm Internal Medicine: Result - Labs CBC & Chem 7: 12/06/16 05:16 12/07/16 05:34 Labs: BMP 12/07/16 05:34 Sodium 132 L Potassium 4.7 H Chloride 105 Carbon Dioxide 21 BUN 15 D Creatinine 0.95 Glucose 395 H Calcium 8.7 - ABG Interpretation ABG results: PT/INR, D-dimer PT 22.3 Seconds (9.4-12.1) H 12/07/16 05:34 D-Dimer < 215 ng/mLFEU (0-500) 12/05/16 04:59 - Impressions Impressions Brain MRI 12/06/16 08:33 IMPRESSION: Motion artifact degrades the images. There is no acute brain parenchymal abnormality. There are no areas of restricted diffusion to suggest an acute ischemic event. D/ / 12/06/2016 13:39:09 Dahiana Llanos MD / [facility] Interpreting Provider: Dahiana Llanos MD Consult Discharge Plan - Plan Referrals: Ashwin Ellington, PAC [Primary Care Provider] -
[2016-12-07] MEDS ORDERED: Furosemide 40 MG TABLET PO SCH (13:08)
[2016-12-07] MEDS ORDERED: Insulin DETEMIR 100 UNIT/ML X5UNITS SQ SCH (13:08)
[2016-12-07] MEDS: *HR* OxyCODONE/APAP 7.5/325 TABLET PO PRN (19:10)
[2016-12-07] MEDS: Fluconazole 100 MG TABLET PO SCH (21:56)
[2016-12-07] MEDS: Nystatin POWDER 30 GM BOTTLE TP SCH (21:56)
[2016-12-08] MEDS ORDERED: Ketorolac 30 MG/ML VIAL IVP ONE (01:26)
[2016-12-08 05:11] LABS: INR 1.6; Prothrombin Time 17.6 Seconds (9.4-12.1)
[2016-12-08 05:31] LABS: BUN/Creatinine Ratio 19 (6-26); Blood Urea Nitrogen 16 mg/dL (7-20); Calcium 8.8 mg/dL (8.6-10.8); Carbon Dioxide 23 mEq/L (19-29); Chloride 103 mEq/L (98-109); Glucose 397 mg/dL (70-99); Osmolality,Calculated 292 (280-300); Potassium 4.6 mEq/L (3.5-4.5); Sodium 132 mEq/L (136-145); eGFR For African Americans > 60 (> 60); eGFR For Non-African Americans > 60 (> 60)
[2016-12-08] MEDS: amLODIPine 5 MG TABLET PO SCH (07:33)
[2016-12-08] MEDS: Aspirin Enteric Coated 81 MG Tablet PO SCH (07:44)
[2016-12-08] MEDS: Ranolazine 500 MG TAB.ER.12H PO SCH (07:45)
[2016-12-08] MEDS: Fluconazole 100 MG TABLET PO SCH (07:45)
[2016-12-08] MEDS: Isosorbide MONOnitrate (24 HR) 30 MG TAB.ER.24H PO SCH (07:45)
[2016-12-08] MEDS: Gabapentin 300 MG CAPSULE PO SCH ×2 (07:45→14:24)
[2016-12-08] MEDS: Insulin LISPRO 300 UNITS/3 ML VIAL SQ SCH ×3 (07:46→17:18)
[2016-12-08] MEDS: Nystatin POWDER 30 GM BOTTLE TP SCH ×2 (07:46→14:25)
[2016-12-08 15:36] VITALS: BP 120/73
[2016-12-08] MEDS: *HR* OxyCODONE/APAP 7.5/325 TABLET PO PRN (17:17)
--- NOTE | 2016-12-08 18:56 | Discharge Summary ---
Date of Encounter: 12/08/16 Time of Encounter: 10:30 (and 1630) - Discharge Diagnosis (1) MARIBEL (acute kidney injury) Priority: Primary Status: Resolved (2) Chest pain Priority: Primary Status: Acute Comments: Patient still complaining of left-sided anterior chest pain. Cardiology was brought on board secondary to her persistent pain and multiple doses of nitroglycerin given. Nitro was discontinued and Imdur dosage was decreased. Per cardiology, patient with normal EF and wall motion and recently had a heart catheter that revealed nonobstructive CAD. No ECG changes. Troponin negative 4. Cardiology has cleared the patient for outpatient follow-up and acute coronary syndrome has been ruled out. Her pain is consistent with musculoskeletal etiology as it is reproducible with palpation. Chest x-ray negative. (3) Headache Priority: Primary Status: Acute Comments: Chronic. Acute CVA ruled out. MRI unremarkable for acute processes. (4) Frequent falls Priority: Secondary Status: Chronic Comments: Attempted to place the patient an ECF but she declined stating she was going to go home with home health services. She has been advised of the risks versus benefits and is still elects to go home (5) CVA, old, hemiparesis Priority: Secondary Status: Chronic Comments: Her left-sided hemiparesis is inconsistent on examination. 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 Follow-up outpatient. No new focal neurological weaknesses. (6) Generalized weakness Priority: Primary Status: Acute (7) Insulin dependent diabetes mellitus Priority: Secondary Status: Chronic Comments: Uncontrolled with an A1c of 10.6% last month. Resistant to teaching, noncompliant, follow-up outpatient (8) DVT prophylaxis Priority: Primary Status: Acute Comments: Was therapeutic on Coumadin through most of this admission (9) Hypothyroidism Priority: Secondary Status: Chronic Comments: TSH checked in June, normal, follow-up outpatient. Qualifiers: Hypothyroidism type: unspecified Qualified Code(s): E03.9 - Hypothyroidism , unspecified (10) Afib Priority: Secondary Status: Chronic Comments: Rate controlled and therapeutic on Coumadin Qualifiers: Atrial fibrillation type: paroxysmal Qualified Code(s): I48.0 - Paroxysmal atrial fibrillation (11) CAD (coronary artery disease) Priority: Secondary Status: Chronic Qualifiers: Coronary Disease-Associated Artery/Lesion type: [place] artery [place] vs. transplanted heart: [place] heart Associated angina: angina presence unspecified Qualified Code(s): I25.10 - Atherosclerotic heart disease of [place] coronary artery without angina pectoris (12) CHF (congestive heart failure) Priority: Secondary Status: Chronic Comments: Chronic diastolic heart failure, no acute exacerbation. No pedal edema or shortness of breath above her norm. Qualifiers: Congestive heart failure type: diastolic Congestive heart failure chronicity: chronic Qualified Code(s): I50.32 - Chronic diastolic (congestive ) heart failure (13) COPD (chronic obstructive pulmonary disease) Priority: Secondary Status: Chronic Comments: No acute exacerbation. Patient denies shortness of breath above her norm. She is on 3 L per nasal cannula at home Qualifiers: COPD type: unspecified COPD Qualified Code(s): J44.9 - Chronic obstructive pulmonary disease, unspecified (14) Chronic respiratory failure Priority: Secondary Status: Chronic Qualifiers: Respiratory failure complication: unspecified whether with hypoxia or hypercapnia Qualified Code(s): J96.10 - Chronic respiratory failure, unspecified whether with hypoxia or hypercapnia (15) Chronic anticoagulation Priority: Secondary Status: Chronic (16) History of pulmonary embolism Priority: Secondary Status: Chronic Comments: Patient denies shortness of breath above her norm, therapeutic on Coumadin. D- dimer negative. (17) Hyperlipidemia Priority: Secondary Status: Chronic Comments: Triglycerides 188, rest of lipid panel unremarkable. Recommend continue statin and low-cholesterol diet Qualifiers: Hyperlipidemia type: mixed hyperlipidemia Qualified Code(s): E78.2 - Mixed hyperlipidemia (18) Hypertension Priority: Secondary Status: Chronic Comments: Hypertensive upon presentation, then remained hypotensive but was normotensive on day of discharge. Qualifiers: Hypertension type: unspecified secondary hypertension Qualified Code(s): I15.9 - Secondary hypertension, unspecified; I15 - Secondary hypertension (19) Morbid obesity with BMI of 40.0-44.9, adult Priority: Secondary Status: Chronic - Discharge Medications Prescriptions: Furosemide [Lasix] 40 mg PO QAM #30 tab Isosorbide MONOnitrate (24 HR) [Imdur] 30 mg PO DAILY #30 Home Medications: Aspirin Enteric Coated [Aspirin EC] 81 mg PO DAILY 12/30/14 [History] Atorvastatin [Lipitor] 40 mg PO HS 12/30/14 [History] Nitroglycerin [Nitrostat] 0.4 mg PO Q5M PRN 12/30/14 [History] Sotalol HCl [Betapace] 80 mg PO BID 12/30/14 [History] amLODIPine [Norvasc] 5 mg PO DAILY 30 Days 09/12/15 [Rx] Gabapentin [Neurontin] 600 mg PO TID 10/11/15 [History] Prazosin HCl [Minipress] 5 mg PO HS 10/11/15 [History] Albuterol Sulfate [Ventolin Hfa] 2 puff IH QID PRN 10/12/15 [History] Cholecalciferol (D-3) [Vitamin D] 1,000 unit PO BID 10/12/15 [History] Cyclobenzaprine [Flexeril] 10 mg PO TID 10/12/15 [History] Lisinopril [Zestril] 40 mg PO DAILY 10/12/15 [History] Oxybutynin [Ditropan] 5 mg PO BID 10/12/15 [History] Quetiapine Fumarate [Seroquel] 500 mg PO TID 10/12/15 [History] Ranolazine [Ranexa] 500 mg PO BID #60 tab.er.12h 10/15/15 [Rx] Folic Acid 1 mg PO DAILY 02/29/16 [History] Warfarin [Coumadin] 5 mg PO DAILY 02/29/16 [History] Buspirone HCl [Buspar] 7.5 mg PO BID 07/17/16 [History] LORazepam [Lorazepam] 2 mg PO HS 07/17/16 [History] Levothyroxine [Synthroid] 200 mcg PO QAM 07/17/16 [History] Medroxyprogesterone Acetate [Provera] 10 mg PO BID 07/17/16 [History] OxyCODONE/APAP 7.5/325 [Percocet 7.5/325 MG] 1 tab PO Q6H PRN 07/17/16 [History] Spironolactone [Aldactone] 25 mg PO DAILY 07/17/16 [History] Trazodone HCl 100 mg PO HS 07/17/16 [History] metFORMIN [Glucophage] 500 mg PO BID 07/17/16 [History] Insulin DETEMIR [Levemir] 10 unit SQ BID 30 Days 11/03/16 [Rx] Ipratropium/Albuterol Neb [Duoneb] 3 ml IH [id number] PRN #0 inhsol 11/03/16 [Rx] Nystatin POWDER [Nystop] 1 appl TP BID bottle 11/03/16 [Rx] Insulin ASPART [Novolog Flexpen] 0 unit SQ TIDWM MDD PER SLIDING SCALE 12/05/16 [History] Linagliptin [Tradjenta] 5 mg PO DAILY 12/05/16 [History] Oxygen 3 l .ROUTE CONT 12/05/16 [History] Furosemide [Lasix] 40 mg PO QAM #30 tab 12/08/16 [Rx] Isosorbide MONOnitrate (24 HR) [Imdur] 30 mg PO DAILY #30 12/08/16 [Rx] Allergies/Adverse Reactions: Allergies Latex, Natural Rubber Allergy (Verified 11/19/16 21:46) Rash prednisone Allergy (Verified 11/19/16 21:46) Rash Zolpidem [From Ambien] Allergy (Verified 11/19/16 21:46) Hallucinating tape Allergy (Uncoded 09/08/15 03:19) Rash Procedures/tests Complete & Pending: Procedures Performed prior 72 hours Category Date Time Status MR head/brain wo con [MR] Routine MRI 12/06/16 08:33 Completed EKG [ECG 12 lead ECG] [ECG] Stat Y 12/05/16 21:13 Completed Date of admission: 12/05/16 03:02 Primary care physician: Ashwin Ellington Consults: 12/05/16 11:08 Consult to Occupational Therapy [CONS] Routine Comment: Evaluate, develop and implement POC Reason for Consult: used to walk with walker, states she cannot anymore. hx of cva with questionable left sided weakness. has Consult to Physical Therapy [CONS] Routine Comment: Evaluate, develop and implement POC Reason for Consult: used to walk with walker, states she cannot anymore. hx of cva with questionable left sided weakness. has Consult to Assistant Service Manager [CONS] Routine Reason for SW Consult: used to walk with walker, states she cannot anymore. hx of cva with questionable left sided weakness. has 12/06/16 09:18 Consult to Cardiology [CONS] Routine Comment: Consulting Provider: Cardiology Justine Reason for Consult: recurrent CP. on Imdur, has received 6 doses of nitro since yesterday. please eval and advise. seen 2 weeks ago for same Time Notified: 09:19 Call Completed: Yes Discharging clinician: Fay Meyers Anticipated date of discharge: 12/08/16 (refusing ECF; home with ) - Patient Status Disposition: Home Health Service Condition: Fair Functional capacity at discharge: uses cane/walker Overall status at discharge: patient is progressing back to baseline - Discharge Instructions Follow Up With: Ashwin Ellington PAC [Primary Care Provider] - Additional Instructions: Follow-up appointments: Follow-up with primary care provider within one to 2 weeks. If there is not an appointment listed below, please call your physician and schedule a follow-up appointment. If you have congestive heart failure and your symptoms return, make an appointment with your physician. Medication List: Carry an up to date list of medications you are taking at all time. We have given you an updated medication list including any new medications that you have been prescribed. Please provide that list to your primary provider Symptoms: If your condition changes or you experience any of the following symptoms, notify your physician immediately: Unusual or worsening pain, fever, persistent nausea and vomiting, bleeding, increase in swelling (especially in your legs), sudden weight gain, extreme dizziness, chest pain, increased drainage or redness from a wound or incision. Go to the emergency department if you experience a problem with breathing. Weights: If you have a history of swelling or shortness of breath, weigh yourself daily and notify your physician if you have a weight gain of two or more pounds in one day or 5 or more pounds in a week. If you experience any of the warning signs for stroke: Sudden numbness or weakness of the face, arm or leg; especially on one side of the body, sudden confusion, trouble speaking or understanding, sudden trouble seeing in one or both eyes, sudden trouble walking, dizziness, loss of balance or coordination, sudden sever headache with no cause; Call 911 or go to the emergency room. Stroke is a medical emergency. Some risk factors for stroke: Age, cigarette smoking, diabetes, excessive alcohol consumption, family history , high blood pressure, overweight, physical inactivity, prior stroke, heart attack, diagnosis of carotid artery stenosis or other artery disease. If you smoke, STOP: Smoking or tobacco use significantly increases your risk of heart and lung disease. Your chance of disease greatly increases if you continue to smoke. For more information, call the [place] tobacco quit line for smoking cessation QUIT-NOW ( ) - Diet and Activity Activity: ambulate only with your walker, as per physical therapy, increase activity as tolerated Diet: diabetic diet, low fat, low cholesterol, low salt diet, other (Fluid restriction 1.5 L per day) Hospital course: Ms. Millan is a 56 year old female with extensive past medical history including asthma, atrial fibrillation on Coumadin, COPD on 3 L per nasal cannula continuously, CAD, CVA, DVT, and uncontrolled diabetes, hyperlipidemia, hypertension, migraine, PE, chronic kidney disease, hypothyroidism, TIA, anxiety /depression/PTSD, cholecystectomy, morbid obesity. Patient presented to the emergency department chief complaint of chest pain. Patient stating the chest pain started on the day prior to presentation when she was at rest at home. Patient stating she had had several MIs in the past but states this one was worse than prior episodes and stated that the pain was more severe. She states the pain is just beneath her left breast and radiates to her left arm and jaw and worsens with coughing. Patient stating she took several doses of nitroglycerin while in the emergency department with some relief of her pain. Patient also endorsed associated shortness of breath at rest despite using her 3 L of supplement oxygenation at home. He also endorses nausea but no vomiting. She denied palpitations but did endorse diaphoresis. Workup in the emergency department initially notable for acute kidney injury and hypertension. Patient was admitted to the hospitalist service for further evaluation and management. Head CT negative. Chest x-ray negative. Troponins negative 4. No ECG changes. Patient necessitated several nitroglycerin dosages so cardiology was brought on board. Cardiology cleared the patient for outpatient follow-up with acute coronary syndrome being ruled out. Her pain was more consistent with musculoskeletal etiology given that it was reproducible with palpation. Of note, patient was seen for the same complaint by cardiology 2 weeks prior to presentation and again the recommendation was for medical management and outpatient follow-up. She had a left heart catheter in February 2016 that revealed mild to moderate nonobstructive CAD. Her last echo was more than a year prior to this presentation so repeat echo was obtained which revealed a preserved ejection fraction of 55-60% with mild diastolic dysfunction. After being admitted, patient became hypotensive but remained alert and oriented 3 though she appeared oversedated and overmedicated. Cardiology decreased her Imdur dosage and her furosemide dosage was also decreased. She was admitted and observed over the course of 4 nights and on day of discharge, she had was normotensive. Patient also endorsed generalized weakness and she was evaluated by occupational and physical therapy. Physical therapy recommended ECF placement. Occupational therapy initially recommended ECF placement but amended to recommendation for home health on day of discharge. PT still recommended ECF placement. Initial plan was to place the patient at [facility] however prior to placement while we were waiting on a prior authorization from her insurance, she then declined and stated that she was going home with home health services. She was advised in detail regarding the risks versus benefits of her choosing not to go inpatient. This is the patient's third admission in the last month. Her aspirin also made the statement that he felt as if she was "going downhill fast" and he also recommended that she go inpatient. She again refused. She did state that she has fallen at home 5 or 6 times in the past month but again she refused ECF placement. She was informed of risks versus benefits and there is a high probability that she will be readmitted in the near future. She again chose to go home with home health. Her acute kidney injury resolved. Her chest pain remained chronic but ACS was ruled out. Patient also endorsed a chronic headache during this admission and a CVA was ruled out with a negative brain MRI. She was discharged home in stable condition with home health services with close outpatient follow-up highly recommended. ITS Impressions Chest X-Ray 12/04/16 22:26 IMPRESSION: No acute cardiopulmonary process. D/ / 12/04/2016 22:57:38 Lance Hung MD / janine Interpreting Provider: Lance Hung MD Head CT 12/05/16 00:38 IMPRESSION: No acute intracranial abnormality. D/ / Karen Chavez MD / Karen Chavez MD Interpreting Provider: Karen Chavez MD Brain MRI 12/06/16 08:33 IMPRESSION: Motion artifact degrades the images. There is no acute brain parenchymal abnormality. There are no areas of restricted diffusion to suggest an acute ischemic event. D/ / 12/06/2016 13:39:09 Dahiana Llanos MD / sravanthi Interpreting Provider: Dahiana Llanos MD Echocardiogram impressions: LVEF 55-60%. Normal LV chamber size and function. Mild concentric left ventricular hypertrophy. Mild left ventricular diastolic dysfunction. Normal right ventricular structure and function. No evidence of pulmonary hypertension. No significant valvular dysfunction. - Time Spent with Patient Total time spent providing and/or coordinating discharge services: - Constitutional Vitals: Temp Pulse Resp BP Pulse Ox 97.7 F 73 16 120/73 93 12/08/16 15:34 12/08/16 15:34 12/08/16 16:32 12/08/16 15:34 12/08/16 16:32 General appearance: Present: cooperative, A&O X 3, morbidly obese, pleasant, no acute distress, answers questions appropriately - Head Head exam: Present: atraumatic, normocephalic - Eye Eye exam: Present: PERRL, conjuntiva pink, sclera anicteric Pupils: Present: PERRL - Neck Neck exam general surgery: Present: supple, trachea midline. Absent: lymphadenopathy - Respiratory Respiratory exam: Present: decreased breath sounds. Absent: accessory muscle use, rales, respiratory distress, rhonchi, wheezes - Cardiovascular Cardiovascular exam: Present: RRR, +S1, +S2. Absent: diastolic murmur, gallop, rubs, systolic murmur - GI/Abdominal GI/Abdominal exam: Present: normal bowel sounds, soft, no peritoneal signs. Absent: distended, tenderness - Extremities Exam Extremities exam: Present: warm, radial pulses palpable and symetrical. Absent : calf tenderness, cyanotic, pedal edema - Neurological Exam Neurological exam: Present: alert, CN II-XII intact, oriented X3, no focal deficits, strengths equal and symetr throughout (Intermittent weakness to left side, chronic). Absent: pronater drift, facial droop, speech deficit - Skin Skin exam: Present: dry, intact, normal color, warm
--- NOTE | 2016-12-08 19:14 | Physician Discharge Referral ---
Home Health/Hosp Referral Info Transfer to: Home Health Attending Provider: Chani Meyers CNP Provider in Charge Post Discharge: PCP - Diagnosis (1) MARIBEL (acute kidney injury) Priority: Primary Status: Resolved (2) Chest pain Priority: Primary Status: Acute (3) Headache Priority: Primary Status: Acute (4) Frequent falls Priority: Secondary Status: Chronic (5) CVA, old, hemiparesis Priority: Secondary Status: Chronic (6) Generalized weakness Priority: Primary Status: Acute (7) Insulin dependent diabetes mellitus Priority: Secondary Status: Chronic (8) DVT prophylaxis Priority: Primary Status: Acute (9) Hypothyroidism Priority: Secondary Status: Chronic (10) Afib Priority: Secondary Status: Chronic (11) CAD (coronary artery disease) Priority: Secondary Status: Chronic (12) CHF (congestive heart failure) Priority: Secondary Status: Chronic (13) COPD (chronic obstructive pulmonary disease) Priority: Secondary Status: Chronic (14) Chronic respiratory failure Priority: Secondary Status: Chronic (15) Chronic anticoagulation Priority: Secondary Status: Chronic (16) History of pulmonary embolism Priority: Secondary Status: Chronic (17) Hyperlipidemia Priority: Secondary Status: Chronic (18) Hypertension Priority: Secondary Status: Chronic (19) Morbid obesity with BMI of 40.0-44.9, adult Priority: Secondary Status: Chronic - Respiratory Orders Oxygen / L per min (3) Smoking Cessation: Smoking cessation has been advised. For more information, call the [place] Tobacco Quit Line at 6-287-AFGM-NOW. - Diet/Nutrition Diet/Nutrition Orders: No Added Salt (ELAINA), Renal, Cardiac (1.5L per day fluid restriction), No Concentrated Sweets - Activity Activity Orders: Ambulate, Walker - Services Needed Following services are medically necessary services: Nursing, Physical Therapy, Occupational Therapy - Transfer Medications Prescriptions: Furosemide [Lasix] 40 mg PO QAM #30 tab Isosorbide MONOnitrate (24 HR) [Imdur] 30 mg PO DAILY #30 Home Medications: Aspirin Enteric Coated [Aspirin EC] 81 mg PO DAILY 12/30/14 [History] Atorvastatin [Lipitor] 40 mg PO HS 12/30/14 [History] Nitroglycerin [Nitrostat] 0.4 mg PO Q5M PRN 12/30/14 [History] Sotalol HCl [Betapace] 80 mg PO BID 12/30/14 [History] amLODIPine [Norvasc] 5 mg PO DAILY 30 Days 09/12/15 [Rx] Gabapentin [Neurontin] 600 mg PO TID 10/11/15 [History] Prazosin HCl [Minipress] 5 mg PO HS 10/11/15 [History] Albuterol Sulfate [Ventolin Hfa] 2 puff IH QID PRN 10/12/15 [History] Cholecalciferol (D-3) [Vitamin D] 1,000 unit PO BID 10/12/15 [History] Cyclobenzaprine [Flexeril] 10 mg PO TID 10/12/15 [History] Lisinopril [Zestril] 40 mg PO DAILY 10/12/15 [History] Oxybutynin [Ditropan] 5 mg PO BID 10/12/15 [History] Quetiapine Fumarate [Seroquel] 500 mg PO TID 10/12/15 [History] Ranolazine [Ranexa] 500 mg PO BID #60 tab.er.12h 10/15/15 [Rx] Folic Acid 1 mg PO DAILY 02/29/16 [History] Warfarin [Coumadin] 5 mg PO DAILY 02/29/16 [History] Buspirone HCl [Buspar] 7.5 mg PO BID 07/17/16 [History] LORazepam [Lorazepam] 2 mg PO HS 07/17/16 [History] Levothyroxine [Synthroid] 200 mcg PO QAM 07/17/16 [History] Medroxyprogesterone Acetate [Provera] 10 mg PO BID 07/17/16 [History] OxyCODONE/APAP 7.5/325 [Percocet 7.5/325 MG] 1 tab PO Q6H PRN 07/17/16 [History] Spironolactone [Aldactone] 25 mg PO DAILY 07/17/16 [History] Trazodone HCl 100 mg PO HS 07/17/16 [History] metFORMIN [Glucophage] 500 mg PO BID 07/17/16 [History] Insulin DETEMIR [Levemir] 10 unit SQ BID 30 Days 11/03/16 [Rx] Ipratropium/Albuterol Neb [Duoneb] 3 ml IH [id number] PRN #0 inhsol 11/03/16 [Rx] Nystatin POWDER [Nystop] 1 appl TP BID bottle 11/03/16 [Rx] Insulin ASPART [Novolog Flexpen] 0 unit SQ TIDWM MDD PER SLIDING SCALE 12/05/16 [History] Linagliptin [Tradjenta] 5 mg PO DAILY 12/05/16 [History] Oxygen 3 l .ROUTE CONT 12/05/16 [History] Furosemide [Lasix] 40 mg PO QAM #30 tab 12/08/16 [Rx] Isosorbide MONOnitrate (24 HR) [Imdur] 30 mg PO DAILY #30 12/08/16 [Rx] Allergies/Adverse Reactions: Allergies Latex, Natural Rubber Allergy (Verified 11/19/16 21:46) Rash prednisone Allergy (Verified 11/19/16 21:46) Rash Zolpidem [From Ambien] Allergy (Verified 11/19/16 21:46) Hallucinating tape Allergy (Uncoded 09/08/15 03:19) Rash Certification: Further, I certify that my clinical findings support that this patient is homebound (i.e. absences from home require considerable and taxing effort and are for medical reasons or adventist services or infrequently or short duration when for other reasons) because: Homebound Reason: Patient requires assistance of a person or device to safely leave home, Leaving home requires considerable and taxing effort due to condition, Severity of cardiac or pulmonary status limits activity tolerance Attestation: My signature below is to certify that this patient is under my care and that I, or nurse practitioner, or a physician's assistant branch operations manager working with me, has a face-to -face encounter with this patient.
== END 2016-12-08 20:13 | disposition home health service (06) ==
LOC: EMEROO 22:08 → 3BNU 22:08 → SUATTDRO 12-05 03:02 → 3BNU 12-05 03:55
PROVIDERS: ADMIT Hospitalist; ATTEND Nurse Practitioner Family

== ENCOUNTER 2017-07-18 20:16 | Inpatient (IN) ==
[2017-07-18] MEDS ORDERED: 0.9 % Sodium Chloride 1,000 ML IVC ONE ×2 (20:22→21:26)
--- NOTE | 2017-07-18 20:30 | Emergency Department Note ---
Disposition Clinical Impression: Septic shock, Hyperkalemia Hypotension Qualifiers: Hypotension type: unspecified hypotension type Qualified Code(s): I95.9 - Hypotension, unspecified Acute renal failure Qualifiers: Acute renal failure type: unspecified Qualified Code(s): N17.9 - Acute kidney failure, unspecified Community acquired pneumonia Qualifiers: Laterality: unspecified laterality Qualified Code(s): J18.9 - Pneumonia, unspecified organism Altered mental status Qualifiers: Altered mental status type: unspecified Qualified Code(s): R41.82 - Altered mental status, unspecified Disposition: Admitted As Inpatient Condition: Critical Referrals: Ashwin Ellington PAC [Primary Care Provider] - Forms: ED Satisfaction Letter Altered Mental Status HPI - General Chief Complaint: ED Altered Mental Status Stated Complaint: altered mental status x1wk Time Seen by Provider: 07/18/17 20:21 Source: EMS Mode of arrival: EMS Limitations: altered mental status, physical limitation Nursing Notes Reviewed: Yes Vital Signs Reviewed: Yes - History of Present Illness HPI Narrative: 57-year-old female presents to the ER via EMS due to altered mental status. Patient arrives without any family present. EMS reports symptoms for roughly 1 week with last known well at that time. She was noted to be hypoxic as well as hypotensive. Patient was given IV fluids in route. Upon arrival she is alert and oriented 2. She follows commands and demonstrates no focal deficits. Unable to get an appropriate review of systems from the patient. No other complaints. MD complaint: altered mental status Onset (ago): week(s) Timing confirmed by: family member Pain Severity: mild Treatments prior to arrival: IV fluid, oxygen - Related Data Home Medications Medication Instructions Recorded Confirmed Aspirin Enteric Coated [Aspirin EC] 81 mg PO DAILY 12/30/14 04/27/17 Atorvastatin [Lipitor] 40 mg PO HS 12/30/14 04/27/17 Nitroglycerin [Nitrostat] 0.4 mg PO Q5M PRN 12/30/14 04/27/17 Sotalol HCl [Betapace] 80 mg PO BID 12/30/14 04/27/17 Gabapentin [Neurontin] 600 mg PO TID 10/11/15 04/27/17 Prazosin HCl [Minipress] 5 mg PO HS 10/11/15 04/27/17 Albuterol Sulfate [Ventolin Hfa] 2 puff IH QID PRN 10/12/15 04/27/17 Cholecalciferol (D-3) [Vitamin D] 1,000 unit PO BID 10/12/15 04/27/17 Cyclobenzaprine [Flexeril] 10 mg PO TID 10/12/15 04/27/17 Lisinopril [Zestril] 40 mg PO DAILY 10/12/15 04/27/17 Oxybutynin [Ditropan] 5 mg PO BID 10/12/15 04/27/17 Folic Acid 1 mg PO DAILY 02/29/16 04/27/17 Warfarin [Coumadin] 5 mg PO DAILY 02/29/16 04/27/17 Buspirone HCl [Buspar] 7.5 mg PO BID 07/17/16 04/27/17 LORazepam [Lorazepam] 2 mg PO HS 07/17/16 04/27/17 Levothyroxine [Synthroid] 200 mcg PO QAM 07/17/16 04/27/17 Medroxyprogesterone Acetate 10 mg PO BID 07/17/16 04/27/17 [Provera] OxyCODONE/APAP 7.5/325 [Percocet 1 tab PO Q6H PRN 07/17/16 04/27/17 7.5/325 MG] Spironolactone [Aldactone] 25 mg PO DAILY 07/17/16 04/27/17 Trazodone HCl 100 mg PO HS 07/17/16 04/27/17 metFORMIN [Glucophage] 500 mg PO BID 07/17/16 04/27/17 Insulin ASPART [Novolog Flexpen] 0 unit SQ TIDWM MDD PER SLIDING 12/05/16 SCALE Oxygen 3 l .ROUTE CONT 12/05/16 04/27/17 Insulin DETEMIR [Levemir] 25 unit SQ QPM 04/27/17 04/27/17 Prazosin [Minipress] 2 mg PO QAM 04/27/17 04/27/17 Quetiapine Fumarate [Seroquel] 500 mg PO HS 04/27/17 04/27/17 Previous Rx's Medication Instructions Recorded amLODIPine [Norvasc] 5 mg PO DAILY 30 Days tablet 09/12/15 Ranolazine [Ranexa] 500 mg PO BID #60 tab.er.12h 10/15/15 Ipratropium/Albuterol Neb [Duoneb] 3 ml IH [id number] PRN #0 inhsol 11/03/16 Nystatin POWDER [Nystop] 1 appl TP BID bottle 11/03/16 Furosemide [Lasix] 40 mg PO QAM #30 tab 12/08/16 Enoxaparin [Lovenox *PHARMACY WT 130 mg SQ Q12HR #3 syringe 04/30/17 BASED*] Isosorbide MONOnitrate (24 HR) 60 mg PO DAILY #30 tab.er.24h 04/30/17 [Imdur] Allergies Allergy/AdvReac Type Severity Reaction Status Date / Time Latex, Natural Rubber Allergy Rash Verified 04/27/17 12:55 prednisone Allergy Rash Verified 04/27/17 12:55 Zolpidem [From Ambien] AdvReac Hallucinati Verified 04/27/17 12:55 ng tape Allergy Rash Uncoded 04/27/17 12:55 Limitations: ROS unobtainable due to patients medical condition Past Medical History - Past Medical History Attestation: Yes The following information was validated with the patient. 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 - Social History Smoking Status: Never smoker Smokeless Tobacco Status: No Alcohol use: Reports: none Drug use: Reports: none Physical Exam - General Limitations: altered mental status, physical limitation General appearance: alert, anxious - Head Head exam: atraumatic, normocephalic, normal inspection - Eye Eye exam: Present: normal appearance - ENT ENT exam: mucous membranes dry - Neck Neck exam: Present: normal inspection - Chest Chest inspection: Present: normal inspection, symmetric chest wall rise, other ( There is a large area of cellulitis under the left breast as well as what appears to be a yeast infection.) - Respiratory Respiratory exam: Present: normal lung sounds bilaterally - Cardiovascular Cardiovascular exam: Present: regular rate, normal rhythm, normal heart sounds - Abdominal Exam Abdominal exam: Present: soft, Non-Tender. Absent: tenderness, distention, rigidity - Extremities Exam Extremities exam: Present: normal inspection, full ROM - Expanded Upper Extremity Exam Shoulder exam: Present: normal inspection, full ROM Arm exam: Present: normal inspection, full ROM Elbow exam: Present: normal inspection, full ROM Forearm/Wrist exam: Present: normal inspection, full ROM Hand exam: Present: normal inspection, full ROM - Expanded Lower Extremity Exam Hip/Pelvis exam: Present: normal inspection, full ROM Upper leg exam: Present: normal inspection, full ROM Knee exam: Present: normal inspection, full ROM Lower leg exam: Present: normal inspection, full ROM Ankle exam: Present: normal inspection, full ROM Foot/toe exam: Present: normal inspection, full ROM Neurovascular/Tendon exam: Absent: motor deficit, sensory deficit - Neurological Exam Neurological exam: Present: alert, other (GCS 14. Moves all extremities equally. Follows commands. Nonfocal exam.). Absent: oriented X3 Course Course Narrative: Patient seen and examined the time of arrival. She appears dehydrated. She has a large area of cellulitis under her left breast. She is noted to be hypotensive. 2 IVs were ordered with IV fluids to start. Concern for sepsis. She is alert and oriented 2. We will get a CT scan of her head as well as EKG , chest x-ray, labs including lactate and cultures. She will require admission for altered mental status and hypotension. - Reevaluation(s) Reevaluation #1: Patient decompensated here in the department. He remains hypotensive. Emergent CVC placed in the right IJ. Please see documentation for details. Patient also remains altered with concern for airway protection. Patient intubated for airway securement. Please see documentation for details. Family reports she has not felt well since Sunday. They have urged her to come several times but she declined. States that she was confused at home and took medications inappropriately. She took approximately 6 pills of Lasix on Sunday. Has not eaten or drank in 3 days. Reevaluation #2: Patient remains hypotensive. We will continue IV fluid resuscitation at this time. Reevaluation #3: Patient had a run of bradycardia in the 50s. Repeat EKG with widening QRS complex. Insulin, D50 as well as 3 amps of bicarbonate given. - Consultations Consultation #1: I spoke with the on-call portfolio analyst Dr. Winters. Discussed the patient's history exam and labs currently creatinine of 8.1 with a potassium of 7.7. This was after we instituted insulin and D50 the first time. Agrees with emergent dialysis. We will either have to place a temporary hemodialysis catheter or consult interventional radiology. Consultation #2: I spoke again with nephrology confirming that we would place the dialysis catheter and the patient would be admitted to the intensive care unit. Vital Signs Pulse Rate 70 07/18/17 20:16 Respiratory Rate 28 07/18/17 20:16 Blood Pressure 87/78 07/18/17 20:16 O2 Sat by Pulse Oximetry 96 07/18/17 20:16 Temperature 97.6 F 07/18/17 20:51 Pulse Rate 75 07/18/17 22:55 Respiratory Rate 16 07/18/17 22:05 Blood Pressure 134/75 07/18/17 22:55 O2 Sat by Pulse Oximetry 90 07/18/17 22:05 Oxygen Delivery Oxygen Delivery Ventilator Procedures - Central Line Placement Right Femoral Central Line Inserted*: Yes Central Line Insertion: emergent Procedural Pause: assemble equipment and verify supplies, perform hand hygiene Patient Placed on Monitor/Pulse Ox: Yes During the Procedure: clinician is wearing sterile gloves, cap, mask,& gown during insertion, sterile field and sterile technique are maintained, patient's face is covered with drape or mask and wearing a cap, everyone in room is wearing a mask Central Line Prep: Chlorhexidine scrub Prep the Procedure Site: apply chloraprep to the skin using a back and forth scrubbing motion, apply chloraprep for 30 seconds (upper body), 1-2 min ( femoral sites), allow prep to dry, drape the patient with a full body drape Ultrasound Used for Placement: Yes Central Line Lumen Inserted: triple Post Procedure: sutured in place, good blood return, all ports aspirated, flushed, capped, guide wire removed and visualized Patient Tolerated Procedure: well Complications: none Name of Clinician Inserting Central Line: Fadi Woody D.O Additional Comments: Right femoral temporary hemodialysis catheter placed due to acute renal failure with acidosis and hyperkalemia. Labs reviewed noting acidosis as well as a hyperkalemia with a potassium of 7.7 in the setting of a creatinine of 8.1. There is currently no in-house interventional radiology provider to place an emergent hemodialysis catheter. Given these findings and the concern that the patient continues to have rhythm changes with peaked T waves and bradycardia requiring numerous doses of calcium as well as insulin, D50 and bicarbonate we placed the temporary hemodialysis catheter to hasten the patient's timeframe to receiving emergent dialysis - Intubation Time out performed: No sedative: Etomidate Mg Given: 20 paralytic: Rocuronium Mg Given: 100 Laryngoscope: Stephon ET Tube Size: 7.5 ET Tube Uncuffed: No Tube Secured Depth (cm): 22 Tube Secured Location: lips Tube Placement Confirmation: visualized tube passing through cords, equal breath sounds bilaterally, no breath sounds over epigastrium, confirmation by capnometry Patient Tolerated Procedure: well Intubation Complications: none Altered Mental Status - MDM Narrative Medical decision making narrative: 57-year-old female presents to the ER for altered mental status. Family reports she has not been well since Sunday. Upon arrival she was alert and oriented times to answering some questions appropriately. During her evaluation she was noted to be hypotensive despite IV fluid resuscitation. A right central venous catheter was placed in the internal jugular vein. During her stay she also became more somnolent so the patient was intubated for airway securement. During her workup she is noted to have hypotension in the setting of IV fluid resuscitation consistent with shock. CT of the chest demonstrates bilateral pleural effusions with the possibility of bilateral pneumonia. In the setting of the patient's elevated white count altered mental status and shock we are treating with broad-spectrum antibiotics with think mycin and Zosyn. Patient noted to have acute renal failure with a creatinine of 8.1 with acidosis and hyperkalemia with EKG changes. Patient has had numerous EKG and monitor changes during her emergency department stay requiring multiple doses of calcium, D50, insulin and bicarbonate. Case discussed emergently with on- call nephrology who agreed with emergent dialysis. No current interventional radiology provider in house to assist with hemodialysis catheter placement. This was placed in the emergency department please see note for details of that. The patient was given 3 L of IV fluids during her emergency department stay. She was admitted to the intensive care unit under the care of the hospitalist in serious condition with nephrology consultation for emergent dialysis. - Lab Data Lab results reviewed: Yes I reviewed the patient's lab results. Result diagrams: 07/18/17 21:45 07/18/17 21:45 Lab Results 07/18/17 07/18/17 07/18/17 Range/Units 20:40 21:30 21:30 WBC (4.3-11.1) K/mcL RBC (3.82-4.97) M/mcL Hgb (11.5-15.4) g/dL Hct (35.3-44.9) % MCV (83.0-100.0) fL MCH (28.0-33.3) pg MCHC (31.6-35.5) g/dL RDW (11.5-14.5) % Plt Count (140-400) K/mcL MPV (9.4-12.4) fL Immature Gran % (0-4) % Seg Neutrophils % % Lymphocytes % % Monocytes % % Eosinophils % % Basophils % % Neutrophils # (1.6-8.9) K/mcL Lymphocytes # (0.6-4.6) K/mcL Monocytes # (0.0-1.3) K/mcL Eosinophils # (0.0-0.6) K/mcL Basophils # (0.0-0.2) K/mcL ABG pH (7.32-7.45) pH Units ABG pCO2 (35-45) mmHg ABG pO2 (85-104) mmHg ABG HCO3 (21-27) mEq/L ABG Total CO2 (20-26) mEq/L ABG O2 Saturation (95-98) % ABG Base Excess (-2 to 3) mEq/L Sodium (136-145) mEq/L Potassium (3.5-5.1) mEq/L Chloride (98-107) mEq/L Carbon Dioxide (23-29) mEq/L BUN (6-20) mg/dL Creatinine (0.60-1.20) mg/dL Est GFR ( Amer) (> 60) Est GFR (Non-Af Amer) (> 60) BUN/Creatinine Ratio (6-26) Glucose (70-105) mg/dL POC Glucose 161 H (58-89) Calculated Osmolality (280-300) Lactic Acid (0.5-2.2) mmol/L Calcium (8.6-10.3) mg/dL Magnesium (1.6-2.6) mg/dL Total Bilirubin (0.3-1.0) mg/dL Direct Bilirubin (0.0-0.2) mg/dL Indirect Bilirubin (0.0-1.2) mg/dL AST (13-39) Units/L ALT (7-52) Units/L Alkaline Phosphatase (34-104) Units/L Creatine Kinase (30-223) Units/L Troponin I (< 0.04) ng/mL B-Natriuretic Peptide (Less than 100) pg/mL Serum Total Protein (6.4-8.9) g/dL Albumin (3.5-5.7) g/dL Globulin (2.4-3.5) g/dL Albumin/Globulin Ratio (1.1-2.2) Urine Color Yellow (Yellow) Urine Clarity Clear (Clear) Urine pH 5.0 (5.0-8.0) pH Units Ur Specific [place] 1.025 (1.010-1.025) Urine Protein 30 H (Neg-Trace) mg/dL Urine Glucose (UA) Normal (Normal) mg/dL Urine Ketones Negative (Negative) mg/dL Urine Blood Negative (Negative) Urine Nitrite Negative (Negative) Urine Bilirubin Small H (Negative) Urine Urobilinogen Normal (Normal) mg/dL Ur Leukocyte Esterase Negative (Negative) Urine Microscopic RBC 0-3 (0-3) per hpf Urine Microscopic WBC 0-3 (0-3) per hpf Ur Squamous Epith Cells Few (None-Few) per lpf Urine Bacteria None Seen (None-Few) per hpf Hyaline Casts None Seen (None-Few) per lpf Ur Culture Indicated? NO (NO) Urine Opiates Screen Negative (Wcmchm=877) ng/mL Ur Barbiturates Screen Negative (Ixhetn=551) ng/mL Ur Phencyclidine Scrn Negative (Cutoff=25) ng/mL Ur Amphetamines Screen Negative (Acjumw=6038) ng/mL U Benzodiazepines Scrn Negative (Tbyaqw=800) ng/mL Urine Cocaine Screen Negative (Cutoff= 300) ng/mL U Marijuana (THC) Screen Negative (Cutoff = 50) ng/mL Person Notif of Crit 07/18/17 07/18/17 07/18/17 Range/Units 21:45 21:45 21:45 WBC 14.9 H (4.3-11.1) K/mcL RBC 3.72 L (3.82-4.97) M/mcL Hgb 11.4 L (11.5-15.4) g/dL Hct 35.6 (35.3-44.9) % MCV 95.7 (83.0-100.0) fL MCH 30.6 (28.0-33.3) pg MCHC 32.0 (31.6-35.5) g/dL RDW 15.1 H (11.5-14.5) % Plt Count 312 (140-400) K/mcL MPV 9.7 (9.4-12.4) fL Immature Gran % 0.7 (0-4) % Seg Neutrophils % 77.5 % Lymphocytes % 14.7 % Monocytes % 6.8 % Eosinophils % 0.1 % Basophils % 0.2 % Neutrophils # 11.6 H (1.6-8.9) K/mcL Lymphocytes # 2.2 (0.6-4.6) K/mcL Monocytes # 1.0 (0.0-1.3) K/mcL Eosinophils # 0.0 (0.0-0.6) K/mcL Basophils # 0.0 (0.0-0.2) K/mcL ABG pH (7.32-7.45) pH Units ABG pCO2 (35-45) mmHg ABG pO2 (85-104) mmHg ABG HCO3 (21-27) mEq/L ABG Total CO2 (20-26) mEq/L ABG O2 Saturation (95-98) % ABG Base Excess (-2 to 3) mEq/L Sodium 133 L (136-145) mEq/L Potassium 7.7 H* (3.5-5.1) mEq/L Chloride 102 (98-107) mEq/L Carbon Dioxide 19 L (23-29) mEq/L BUN 93 H (6-20) mg/dL Creatinine 8.10 H (0.60-1.20) mg/dL Est GFR ( Amer) 6 L (> 60) Est GFR (Non-Af Amer) 5 L (> 60) BUN/Creatinine Ratio 11 (6-26) Glucose 184 H (70-105) mg/dL POC Glucose (58-89) Calculated Osmolality 309 H (280-300) Lactic Acid 2.1 (0.5-2.2) mmol/L Calcium 8.7 (8.6-10.3) mg/dL Magnesium 2.2 (1.6-2.6) mg/dL Total Bilirubin 0.3 (0.3-1.0) mg/dL Direct Bilirubin 0.1 (0.0-0.2) mg/dL Indirect Bilirubin 0.2 (0.0-1.2) mg/dL AST 11 L (13-39) Units/L ALT 13 (7-52) Units/L Alkaline Phosphatase 73 (34-104) Units/L Creatine Kinase 49 (30-223) Units/L Troponin I (< 0.04) ng/mL B-Natriuretic Peptide (Less than 100) pg/mL Serum Total Protein 7.8 (6.4-8.9) g/dL Albumin 3.6 (3.5-5.7) g/dL Globulin 4.2 H (2.4-3.5) g/dL Albumin/Globulin Ratio 0.9 L (1.1-2.2) Urine Color (Yellow) Urine Clarity (Clear) Urine pH (5.0-8.0) pH Units Ur Specific [place] (1.010-1.025) Urine Protein (Neg-Trace) mg/dL Urine Glucose (UA) (Normal) mg/dL Urine Ketones (Negative) mg/dL Urine Blood (Negative) Urine Nitrite (Negative) Urine Bilirubin (Negative) Urine Urobilinogen (Normal) mg/dL Ur Leukocyte Esterase (Negative) Urine Microscopic RBC (0-3) per hpf Urine Microscopic WBC (0-3) per hpf Ur Squamous Epith Cells (None-Few) per lpf Urine Bacteria (None-Few) per hpf Hyaline Casts (None-Few) per lpf Ur Culture Indicated? (NO) Urine Opiates Screen (Qddqkq=341) ng/mL Ur Barbiturates Screen (Aojuoc=459) ng/mL Ur Phencyclidine Scrn (Cutoff=25) ng/mL Ur Amphetamines Screen (Hfriuj=6000) ng/mL U Benzodiazepines Scrn (Rpowzf=336) ng/mL Urine Cocaine Screen (Cutoff= 300) ng/mL U Marijuana (THC) Screen (Cutoff = 50) ng/mL Person Notif of Crit 07/18/17 07/18/17 07/18/17 Range/Units 21:45 21:45 22:12 WBC (4.3-11.1) K/mcL RBC (3.82-4.97) M/mcL Hgb (11.5-15.4) g/dL Hct (35.3-44.9) % MCV (83.0-100.0) fL MCH (28.0-33.3) pg MCHC (31.6-35.5) g/dL RDW (11.5-14.5) % Plt Count (140-400) K/mcL MPV (9.4-12.4) fL Immature Gran % (0-4) % Seg Neutrophils % % Lymphocytes % % Monocytes % % Eosinophils % % Basophils % % Neutrophils # (1.6-8.9) K/mcL Lymphocytes # (0.6-4.6) K/mcL Monocytes # (0.0-1.3) K/mcL Eosinophils # (0.0-0.6) K/mcL Basophils # (0.0-0.2) K/mcL ABG pH 7.11 L* (7.32-7.45) pH Units ABG pCO2 58 H (35-45) mmHg ABG pO2 83 L (85-104) mmHg ABG HCO3 19 L (21-27) mEq/L ABG Total CO2 20 (20-26) mEq/L ABG O2 Saturation 91 L (95-98) % ABG Base Excess -12 L (-2 to 3) mEq/L Sodium (136-145) mEq/L Potassium (3.5-5.1) mEq/L Chloride (98-107) mEq/L Carbon Dioxide (23-29) mEq/L BUN (6-20) mg/dL Creatinine (0.60-1.20) mg/dL Est GFR ( Amer) (> 60) Est GFR (Non-Af Amer) (> 60) BUN/Creatinine Ratio (6-26) Glucose (70-105) mg/dL POC Glucose (58-89) Calculated Osmolality (280-300) Lactic Acid (0.5-2.2) mmol/L Calcium (8.6-10.3) mg/dL Magnesium (1.6-2.6) mg/dL Total Bilirubin (0.3-1.0) mg/dL Direct Bilirubin (0.0-0.2) mg/dL Indirect Bilirubin (0.0-1.2) mg/dL AST (13-39) Units/L ALT (7-52) Units/L Alkaline Phosphatase (34-104) Units/L Creatine Kinase (30-223) Units/L Troponin I < 0.03 (< 0.04) ng/mL B-Natriuretic Peptide 218 H (Less than 100) pg/mL Serum Total Protein (6.4-8.9) g/dL Albumin (3.5-5.7) g/dL Globulin (2.4-3.5) g/dL Albumin/Globulin Ratio (1.1-2.2) Urine Color (Yellow) Urine Clarity (Clear) Urine pH (5.0-8.0) pH Units Ur Specific [place] (1.010-1.025) Urine Protein (Neg-Trace) mg/dL Urine Glucose (UA) (Normal) mg/dL Urine Ketones (Negative) mg/dL Urine Blood (Negative) Urine Nitrite (Negative) Urine Bilirubin (Negative) Urine Urobilinogen (Normal) mg/dL Ur Leukocyte Esterase (Negative) Urine Microscopic RBC (0-3) per hpf Urine Microscopic WBC (0-3) per hpf Ur Squamous Epith Cells (None-Few) per lpf Urine Bacteria (None-Few) per hpf Hyaline Casts (None-Few) per lpf Ur Culture Indicated? (NO) Urine Opiates Screen (Jsntsk=890) ng/mL Ur Barbiturates Screen (Dflyrr=624) ng/mL Ur Phencyclidine Scrn (Cutoff=25) ng/mL Ur Amphetamines Screen (Dyxlgu=9599) ng/mL U Benzodiazepines Scrn (Hjdsnm=882) ng/mL Urine Cocaine Screen (Cutoff= 300) ng/mL U Marijuana (THC) Screen (Cutoff = 50) ng/mL Person Notif of Count includes the [facility] - Radiology Data Radiology results reviewed: Yes I reviewed the patient's radiology results. Chest CT 07/18/17 20:22 IMPRESSION: 1. Bilateral pleural effusions with bilateral atelectasis and/or pneumonia. 2. Coronary artery disease. D/ / Jm Farmer MD / Jm Farmer MD Interpreting Provider: Jm Farmer MD Chest X-Ray 07/18/17 20:22 IMPRESSION: Endotracheal tube tip is in the expected location. Right internal jugular central venous catheter tip is in the expected location. No pneumothorax. Nasogastric tube tip is in the expected location, below the into the image but at least within the gastric body. Increased opacity throughout both lungs, greater on the left, pneumonia versus edema. D/ / Niraj Larson MD / Niraj Larson MD Interpreting Provider: Niraj Larson MD Head CT 07/18/17 20:22 IMPRESSION: No acute intracranial abnormality. Bilateral paranasal sinus disease, probably chronic. D/ / Jm Farmer MD / Jm Farmer MD Interpreting Provider: Jm Farmer MD - EKG Data EKG attestation: Yes I reviewed and interpreted this EKG. TPA Checklist - LKW: 3-4.5 hrs Add. Warnings/Precautions Patient/family understanding: The patient/family members have been counseled and understood the risk, benefit , and alternatives of treatment.
[2017-07-18] MEDS ORDERED: Insulin Human Regular 10 UNIT in 0.9 % Sodium Chloride 10 ML IV ONE (20:41)
[2017-07-18] MEDS ORDERED: Propofol 500 MG/50 ML INFUS..BTL ONE (21:21)
[2017-07-18] MEDS ORDERED: Piperacillin/Tazobactam 3.375 GM in 0.9 % Sodium Chloride Mini Bag 100 ML IVPB ONE (21:26)
--- NOTE | 2017-07-18 21:28 | Emergency Department Note ---
Disposition Clinical Impression: Shock Hypotension Qualifiers: Hypotension type: unspecified hypotension type Qualified Code(s): I95.9 - Hypotension, unspecified Disposition: Admitted As Inpatient Forms: ED Satisfaction Letter General Adult HPI - General Chief complaint: ED Altered Mental Status Stated complaint: altered mental status x1wk Time Seen by Provider: 07/18/17 20:21 Source: EMS Mode of arrival: EMS Limitations: altered mental status, physical limitation - History of Present Illness Pain Scale: 0 - Related Data Home Medications Medication Instructions Recorded Confirmed Aspirin Enteric Coated [Aspirin EC] 81 mg PO DAILY 12/30/14 04/27/17 Atorvastatin [Lipitor] 40 mg PO HS 12/30/14 04/27/17 Nitroglycerin [Nitrostat] 0.4 mg PO Q5M PRN 12/30/14 04/27/17 Sotalol HCl [Betapace] 80 mg PO BID 12/30/14 04/27/17 Gabapentin [Neurontin] 600 mg PO TID 10/11/15 04/27/17 Prazosin HCl [Minipress] 5 mg PO HS 10/11/15 04/27/17 Albuterol Sulfate [Ventolin Hfa] 2 puff IH QID PRN 10/12/15 04/27/17 Cholecalciferol (D-3) [Vitamin D] 1,000 unit PO BID 10/12/15 04/27/17 Cyclobenzaprine [Flexeril] 10 mg PO TID 10/12/15 04/27/17 Lisinopril [Zestril] 40 mg PO DAILY 10/12/15 04/27/17 Oxybutynin [Ditropan] 5 mg PO BID 10/12/15 04/27/17 Folic Acid 1 mg PO DAILY 02/29/16 04/27/17 Warfarin [Coumadin] 5 mg PO DAILY 02/29/16 04/27/17 Buspirone HCl [Buspar] 7.5 mg PO BID 07/17/16 04/27/17 LORazepam [Lorazepam] 2 mg PO HS 07/17/16 04/27/17 Levothyroxine [Synthroid] 200 mcg PO QAM 07/17/16 04/27/17 Medroxyprogesterone Acetate 10 mg PO BID 07/17/16 04/27/17 [Provera] OxyCODONE/APAP 7.5/325 [Percocet 1 tab PO Q6H PRN 07/17/16 04/27/17 7.5/325 MG] Spironolactone [Aldactone] 25 mg PO DAILY 07/17/16 04/27/17 Trazodone HCl 100 mg PO HS 07/17/16 04/27/17 metFORMIN [Glucophage] 500 mg PO BID 07/17/16 04/27/17 Insulin ASPART [Novolog Flexpen] 0 unit SQ TIDWM MDD PER SLIDING 12/05/16 SCALE Oxygen 3 l .ROUTE CONT 12/05/16 04/27/17 Insulin DETEMIR [Levemir] 25 unit SQ QPM 04/27/17 04/27/17 Prazosin [Minipress] 2 mg PO QAM 04/27/17 04/27/17 Quetiapine Fumarate [Seroquel] 500 mg PO HS 04/27/17 04/27/17 Previous Rx's Medication Instructions Recorded amLODIPine [Norvasc] 5 mg PO DAILY 30 Days tablet 09/12/15 Ranolazine [Ranexa] 500 mg PO BID #60 tab.er.12h 10/15/15 Ipratropium/Albuterol Neb [Duoneb] 3 ml IH [id number] PRN #0 inhsol 11/03/16 Nystatin POWDER [Nystop] 1 appl TP BID bottle 11/03/16 Furosemide [Lasix] 40 mg PO QAM #30 tab 12/08/16 Enoxaparin [Lovenox *PHARMACY WT 130 mg SQ Q12HR #3 syringe 04/30/17 BASED*] Isosorbide MONOnitrate (24 HR) 60 mg PO DAILY #30 tab.er.24h 04/30/17 [Imdur] Allergies Allergy/AdvReac Type Severity Reaction Status Date / Time Latex, Natural Rubber Allergy Rash Verified 04/27/17 12:55 prednisone Allergy Rash Verified 04/27/17 12:55 Zolpidem [From Ambien] AdvReac Hallucinati Verified 04/27/17 12:55 ng tape Allergy Rash Uncoded 04/27/17 12:55 Past Medical History - Past Medical History Medical history: Reports: arthritis, asthma, atrial fibrillation, COPD, coronary artery disease, CVA, DVT, diabetes, hyperlipidemia, hypertension, kidney stones, migraine, osteoporosis, pulmonary embolus, renal disease, thyroid disease, TIA Surgical history: Reports: cholecystectomy, orthopedic, other Psychiatric history: Reports: anxiety, depression, PTSD [employer]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 - Social History Smoking Status: Never smoker Smokeless Tobacco Status: No Alcohol use: Reports: none Drug use: Reports: none Physical Exam - General Limitations: altered mental status, physical limitation General appearance: alert, anxious Course Vital Signs Temperature 97.6 F 07/18/17 20:22 Pulse Rate 59 07/18/17 20:22 Respiratory Rate 22 07/18/17 20:22 Blood Pressure 84/52 07/18/17 20:22 O2 Sat by Pulse Oximetry 100 07/18/17 20:22 Temperature 97.6 F 07/18/17 20:51 Pulse Rate 70 07/18/17 21:08 Respiratory Rate 18 07/18/17 21:08 Blood Pressure 107/52 07/18/17 21:08 O2 Sat by Pulse Oximetry 96 07/18/17 21:08 Oxygen Delivery Oxygen Delivery Nasal Cannula Procedures - Central Line Placement Right IJ Central Line Inserted*: Yes Central Line Catheter Replacement*: No Central Line Insertion: emergent Procedural Pause: verify patient name and date of , timeout performed per policy, assemble equipment and verify supplies, perform hand hygiene Patient Placed on Monitor/Pulse Ox: Yes During the Procedure: clinician is wearing sterile gloves, cap, mask,& gown during insertion, sterile field and sterile technique are maintained, patient's face is covered with drape or mask and wearing a cap, everyone in room is wearing a mask Central Line Prep: Chlorhexidine scrub Prep the Procedure Site: apply chloraprep to the skin using a back and forth scrubbing motion, apply chloraprep for 30 seconds (upper body), 1-2 min ( femoral sites), allow prep to dry, drape the patient with a full body drape Local Anesthetic: lidocaine 1%, with epi Ultrasound Used for Placement: Yes Central Line Lumen Inserted: triple Post Procedure: sutured in place, good blood return, all ports aspirated, flushed, capped, sterile dressing applied, guide wire removed and visualized Post Procedure X-Ray: tip of catheter in good position, no pneumothorax seen Patient Tolerated Procedure: well, no complications Complications: none Name of Clinician Inserting Central Line: chris moody Clinician Assisting/Completing Checklist: arielle veronica Date: 07/18/17 Time: 21:28 Medical Decision Making - Lab Data Lab Results 07/18/17 Range/Units 20:40 POC Glucose 161 H (58-89)
[2017-07-18 21:39] LABS: Bilirubin,Urine Small (Negative); Blood,Urine Negative (Negative); Clarity,Urine Clear (Clear); Color,Urine Yellow (Yellow); Glucose,Urine (UA) Normal (Normal); Ketones,Urine Negative (Negative); Leukocyte Esterase,Urine Negative (Negative); Nitrite,Urine Negative (Negative); Protein,Urine 30 mg/dL (Neg-Trace); Specific Gravity,Urine 1.025 (1.010-1.025); Urobilinogen,Urine Normal (Normal)
[2017-07-18 21:41] LABS: Bacteria,Urine None Seen per hpf (None-Few); Hyaline Casts,Urine None Seen per lpf (None-Few); RBC,Urine 0-3 per hpf (0-3); Squamous Epithelial Cell,Urine Few per lpf (None-Few); WBC,Urine 0-3 per hpf (0-3)
[2017-07-18 21:45] LABS: Amphetamine Screen,Urine Negative ng/mL (Cutoff=1000); Barbiturate Screen,Urine Negative ng/mL (Cutoff=200); Benzodiazepines Screen,Urine Negative ng/mL (Cutoff=200); Cannabinoid Screen,Urine Negative ng/mL (Cutoff = 50); Cocaine Screen,Urine Negative ng/mL (Cutoff= 300); Opiate Screen,Urine Negative ng/mL (Cutoff=300); Phencyclidine Screen,Urine Negative ng/mL (Cutoff=25)
[2017-07-18] MEDS: Propofol 500 MG/50 ML INFUS..BTL IVC SCH (22:01)
[2017-07-18 22:19] LABS: Basophils % 0.2 %; Eosinophils % 0.1 %; Hematocrit 35.6 % (35.3-44.9); Hemoglobin 11.4 g/dL (11.5-15.4); Immature Granulocytes % 0.7 % (0-4); Lymphocytes # 2.2 K/mcL (0.6-4.6); Lymphocytes % 14.7 %; Mean Corpuscular Hemoglobin 30.6 pg (28.0-33.3); Mean Corpuscular Volume 95.7 fL (83.0-100.0); Mean Platelet Volume 9.7 fL (9.4-12.4); Monocytes % 6.8 %; Neutrophils # 11.6 K/mcL (1.6-8.9); Platelet Count 312 K/mcL (140-400); Red Blood Count 3.72 M/mcL (3.82-4.97); Red Cell Distribution Width 15.1 % (11.5-14.5); Segmented Neutrophils % 77.5 %
[2017-07-18 22:23] LABS: ABG Base Excess -12 mEq/L (-2 to 3); ABG HCO3 19 mEq/L (21-27); ABG Oxygen Saturation 91 % (95-98); ABG PCO2 58 mmHg (35-45); ABG PH 7.11 pH Units (7.32-7.45); ABG PO2 83 mmHg (85-104); ABG TCO2 20 mEq/L (20-26)
[2017-07-18] MEDS ORDERED: Norepinephrine 4 MG in D5% in Water 250 ML IVC SCH (22:30)
[2017-07-18 22:32] LABS: Albumin 3.6 g/dL (3.5-5.7); Albumin/Globulin Ratio 0.9 (1.1-2.2); Bilirubin,Direct 0.1 mg/dL (0.0-0.2); Bilirubin,Indirect 0.2 mg/dL (0.0-1.2); Bilirubin,Total 0.3 mg/dL (0.3-1.0); Calcium 8.7 mg/dL (8.6-10.3); Globulin 4.2 g/dL (2.4-3.5); Magnesium 2.2 mg/dL (1.6-2.6); Potassium 7.7 mEq/L (3.5-5.1); Total Protein 7.8 g/dL (6.4-8.9)
[2017-07-18] MEDS ORDERED: *HR* Midazolam HCl 5 MG/5 ML VIAL IVP ONE (23:52)
--- NOTE | 2017-07-19 00:09 | Emergency Department Note ---
START Narrative - START START: I examined this patient and my medical decision-making was reviewed with the Resident Physician. I agree with the documented findings, disposition and treatment plan as described except to the extent set forth below. 57 -year-old female presents to the emergency room for weakness and altered mental state. Patient apparently had been sick for well over a week. Family had concerns that she was getting dehydrated. She is also been complaining of an infection under her left breast. Upon arrival, patient was very somnolent confused at times. Her blood pressure was low. The best blood pressure he get was 80 systolic. Patient seemed to be having some respiratory distress as well. Her oral mucosa was dry and tacky. Patient was afebrile. Her left breast showed yeast excoriation under the fold of the left breast with surrounding redness concerning for possible cellulitis as well. We elected to place a central line in the right internal jugular without any complications. This is done under my supervision. She tolerated that procedure well. We started her on IV fluids and she got roughly 3 L. She remained hypotensive. She was barely on any sedation medications. She was electively intubated as well due to respiratory distress. We felt like she was wearing herself out and needed to intubate her. This was done without complications under my supervision as well. She remained hypotensive and would have EKG abnormalities with peaked T waves and a sinusoidal type prolonged QT appearance. This is consistent with her potassium was 7.7. Him gluconate. She was also given insulin and D50. She did well for the time being and then became severely bradycardic in the 40s with worsening prolonged QT. We consult with nephrology who wanted us to place a temporary hemodialysis catheter and so they could send her off for emergent dialysis. Usually this procedure was done under interventional radiology. However, with it being 11 PM at night we had to do it emergently in the ER. Patient's potassium was again treated with insulin 10 units, D50, 3 A of bicarbonate and more calcium. She responded when her heart rate went from the 40s up into the 80s. She was also started on IV vancomycin for the left breast infection. Plan at this time is to have hemodialysis team come in to do emergent dialysis for her renal failure and hyperkalemia. Patient will be admitted to the ICU. Overall: Her diagnoses consist of #1 hypotension #2 acute renal failure #3 hyperkalemia #4 elevated BUN/creatinine #5 restrained failure #6 bilateral pleural effusions #7 bilateral pneumonia #8 EKG abnormalities #9 metabolic acidosis Total critical care time 75 minutes spent in medical management of the patient' s above problems as well as supervision of all procedures and consultations.
[2017-07-19] MEDS ORDERED: *HR* Midazolam HCl 2 MG/2 ML VIAL ONE (00:12)
[2017-07-19] MEDS: Propofol 500 MG/50 ML INFUS..BTL IVC SCH (00:27)
[2017-07-19 00:46] LABS: ABG Base Excess -2 mEq/L (-2 to 3); ABG HCO3 24 mEq/L (21-27); ABG Oxygen Saturation 94 % (95-98); ABG PCO2 46 mmHg (35-45); ABG PH 7.32 pH Units (7.32-7.45); ABG PO2 78 mmHg (85-104); ABG TCO2 25 mEq/L (20-26); Blood Gas Modality ASSIST CONTROL; Blood Gas PEEP 5 cm H2O; Blood Gas Respiration Rate 16; Blood Gas VT 500 cc
--- NOTE | 2017-07-19 00:51 | Internal Med History&Physical ---
Date of Encounter: 07/19/17 Time of Encounter: 00:50 Assessment and Plan (1) Hyperkalemia Current visit: Yes Status: Acute In the setting of acute on chronic kidney disease. Severe; necessitating emergent dialysis Intake serum potassium 7.7 with widened QRS on EKG of 190ms. Emergent management: 1g calcium gluconate, 10u regular insulin, 1 amp dextrose, kayexelate. 3 hr repeat after emergent management: serum potassium improved to 7.1 with improvement in QRS to 146ms. Patient undergoing emergent dialysis. Nephrology following (Dr. Winters) (2) HCAP (healthcare-associated pneumonia) Current visit: Yes Status: Acute CXR and CT chest wo contrast concerning for bilateral pneumonia. Last hospital discharge 04/30/18. Will empirocally cover with vancomycin, cefepime, levaquin. (3) Altered mental status Current visit: Yes Status: Acute In the ED, patient alert and oriented x2. No focal deficits at that time. Emergency intubated secondary to altered mentation and ED concern for airway protection. Arrives to ICU intubated, sedated. Suspect secondary to metabolic derangement including possible hypercarbia to compensate for metabolic acidosis. CT head (-) for acute intracranial abnormality. Consider MRI head wo contrast. Will continue to monitor. Qualifiers: Altered mental status type: unspecified Qualified Code(s): R41.82 - Altered mental status, unspecified (4) Metabolic acidosis Current visit: Yes Status: Acute Metabolic acidosis with inadequate respiratory compensation. In the setting of hyperkalemia. Intake ABG pH 7.11 Received 3amp bicarb. Repeat pH 7.32 Will continue to monitor. (5) Acute kidney injury superimposed on CKD Current visit: Yes Status: Acute Acute renal injury in the context of CKD III. Cr improved from 8.10 to 7.05 with IVF resuscitation. Undergoing emergent dialysis secondary to severe hyperkalemia Nephrology following. (6) Acute electrocardiogram changes Current visit: Yes Status: Acute Prolonged QRS measurement secondary to hyperkalemia. In the setting of hx of atrial fibrillation. Initial troponin <0.03. Will continue to trend and monitor. (7) Insulin dependent diabetes mellitus Current visit: No Status: Chronic Internal Medicine - H&P: HPI Admitted From: Emergency Dept History of present illness: Mrs. Millan is a 57 year old female, presents from home to the ER fr evaluation of weakness and altered mentation for the past 1 week. Family notes she was occasionally not taking her medications appropriately - she took qty 6 of her lasix appx 6 days ago. She reportedly has had minimal PO intake for the past 3 days. ROS not obtainable secondary to patient's medical condition. Past Med Surg Social Fam HX - Past Medical History Medical history: arthritis, asthma, atrial fibrillation, COPD, coronary artery disease, CVA, DVT, diabetes, hyperlipidemia, hypertension, kidney stones, migraine, osteoporosis, pulmonary embolus, renal disease, thyroid disease, TIA Psychiatric history: anxiety, depression, PTSD - Past Surgical History Surgical History: cholecystectomy, orthopedic, other - Social History Smoking Status: Never smoker Smokeless Tobacco Status: No Alcohol use: none Drug use: none - Family History Father Family Member Ethnicity: Non- Living Status: Still Living Hx Family Cardiac Disorders: Yes (HD) Hx Family Respiratory Disorders: Yes Hx Family Cancer: Yes (Renal) Hx Family GI Disorders: Yes (Liver) Hx Family Endocrine Disorder: Yes (DM) Hx Family Neuromuscular Disorders: Yes (Parkinsons) Hx Family Neurologic Disorders: Yes (Dementia) Hx Family HEENT Disorders: No Hx Family Autoimmune Disorders: No Mother Family Member Ethnicity: Non- Living Status: Hx Family Cardiac Disorders: Yes (HD) Hx Family Respiratory Disorders: Yes Hx Family Cancer: Yes (Breast) Hx Family GI Disorders: Yes Hx Family Endocrine Disorder: Yes (DM) Hx Family Neuromuscular Disorders: No Hx Family Neurologic Disorders: No Hx Family HEENT Disorders: No Hx Family Autoimmune Disorders: No Brother Family Member Ethnicity: Non- Living Status: Still Living Hx Family Cardiac Disorders: Yes (CO) Hx Family Respiratory Disorders: No Hx Family Cancer: No Hx Family GI Disorders: No Hx Family Endocrine Disorder: No Hx Family Neuromuscular Disorders: No Hx Family Neurologic Disorders: No Hx Family HEENT Disorders: No Hx Family Autoimmune Disorders: No Sister Family Member Ethnicity: Non- Living Status: Still Living Hx Family Cardiac Disorders: No Hx Family Respiratory Disorders: No Hx Family Cancer: Yes (Ovarian) Hx Family GI Disorders: No Hx Family Endocrine Disorder: No Hx Family Neuromuscular Disorders: No Hx Family Neurologic Disorders: No Hx Family HEENT Disorders: No Hx Family Autoimmune Disorders: No Daughter Living Status: Still Living Hx Family Cardiac Disorders: No Hx Family Respiratory Disorders: No Hx Family Cancer: No Hx Family GI Disorders: No Hx Family Endocrine Disorder: No Hx Family Neuromuscular Disorders: No Hx Family Neurologic Disorders: No Hx Family HEENT Disorders: No Hx Family Autoimmune Disorders: No Internal Medicine - H&P: Meds Aspirin Enteric Coated [Aspirin EC] 81 mg PO DAILY 12/30/14 [History] Atorvastatin [Lipitor] 40 mg PO HS 12/30/14 [History] Nitroglycerin [Nitrostat] 0.4 mg PO Q5M PRN 12/30/14 [History] Sotalol HCl [Betapace] 80 mg PO BID 12/30/14 [History] amLODIPine [Norvasc] 5 mg PO DAILY 30 Days tablet 09/12/15 [Rx] Gabapentin [Neurontin] 600 mg PO TID 10/11/15 [History] Prazosin HCl [Minipress] 5 mg PO HS 10/11/15 [History] Albuterol Sulfate [Ventolin Hfa] 2 puff IH QID PRN 10/12/15 [History] Cholecalciferol (D-3) [Vitamin D] 1,000 unit PO BID 10/12/15 [History] Cyclobenzaprine [Flexeril] 10 mg PO TID 10/12/15 [History] Lisinopril [Zestril] 40 mg PO DAILY 10/12/15 [History] Oxybutynin [Ditropan] 5 mg PO BID 10/12/15 [History] Ranolazine [Ranexa] 500 mg PO BID #60 tab.er.12h 10/15/15 [Rx] Folic Acid 1 mg PO DAILY 02/29/16 [History] Warfarin [Coumadin] 5 mg PO DAILY 02/29/16 [History] Buspirone HCl [Buspar] 7.5 mg PO BID 07/17/16 [History] LORazepam [Lorazepam] 2 mg PO HS 07/17/16 [History] Levothyroxine [Synthroid] 200 mcg PO QAM 07/17/16 [History] Medroxyprogesterone Acetate [Provera] 10 mg PO BID 07/17/16 [History] OxyCODONE/APAP 7.5/325 [Percocet 7.5/325 MG] 1 tab PO Q6H PRN 07/17/16 [History] Spironolactone [Aldactone] 25 mg PO DAILY 07/17/16 [History] Trazodone HCl 100 mg PO HS 07/17/16 [History] metFORMIN [Glucophage] 500 mg PO BID 07/17/16 [History] Ipratropium/Albuterol Neb [Duoneb] 3 ml IH [id number] PRN #0 inhsol 11/03/16 [Rx] Nystatin POWDER [Nystop] 1 appl TP BID bottle 11/03/16 [Rx] Insulin ASPART [Novolog Flexpen] 0 unit SQ TIDWM MDD PER SLIDING SCALE 12/05/16 [History] Oxygen 3 l .ROUTE CONT 12/05/16 [History] Furosemide [Lasix] 40 mg PO QAM #30 tab 12/08/16 [Rx] Insulin DETEMIR [Levemir] 25 unit SQ QPM 04/27/17 [History] Prazosin [Minipress] 2 mg PO QAM 04/27/17 [History] Quetiapine Fumarate [Seroquel] 500 mg PO HS 04/27/17 [History] Enoxaparin [Lovenox *PHARMACY WT BASED*] 130 mg SQ Q12HR #3 syringe 04/30/17 [Rx ] Isosorbide MONOnitrate (24 HR) [Imdur] 60 mg PO DAILY #30 tab.er.24h 04/30/17 [ Rx] 3 Allergy/AdvReac Type Severity Reaction Status Date / Time Latex, Natural Rubber Allergy Rash Verified 04/27/17 12:55 prednisone Allergy Rash Verified 04/27/17 12:55 Zolpidem [From Ambien] AdvReac Hallucinati Verified 04/27/17 12:55 ng tape Allergy Rash Uncoded 04/27/17 12:55 ROS unobtainable: due to endotracheal tube All Systems PM: A 10-system review of systems was performed and is negative for pertinent findings except as documented above in the HPI. - Constitutional Vitals: Temp Pulse Resp BP Pulse Ox 97.6 F 76 16 101/63 94 07/18/17 20:51 07/19/17 00:40 07/19/17 00:40 07/19/17 00:40 07/19/17 00:40 General appearance: Present: morbidly obese, no acute distress - Head Head exam: Present: atraumatic, normal inspection - Eye Eye exam: Present: normal appearance, PERRL, sclera anicteric. Absent: conjunctival injection - ENT ENT exam: Present: mucous membranes dry - Neck Neck exam general surgery: Present: supple - Respiratory Respiratory exam: Present: rales, rhonchi - Cardiovascular Cardiovascular exam: Present: RRR. Absent: clicks, gallop, systolic murmur - GI/Abdominal GI/Abdominal exam: Present: normal bowel sounds, soft. Absent: distended - Extremities Exam Extremities exam: Present: normal capillary refill, warm, radial pulses palpable and symmetrical. Absent: cyanotic, joint swelling, mottling, pedal edema - Back Exam Back exam: Present: normal inspection. Absent: rash noted - Skin Skin exam: Present: dry, rash (Beneath her left breast), warm Internal Med - H&P Results - Labs CBC & Chem 7: 07/18/17 21:45 07/19/17 00:25 - ABG Interpretation ABG results: 07/19/17 00:43 ABG pH 7.32 D ABG pCO2 46 H ABG pO2 78 L ABG HCO3 24 ABG Total CO2 25 ABG O2 Saturation 94 L ABG Base Excess -2 - EKG Data -: EKG Interpreted by Myself (01:50) EKG shows normal: sinus rhythm, axis (left), intervals (Prolonged QRS at 146.) Rate: normal
[2017-07-19 00:54] LABS: Calcium 9.1 mg/dL (8.6-10.3); Magnesium 2.1 mg/dL (1.6-2.6); Potassium 7.2 mEq/L (3.5-5.1)
[2017-07-19] MEDS ORDERED: Naloxone 0.4 MG/ML INJ IVP PRN (01:01)
[2017-07-19] MEDS ORDERED: OXYCODONE Oral CONC 10 MG/0.5 ML ORAL.SYG SL PRN ×2 (01:01)
[2017-07-19] MEDS ORDERED: Lacri-Lube 3.5 GM TUBE BOTH EYES PRN (01:07)
[2017-07-19] MEDS ORDERED: 0.9 % Sodium Chloride 250 ML IVC PRN (01:10)
[2017-07-19] MEDS ORDERED: 0.9 % Sodium Chloride 1,000 ML PRIME SCH (01:15)
[2017-07-19] MEDS: Norepinephrine 4 MG in D5% in Water 250 ML IVC SCH (01:40)
[2017-07-19] MEDS ORDERED: Propofol 500 MG/50 ML INFUS..BTL IVC SCH (01:45)
[2017-07-19] MEDS ORDERED: Cefepime HCl 2,000 MG in Water for inj. (sterile) 20 ML 20 ML IVP SCH (02:00)
[2017-07-19] MEDS: Nystatin Cream 15 GM TUBE TP SCH ×3 (02:04→22:03)
[2017-07-19] MEDS: FentaNYL (PF) 1,000 MCG in 0.9 % Sodium Chloride 80 ML IVC SCH ×3 (02:29→18:05)
--- NOTE | 2017-07-19 02:35 | Pulmonology Consult Note ---
<Vick Cast - Last Filed: 07/19/17 05:50> Date of Encounter: 07/19/17 Time of Encounter: 02:32 Assessment and Plan (1) Hyperkalemia Current Visit: Yes Status: Acute In the setting of acute on chronic kidney disease. Severe; necessitating emergent dialysis Intake: serum potassium 7.7 with widened QRS on EKG of 190ms. 3 hr repeat after emergent management: serum potassium improved to 7.1 with improvement in QRS to 146ms. Repeat K after emergent dialysis: 5.9. Right dialysis line is alarming for high pressures. Will consult IR. Nephrology following (Dr. Winters) (2) HCAP (healthcare-associated pneumonia) Current Visit: Yes Status: Acute CXR and CT chest wo contrast concerning for bilateral pneumonia. Last hospital discharge 04/30/18. Will empirocally cover with vancomycin, cefepime, levaquin. (3) Altered mental status Current Visit: Yes Status: Acute In the ED, patient alert and oriented x2. No focal deficits at that time. Hx CVA, on warfarin secondary to A. Fib. Emergency intubated secondary to altered mentation and ED concern for airway protection. Arrives to ICU intubated, sedated. Suspect secondary to metabolic derangement including possible hypercarbia to compensate for metabolic acidosis. CT head (-) for acute intracranial abnormality. Consider MRI head wo contrast. Will continue to monitor. Qualifiers: Altered mental status type: unspecified Qualified Code(s): R41.82 - Altered mental status, unspecified (4) Metabolic acidosis Current Visit: Yes Status: Acute Metabolic acidosis with inadequate respiratory compensation. In the setting of hyperkalemia; intracellular shift likely a substantial contributing factor. Intake ABG pH 7.11 Received 3amp bicarb. Repeat pH 7.32 Will continue to monitor. (5) Acute kidney injury superimposed on CKD Current Visit: Yes Status: Acute Acute renal injury in the context of CKD III. Cr improved from 8.10 to 7.05 with IVF resuscitation. Undergoing emergent dialysis secondary to severe hyperkalemia Nephrology following. (6) Acute electrocardiogram changes Current Visit: Yes Status: Acute Prolonged QRS measurement secondary to hyperkalemia. In the setting of hx of atrial fibrillation. Initial troponin <0.03. Will continue to trend and monitor. (7) Supratherapeutic INR Current Visit: No Status: Acute On warfarin for thrombus prophylaxis for atrial fibrillation. No active hemorrhage; no indication for FFP at this time. Continue to monitor. (8) Insulin dependent diabetes mellitus Current Visit: No Status: Chronic History of Present Illness Consult date: 07/19/17 Requesting physician: Vick Cast Reason for consult: pneumonia, other (intubated) Chief complaint: altered mentation History of present illness: Mrs. Millan is a 57 year old female, presents from home for evaluation of weakness and altered mentation for the past 1 week. Family notes she was occasionally not taking her medications appropriately - she took qty 6 of her lasix appx 6 days ago. She reportedly has had minimal PO intake for the past 3 days. ROS not obtainable secondary to patient's medical condition. Past Med Surg Social Fam HX - Past Medical History Medical history: arthritis, asthma, atrial fibrillation, COPD, coronary artery disease, CVA, DVT, diabetes, hyperlipidemia, hypertension, kidney stones, migraine, osteoporosis, pulmonary embolus, renal disease, thyroid disease, TIA Psychiatric history: anxiety, depression, PTSD - Past Surgical History Surgical History: cholecystectomy, orthopedic, other - Social History Smoking Status: Never smoker Smokeless Tobacco Status: No Alcohol use: none Drug use: none - Family History Father Family Member Ethnicity: Non- Living Status: Still Living Hx Family Cardiac Disorders: Yes (HD) Hx Family Respiratory Disorders: Yes Hx Family Cancer: Yes (Renal) Hx Family GI Disorders: Yes (Liver) Hx Family Endocrine Disorder: Yes (DM) Hx Family Neuromuscular Disorders: Yes (Parkinsons) Hx Family Neurologic Disorders: Yes (Dementia) Hx Family HEENT Disorders: No Hx Family Autoimmune Disorders: No Mother Family Member Ethnicity: Non- Living Status: Hx Family Cardiac Disorders: Yes (HD) Hx Family Respiratory Disorders: Yes Hx Family Cancer: Yes (Breast) Hx Family GI Disorders: Yes Hx Family Endocrine Disorder: Yes (DM) Hx Family Neuromuscular Disorders: No Hx Family Neurologic Disorders: No Hx Family HEENT Disorders: No Hx Family Autoimmune Disorders: No Brother Family Member Ethnicity: Non- Living Status: Still Living Hx Family Cardiac Disorders: Yes ([place]) Hx Family Respiratory Disorders: No Hx Family Cancer: No Hx Family GI Disorders: No Hx Family Endocrine Disorder: No Hx Family Neuromuscular Disorders: No Hx Family Neurologic Disorders: No Hx Family HEENT Disorders: No Hx Family Autoimmune Disorders: No Sister Family Member Ethnicity: Non- Living Status: Still Living Hx Family Cardiac Disorders: No Hx Family Respiratory Disorders: No Hx Family Cancer: Yes (Ovarian) Hx Family GI Disorders: No Hx Family Endocrine Disorder: No Hx Family Neuromuscular Disorders: No Hx Family Neurologic Disorders: No Hx Family HEENT Disorders: No Hx Family Autoimmune Disorders: No Daughter Living Status: Still Living Hx Family Cardiac Disorders: No Hx Family Respiratory Disorders: No Hx Family Cancer: No Hx Family GI Disorders: No Hx Family Endocrine Disorder: No Hx Family Neuromuscular Disorders: No Hx Family Neurologic Disorders: No Hx Family HEENT Disorders: No Hx Family Autoimmune Disorders: No Medications and Allergies Aspirin Enteric Coated [Aspirin EC] 81 mg PO DAILY 12/30/14 [History] Atorvastatin [Lipitor] 40 mg PO HS 12/30/14 [History] Nitroglycerin [Nitrostat] 0.4 mg PO Q5M PRN 12/30/14 [History] Sotalol HCl [Betapace] 80 mg PO BID 12/30/14 [History] Gabapentin [Neurontin] 600 mg PO TID 10/11/15 [History] Prazosin HCl [Minipress] 5 mg PO HS 10/11/15 [History] Albuterol Sulfate [Ventolin Hfa] 2 puff IH QID PRN 10/12/15 [History] Cholecalciferol (D-3) [Vitamin D] 1,000 unit PO BID 10/12/15 [History] Lisinopril [Zestril] 40 mg PO DAILY 10/12/15 [History] Oxybutynin [Ditropan] 5 mg PO BID 10/12/15 [History] Ranolazine [Ranexa] 500 mg PO BID #60 tab.er.12h 10/15/15 [Rx] Folic Acid 1 mg PO DAILY 02/29/16 [History] Warfarin [Coumadin] 5 mg PO DAILY 02/29/16 [History] Buspirone HCl [Buspar] 15 mg PO DAILY 07/17/16 [History] Levothyroxine [Synthroid] 200 mcg PO QAM 07/17/16 [History] OxyCODONE/APAP 7.5/325 [Percocet 7.5/325 MG] 1 tab PO Q6H PRN 07/17/16 [History] Spironolactone [Aldactone] 25 mg PO DAILY 07/17/16 [History] Trazodone HCl 100 mg PO HS 07/17/16 [History] Ipratropium/Albuterol Neb [Duoneb] 3 ml IH [id number] PRN #0 inhsol 11/03/16 [Rx] Nystatin POWDER [Nystop] 1 appl TP BID bottle 11/03/16 [Rx] Insulin ASPART [Novolog Flexpen] 0 unit SQ TIDWM MDD PER SLIDING SCALE 12/05/16 [History] Oxygen 3 l .ROUTE CONT 12/05/16 [History] Furosemide [Lasix] 40 mg PO QAM #30 tab 12/08/16 [Rx] Prazosin [Minipress] 2 mg PO QAM 04/27/17 [History] Quetiapine Fumarate [Seroquel] 500 mg PO HS 04/27/17 [History] Isosorbide MONOnitrate (24 HR) [Imdur] 60 mg PO DAILY #30 tab.er.24h 04/30/17 [ Rx] Alogliptin Benzoate [Alogliptin] 12.5 mg PO DAILY 07/19/17 [History] Insulin Glargine,Hum.rec.anlog [Basaglar Kwikpen U-100] 25 unit SQ HS 07/19/17 [ History] LORazepam [Ativan] 1 mg PO BID PRN 07/19/17 [History] Leucovorin/Pyridox/Mecobalamin [Folinic-Plus Caplet] 1 cap PO DAILY 07/19/17 [ History] Levothyroxine [Synthroid] 25 mcg PO QAM 07/19/17 [History] Metformin HCl [Glucophage] 1,000 mg PO BID 07/19/17 [History] Venlafaxine XR (24 HR) [Effexor XR] 75 mg PO TID 07/19/17 [History] amLODIPine [Norvasc] 10 mg PO DAILY 07/19/17 [History] 3 Allergy/AdvReac Type Severity Reaction Status Date / Time Latex, Natural Rubber Allergy Rash Verified 04/27/17 12:55 prednisone Allergy Rash Verified 04/27/17 12:55 Zolpidem [From Ambien] AdvReac Hallucinati Verified 04/27/17 12:55 ng tape Allergy Rash Uncoded 04/27/17 12:55 ROS unobtainable: due to endotracheal tube All Systems: The remainder of the systems were reviewed and are negative Physical Examination Vital Signs: Vital Signs, Last 4 Hours Temp Pulse Resp BP Pulse Ox 07/19/17 02:00 75 16 119/76 95 07/19/17 01:30 80 18 97/67 94 07/19/17 01:24 21 106/55 92 07/19/17 01:00 79 20 112/79 94 07/19/17 00:50 98.1 F 137 20 112/79 90 07/19/17 00:40 76 16 101/63 94 07/19/17 00:38 76 98/80 96 07/19/17 00:24 76 18 105/62 94 07/19/17 00:20 80 18 121/73 94 Ventilator Settings Ventilator Settings: Ventilator Settings, Last 8 Hours Ventilator Mode VC+ Ventilator Mode VC+ Ventilator Mode A/C Ventilator Mode VC+ Ventilator Mode VC+ Ventilator Tidal Volume 500 Setting Ventilator Tidal Volume 500 Setting Ventilator Tidal Volume 500 Setting Ventilator Tidal Volume 500 Setting Ventilator Tidal Volume 500 Setting Ventilator Respiratory Rate 16 Setting Ventilator Respiratory Rate 16 Setting Ventilator Respiratory Rate 16 Setting Ventilator Respiratory Rate 16 Setting Ventilator Respiratory Rate 16 Setting Actual Respiratory Rate 16 Actual Respiratory Rate 18 Actual Respiratory Rate 21 Actual Respiratory Rate 20 Actual Respiratory Rate 20 Positive End Expiratory 8 Pressure Positive End Expiratory 8 Pressure Positive End Expiratory 8 Pressure Positive End Expiratory 8 Pressure Positive End Expiratory 8 Pressure Peak Inspiratory Airway 29 Pressure Peak Inspiratory Airway 28 Pressure Peak Inspiratory Airway 28 Pressure Peak Inspiratory Airway 29 Pressure Peak Inspiratory Airway 28 Pressure Results - Laboratory Findings CBC and BMP: 07/19/17 03:00 07/19/17 03:00 ABG ABG pH 7.32 pH Units (7.32-7.45) D 07/19/17 00:43 ABG pCO2 46 mmHg (35-45) H 07/19/17 00:43 ABG pO2 78 mmHg (85-104) L 07/19/17 00:43 ABG O2 Saturation 94 % (95-98) L 07/19/17 00:43 Abnormal lab findings: Abnormal lab results WBC 14.9 K/mcL (4.3-11.1) H 07/18/17 21:45 RBC 3.72 M/mcL (3.82-4.97) L 07/18/17 21:45 Hgb 11.4 g/dL (11.5-15.4) L 07/18/17 21:45 RDW 15.1 % (11.5-14.5) H 07/18/17 21:45 Neutrophils # 11.6 K/mcL (1.6-8.9) H 07/18/17 21:45 ABG pCO2 46 mmHg (35-45) H 07/19/17 00:43 ABG pO2 78 mmHg (85-104) L 07/19/17 00:43 ABG O2 Saturation 94 % (95-98) L 07/19/17 00:43 Potassium 7.2 mEq/L (3.5-5.1) H* 07/19/17 00:25 Carbon Dioxide 22 mEq/L (23-29) L 07/19/17 00:25 BUN 86 mg/dL (6-20) H 07/19/17 00:25 Creatinine 7.05 mg/dL (0.60-1.20) H 07/19/17 00:25 Est GFR ( Amer) 7 (> 60) L 07/19/17 00:25 Est GFR (Non-Af Amer) 6 (> 60) L 07/19/17 00:25 Glucose 183 mg/dL (70-105) H 07/19/17 00:25 POC Glucose 166 (58-89) H 07/19/17 00:55 Calculated Osmolality 315 (280-300) H 07/19/17 00:25 AST 11 Units/L (13-39) L 07/18/17 21:45 B-Natriuretic Peptide 218 pg/mL (Less than 100) H 07/18/17 21:45 Globulin 4.2 g/dL (2.4-3.5) H 07/18/17 21:45 Albumin/Globulin Ratio 0.9 (1.1-2.2) L 07/18/17 21:45 Urine Protein 30 mg/dL (Neg-Trace) H 07/18/17 21:30 Urine Bilirubin Small (Negative) H 07/18/17 21:30 - Diagnostic Findings Chest x-ray: report reviewed CT scan - chest: report reviewed Additional studies: Chest CT 07/18/17 20:22 IMPRESSION: 1. Bilateral pleural effusions with bilateral atelectasis and/or pneumonia. 2. Coronary artery disease. D/ / Jm Farmer MD / Jm Farmer MD Interpreting Provider: Jm Farmer MD Chest X-Ray 07/18/17 20:22 IMPRESSION: Endotracheal tube tip is in the expected location. Right internal jugular central venous catheter tip is in the expected location. No pneumothorax. Nasogastric tube tip is in the expected location, below the into the image but at least within the gastric body. Increased opacity throughout both lungs, greater on the left, pneumonia versus edema. D/ / Niraj Larson MD / Niraj Larson MD Interpreting Provider: Niraj Larson MD Head CT 07/18/17 20:22 IMPRESSION: No acute intracranial abnormality. Bilateral paranasal sinus disease, probably chronic. D/ / Jm Farmer MD / Jm Farmer MD Interpreting Provider: Jm Farmer MD - Clinical Findings Intake & Output: Intake & Output 07/18/17 07/18/17 07/19/17 15:59 23:59 07:59 Intake Total 50 / 50 Balance 50 / 50 Weight 124 kg Consult Discharge Plan - Plan Referrals: Ashwin Ellington, PAC [Primary Care Provider] - <Sohan Lara - Last Filed: 07/19/17 23:33> Date of Encounter: 07/19/17 All Systems: The remainder of the systems were reviewed and are negative Physical Examination Vital Signs: Vital Signs, Last 4 Hours Temp Pulse Resp BP Pulse Ox 07/19/17 21:04 100 F H 07/19/17 20:00 78 22 114/69 90 07/19/17 19:59 22 110/72 92 07/19/17 19:00 78 22 120/76 92 07/19/17 18:30 78 22 110/68 96 07/19/17 18:12 22 125/78 94 Ventilator Settings Ventilator Settings: Ventilator Settings, Last 8 Hours Ventilator Mode A/C Ventilator Mode A/C Ventilator Mode A/C Ventilator Mode A/C Ventilator Mode A/C Ventilator Mode A/C Ventilator Mode A/C Ventilator Tidal Volume 450 Setting Ventilator Tidal Volume 450 Setting Ventilator Tidal Volume 450 Setting Ventilator Tidal Volume 450 Setting Ventilator Tidal Volume 450 Setting Ventilator Tidal Volume 450 Setting Ventilator Tidal Volume 450 Setting Ventilator Tidal Volume 450 Setting Ventilator Tidal Volume 450 Setting Ventilator Tidal Volume 450 Setting Ventilator Respiratory Rate 22 Setting Ventilator Respiratory Rate 22 Setting Ventilator Respiratory Rate 22 Setting Ventilator Respiratory Rate 22 Setting Ventilator Respiratory Rate 22 Setting Ventilator Respiratory Rate 22 Setting Ventilator Respiratory Rate 22 Setting Ventilator Respiratory Rate 22 Setting Ventilator Respiratory Rate 22 Setting Ventilator Respiratory Rate 22 Setting Actual Respiratory Rate 22 Actual Respiratory Rate 22 Actual Respiratory Rate 22 Actual Respiratory Rate 22 Actual Respiratory Rate 22 Actual Respiratory Rate 22 Actual Respiratory Rate 22 Actual Respiratory Rate 22 Actual Respiratory Rate 22 Actual Respiratory Rate 22 Positive End Expiratory 8 Pressure Positive End Expiratory 8 Pressure Positive End Expiratory 8 Pressure Positive End Expiratory 8 Pressure Positive End Expiratory 8 Pressure Positive End Expiratory 8 Pressure Positive End Expiratory 8 Pressure Positive End Expiratory 8 Pressure Positive End Expiratory 8 Pressure Positive End Expiratory 8 Pressure Peak Inspiratory Airway 27 Pressure Peak Inspiratory Airway 27 Pressure Peak Inspiratory Airway 33 Pressure Peak Inspiratory Airway 33 Pressure Peak Inspiratory Airway 26 Pressure Peak Inspiratory Airway 32 Pressure Peak Inspiratory Airway 33 Pressure Peak Inspiratory Airway 28 Pressure Peak Inspiratory Airway 27 Pressure Peak Inspiratory Airway 29 Pressure Results - Laboratory Findings CBC and BMP: 07/19/17 07:50 07/19/17 22:38 ABG ABG pH 7.32 pH Units (7.32-7.45) D 07/19/17 00:43 ABG pCO2 46 mmHg (35-45) H 07/19/17 00:43 ABG pO2 78 mmHg (85-104) L 07/19/17 00:43 ABG O2 Saturation 94 % (95-98) L 07/19/17 00:43 PT/INR, D-dimer PT 20.9 Seconds (9.4-12.1) H D 07/19/17 19:01 Abnormal lab findings: Abnormal lab results RBC 3.58 M/mcL (3.82-4.97) L 07/19/17 07:50 Hgb 10.8 g/dL (11.5-15.4) L 07/19/17 07:50 Hct 33.7 % (35.3-44.9) L 07/19/17 07:50 RDW 14.9 % (11.5-14.5) H 07/19/17 07:50 PT 20.9 Seconds (9.4-12.1) H D 07/19/17 19:01 APTT 53.2 Seconds (26.0-36.0) H 07/19/17 07:50 ABG pCO2 46 mmHg (35-45) H 07/19/17 00:43 ABG pO2 78 mmHg (85-104) L 07/19/17 00:43 ABG O2 Saturation 94 % (95-98) L 07/19/17 00:43 BUN 56 mg/dL (6-20) H 07/19/17 07:50 Creatinine 4.70 mg/dL (0.60-1.20) H 07/19/17 07:50 Est GFR ( Amer) 12 (> 60) L 07/19/17 07:50 Est GFR (Non-Af Amer) 10 (> 60) L 07/19/17 07:50 Glucose 162 mg/dL (70-105) H 07/19/17 07:50 POC Glucose 116 (58-89) H 07/19/17 11:38 Calculated Osmolality 307 (280-300) H 07/19/17 07:50 Phosphorus 5.2 mg/dL (2.7-4.5) H 07/19/17 03:00 B-Natriuretic Peptide 218 pg/mL (Less than 100) H 07/18/17 21:45 Albumin 3.4 g/dL (3.5-5.7) L 07/19/17 03:00 Globulin 4.1 g/dL (2.4-3.5) H 07/19/17 03:00 Albumin/Globulin Ratio 0.8 (1.1-2.2) L 07/19/17 03:00 Urine Protein 30 mg/dL (Neg-Trace) H 07/18/17 21:30 Urine Bilirubin Small (Negative) H 07/18/17 21:30 - Clinical Findings Intake & Output: Intake & Output 07/19/17 07/19/17 07/19/17 07:59 15:59 23:59 Intake Total 1420 / 1420 925 / 925 575 / 575 Output Total 2400 / 2400 325 / 325 800 / 800 Balance -980 / -980 600 / 600 -225 / -225 Weight 124 kg - Attending Attestation I saw and evaluated this patient and my medical decision-making was reviewed with the Resident Physician. I agree with the documented findings, disposition and treatment plan as described except to the extent set forth below. We independently had [id number] contact with the patient I spent 40 minutes of Critical Care time with this patient. It involved decision making of high complexity to assess, manipulate, and support vital organ system failure and/or to prevent further life threatening deterioration of the patient's condition. The time involved in the performance of separately reportable procedures was not counted toward critical care time. Patient seen and examined at bedside Labs, radiology, chart personally reviewed. Management was reviewed during multidisciplinary critical care rounds. SENIOR SOLUTIONS CONSULTANT:Patient presented as encephalopathy secondary to toxic /metabolic reasons Pulm: Bilateral pneumonia causing V/Q mismatch complicated by fluid overlaod adjust vent settings to optimize oxygenation and gas exchange Cards: Patient is hemodynamically stable FEN-GI: NPO will advance tube feedings as per nutrition Renal: Acute on Chronic Kidney injury with profound symptomatic hyperkalemia needed a round of dialysis . Now kidney function improving appreciate Nephrology recs ID: Broad spectrum antibiotics for pneumonia will descalate accordingly Heme/Onc: Labs reviewed Endo: Glucose Monitored Integ/MSK: Skin Care per routine ICU Nursing Protocol to prevent ulcers. Lines: All lines examined without evidence of infection : Dispo: Critically ill CODE:Full Code
[2017-07-19] MEDS: Lacri-Lube 3.5 GM TUBE BOTH EYES SCH ×6 (03:13→23:10)
[2017-07-19 03:18] LABS: Basophils % 0.3 %; Eosinophils % 0.2 %; Hematocrit 34.1 % (35.3-44.9); Hemoglobin 11.4 g/dL (11.5-15.4); Lymphocytes # 1.4 K/mcL (0.6-4.6); Lymphocytes % 11.9 %; Mean Corpuscular HGB Conc 33.4 g/dL (31.6-35.5); Mean Corpuscular Hemoglobin 31.3 pg (28.0-33.3); Mean Corpuscular Volume 93.7 fL (83.0-100.0); Mean Platelet Volume 9.8 fL (9.4-12.4); Monocytes # 0.7 K/mcL (0.0-1.3); Monocytes % 6.3 %; Neutrophils # 9.3 K/mcL (1.6-8.9); Platelet Count 293 K/mcL (140-400); Red Blood Count 3.64 M/mcL (3.82-4.97); Red Cell Distribution Width 14.9 % (11.5-14.5); Segmented Neutrophils % 80.3 %
[2017-07-19 03:28] LABS: Albumin 3.4 g/dL (3.5-5.7); Albumin/Globulin Ratio 0.8 (1.1-2.2); Bilirubin,Direct 0.1 mg/dL (0.0-0.2); Bilirubin,Indirect 0.3 mg/dL (0.0-1.2); Bilirubin,Total 0.4 mg/dL (0.3-1.0); Calcium 8.9 mg/dL (8.6-10.3); Globulin 4.1 g/dL (2.4-3.5); Phosphorous 5.2 mg/dL (2.7-4.5); Potassium 5.9 mEq/L (3.5-5.1); Total Protein 7.5 g/dL (6.4-8.9)
[2017-07-19 03:36] LABS: Prothrombin Time 58.8 Seconds (9.4-12.1)
[2017-07-19 03:37] LABS: INR 5.3
[2017-07-19 03:53] LABS: Hepatitis B Surface Antigen Nonreactive (Nonreactive)
[2017-07-19] MEDS ORDERED: 0.9 % Sodium Chloride 1,000 ML ONE (05:37)
[2017-07-19] MEDS ORDERED: D5% in Water 1,000 ML IVC PRN (05:48)
[2017-07-19] MEDS ORDERED: Dextrose Gel 15 GM/37.5 ML TUBE PO PRN ×2 (05:48)
[2017-07-19] MEDS ORDERED: *HR* Dextrose 50 % in Water (Syg) 50 ML SYRINGE IVP PRN (05:48)
[2017-07-19] MEDS: Levofloxacin 750 MG/150 ML 750 MG/150 ML BAG IVPB SCH (06:37)
[2017-07-19] MEDS: Insulin LISPRO 300 UNITS/3 ML VIAL SQ SCH ×3 (06:38→21:49)
[2017-07-19] MEDS ORDERED: *HR* Rocuronium Bromide 100 MG/10 ML VIAL IVC ONE (07:58)
[2017-07-19] MEDS ORDERED: *HR* Etomidate 20 MG/10 ML AMPUL IVP ONE (07:58)
[2017-07-19] MEDS ORDERED: Cefepime HCl 2,000 MG in Water for inj. (sterile) 20 ML 20 ML IVPB SCH (08:00)
[2017-07-19 08:01] LABS: Basophils % 0.2 %; Eosinophils % 0.1 %; Hematocrit 33.7 % (35.3-44.9); Hemoglobin 10.8 g/dL (11.5-15.4); Immature Granulocytes % 0.6 % (0-4); Lymphocytes # 1.4 K/mcL (0.6-4.6); Lymphocytes % 12.9 %; Mean Corpuscular Hemoglobin 30.2 pg (28.0-33.3); Mean Corpuscular Volume 94.1 fL (83.0-100.0); Mean Platelet Volume 9.8 fL (9.4-12.4); Monocytes # 0.7 K/mcL (0.0-1.3); Monocytes % 6.2 %; Neutrophils # 8.7 K/mcL (1.6-8.9); Platelet Count 274 K/mcL (140-400); Red Blood Count 3.58 M/mcL (3.82-4.97); Red Cell Distribution Width 14.9 % (11.5-14.5)
[2017-07-19] MEDS ORDERED: Fluconazole 100 MG TABLET PO ONE (08:06)
[2017-07-19 08:10] LABS: Activated Partial Thrombo Time 53.2 Seconds (26.0-36.0)
[2017-07-19 08:13] LABS: Prothrombin Time 58.8 Seconds (9.4-12.1)
[2017-07-19 08:14] LABS: INR 5.3
[2017-07-19 08:20] LABS: Calcium 8.6 mg/dL (8.6-10.3); Potassium 4.5 mEq/L (3.5-5.1)
--- NOTE | 2017-07-19 08:28 | Event Note ---
Date of Encounter: 07/19/17 Time of Encounter: 08:27 Noted patient of William Mendez. [facility] ICU nurse states will notify.
[2017-07-19] MEDS: Chlorhexidine Rinse 15 ML MOUTHWASH MM SCH ×2 (08:59→22:03)
[2017-07-19] MEDS: Pantoprazole 40 MG VIAL IVP SCH (08:59)
[2017-07-19] MEDS ORDERED: Levofloxacin 750 MG/150 ML 750 MG/150 ML BAG IVPB SCH (09:00)
--- NOTE | 2017-07-19 10:18 | Nephrology Consult Note ---
Date of Encounter: 07/19/17 Time of Encounter: 10:15 Assessment and Plan (1) Acute renal failure Current Visit: Yes Status: Acute Patient with nonoliguiric acute kidney injury that is likely multifactorial. Patient with multiple nephrotoxic agents. She received dialysis last night secondary to severe hyperkalemia that was secondary to renal dysfunction along with ongoing CHRISTIANO-I and potassium sparing diuretic use. Potassium supplements were not listed on her home medication lists and her diet is unknown at this time. No need for dialysis today. Patient may improve given relatively normal renal function prior to this event and significant urine output. Avoid nephrotoxins. Agree with hydration as tolerated. 31 minutes spent in the care of this critically ill patient. Qualifiers: Acute renal failure type: unspecified Qualified Code(s): N17.9 - Acute kidney failure, unspecified (2) Hyperkalemia Current Visit: Yes Status: Acute See MARIBEL. Improved. (3) Septic shock Current Visit: Yes Status: Acute CXR and CT with pneumonia vs. CHF. BNP minimally elevated. Avoiding diuretics while renal function recovers. Recommend discontinuing vancomycin. Antibiotics per primary team. (4) Anemia Current Visit: Yes Status: Acute Check iron stores vitamin b12 and folate. Qualifiers: Qualified Code(s): D64.9 - Anemia, unspecified (5) Altered mental status Current Visit: Yes Status: Acute Patient intubated. Etiology unclear. Qualifiers: Altered mental status type: unspecified Qualified Code(s): R41.82 - Altered mental status, unspecified History of Present Illness - Reason for Consult Consult date: 07/19/17 Acute Kidney Injury - Chief Complaint MARIBEL - History of Present Illness Ms. Millan is a 57 yo woman with a history of hypertension who presents with altered mental status. [facility] was consulted for acute kidney injury. History is from the medical records as she is unable to provide a history secondary to being intubated and sedated. She presented with AMS and was subsequently intubated. According to notes there is a strong suspicion for inappropriate dosing of her home medications. She was found to have MARIBEL and severe hyperkalemia. She was dialyzed overnight. Past Med Surg Social Fam HX - Past Medical History Medical history: arthritis, asthma, atrial fibrillation, COPD, coronary artery disease, CVA, DVT, diabetes, hyperlipidemia, hypertension, kidney stones, migraine, osteoporosis, pulmonary embolus, renal disease, thyroid disease, TIA Psychiatric history: anxiety, depression, PTSD - Past Surgical History Surgical History: cholecystectomy, orthopedic, other - Social History Smoking Status: Never smoker Smokeless Tobacco Status: No Alcohol use: none Drug use: none - Family History Father Family Member Ethnicity: Non- Living Status: Still Living Hx Family Cardiac Disorders: Yes (HD) Hx Family Respiratory Disorders: Yes Hx Family Cancer: Yes (Renal) Hx Family GI Disorders: Yes (Liver) Hx Family Endocrine Disorder: Yes (DM) Hx Family Neuromuscular Disorders: Yes (Parkinsons) Hx Family Neurologic Disorders: Yes (Dementia) Hx Family HEENT Disorders: No Hx Family Autoimmune Disorders: No Mother Family Member Ethnicity: Non- Living Status: Hx Family Cardiac Disorders: Yes (HD) Hx Family Respiratory Disorders: Yes Hx Family Cancer: Yes (Breast) Hx Family GI Disorders: Yes Hx Family Endocrine Disorder: Yes (DM) Hx Family Neuromuscular Disorders: No Hx Family Neurologic Disorders: No Hx Family HEENT Disorders: No Hx Family Autoimmune Disorders: No Brother Family Member Ethnicity: Non- Living Status: Still Living Hx Family Cardiac Disorders: Yes (SD) Hx Family Respiratory Disorders: No Hx Family Cancer: No Hx Family GI Disorders: No Hx Family Endocrine Disorder: No Hx Family Neuromuscular Disorders: No Hx Family Neurologic Disorders: No Hx Family HEENT Disorders: No Hx Family Autoimmune Disorders: No Sister Family Member Ethnicity: Non- Living Status: Still Living Hx Family Cardiac Disorders: No Hx Family Respiratory Disorders: No Hx Family Cancer: Yes (Ovarian) Hx Family GI Disorders: No Hx Family Endocrine Disorder: No Hx Family Neuromuscular Disorders: No Hx Family Neurologic Disorders: No Hx Family HEENT Disorders: No Hx Family Autoimmune Disorders: No Daughter Living Status: Still Living Hx Family Cardiac Disorders: No Hx Family Respiratory Disorders: No Hx Family Cancer: No Hx Family GI Disorders: No Hx Family Endocrine Disorder: No Hx Family Neuromuscular Disorders: No Hx Family Neurologic Disorders: No Hx Family HEENT Disorders: No Hx Family Autoimmune Disorders: No Medications and Allergies Aspirin Enteric Coated [Aspirin EC] 81 mg PO DAILY 12/30/14 [History] Atorvastatin [Lipitor] 40 mg PO HS 12/30/14 [History] Nitroglycerin [Nitrostat] 0.4 mg PO Q5M PRN 12/30/14 [History] Sotalol HCl [Betapace] 80 mg PO BID 12/30/14 [History] amLODIPine [Norvasc] 5 mg PO DAILY 30 Days tablet 09/12/15 [Rx] Gabapentin [Neurontin] 600 mg PO TID 10/11/15 [History] Prazosin HCl [Minipress] 5 mg PO HS 10/11/15 [History] Albuterol Sulfate [Ventolin Hfa] 2 puff IH QID PRN 10/12/15 [History] Cholecalciferol (D-3) [Vitamin D] 1,000 unit PO BID 10/12/15 [History] Cyclobenzaprine [Flexeril] 10 mg PO TID 10/12/15 [History] Lisinopril [Zestril] 40 mg PO DAILY 10/12/15 [History] Oxybutynin [Ditropan] 5 mg PO BID 10/12/15 [History] Ranolazine [Ranexa] 500 mg PO BID #60 tab.er.12h 10/15/15 [Rx] Folic Acid 1 mg PO DAILY 02/29/16 [History] Warfarin [Coumadin] 5 mg PO DAILY 02/29/16 [History] Buspirone HCl [Buspar] 7.5 mg PO BID 07/17/16 [History] LORazepam [Lorazepam] 2 mg PO HS 07/17/16 [History] Levothyroxine [Synthroid] 200 mcg PO QAM 07/17/16 [History] Medroxyprogesterone Acetate [Provera] 10 mg PO BID 07/17/16 [History] OxyCODONE/APAP 7.5/325 [Percocet 7.5/325 MG] 1 tab PO Q6H PRN 07/17/16 [History] Spironolactone [Aldactone] 25 mg PO DAILY 07/17/16 [History] Trazodone HCl 100 mg PO HS 07/17/16 [History] metFORMIN [Glucophage] 500 mg PO BID 07/17/16 [History] Ipratropium/Albuterol Neb [Duoneb] 3 ml IH [id number] PRN #0 inhsol 11/03/16 [Rx] Nystatin POWDER [Nystop] 1 appl TP BID bottle 11/03/16 [Rx] Insulin ASPART [Novolog Flexpen] 0 unit SQ TIDWM MDD PER SLIDING SCALE 12/05/16 [History] Oxygen 3 l .ROUTE CONT 12/05/16 [History] Furosemide [Lasix] 40 mg PO QAM #30 tab 12/08/16 [Rx] Insulin DETEMIR [Levemir] 25 unit SQ QPM 04/27/17 [History] Prazosin [Minipress] 2 mg PO QAM 04/27/17 [History] Quetiapine Fumarate [Seroquel] 500 mg PO HS 04/27/17 [History] Enoxaparin [Lovenox *PHARMACY WT BASED*] 130 mg SQ Q12HR #3 syringe 04/30/17 [Rx ] Isosorbide MONOnitrate (24 HR) [Imdur] 60 mg PO DAILY #30 tab.er.24h 04/30/17 [ Rx] 3 Allergy/AdvReac Type Severity Reaction Status Date / Time Latex, Natural Rubber Allergy Rash Verified 04/27/17 12:55 prednisone Allergy Rash Verified 04/27/17 12:55 Zolpidem [From Ambien] AdvReac Hallucinati Verified 04/27/17 12:55 ng tape Allergy Rash Uncoded 04/27/17 12:55 Review of Systems ROS unobtainable: due to endotracheal tube, due to mental status Exam - Vital Signs Vital signs: Initial Vital Signs Pulse Resp BP Pulse Ox 70 28 87/78 96 07/18/17 20:16 07/18/17 20:16 07/18/17 20:16 07/18/17 20:16 Vital Signs - Last 8 Hours Temp Pulse Resp BP Pulse Ox 07/19/17 09:33 83 22 103/72 96 07/19/17 08:30 78 22 94/69 95 07/19/17 08:00 97.8 F 07/19/17 07:37 20 93/64 99 07/19/17 07:30 97.8 F 85 22 104/98 95 07/19/17 06:00 86 20 93/64 99 07/19/17 05:13 18 111/68 100 07/19/17 05:00 90 20 127/93 98 07/19/17 04:45 97.6 F 16 132/81 07/19/17 04:20 128/82 07/19/17 04:05 128/82 07/19/17 04:03 97.6 F 02/22/18 04:00 82 20 128/77 97 07/19/17 03:50 127/76 07/19/17 03:35 127/76 07/19/17 03:34 17 124/77 96 07/19/17 03:20 121/73 07/19/17 03:05 133/76 07/19/17 03:00 79 16 133/76 95 07/19/17 02:50 120/68 07/19/17 02:35 125/72 07/19/17 02:20 124/72 Intake and Output 07/18/17 07/19/17 07/19/17 23:59 07:59 15:59 Intake Total 1420 / 1420 75 / 75 Output Total 2400 / 2400 100 / 100 Balance -980 / -980 -25 / -25 Intake: IV Fluids 220 / 220 75 / 75 Levophed 4 MG In Dextrose 5% 25 / 25 250 ML @ 8 MCG/MIN 30.48 mls/hr IVC CONT [facility] Rx#:[id number] Diprivan 1,000 mg In 100 ml @ 5 125 / 125 75 / 75 MCG/KG/MIN 4.082 mls/hr IVC . Q24H [facility] Rx#:[id number] Diprivan 500 mg In 50 ml @ 5 50 / 50 MCG/KG/MIN 4.082 mls/hr IVC . [id number] [facility] Rx#:[id number] Maxipime 2,000 MG In Water for 20 / 20 inj. (sterile) 20 ML @ 300 mls/ hr IVP Q24H [facility] Rx#:[id number] Oral 0 / 0 Intake, Rinseback and Flushes 1200 / 1200 Output: Urine 400 / 400 Total Dialysis (HD) Output 600 / 600 Catheter 1400 / 1400 100 / 100 Other: Weight 124 kg Blood Glucose* 166 Hemodialysis Net Fluid Removed 0 (mL) Patient Weight 07/19/17 23:59 Weight 124 kg - General Appearance General appearance: well-developed, well-nourished, obese, sedated on ventilator , intubated EENT: ATNC Neck: supple Respiratory: clear Cardiology: no edema, regular rate, regular rhythm - Dialysis Access Dialysis Vascular Access: Venous Catheter (right groin) Integumentary: warm and dry Neurologic: obtunded Musculoskeletal: no cyanosis Results - Lab Results 07/19/17 07:50 07/19/17 07:50 Most recent lab results ABG pH 7.32 pH Units (7.32-7.45) D 07/19/17 00:43 ABG pCO2 46 mmHg (35-45) H 07/19/17 00:43 ABG pO2 78 mmHg (85-104) L 07/19/17 00:43 ABG HCO3 24 mEq/L (21-27) 07/19/17 00:43 ABG O2 Saturation 94 % (95-98) L 07/19/17 00:43 Calcium 8.6 mg/dL (8.6-10.3) 07/19/17 07:50 Phosphorus 5.2 mg/dL (2.7-4.5) H 07/19/17 03:00 Magnesium 2.0 mg/dL (1.6-2.6) 07/19/17 03:00 Urine Sodium 52.7 mEq/L 07/18/17 21:30 Consult Discharge Plan - Plan Referrals: Ashwin Ellington, PAC [Primary Care Provider] -
[2017-07-19] MEDS ORDERED: 0.9 % Sodium Chloride 250 ML ONE (11:12)
--- NOTE | 2017-07-19 15:15 | Electrocardiograph Report ---
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
--- NOTE | 2017-07-19 15:16 | Electrocardiograph Report ---
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
[2017-07-19 19:33] LABS: INR 1.9; Prothrombin Time 20.9 Seconds (9.4-12.1)
[2017-07-19] MEDS ORDERED: Cefepime HCl 1,000 MG in Water for inj. (sterile) 10 ML IVP SCH (21:00)
[2017-07-19 23:05] LABS: Calcium 8.7 mg/dL (8.6-10.3); Potassium 3.8 mEq/L (3.5-5.1)
[2017-07-19] MEDS: Cefepime HCl 1,000 MG in Water for inj. (sterile) 20 ML 10 ML IVP SCH (23:09)
[2017-07-20] MEDS: FentaNYL (PF) 1,000 MCG in 0.9 % Sodium Chloride 80 ML IVC SCH ×3 (00:36→12:40)
[2017-07-20] MEDS: Insulin LISPRO 300 UNITS/3 ML VIAL SQ SCH ×4 (01:24→18:58)
--- NOTE | 2017-07-20 03:31 | Internal Med Progress Note ---
<Vick Cast - Last Filed: 07/20/17 18:56> Date of Encounter: 07/20/17 Time of Encounter: 06:00 - Assessment and plan (1) Acute kidney injury superimposed on CKD Current Visit: Yes Status: Acute Assessment and plan: Acute renal injury in the context of CKD III. Cr improved from 8.10 to 3.35 with IVF resuscitation and emergent dialysis. Retroperitoneal US unremarkable. Nephrology following. Avoid nephrotoxins. No additional need for dialysis. hydration as tolerated. (2) HCAP (healthcare-associated pneumonia) Current Visit: Yes Status: Acute Assessment and plan: CXR and CT chest wo contrast concerning for bilateral pneumonia. Last hospital discharge 04/30/18. Blood culture prelim 07/18 shows gram positive cocci. Vancomycin day 2 Cefepime day 2 Levaquin day 2 Intubated secondary to altered mentation. With improving metabolic state, consider wean to CPAP trial for potential extubation to NC. (3) Altered mental status Current Visit: Yes Status: Acute Assessment and plan: In the ED, patient alert and oriented x2. No focal deficits at that time. Hx CVA, on warfarin secondary to A. Fib. Emergency intubated secondary to altered mentation and ED concern for airway protection. Suspect secondary to metabolic derangement including possible hypercarbia to compensate for metabolic acidosis. CT head (-) for acute intracranial abnormality. Remains intubated, sedated. Will continue to monitor. Qualifiers: Altered mental status type: unspecified Qualified Code(s): R41.82 - Altered mental status, unspecified (4) Acute electrocardiogram changes Current Visit: Yes Status: Acute (5) Anemia Current Visit: No Status: Chronic Assessment and plan: Acute; no baseline anemia. No clincial hemorrhage. Nephrology following: B12, Folate, and Fe levels pending. Qualifiers: Anemia type: iron deficiency Qualified Code(s): D50.8 - Other iron deficiency anemias (6) Supratherapeutic INR Current Visit: No Status: Acute Assessment and plan: Secondary to coumadin for atrial fibrillation. INR 5.3 on intake. Now 1.9 after FFP, vitamin K. No clinical hemorrhage. (7) Metabolic acidosis Current Visit: Yes Status: Acute Assessment and plan: Metabolic acidosis with inadequate respiratory compensation. In the setting of hyperkalemia; intracellular shift likely a substantial contributing factor. Intake ABG pH 7.11 Resolved. (8) Hyperkalemia Current Visit: Yes Status: Acute Assessment and plan: In the setting of acute on chronic kidney disease. Resolved. Nephrology following (Dr. Winters); recommendations appreciated. (9) Insulin dependent diabetes mellitus Current Visit: No Status: Chronic Assessment and plan: DM II on both oral and SQ antihyperglycemics at home. On SSI. - Subjective Interval history: Hospital day 2 Patient remains intubated. Comfortable. No longer hyperkalemic. Dialysis cath removed; no indication for dialysis. - Constitutional Vitals: Temp Pulse Resp BP Pulse Ox 98.3 F 67 22 110/69 95 07/20/17 00:47 07/20/17 01:00 07/20/17 02:53 07/20/17 02:53 07/20/17 02:53 General appearance: Present: mild distress (Movement of extremities when touching patient during treatment and examination.), morbidly obese - Head Head exam: Present: atraumatic, normal inspection - Eye Eye exam: Present: normal appearance, PERRL, sclera anicteric. Absent: conjunctival injection - ENT ENT exam: Present: mucous membranes moist - Neck Neck exam general surgery: Present: normal inspection, supple - Respiratory Respiratory exam: Present: rales (expiratory) - Cardiovascular Cardiovascular exam: Present: RRR. Absent: clicks, diastolic murmur, gallop, systolic murmur - GI/Abdominal GI/Abdominal exam: Present: normal bowel sounds, soft. Absent: distended, firm , guarding - Extremities Exam Extremities exam: Present: normal capillary refill, normal inspection. Absent: joint swelling, mottling, pedal edema - Incison Incision: Present: clean and dry (Right IJ CVC in place. Right femoral dialysis line removed. Minimal oozing of blood with patient's movement.) - Neurological Exam Neurological exam: Absent: facial droop Internal Medicine: Result - Labs CBC & Chem 7: 07/20/17 04:34 07/20/17 04:34 Labs: Short CBC 07/19/17 Range/Units 07:50 WBC 10.8 (4.3-11.1) K/mcL Hgb 10.8 L (11.5-15.4) g/dL Hct 33.7 L (35.3-44.9) % Plt Count 274 (140-400) K/mcL Neutrophils # 8.7 (1.6-8.9) K/mcL BMP 07/19/17 07/19/17 07/19/17 03:00 07:50 22:38 Sodium 136 139 142 Potassium 5.9 H 4.5 3.8 Chloride 104 104 104 Carbon Dioxide 24 24 27 BUN 74 H 56 H 52 H Creatinine 5.84 H 4.70 H 3.35 H Glucose 180 H 162 H 104 Calcium 8.9 8.6 8.7 Cardiac Enzymes 07/19/17 07/19/17 Range/Units 03:00 07:50 Troponin I < 0.03 < 0.03 (< 0.04) ng/mL Liver Function 07/19/17 Range/Units 03:00 Total Bilirubin 0.4 (0.3-1.0) mg/dL Direct Bilirubin 0.1 (0.0-0.2) mg/dL AST 24 (13-39) Units/L ALT 23 (7-52) Units/L Alkaline Phosphatase 72 (34-104) Units/L Albumin 3.4 L (3.5-5.7) g/dL - ABG Interpretation ABG results: ABG ABG pH 7.32 pH Units (7.32-7.45) D 07/19/17 00:43 ABG pCO2 46 mmHg (35-45) H 07/19/17 00:43 ABG pO2 78 mmHg (85-104) L 07/19/17 00:43 ABG O2 Saturation 94 % (95-98) L 07/19/17 00:43 PT/INR, D-dimer PT 20.9 Seconds (9.4-12.1) H D 07/19/17 19:01 - Impressions Impressions Retroperitoneum Ultrasound 07/19/17 15:30 IMPRESSION: Unremarkable ultrasound of the kidneys. D/ / Jose E Garcia / Jose E Garcia Interpreting Provider: Jose E Garcia Consult Discharge Plan - Plan Referrals: Ashwin Ellington, PAC [Primary Care Provider] - <Sohan Lara - Last Filed: 07/20/17 23:51> Date of Encounter: 07/20/17 - Constitutional Vitals: Temp Pulse Resp BP Pulse Ox 98.8 F 62 22 118/76 95 07/20/17 16:00 07/20/17 23:29 07/20/17 23:19 07/20/17 23:19 07/20/17 23:19 Internal Medicine: Result - Labs CBC & Chem 7: 07/20/17 04:34 07/20/17 04:34 Labs: Short CBC 07/20/17 Range/Units 04:34 WBC 10.4 (4.3-11.1) K/mcL Hgb 10.1 L (11.5-15.4) g/dL Hct 30.0 L (35.3-44.9) % Plt Count 259 (140-400) K/mcL BMP 07/20/17 04:34 Sodium 142 Potassium 3.4 L Chloride 103 Carbon Dioxide 27 BUN 51 H Creatinine 3.12 H Glucose 115 H Calcium 8.6 - ABG Interpretation ABG results: ABG ABG pH 7.32 pH Units (7.32-7.45) D 07/19/17 00:43 ABG pCO2 46 mmHg (35-45) H 07/19/17 00:43 ABG pO2 78 mmHg (85-104) L 07/19/17 00:43 ABG O2 Saturation 94 % (95-98) L 07/19/17 00:43 PT/INR, D-dimer PT 20.9 Seconds (9.4-12.1) H D 07/19/17 19:01 - Attending Attestation - Attending Attestation I saw and evaluated this patient and my medical decision-making was reviewed with the Resident Physician. I agree with the documented findings, disposition and treatment plan as described except to the extent set forth below. We independently had [id number] contact with the patient Patient seen and examined at bedside Labs, radiology, chart personally reviewed. Management was reviewed during multidisciplinary critical care rounds. ACCOUNT SERVICES SPECIALIST:Patient presented as encephalopathy secondary to toxic /metabolic reasons . Now patient has multiple medications for mental illness Pulm: Bilateral pneumonia causing V/Q mismatch complicated by fluid overlaod adjust vent settings to optimize oxygenation and gas exchange Cards: Patient is hemodynamically stable FEN-GI: NPO will advance tube feedings as per nutrition Renal: Acute on Chronic Kidney injury with profound symptomatic hyperkalemia needed a round of dialysis . Now kidney function improving appreciate Nephrology recs no acute of indication of dialysis ID: Broad spectrum antibiotics for pneumonia will descalate accordingly Heme/Onc: Labs reviewed Endo: Glucose Monitored Integ/MSK: Skin Care per routine ICU Nursing Protocol to prevent ulcers. Lines: All lines examined without evidence of infection : Dispo: Critically ill CODE:Full Code
[2017-07-20] MEDS: Lacri-Lube 3.5 GM TUBE BOTH EYES SCH ×5 (04:34→21:27)
[2017-07-20 04:51] LABS: Acinetobacter baumannii by PCR Not Detected (Not Detect); Candida albicans by PCR Not Detected (Not Detect); Candida glabrata by PCR Not Detected (Not Detect); Candida krusei by PCR Not Detected (Not Detect); Candida parapsilosis by PCR Not Detected (Not Detect); Candida tropicalis by PCR Not Detected (Not Detect); Enterobacter cloacae Cmplx PCR Not Detected (Not Detect); Enterobacteriaceae by PCR Not Detected (Not Detect); Enterococcus by PCR Not Detected (Not Detect); Escherichia coli by PCR Not Detected (Not Detect); Klebsiella oxytoca by PCR Not Detected (Not Detect); Klebsiella pneumoniae by PCR Not Detected (Not Detect); Proteus by PCR Not Detected (Not Detect); Pseudomonas aeruginosa by PCR Not Detected (Not Detect); Serratia marcescens by PCR Not Detected (Not Detect); Staphylococcus aureus by PCR Not Detected (Not Detect); Staphylococcus by PCR ***DETECTED*** (Not Detect); Streptococcus agalactiae(B)PCR Not Detected (Not Detect); Streptococcus by PCR Not Detected (Not Detect); Streptococcus pneumoniae PCR Not Detected (Not Detect); Streptococcus pyogenes (A) PCR Not Detected (Not Detect); blaKPC Carbapenem-Resist Gene Not Detected (Not Detect); mecA Methicillin-Resist Gene Not Detected (Not Detect); vanA/B Vancomycin-Resist Genes Not Detected (Not Detect)
[2017-07-20 05:03] LABS: Hemoglobin 10.1 g/dL (11.5-15.4); Mean Corpuscular HGB Conc 33.7 g/dL (31.6-35.5); Mean Corpuscular Hemoglobin 30.9 pg (28.0-33.3); Mean Corpuscular Volume 91.7 fL (83.0-100.0); Mean Platelet Volume 9.5 fL (9.4-12.4); Platelet Count 259 K/mcL (140-400); Red Blood Count 3.27 M/mcL (3.82-4.97); Red Cell Distribution Width 14.8 % (11.5-14.5)
[2017-07-20 05:17] LABS: Calcium 8.6 mg/dL (8.6-10.3); Potassium 3.4 mEq/L (3.5-5.1)
[2017-07-20 05:19] LABS: % Iron Saturation 24 % (15-50); Ferritin 181 ng/ml (10-120); Iron 68 mcg/dL (50-170); Transferrin 204 mg/dL (203-362)
[2017-07-20 05:20] LABS: Protein/Creatinine Ratio,Urine 0.69 mg/mg (0.00-0.20)
[2017-07-20 05:43] LABS: Folate > 22.3 ng/mL (3.0-16.0); Vitamin B12 > 1500 pg/mL (250-1100)
[2017-07-20] MEDS ORDERED: Aminoglycoside Consult 1 EACH MC ONE (07:23)
[2017-07-20] MEDS: Pantoprazole 40 MG VIAL IVP SCH (08:53)
[2017-07-20] MEDS: Chlorhexidine Rinse 15 ML MOUTHWASH MM SCH ×2 (08:53→21:26)
[2017-07-20] MEDS: Nystatin Cream 15 GM TUBE TP SCH ×2 (08:55→21:28)
--- NOTE | 2017-07-20 10:27 | Nephrology Progress Note ---
Date of Encounter: 07/20/17 Time of Encounter: 10:24 - Assessment and Plan (1) Acute renal failure Current Visit: Yes Status: Acute Patient with nonoliguiric acute kidney injury that is likely multifactorial. Patient with multiple nephrotoxic agents. She received dialysis the night of admission secondary to severe hyperkalemia that was secondary to renal dysfunction along with ongoing CHRISTIANO-I and potassium sparing diuretic use. Potassium supplements were not listed on her home medication lists and her diet is unknown at this time. No need for dialysis today. Patient's renal function continues to improve. Avoid nephrotoxins. Agree with hydration as tolerated. I do not anticipate the need for additional dialysis. 33 minutes spent in the care of this critically ill patient. Qualifiers: Acute renal failure type: unspecified Qualified Code(s): N17.9 - Acute kidney failure, unspecified (2) Hyperkalemia Current Visit: Yes Status: Acute Resolved. Potassium now low. Replace as needed. (3) Septic shock Current Visit: Yes Status: Acute Resolving. Secondary to pneumonia. Seems to be improving. . (4) Anemia Current Visit: Yes Status: Acute Monitor. Iron, vitamin b12 and folate are replete. Qualifiers: Qualified Code(s): D64.9 - Anemia, unspecified (5) Altered mental status Current Visit: Yes Status: Acute ?withdrawl vs. metabolic encephalopathy. Per primary team. Qualifiers: Altered mental status type: unspecified Qualified Code(s): R41.82 - Altered mental status, unspecified (6) Acute respiratory failure Current Visit: Yes Status: Acute Patient with HCAP and on antibiotics. Patient remains intubated. Per critical care team. Improving. Qualifiers: Qualified Code(s): J96.00 - Acute respiratory failure, unspecified whether with hypoxia or hypercapnia Subjective Principal diagnosis: MARIBEL Interval history: Patient intubated. She is on sedation, but quite agitated. Unable to provide ROS. Objective - Vital Signs Vital signs: Vital Signs Temp Pulse Resp BP Pulse Ox 07/20/17 09:17 22 116/58 93 07/20/17 09:00 72 22 116/58 93 07/20/17 08:00 98.5 F 79 22 129/76 94 07/20/17 07:55 29 126/75 07/20/17 06:51 22 112/68 95 07/20/17 06:00 82 26 120/87 94 02/23/18 05:08 98.6 F 07/20/17 04:00 71 22 116/73 96 07/20/17 03:50 22 116/69 95 07/20/17 03:00 69 22 116/69 95 07/20/17 02:53 22 110/69 95 07/20/17 02:00 67 22 110/69 95 07/20/17 01:00 67 22 110/67 95 07/20/17 00:47 98.3 F 07/20/17 00:19 22 105/66 95 07/20/17 00:00 70 22 105/66 93 07/19/17 23:00 79 26 125/76 93 07/19/17 22:50 26 122/92 93 07/19/17 22:00 82 22 113/74 95 07/19/17 21:04 100 F H 07/19/17 20:00 78 22 114/69 90 07/19/17 19:59 22 110/72 92 07/19/17 19:00 78 22 120/76 92 07/19/17 18:30 78 22 110/68 96 07/19/17 18:12 22 125/78 94 07/19/17 17:30 82 22 125/78 94 07/19/17 17:22 98.9 F 82 22 126/78 93 07/19/17 16:30 99.7 F H 79 22 120/76 94 07/19/17 15:30 78 22 106/72 96 07/19/17 15:24 22 115/76 92 07/19/17 14:30 80 22 116/76 94 07/19/17 14:21 98.7 F 80 22 115/76 94 07/19/17 14:06 98.5 F 79 22 112/74 96 07/19/17 14:03 98.5 F 79 22 112/74 96 07/19/17 13:30 81 22 117/77 94 07/19/17 12:30 80 22 105/71 97 07/19/17 11:30 98.7 F 77 22 107/78 94 07/19/17 11:29 98.7 F 77 22 107/78 94 07/19/17 11:14 98.6 F 77 22 103/70 07/19/17 10:30 80 22 100/73 94 Intake and Output 07/19/17 07/20/17 07/20/17 23:59 07:59 15:59 Intake Total 675 / 675 650 / 650 100 / 100 Output Total 800 / 800 1850 / 1850 100 / 100 Balance -125 / -125 -1200 / -1200 0 / 0 Intake: IV Fluids 400 / 400 650 / 650 100 / 100 FentaNYL (PF) 1,000 MCG In 0.9 100 / 100 200 / 200 % Sodium Chloride 80 ML @ 50 MCG/HR 5 mls/hr IVC CONT [facility] Rx #:[id number] Diprivan 1,000 mg In 100 ml @ 5 300 / 300 300 / 300 100 / 100 MCG/KG/MIN 4.082 mls/hr IVC . Q24H [facility] Rx#:[id number] Levaquin Premix 750mg/150 mL 150 / 150 750 mg In 150 ml @ 100 mls/hr IVPB Q48H [facility] Rx#:[id number] Blood Product 275 / 275 Plasma Unit [id number] 275 / 275 Output: Catheter 800 / 800 650 / 650 100 / 100 Gastric Drainage 1200 / 1200 Other: Weight 127.4 kg Blood Glucose* 97 125 Patient Weight 07/20/17 23:59 Weight 127.4 kg - General Appearance General appearance: Present: well-developed, well-nourished, obese EENT: Present: ATNC Neck: Present: supple Respiratory: Present: course breath sounds Cardiology: Present: no edema, regular rate Integumentary: Present: warm and dry Neurologic: Present: disoriented Musculoskeletal: Present: no cyanosis Psychiatric: Present: agitated - Lab 07/20/17 04:34 07/20/17 04:34 Most recent lab results ABG pH 7.32 pH Units (7.32-7.45) D 07/19/17 00:43 ABG pCO2 46 mmHg (35-45) H 07/19/17 00:43 ABG pO2 78 mmHg (85-104) L 07/19/17 00:43 ABG HCO3 24 mEq/L (21-27) 07/19/17 00:43 ABG O2 Saturation 94 % (95-98) L 07/19/17 00:43 Calcium 8.6 mg/dL (8.6-10.3) 07/20/17 04:34 Phosphorus 5.2 mg/dL (2.7-4.5) H 07/19/17 03:00 Magnesium 2.0 mg/dL (1.6-2.6) 07/19/17 03:00 Urine Creatinine 175 mg/dL 07/20/17 04:00 Urine Sodium 52.7 mEq/L 07/18/17 21:30 Urine Total Protein 121 mg/dL (1-14) H 07/20/17 04:00 Consult Discharge Plan - Plan Referrals: Ashwin Ellington, PAC [Primary Care Provider] -
[2017-07-20] MEDS: Dexmedetomidine HCl 400 MCG/100 ML MLS IVC SCH ×3 (13:38→21:51)
[2017-07-20] MEDS ORDERED: QUETIAPINE FUMARATE 500 MG PO SCH (21:00)
[2017-07-20] MEDS: Cefepime HCl 1,000 MG in Water for inj. (sterile) 20 ML 10 ML IVP SCH (21:26)
[2017-07-20] MEDS: traZODone 50 MG TABLET PO SCH (21:27)
[2017-07-21] MEDS: Insulin LISPRO 300 UNITS/3 ML VIAL SQ SCH ×5 (02:12→20:49)
[2017-07-21 03:42] LABS: Basophils # 0.1 K/mcL (0.0-0.2); Basophils % 0.6 %; Eosinophils # 0.3 K/mcL (0.0-0.6); Eosinophils % 2.6 %; Hematocrit 31.3 % (35.3-44.9); Hemoglobin 10.4 g/dL (11.5-15.4); Lymphocytes # 3.3 K/mcL (0.6-4.6); Lymphocytes % 32.4 %; Mean Corpuscular HGB Conc 33.2 g/dL (31.6-35.5); Mean Corpuscular Hemoglobin 30.6 pg (28.0-33.3); Mean Corpuscular Volume 92.1 fL (83.0-100.0); Mean Platelet Volume 9.8 fL (9.4-12.4); Monocytes # 0.8 K/mcL (0.0-1.3); Monocytes % 7.4 %; Neutrophils # 5.7 K/mcL (1.6-8.9); Platelet Count 265 K/mcL (140-400); Red Cell Distribution Width 14.5 % (11.5-14.5)
--- NOTE | 2017-07-21 03:53 | Event Note ---
Date of Encounter: 07/20/17 Time of Encounter: 22:00 Right femoral dialysis line removed without issue. Reason: dialysis no longer indicated. Minimal blood loss controlled with direct pressure. Area cleaned with alcohol wipe and bandaged. Patient tolerated the procedure well with no complications.
[2017-07-21 03:59] LABS: Calcium 8.8 mg/dL (8.6-10.3); Potassium 3.1 mEq/L (3.5-5.1)
[2017-07-21] MEDS: Lacri-Lube 3.5 GM TUBE BOTH EYES SCH ×7 (04:29→23:47)
[2017-07-21] MEDS: Levofloxacin 750 MG/150 ML 750 MG/150 ML BAG IVPB SCH (05:34)
[2017-07-21] MEDS: Dexmedetomidine HCl 400 MCG/100 ML MLS IVC SCH ×5 (06:36→23:00)
[2017-07-21] MEDS ORDERED: Potassium Chloride Elixir 20 MEQ/15 ML UDC GTUBE ONE (07:29)
[2017-07-21] MEDS ORDERED: Furosemide 40 MG/4 ML VIAL IVP ONE ×2 (07:43→22:59)
[2017-07-21] MEDS: Chlorhexidine Rinse 15 ML MOUTHWASH MM SCH ×2 (07:47→20:42)
[2017-07-21] MEDS: Nystatin Cream 15 GM TUBE TP SCH ×2 (07:47→20:49)
[2017-07-21] MEDS: Pantoprazole 40 MG VIAL IVP SCH (07:47)
[2017-07-21] MEDS ORDERED: Potassium Chloride 40 MEQ/200 ML BAG IVPB ONE (09:48)
--- NOTE | 2017-07-21 11:04 | Nephrology Progress Note ---
Date of Encounter: 07/21/17 Time of Encounter: 08:15 - Assessment and Plan (1) Hypokalemia Current Visit: Yes Status: Acute MARIBEL on CKD stage II-IIIa, most likely prerenal with critical hyperkalemia. The MARIBEL and hyperkalemia are improving. In fact she is midly hypokalemic today, so will need KCl replacement. Serum Mg yesterday was 2.0. Appreciate the primary team on removing the temporary HD catheter, which is no longer needed. Recommend checking a serum K+ or BMP this afternoon to continue correcting the hypokalemia, and she received a dose of KCl 40mEq per tube earlier today. She may need further KCl, most likely today. Discussed with the HAM PUMPER and ICU team. (2) Acute kidney injury superimposed on CKD Current Visit: Yes Status: Acute See above (3) Peripheral edema Current Visit: Yes Status: Acute See above. I would agree with gentle diuresis. (4) CKD (chronic kidney disease) stage 3, GFR 30-59 ml/min Current Visit: No Status: Chronic Baseline CKD stage II-IIIa. Last seen in my clinic a few years ago. I see that she missed several follow up appointments. I will recommend that she follow up with me in the clinic after his hospitalization. Subjective Principal diagnosis: MARIBEL Interval history: Pt was s/e earlier today. She was intubated, so this limited subjective hx. She received one acute dialysis earlier in the week by the other nephrology group, per report, for acute hyperkalemia. She has received KCl already today her HAM PUMPER reported. Objective - Vital Signs Vital signs: Vital Signs Temp Pulse Resp BP Pulse Ox 07/21/17 10:00 58 22 135/82 94 07/21/17 09:17 22 88 07/21/17 09:00 55 22 110/71 90 07/21/17 08:00 53 22 97/57 95 07/21/17 07:56 98.8 F 07/21/17 07:30 22 98 07/21/17 07:00 55 22 112/68 96 07/21/17 06:00 56 22 130/82 97 07/21/17 05:20 22 110/68 96 07/21/17 05:18 98.4 F 07/21/17 04:00 61 22 113/67 95 07/21/17 03:21 57 07/21/17 03:12 22 106/63 96 07/21/17 03:00 59 22 106/68 96 07/21/17 02:00 60 22 107/67 94 07/21/17 01:30 22 101/70 98 07/21/17 00:00 98.5 F 61 22 98/63 97 07/20/17 23:29 62 07/20/17 23:19 22 118/76 95 07/20/17 23:00 63 22 118/76 95 07/20/17 22:00 62 22 120/76 96 07/20/17 21:31 22 128/79 96 07/20/17 21:00 58 22 122/76 96 07/20/17 20:00 59 22 120/69 97 07/20/17 19:46 22 127/80 88 07/20/17 19:00 62 22 123/81 87 07/20/17 18:00 64 22 135/87 93 07/20/17 17:52 22 123/79 88 07/20/17 17:00 60 22 124/80 92 07/20/17 16:00 98.8 F 68 22 131/90 92 07/20/17 15:31 22 121/79 92 07/20/17 15:00 60 22 116/78 94 07/20/17 14:00 64 22 111/71 95 07/20/17 13:53 22 122/88 97 07/20/17 13:00 84 22 102/89 94 07/20/17 12:00 64 22 111/77 96 07/20/17 11:48 98.7 F Intake and Output 07/20/17 07/21/17 07/21/17 23:59 07:59 15:59 Intake Total 510 / 510 430 / 430 Output Total 400 / 400 1000 / 1000 Balance 110 / 110 -570 / -570 Intake: IV Fluids 510 / 510 430 / 430 PRECEDEX Premix 400 mcg In 100 200 / 200 100 / 100 ml @ 0.2 MCG/KG/HR 6.2 mls/hr IVC .Q16H8M [facility] Rx#:[id number] FentaNYL (PF) 1,000 MCG In 0.9 20 / 20 % Sodium Chloride 80 ML @ 50 MCG/HR 5 mls/hr IVC CONT [facility] Rx #:[id number] Diprivan 1,000 mg In 100 ml @ 5 300 / 300 300 / 300 MCG/KG/MIN 4.082 mls/hr IVC . Q24H [facility] Rx#:[id number] Maxipime 1,000 MG In Water for inj. (sterile) 10 ML @ 150 mls/ hr IVP Q24H [facility] Rx#:[id number] Output: Catheter 400 / 400 500 / 500 Gastric Drainage 500 / 500 Other: Weight 119.9 kg Blood Glucose* 178 166 Patient Weight 07/21/17 23:59 Weight 119.9 kg - General Appearance General appearance: Present: obese, sedated on ventilator, intubated, fatigue, frail EENT: Present: ATNC, PERRL Neck: Present: supple Respiratory: Present: course breath sounds Cardiology: Present: edema, regular rate, regular rhythm, normal S1, normal S2 Gastrointestinal: Present: normoactive bowel sounds, no tenderness, obese Integumentary: Present: warm and dry Neurologic: Present: no asterixis Musculoskeletal: Present: no cyanosis, no clubbing Additional Comments: Intubated and sedated - Lab 07/21/17 03:30 07/21/17 03:30 Most recent lab results ABG pH 7.32 pH Units (7.32-7.45) D 07/19/17 00:43 ABG pCO2 46 mmHg (35-45) H 07/19/17 00:43 ABG pO2 78 mmHg (85-104) L 07/19/17 00:43 ABG HCO3 24 mEq/L (21-27) 07/19/17 00:43 ABG O2 Saturation 94 % (95-98) L 07/19/17 00:43 Calcium 8.8 mg/dL (8.6-10.3) 07/21/17 03:30 Phosphorus 5.2 mg/dL (2.7-4.5) H 07/19/17 03:00 Magnesium 2.0 mg/dL (1.6-2.6) 07/19/17 03:00 Urine Creatinine 175 mg/dL 07/20/17 04:00 Urine Sodium 52.7 mEq/L 07/18/17 21:30 Urine Total Protein 121 mg/dL (1-14) H 07/20/17 04:00 Consult Discharge Plan - Plan Referrals: Ashwin Ellingotn, PAC [Primary Care Provider] -
[2017-07-21] MEDS: FentaNYL (PF) 1,000 MCG in 0.9 % Sodium Chloride 80 ML IVC SCH ×2 (11:33→18:43)
--- NOTE | 2017-07-21 14:49 | Pulmonology Progress Note ---
<Frank Levy - Last Filed: 07/21/17 15:14> Date of Encounter: 07/21/17 Time of Encounter: 09:00 Assessment and Plan (1) Acute kidney injury superimposed on CKD Current Visit: Yes Status: Acute Acute on Chronic Kidney Disease Creatinine 1.76 Nephrology - avoid nephrotoxins, no indication for further dialysis Spot hydration, monitor UOP (2) Altered mental status Current Visit: Yes Status: Acute In the ED, patient alert and oriented x2. No focal deficits at that time. Hx CVA, on warfarin secondary to A. Fib. Emergency intubated secondary to altered mentation and ED concern for airway protection. Suspect secondary to metabolic derangement including possible hypercarbia to compensate for metabolic acidosis. CT head (-) for acute intracranial abnormality. Remains intubated, sedated. Will continue to monitor. Qualifiers: Altered mental status type: unspecified Qualified Code(s): R41.82 - Altered mental status, unspecified (3) HCAP (healthcare-associated pneumonia) Current Visit: Yes Status: Acute Vancomycin day 2 Cefepime day 2 Levaquin day 2 Intubated secondary to altered mentation. With improving metabolic state, consider wean to CPAP trial for potential extubation to NC. (4) Hyperkalemia Current Visit: Yes Status: Acute S/p dialysis x1 night of admission secondary to severe hyperkalemia 7.7 (ECG reviewed shows widened QRS now improved) Monitor, electrolyte protocol for repletion (3.1 today 07/21). (5) Metabolic acidosis Current Visit: Yes Status: Acute ABG 07/18 pH 7.11, pCO2 58 ABG 07/19 pH 7.32, pCO2 46; improved/resolved. (6) Supratherapeutic INR Current Visit: No Status: Acute Hx repeated supratherapeutic INR; last INR 07/19 1900 1.9 (07/19 0750 5.3) after FFP and Vit K. (7) Insulin dependent diabetes mellitus Current Visit: No Status: Chronic DM II on both oral and SQ antihyperglycemics at home. On SSI. Subjective Principal diagnosis: MARIBEL Interval history: Day 3: patient remains intubated and sedated, CPAP weaning has not started due to PEEP >8. Objective PUL Vital signs: Last Vital Signs Temp 99.0 F 07/21/17 12:00 Pulse 57 07/21/17 14:00 Resp 22 07/21/17 14:00 BP 101/69 07/21/17 14:00 Pulse Ox 97 07/21/17 14:00 General appearance: other (intubated and sedated) Eyes: nonicteric ENT: oropharynx moist Neck: supple Auscultation: bilateral: rales Cardiovascular: other (HR high 50s, regular rhythm, no murmurs, gallops, or rubs.) Gastrointestinal: soft, non-distended Integumentary: normal Extremities: no cyanosis Musculoskeletal: no deformities Ventilator Settings Ventilator Settings: Ventilator Settings, Last 8 Hours Ventilator Mode A/C Ventilator Mode A/C Ventilator Mode A/C Ventilator Mode A/C Ventilator Mode A/C Ventilator Mode A/C Ventilator Mode A/C Ventilator Mode A/C Ventilator Mode A/C Ventilator Mode A/C Ventilator Mode A/C Ventilator Mode A/C Ventilator Tidal Volume 450 Setting Ventilator Tidal Volume 450 Setting Ventilator Tidal Volume 450 Setting Ventilator Tidal Volume 450 Setting Ventilator Tidal Volume 450 Setting Ventilator Tidal Volume 450 Setting Ventilator Tidal Volume 450 Setting Ventilator Tidal Volume 450 Setting Ventilator Tidal Volume 450 Setting Ventilator Tidal Volume 450 Setting Ventilator Tidal Volume 450 Setting Ventilator Tidal Volume 450 Setting Ventilator Respiratory Rate 22 Setting Ventilator Respiratory Rate 22 Setting Ventilator Respiratory Rate 22 Setting Ventilator Respiratory Rate 22 Setting Ventilator Respiratory Rate 22 Setting Ventilator Respiratory Rate 22 Setting Ventilator Respiratory Rate 22 Setting Ventilator Respiratory Rate 22 Setting Ventilator Respiratory Rate 22 Setting Ventilator Respiratory Rate 22 Setting Ventilator Respiratory Rate 22 Setting Ventilator Respiratory Rate 22 Setting Actual Respiratory Rate 22 Actual Respiratory Rate 22 Actual Respiratory Rate 22 Actual Respiratory Rate 22 Actual Respiratory Rate 22 Actual Respiratory Rate 22 Actual Respiratory Rate 22 Actual Respiratory Rate 22 Actual Respiratory Rate 22 Actual Respiratory Rate 22 Actual Respiratory Rate 22 Actual Respiratory Rate 22 Positive End Expiratory 8 Pressure Positive End Expiratory 8 Pressure Positive End Expiratory 8 Pressure Positive End Expiratory 8 Pressure Positive End Expiratory 8 Pressure Positive End Expiratory 8 Pressure Positive End Expiratory 8 Pressure Positive End Expiratory 8 Pressure Positive End Expiratory 8 Pressure Positive End Expiratory 8 Pressure Positive End Expiratory 8 Pressure Positive End Expiratory 8 Pressure Peak Inspiratory Airway 29 Pressure Peak Inspiratory Airway 36 Pressure Peak Inspiratory Airway 29 Pressure Peak Inspiratory Airway 29 Pressure Peak Inspiratory Airway 34 Pressure Peak Inspiratory Airway 34 Pressure Peak Inspiratory Airway 31 Pressure Peak Inspiratory Airway 31 Pressure Peak Inspiratory Airway 31 Pressure Peak Inspiratory Airway 34 Pressure Peak Inspiratory Airway 29 Pressure Peak Inspiratory Airway 34 Pressure Results - Laboratory Findings CBC and BMP: 07/21/17 03:30 07/21/17 03:30 ABG ABG pH 7.32 pH Units (7.32-7.45) D 07/19/17 00:43 ABG pCO2 46 mmHg (35-45) H 07/19/17 00:43 ABG pO2 78 mmHg (85-104) L 07/19/17 00:43 ABG O2 Saturation 94 % (95-98) L 07/19/17 00:43 PT/INR, D-dimer PT 20.9 Seconds (9.4-12.1) H D 07/19/17 19:01 Abnormal lab findings: Abnormal lab results RBC 3.40 M/mcL (3.82-4.97) L 07/21/17 03:30 Hgb 10.4 g/dL (11.5-15.4) L 07/21/17 03:30 Hct 31.3 % (35.3-44.9) L 07/21/17 03:30 PT 20.9 Seconds (9.4-12.1) H D 07/19/17 19:01 APTT 53.2 Seconds (26.0-36.0) H 07/19/17 07:50 ABG pCO2 46 mmHg (35-45) H 07/19/17 00:43 ABG pO2 78 mmHg (85-104) L 07/19/17 00:43 ABG O2 Saturation 94 % (95-98) L 07/19/17 00:43 Potassium 3.1 mEq/L (3.5-5.1) L 07/21/17 03:30 BUN 42 mg/dL (6-20) H 07/21/17 03:30 Creatinine 1.76 mg/dL (0.60-1.20) H 07/21/17 03:30 Est GFR ( Amer) 36 (> 60) L 07/21/17 03:30 Est GFR (Non-Af Amer) 30 (> 60) L 07/21/17 03:30 Glucose 165 mg/dL (70-105) H 07/21/17 03:30 POC Glucose 166 (58-89) H 07/21/17 00:13 Phosphorus 5.2 mg/dL (2.7-4.5) H 07/19/17 03:00 Ferritin 181 ng/ml (10-120) H 07/20/17 04:34 B-Natriuretic Peptide 218 pg/mL (Less than 100) H 07/18/17 21:45 Albumin 3.4 g/dL (3.5-5.7) L 07/19/17 03:00 Globulin 4.1 g/dL (2.4-3.5) H 07/19/17 03:00 Albumin/Globulin Ratio 0.8 (1.1-2.2) L 07/19/17 03:00 Vitamin B12 > 1500 pg/mL (250-1100) H 07/20/17 04:34 Folate > 22.3 ng/mL (3.0-16.0) H 07/20/17 04:34 Urine Protein 30 mg/dL (Neg-Trace) H 07/18/17 21:30 Urine Bilirubin Small (Negative) H 07/18/17 21:30 Microalb/Creat Ratio 67 mcg/mg (Less than 30) H 07/20/17 04:00 Protein/Creatinin Ratio 0.69 mg/mg (0.00-0.20) H 07/20/17 04:00 Urine Total Protein 121 mg/dL (1-14) H 07/20/17 04:00 Staphylococcus sp PCR DETECTED (Not Detect) A 07/18/17 21:45 - Clinical Findings Intake & Output: Intake & Output 07/20/17 07/21/17 07/21/17 23:59 07:59 15:59 Intake Total 510 / 510 430 / 430 380 / 380 Output Total 400 / 400 1000 / 1000 800 / 800 Balance 110 / 110 -570 / -570 -420 / -420 Weight 119.9 kg Consult Discharge Plan - Plan Referrals: Ashwin Ellington, PAC [Primary Care Provider] - <Sohan Lara - Last Filed: 07/21/17 22:31> Date of Encounter: 07/21/17 Objective PUL Vital signs: Last Vital Signs Temp 98.9 F 07/21/17 21:16 Pulse 61 07/21/17 21:00 Resp 22 07/21/17 21:20 BP 118/74 07/21/17 21:20 Pulse Ox 98 07/21/17 21:20 Ventilator Settings Ventilator Settings: Ventilator Settings, Last 8 Hours Ventilator Mode A/C Ventilator Mode A/C Ventilator Mode A/C Ventilator Mode A/C Ventilator Mode A/C Ventilator Mode A/C Ventilator Mode A/C Ventilator Mode A/C Ventilator Mode A/C Ventilator Mode A/C Ventilator Mode A/C Ventilator Tidal Volume 450 Setting Ventilator Tidal Volume 450 Setting Ventilator Tidal Volume 450 Setting Ventilator Tidal Volume 450 Setting Ventilator Tidal Volume 450 Setting Ventilator Tidal Volume 450 Setting Ventilator Tidal Volume 450 Setting Ventilator Tidal Volume 450 Setting Ventilator Tidal Volume 450 Setting Ventilator Tidal Volume 450 Setting Ventilator Tidal Volume 450 Setting Ventilator Respiratory Rate 22 Setting Ventilator Respiratory Rate 22 Setting Ventilator Respiratory Rate 22 Setting Ventilator Respiratory Rate 22 Setting Ventilator Respiratory Rate 22 Setting Ventilator Respiratory Rate 22 Setting Ventilator Respiratory Rate 22 Setting Ventilator Respiratory Rate 22 Setting Ventilator Respiratory Rate 22 Setting Ventilator Respiratory Rate 22 Setting Ventilator Respiratory Rate 22 Setting Actual Respiratory Rate 22 Actual Respiratory Rate 22 Actual Respiratory Rate 22 Actual Respiratory Rate 22 Actual Respiratory Rate 22 Actual Respiratory Rate 22 Actual Respiratory Rate 22 Actual Respiratory Rate 22 Actual Respiratory Rate 25 Actual Respiratory Rate 22 Actual Respiratory Rate 22 Positive End Expiratory 8 Pressure Positive End Expiratory 8 Pressure Positive End Expiratory 8 Pressure Positive End Expiratory 8 Pressure Positive End Expiratory 8 Pressure Positive End Expiratory 8 Pressure Positive End Expiratory 8 Pressure Positive End Expiratory 8 Pressure Positive End Expiratory 8 Pressure Positive End Expiratory 8 Pressure Positive End Expiratory 8 Pressure Peak Inspiratory Airway 28 Pressure Peak Inspiratory Airway 29 Pressure Peak Inspiratory Airway 29 Pressure Peak Inspiratory Airway 31 Pressure Peak Inspiratory Airway 31 Pressure Peak Inspiratory Airway 30 Pressure Peak Inspiratory Airway 30 Pressure Peak Inspiratory Airway 30 Pressure Peak Inspiratory Airway 33 Pressure Peak Inspiratory Airway 31 Pressure Peak Inspiratory Airway 31 Pressure Results - Laboratory Findings CBC and BMP: 07/21/17 03:30 07/21/17 16:28 ABG ABG pH 7.32 pH Units (7.32-7.45) D 07/19/17 00:43 ABG pCO2 46 mmHg (35-45) H 07/19/17 00:43 ABG pO2 78 mmHg (85-104) L 07/19/17 00:43 ABG O2 Saturation 94 % (95-98) L 07/19/17 00:43 PT/INR, D-dimer PT 20.9 Seconds (9.4-12.1) H D 07/19/17 19:01 Abnormal lab findings: Abnormal lab results RBC 3.40 M/mcL (3.82-4.97) L 07/21/17 03:30 Hgb 10.4 g/dL (11.5-15.4) L 07/21/17 03:30 Hct 31.3 % (35.3-44.9) L 07/21/17 03:30 PT 20.9 Seconds (9.4-12.1) H D 07/19/17 19:01 APTT 53.2 Seconds (26.0-36.0) H 07/19/17 07:50 ABG pCO2 46 mmHg (35-45) H 07/19/17 00:43 ABG pO2 78 mmHg (85-104) L 07/19/17 00:43 ABG O2 Saturation 94 % (95-98) L 07/19/17 00:43 BUN 37 mg/dL (6-20) H 07/21/17 16:28 Creatinine 1.67 mg/dL (0.60-1.20) H 07/21/17 16:28 Est GFR ( Amer) 39 (> 60) L 07/21/17 16:28 Est GFR (Non-Af Amer) 32 (> 60) L 07/21/17 16:28 Glucose 153 mg/dL (70-105) H 07/21/17 16:28 POC Glucose 166 (58-89) H 07/21/17 00:13 Calculated Osmolality 302 (280-300) H 07/21/17 16:28 Phosphorus 5.2 mg/dL (2.7-4.5) H 07/19/17 03:00 Magnesium 1.4 mg/dL (1.6-2.6) L 07/21/17 16:28 Ferritin 181 ng/ml (10-120) H 07/20/17 04:34 B-Natriuretic Peptide 218 pg/mL (Less than 100) H 07/18/17 21:45 Albumin 3.4 g/dL (3.5-5.7) L 07/19/17 03:00 Globulin 4.1 g/dL (2.4-3.5) H 07/19/17 03:00 Albumin/Globulin Ratio 0.8 (1.1-2.2) L 07/19/17 03:00 Vitamin B12 > 1500 pg/mL (250-1100) H 07/20/17 04:34 Folate > 22.3 ng/mL (3.0-16.0) H 07/20/17 04:34 Urine Protein 30 mg/dL (Neg-Trace) H 07/18/17 21:30 Urine Bilirubin Small (Negative) H 07/18/17 21:30 Microalb/Creat Ratio 67 mcg/mg (Less than 30) H 07/20/17 04:00 Protein/Creatinin Ratio 0.69 mg/mg (0.00-0.20) H 07/20/17 04:00 Urine Total Protein 121 mg/dL (1-14) H 07/20/17 04:00 Staphylococcus sp PCR DETECTED (Not Detect) A 07/18/17 21:45 - Clinical Findings Intake & Output: Intake & Output 07/21/17 07/21/17 07/21/17 07:59 15:59 23:59 Intake Total 430 / 430 380 / 380 600 / 600 Output Total 1000 / 1000 1775 / 1775 100 / 100 Balance -570 / -570 -1395 / -1395 500 / 500 Weight 119.9 kg - Attending Attestation - Attending Attestation I saw and evaluated this patient and my medical decision-making was reviewed with the Resident Physician. I agree with the documented findings, disposition and treatment plan as described except to the extent set forth below. We independently had [id number] contact with the patient Patient seen and examined at bedside Labs, radiology, chart personally reviewed. Management was reviewed during multidisciplinary critical care rounds. 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 Now patient has multiple medications for mental illness sedated and ventilated Pulm: Bilateral pneumonia causing V/Q mismatch complicated by fluid overlaod adjust vent settings to optimize oxygenation and gas exchange will start diuresing her Cards: Patient is hemodynamically stable will start diuresing her FEN-GI: As per nutrition Renal: Acute on Chronic Kidney injury with profound symptomatic hyperkalemia needed a round of dialysis . Now kidney function improving appreciate Nephrology recs no acute of indication of dialysis will start diuresing anticipating extubation in a day or two ID: Broad spectrum antibiotics for pneumonia will descalate according to clinical response Heme/Onc: Labs reviewed Endo: Glucose Monitored Integ/MSK: Skin Care per routine ICU Nursing Protocol to prevent ulcers. Lines: All lines examined without evidence of infection : Dispo: Critically ill CODE:Full Code
[2017-07-21 17:02] LABS: Calcium 9.3 mg/dL (8.6-10.3); Magnesium 1.4 mg/dL (1.6-2.6)
[2017-07-21] MEDS: Cefepime HCl 1,000 MG in Water for inj. (sterile) 20 ML 10 ML IVP SCH (20:42)
[2017-07-21] MEDS: traZODone 50 MG TABLET PO SCH (20:46)
[2017-07-21] MEDS: Norepinephrine 4 MG in D5% in Water 250 ML IVC SCH (20:50)
[2017-07-22] MEDS: Dexmedetomidine HCl 400 MCG/100 ML MLS IVC SCH ×3 (01:14→10:37)
[2017-07-22] MEDS: Insulin LISPRO 300 UNITS/3 ML VIAL SQ SCH ×4 (01:16→16:46)
[2017-07-22] MEDS: Norepinephrine 4 MG in D5% in Water 250 ML IVC SCH (01:17)
[2017-07-22] MEDS: FentaNYL (PF) 1,000 MCG in 0.9 % Sodium Chloride 80 ML IVC SCH (01:30)
[2017-07-22 03:05] LABS: Hematocrit 32.2 % (35.3-44.9); Hemoglobin 10.7 g/dL (11.5-15.4); Mean Corpuscular HGB Conc 33.2 g/dL (31.6-35.5); Mean Corpuscular Hemoglobin 30.7 pg (28.0-33.3); Mean Corpuscular Volume 92.5 fL (83.0-100.0); Mean Platelet Volume 9.5 fL (9.4-12.4); Platelet Count 298 K/mcL (140-400); Red Blood Count 3.48 M/mcL (3.82-4.97); Red Cell Distribution Width 14.1 % (11.5-14.5); Segmented Neutrophils % 57.2 %
[2017-07-22 03:06] LABS: Basophils # 0.1 K/mcL (0.0-0.2); Basophils % 0.7 %; Eosinophils # 0.4 K/mcL (0.0-0.6); Eosinophils % 3.6 %; Immature Granulocytes % 1.8 % (0-4); Lymphocytes # 3.3 K/mcL (0.6-4.6); Lymphocytes % 30.3 %; Monocytes # 0.7 K/mcL (0.0-1.3); Monocytes % 6.4 %; Neutrophils # 6.3 K/mcL (1.6-8.9)
[2017-07-22 03:19] LABS: Albumin 3.5 g/dL (3.5-5.7); Calcium 9.1 mg/dL (8.6-10.3); Magnesium 1.8 mg/dL (1.6-2.6); Potassium 3.7 mEq/L (3.5-5.1)
[2017-07-22] MEDS ORDERED: Potassium Chloride Elixir 20 MEQ/15 ML UDC GTUBE PRN (05:48)
[2017-07-22] MEDS: Lacri-Lube 3.5 GM TUBE BOTH EYES SCH ×2 (05:51→08:17)
[2017-07-22] MEDS ORDERED: D5% in Water 1,000 ML IVC PRN (08:10)
[2017-07-22] MEDS: Nystatin Cream 15 GM TUBE TP SCH ×2 (08:17→20:37)
[2017-07-22] MEDS: Pantoprazole 40 MG VIAL IVP SCH (08:17)
[2017-07-22] MEDS: Chlorhexidine Rinse 15 ML MOUTHWASH MM SCH ×2 (08:17→20:36)
--- NOTE | 2017-07-22 09:23 | Nephrology Progress Note ---
Date of Encounter: 07/22/17 Time of Encounter: 08:20 - Assessment and Plan (1) Hypokalemia Current Visit: Yes Status: Acute MARIBEL on CKD stage II-IIIa, most likely prerenal with critical hyperkalemia, all of which continues to trend better. Yesterday, the mild hypokalemic and hypomagnesemia have both improved. Appreciate the primary team on removing the temporary HD catheter, which is no longer needed. Continue to follow a renal protective and renal conservative strategy, by avoiding nephrotoxins such as NSAIDs, Bactrim, Contrast. Continue strict I/Os. Dose Rx by GFR. She was formerly seen in my clinic but appears to have several appt's in a row. I'll recommend she have Nephrology follow up after this admission. Would not discharge on her Rx that could promote hyperkalemia such as Spironolactone, which was on her home med list. Also the Sotolal if resumed, will need to be renally dosed. Dr. Cid will return to the inpt service tomorrow. Thank you. (2) Acute kidney injury superimposed on CKD Current Visit: Yes Status: Acute See above (3) Peripheral edema Current Visit: Yes Status: Acute See above. I would agree with gentle diuresis as needed. Improved. (4) CKD (chronic kidney disease) stage 3, GFR 30-59 ml/min Current Visit: No Status: Chronic Baseline CKD stage II-IIIa. Last seen in my clinic a few years ago. I see that she missed several follow up appointments. I will recommend that she follow up with me in the clinic after his hospitalization. Subjective Principal diagnosis: MARIBEL Interval history: Pt was s/e earlier today. She was extubated since I last saw her yesterday. She did not affirm N/V/D. Discussed with the COMPOSITION TEACHER: serum K+ improved via the electrolyte replacement protocol. Objective - Vital Signs Vital signs: Vital Signs Temp Pulse Resp BP Pulse Ox 07/22/17 09:00 91 24 130/89 98 07/22/17 08:00 87 21 121/88 100 07/22/17 07:00 58 22 109/65 98 07/22/17 06:00 60 22 108/70 93 07/22/17 05:27 22 112/71 95 07/22/17 05:01 98.5 F 07/22/17 05:00 59 22 112/71 93 07/22/17 04:00 60 22 100/69 94 07/22/17 03:00 59 22 93/60 95 07/22/17 02:00 57 22 106/69 96 07/22/17 01:30 22 102/57 94 07/22/17 01:00 60 22 95/49 95 07/22/17 00:00 64 22 101/55 92 07/21/17 23:52 22 105/76 92 07/21/17 23:00 63 22 105/76 92 07/21/17 22:00 61 22 103/69 96 07/21/17 21:20 22 118/74 98 07/21/17 21:16 98.9 F 07/21/17 21:00 61 22 118/74 98 07/21/17 20:00 58 21 110/73 99 07/21/17 19:42 22 98/57 96 07/21/17 19:36 57 07/21/17 19:00 57 21 98/57 95 07/21/17 18:00 54 22 121/70 93 07/21/17 17:20 22 107/62 97 07/21/17 17:00 56 22 107/62 97 07/21/17 16:00 82 25 107/69 93 07/21/17 15:34 22 105/68 97 07/21/17 15:20 99.2 F 07/21/17 15:00 62 22 105/68 97 07/21/17 14:00 57 22 101/69 97 07/21/17 13:00 60 22 88/59 96 07/21/17 12:00 99.0 F 61 22 116/78 95 07/21/17 11:20 99.0 F 07/21/17 11:17 22 90 07/21/17 11:00 57 22 108/74 92 07/21/17 10:00 58 22 135/82 94 07/21/17 09:17 22 88 Intake and Output 07/21/17 07/22/17 07/22/17 23:59 07:59 15:59 Intake Total 760 / 760 690 / 690 Output Total 100 / 100 300 / 300 Balance 660 / 660 390 / 390 Intake: IV Fluids 710 / 710 690 / 690 PRECEDEX Premix 400 mcg In 100 300 / 300 200 / 200 ml @ 0.2 MCG/KG/HR 6.2 mls/hr IVC .Q16H8M [facility] Rx#:[id number] FentaNYL (PF) 1,000 MCG In 0.9 100 / 100 100 / 100 % Sodium Chloride 80 ML @ 50 MCG/HR 5 mls/hr IVC CONT [facility] Rx #:[id number] Diprivan 1,000 mg In 100 ml @ 5 300 / 300 290 / 290 MCG/KG/MIN 4.082 mls/hr IVC . Q24H [facility] Rx#:[id number] Maxipime 1,000 MG In Water for inj. (sterile) 10 ML @ 150 mls/ hr IVP Q24H [facility] Rx#:[id number] Magnesium Sulfate Premix 2gm/ 100 / 100 50mL 2 gm In 50 ml @ 50 mls/hr IVPB Q6H [facility] Rx#:[id number] Free Water 50 / 50 Output: Catheter 100 / 100 300 / 300 Other: Blood Glucose* 159 150 - General Appearance General appearance: Present: well-developed, well-nourished, appears started age , obese, anxious EENT: Present: ATNC, PERRL Additional Comments: Has BIPAP mask on Neck: Present: supple Respiratory: Present: course breath sounds Cardiology: Present: no edema, regular rate, regular rhythm, normal S1, normal S2 Gastrointestinal: Present: normoactive bowel sounds, no tenderness, no guarding , obese Integumentary: Present: no rash, warm and dry Neurologic: Present: no focal deficit, no asterixis, alert and oriented x3 Musculoskeletal: Present: no deformities, no erythema, no cyanosis Psychiatric: Present: mood/affect appropriate, cooperative - Lab 07/22/17 02:50 07/22/17 02:50 Most recent lab results ABG pH 7.32 pH Units (7.32-7.45) D 07/19/17 00:43 ABG pCO2 46 mmHg (35-45) H 07/19/17 00:43 ABG pO2 78 mmHg (85-104) L 07/19/17 00:43 ABG HCO3 24 mEq/L (21-27) 07/19/17 00:43 ABG O2 Saturation 94 % (95-98) L 07/19/17 00:43 Calcium 9.1 mg/dL (8.6-10.3) 07/22/17 02:50 Phosphorus 5.2 mg/dL (2.7-4.5) H 07/19/17 03:00 Magnesium 1.8 mg/dL (1.6-2.6) 07/22/17 02:50 Urine Creatinine 175 mg/dL 07/20/17 04:00 Urine Sodium 52.7 mEq/L 07/18/17 21:30 Urine Total Protein 121 mg/dL (1-14) H 07/20/17 04:00 Consult Discharge Plan - Plan Referrals: Ashwin Ellington, PAC [Primary Care Provider] -
[2017-07-22] MEDS ORDERED: Furosemide 40 MG/4 ML VIAL IVP ONE (10:31)
[2017-07-22 12:58] LABS: Magnesium 2.3 mg/dL (1.6-2.6); Potassium 4.3 mEq/L (3.5-5.1)
[2017-07-22] MEDS: Ondansetron 4 MG/2 ML VIAL IVP PRN (16:15)
--- NOTE | 2017-07-22 18:19 | Pulmonology Progress Note ---
<Frank Levy - Last Filed: 07/22/17 18:46> Date of Encounter: 07/22/17 Time of Encounter: 07:30 Assessment and Plan (1) Acute kidney injury superimposed on CKD Current Visit: Yes Status: Acute Acute on Chronic Kidney Disease Creatinine 1.76 Nephrology - avoid nephrotoxins, no indication for further dialysis Spot hydration, monitor UOP Potassium trending better. Cont avoiding nephrotoxins. Strict I/Os. (2) Altered mental status Current Visit: Yes Status: Acute In the ED, patient alert and oriented x2. No focal deficits at that time. Hx CVA, on warfarin secondary to A. Fib. Emergency intubated secondary to altered mentation and ED concern for airway protection. Suspect secondary to metabolic derangement including possible hypercarbia to compensate for metabolic acidosis. CT head (-) for acute intracranial abnormality. Remains intubated, sedated. Will continue to monitor. Qualifiers: Altered mental status type: unspecified Qualified Code(s): R41.82 - Altered mental status, unspecified (3) HCAP (healthcare-associated pneumonia) Current Visit: Yes Status: Acute Continuing Vancomycin, Cefepime, Levaquin. Patient tolerating today's extubation. (4) Hyperkalemia Current Visit: Yes Status: Acute S/p dialysis x1 night of admission secondary to severe hyperkalemia 7.7 (ECG reviewed shows widened QRS now improved) Monitor, electrolyte protocol for repletion (3.1 today 07/21). Likely to not continue Spironolactone. (5) Metabolic acidosis Current Visit: Yes Status: Acute ABG 07/18 pH 7.11, pCO2 58 ABG 07/19 pH 7.32, pCO2 46; improved/resolved. (6) Supratherapeutic INR Current Visit: No Status: Acute Hx repeated supratherapeutic INR; last INR 07/19 1900 1.9 (07/19 0750 5.3) after FFP and Vit K. (7) Insulin dependent diabetes mellitus Current Visit: No Status: Chronic DM II on both oral and SQ antihyperglycemics at home. On SSI. Subjective Principal diagnosis: MARIBEL Interval history: Nods to verbal, extubation ready with good tidals on 10/03. Objective PUL Vital signs: Last Vital Signs Temp 98.5 F 07/22/17 16:00 Pulse 84 07/22/17 17:00 Resp 18 07/22/17 17:00 BP 151/77 07/22/17 17:00 Pulse Ox 99 07/22/17 17:00 General appearance: agitated (will keep precedex, patient wants to be extubated) Eyes: nonicteric ENT: oropharynx moist Neck: supple Auscultation: bilateral: diminished breath sounds Cardiovascular: regular rate and rhythm Gastrointestinal: soft, non-tender Integumentary: normal Extremities: no cyanosis Results - Laboratory Findings CBC and BMP: 07/22/17 02:50 07/22/17 11:35 ABG ABG pH 7.32 pH Units (7.32-7.45) D 07/19/17 00:43 ABG pCO2 46 mmHg (35-45) H 07/19/17 00:43 ABG pO2 78 mmHg (85-104) L 07/19/17 00:43 ABG O2 Saturation 94 % (95-98) L 07/19/17 00:43 PT/INR, D-dimer PT 20.9 Seconds (9.4-12.1) H D 07/19/17 19:01 Abnormal lab findings: Abnormal lab results RBC 3.48 M/mcL (3.82-4.97) L 07/22/17 02:50 Hgb 10.7 g/dL (11.5-15.4) L 07/22/17 02:50 Hct 32.2 % (35.3-44.9) L 07/22/17 02:50 PT 20.9 Seconds (9.4-12.1) H D 07/19/17 19:01 APTT 53.2 Seconds (26.0-36.0) H 07/19/17 07:50 ABG pCO2 46 mmHg (35-45) H 07/19/17 00:43 ABG pO2 78 mmHg (85-104) L 07/19/17 00:43 ABG O2 Saturation 94 % (95-98) L 07/19/17 00:43 BUN 38 mg/dL (6-20) H 07/22/17 02:50 Creatinine 1.66 mg/dL (0.60-1.20) H 07/22/17 02:50 Est GFR ( Amer) 39 (> 60) L 07/22/17 02:50 Est GFR (Non-Af Amer) 32 (> 60) L 07/22/17 02:50 Glucose 175 mg/dL (70-105) H 07/22/17 11:35 POC Glucose 155 (58-89) H 07/22/17 00:13 Phosphorus 5.2 mg/dL (2.7-4.5) H 07/19/17 03:00 Ferritin 181 ng/ml (10-120) H 07/20/17 04:34 B-Natriuretic Peptide 218 pg/mL (Less than 100) H 07/18/17 21:45 Globulin 4.1 g/dL (2.4-3.5) H 07/19/17 03:00 Albumin/Globulin Ratio 0.8 (1.1-2.2) L 07/19/17 03:00 Vitamin B12 > 1500 pg/mL (250-1100) H 07/20/17 04:34 Folate > 22.3 ng/mL (3.0-16.0) H 07/20/17 04:34 Urine Protein 30 mg/dL (Neg-Trace) H 07/18/17 21:30 Urine Bilirubin Small (Negative) H 07/18/17 21:30 Microalb/Creat Ratio 67 mcg/mg (Less than 30) H 07/20/17 04:00 Protein/Creatinin Ratio 0.69 mg/mg (0.00-0.20) H 07/20/17 04:00 Urine Total Protein 121 mg/dL (1-14) H 07/20/17 04:00 Staphylococcus sp PCR DETECTED (Not Detect) A 07/18/17 21:45 - Clinical Findings Intake & Output: Intake & Output 07/22/17 07/22/17 07/22/17 07:59 15:59 23:59 Intake Total 690 / 690 100 / 100 Output Total 300 / 300 450 / 450 700 / 700 Balance 390 / 390 -350 / -350 -700 / -700 Consult Discharge Plan - Plan Referrals: Ashwin Ellington, PAC [Primary Care Provider] - <Sohan Lara - Last Filed: 07/22/17 18:59> Date of Encounter: 07/22/17 Objective PUL Vital signs: Last Vital Signs Temp 98.5 F 07/22/17 16:00 Pulse 90 07/22/17 18:00 Resp 18 07/22/17 18:00 BP 147/66 07/22/17 18:00 Pulse Ox 95 07/22/17 18:00 Results - Laboratory Findings CBC and BMP: 07/22/17 02:50 07/22/17 11:35 ABG ABG pH 7.32 pH Units (7.32-7.45) D 07/19/17 00:43 ABG pCO2 46 mmHg (35-45) H 07/19/17 00:43 ABG pO2 78 mmHg (85-104) L 07/19/17 00:43 ABG O2 Saturation 94 % (95-98) L 07/19/17 00:43 PT/INR, D-dimer PT 20.9 Seconds (9.4-12.1) H D 07/19/17 19:01 Abnormal lab findings: Abnormal lab results RBC 3.48 M/mcL (3.82-4.97) L 07/22/17 02:50 Hgb 10.7 g/dL (11.5-15.4) L 07/22/17 02:50 Hct 32.2 % (35.3-44.9) L 07/22/17 02:50 PT 20.9 Seconds (9.4-12.1) H D 07/19/17 19:01 APTT 53.2 Seconds (26.0-36.0) H 07/19/17 07:50 ABG pCO2 46 mmHg (35-45) H 07/19/17 00:43 ABG pO2 78 mmHg (85-104) L 07/19/17 00:43 ABG O2 Saturation 94 % (95-98) L 07/19/17 00:43 BUN 38 mg/dL (6-20) H 07/22/17 02:50 Creatinine 1.66 mg/dL (0.60-1.20) H 07/22/17 02:50 Est GFR ( Amer) 39 (> 60) L 07/22/17 02:50 Est GFR (Non-Af Amer) 32 (> 60) L 07/22/17 02:50 Glucose 175 mg/dL (70-105) H 07/22/17 11:35 POC Glucose 155 (58-89) H 07/22/17 00:13 Phosphorus 5.2 mg/dL (2.7-4.5) H 07/19/17 03:00 Ferritin 181 ng/ml (10-120) H 07/20/17 04:34 B-Natriuretic Peptide 218 pg/mL (Less than 100) H 07/18/17 21:45 Globulin 4.1 g/dL (2.4-3.5) H 07/19/17 03:00 Albumin/Globulin Ratio 0.8 (1.1-2.2) L 07/19/17 03:00 Vitamin B12 > 1500 pg/mL (250-1100) H 07/20/17 04:34 Folate > 22.3 ng/mL (3.0-16.0) H 07/20/17 04:34 Urine Protein 30 mg/dL (Neg-Trace) H 07/18/17 21:30 Urine Bilirubin Small (Negative) H 07/18/17 21:30 Microalb/Creat Ratio 67 mcg/mg (Less than 30) H 07/20/17 04:00 Protein/Creatinin Ratio 0.69 mg/mg (0.00-0.20) H 07/20/17 04:00 Urine Total Protein 121 mg/dL (1-14) H 07/20/17 04:00 Staphylococcus sp PCR DETECTED (Not Detect) A 07/18/17 21:45 - Clinical Findings Intake & Output: Intake & Output 07/22/17 07/22/17 07/22/17 07:59 15:59 23:59 Intake Total 690 / 690 100 / 100 Output Total 300 / 300 450 / 450 700 / 700 Balance 390 / 390 -350 / -350 -700 / -700 - Attending Attestation - Attending Attestation I saw and evaluated this patient and my medical decision-making was reviewed with the Resident Physician. I agree with the documented findings, disposition and treatment plan as described except to the extent set forth below. We independently had [id number] contact with the patient Patient seen and examined at bedside Labs, radiology, chart personally reviewed. Management was reviewed during multidisciplinary critical care rounds. DIRECTORY ASSISTANCE OPERATOR:Patient presented as encephalopathy secondary to toxic /metabolic reasons . Started her oral antipsychotics now she is awake and following commands . Pulm: Bilateral pneumonia causing V/Q mismatch complicated by fluid overlaod adjust vent settings to optimize oxygenation and gas exchange will extubate her to BIPAP . Cards: Patient is hemodynamically stable Diuresing her FEN-GI: As per nutrition Renal: Acute on Chronic Kidney injury Labs and output reviewed ID: Broad spectrum antibiotics for pneumonia will descalate according to clinical response Heme/Onc: Labs reviewed Endo: Glucose Monitored Integ/MSK: Skin Care per routine ICU Nursing Protocol to prevent ulcers. Lines: All lines examined without evidence of infection : Dispo: Critically ill high chance of reintubation CODE:Full Code
[2017-07-22] MEDS: Cefepime HCl 1,000 MG in Water for inj. (sterile) 20 ML 10 ML IVP SCH (20:35)
[2017-07-22] MEDS: traZODone 50 MG TABLET PO SCH (20:36)
[2017-07-22] MEDS ORDERED: Insulin LISPRO 300 UNITS/3 ML VIAL SQ SCH (21:00)
[2017-07-23] MEDS: Norepinephrine 4 MG in D5% in Water 250 ML IVC SCH (00:36)
[2017-07-23 04:56] LABS: Calcium 9.6 mg/dL (8.6-10.3); Magnesium 1.8 mg/dL (1.6-2.6)
[2017-07-23 05:54] LABS: Basophils # 0.1 K/mcL (0.0-0.2); Basophils % 1.1 %; Eosinophils # 0.4 K/mcL (0.0-0.6); Eosinophils % 3.8 %; Hematocrit 34.4 % (35.3-44.9); Hemoglobin 11.2 g/dL (11.5-15.4); Immature Granulocytes % 2.4 % (0-4); Lymphocytes # 3.6 K/mcL (0.6-4.6); Mean Corpuscular HGB Conc 32.6 g/dL (31.6-35.5); Mean Corpuscular Hemoglobin 30.8 pg (28.0-33.3); Mean Corpuscular Volume 94.5 fL (83.0-100.0); Monocytes # 0.7 K/mcL (0.0-1.3); Monocytes % 6.8 %; Neutrophils # 5.8 K/mcL (1.6-8.9); Platelet Count 321 K/mcL (140-400); Red Blood Count 3.64 M/mcL (3.82-4.97); Red Cell Distribution Width 13.9 % (11.5-14.5); Segmented Neutrophils % 52.9 %
[2017-07-23] MEDS: Levofloxacin 750 MG/150 ML 750 MG/150 ML BAG IVPB SCH (06:39)
[2017-07-23] MEDS: Ondansetron 4 MG/2 ML VIAL IVP PRN ×3 (07:00→21:16)
[2017-07-23] MEDS: Insulin LISPRO 300 UNITS/3 ML VIAL SQ SCH ×4 (07:52→21:13)
[2017-07-23] MEDS ORDERED: *HR* LORazepam 1 MG TABLET PO PRN ×2 (08:22→09:56)
[2017-07-23] MEDS: Pantoprazole 40 MG VIAL IVP SCH (09:16)
[2017-07-23] MEDS: Nystatin Cream 15 GM TUBE TP SCH ×2 (09:17→21:12)
[2017-07-23] MEDS: Chlorhexidine Rinse 15 ML MOUTHWASH MM SCH (09:20)
[2017-07-23] MEDS ORDERED: Dexmedetomidine HCl 400 MCG/100 ML MLS IVC SCH (09:56)
[2017-07-23] MEDS ORDERED: *HR* Dextrose 50 % in Water (Syg) 50 ML SYRINGE IVP PRN (09:56)
[2017-07-23] MEDS ORDERED: OXYCODONE Oral CONC 10 MG/0.5 ML ORAL.SYG SL PRN (09:56)
[2017-07-23] MEDS ORDERED: FentaNYL (PF) 1,000 MCG in 0.9 % Sodium Chloride 80 ML IVC SCH (09:56)
[2017-07-23] MEDS ORDERED: Potassium Chloride Elixir 20 MEQ/15 ML UDC GTUBE PRN (09:56)
[2017-07-23] MEDS ORDERED: 0.9 % Sodium Chloride 1,000 ML PRIME SCH (09:56)
[2017-07-23] MEDS ORDERED: D5% in Water 1,000 ML IVC PRN (09:56)
[2017-07-23] MEDS ORDERED: Naloxone 0.4 MG/ML INJ IVP PRN (09:56)
[2017-07-23] MEDS ORDERED: Dextrose Gel 15 GM/37.5 ML TUBE PO PRN ×2 (09:56)
[2017-07-23] MEDS ORDERED: Norepinephrine 4 MG in D5% in Water 250 ML IVC SCH (09:56)
[2017-07-23] MEDS ORDERED: Cefepime HCl 1,000 MG in Water for inj. (sterile) 20 ML 10 ML IVP SCH (10:00)
--- NOTE | 2017-07-23 11:00 | Nephrology Progress Note ---
Date of Encounter: 07/23/17 Time of Encounter: 11:00 - Assessment and Plan (1) Acute renal failure Current Visit: Yes Status: Acute Patient with nonoliguiric acute kidney injury that is likely multifactorial. Patient presented with multiple nephrotoxic agents. She received dialysis the night of admission secondary to severe hyperkalemia that was secondary to renal dysfunction along with ongoing CHRISTIANO-I and potassium sparing diuretic use. No need for dialysis today. Patient's renal function continues to improve with good urine output. Avoid nephrotoxins. Agree with hydration as tolerated. I do not anticipate the need for additional dialysis. I anticipate recovery. Qualifiers: Acute renal failure type: unspecified Qualified Code(s): N17.9 - Acute kidney failure, unspecified (2) Septic shock Current Visit: Yes Status: Acute Resolved. Secondary to pneumonia. (3) Anemia Current Visit: Yes Status: Acute Monitor. Iron, vitamin b12 and folate are replete. Qualifiers: Anemia type: B12 deficiency Qualified Code(s): D51.0 - Vitamin B12 deficiency anemia due to intrinsic factor deficiency (4) Altered mental status Current Visit: Yes Status: Acute Resolved. Per primary team. Qualifiers: Altered mental status type: unspecified Qualified Code(s): R41.82 - Altered mental status, unspecified (5) Acute respiratory failure Current Visit: Yes Status: Acute Patient with HCAP and on antibiotics. Patient extubated and moving to the regular floor. Qualifiers: Qualified Code(s): J96.00 - Acute respiratory failure, unspecified whether with hypoxia or hypercapnia Subjective Principal diagnosis: MARIBEL Interval history: Patient seen and evaluated. She has no new complaint. She feels much better and is asking when she can go home. She plans to move out of the ICU today. Objective - Vital Signs Vital signs: Vital Signs Temp Pulse Resp BP Pulse Ox 07/23/17 09:30 92 21 131/86 98 07/23/17 08:33 86 21 122/80 96 07/23/17 08:00 97.7 F 07/23/17 07:30 83 21 108/71 100 07/23/17 06:00 82 20 104/70 99 07/23/17 05:19 98 F 07/23/17 05:00 86 16 104/64 98 07/23/17 04:00 87 16 93/54 98 07/23/17 03:00 86 20 98/61 97 02/26/18 02:00 92 18 104/65 98 07/23/17 01:06 97.7 F 07/23/17 01:00 101 16 116/79 98 07/23/17 00:00 98 12 109/69 99 07/22/17 23:00 100 20 104/65 97 07/22/17 21:10 97.8 F 07/22/17 21:00 104 21 123/74 97 07/22/17 20:00 90 16 140/68 96 07/22/17 19:00 82 16 133/81 96 07/22/17 18:00 90 18 147/66 95 07/22/17 17:00 84 18 151/77 99 07/22/17 16:00 98.5 F 85 20 181/117 100 07/22/17 15:00 90 18 109/83 100 07/22/17 14:00 76 18 119/63 93 07/22/17 13:00 93 20 142/89 97 07/22/17 12:00 99.0 F 92 20 117/90 100 Intake and Output 07/22/17 07/23/17 07/23/17 23:59 07:59 15:59 Intake Total 210 / 210 Output Total 850 / 850 350 / 350 75 / 75 Balance -640 / -640 -350 / -350 -75 / -75 Intake: IV Fluids Maxipime 1,000 MG In Water for inj. (sterile) 10 ML @ 150 mls/ hr IVP Q24H FOR[facility]LY [facility], 1928–1983 Rx#:[id number] Oral 200 / 200 Output: Emesis 250 / 250 Catheter 600 / 600 350 / 350 75 / 75 Other: Blood Glucose* 117 125 112 - General Appearance General appearance: Present: well-developed, well-nourished EENT: Present: ATNC Neck: Present: supple Respiratory: Present: clear Cardiology: Present: no edema, regular rate, regular rhythm Gastrointestinal: Present: no tenderness, obese Integumentary: Present: warm and dry Neurologic: Present: alert and oriented x3 Musculoskeletal: Present: no cyanosis Psychiatric: Present: mood/affect appropriate - Lab 07/23/17 04:26 07/23/17 04:26 Most recent lab results ABG pH 7.32 pH Units (7.32-7.45) D 07/19/17 00:43 ABG pCO2 46 mmHg (35-45) H 07/19/17 00:43 ABG pO2 78 mmHg (85-104) L 07/19/17 00:43 ABG HCO3 24 mEq/L (21-27) 07/19/17 00:43 ABG O2 Saturation 94 % (95-98) L 07/19/17 00:43 Calcium 9.6 mg/dL (8.6-10.3) 07/23/17 04:26 Phosphorus 5.2 mg/dL (2.7-4.5) H 07/19/17 03:00 Magnesium 1.8 mg/dL (1.6-2.6) 07/23/17 04:26 Urine Creatinine 175 mg/dL 07/20/17 04:00 Urine Sodium 52.7 mEq/L 07/18/17 21:30 Urine Total Protein 121 mg/dL (1-14) H 07/20/17 04:00 Consult Discharge Plan - Plan Referrals: Ashwin Ellington, PAC [Primary Care Provider] -
[2017-07-23] MEDS: *HR* Enoxaparin 120 MG/0.8 ML SYRINGE SQ SCH ×2 (11:12→21:13)
[2017-07-23] MEDS: Cefepime HCl 1,000 MG in Water for inj. (sterile) 20 ML 10 ML IVP SCH ×2 (11:13→21:12)
--- NOTE | 2017-07-23 12:04 | Pulmonology Progress Note ---
Date of Encounter: 07/23/17 Time of Encounter: 07:00 Assessment and Plan (1) Acute hypoxemic respiratory failure Current Visit: No Status: Resolved Continue noninvasive ventilation when necessary and at night as tolerated and keep SPO2 around 90% with encouraging incentive spirometry (2) Afib Current Visit: No Status: Chronic Patient needs anticoagulation and with history of pulmonary embolism to start Lovenox and bridge with warfarin Qualifiers: Atrial fibrillation type: paroxysmal Qualified Code(s): I48.0 - Paroxysmal atrial fibrillation (3) Acute kidney injury superimposed on CKD Current Visit: Yes Status: Acute Nephrology follow-up (4) Bacteremia Current Visit: No Status: Ruled-out Descalated antibiotics and patient remained hemodynamically stable to be transferred to the floor. Physical therapy. (5) COPD (chronic obstructive pulmonary disease) Current Visit: No Status: Chronic Qualifiers: COPD type: unspecified COPD Qualified Code(s): J44.9 - Chronic obstructive pulmonary disease, unspecified Subjective Principal diagnosis: MARIBEL Interval history: Patient is feeling much better and denies any significant complaints Objective PUL Vital signs: Last Vital Signs Temp 97.7 F 07/23/17 08:00 Pulse 91 07/23/17 11:28 Resp 20 07/23/17 11:28 BP 144/92 07/23/17 11:28 Pulse Ox 96 07/23/17 11:28 General appearance: no acute distress Eyes: nonicteric ENT: oropharynx moist Neck: supple Effort: normal Auscultation: bilateral: clear, diminished breath sounds Percussion: bilateral: not dull Cardiovascular: irregular rhythm Gastrointestinal: normoactive bowel sounds, non-distended Extremities: no cyanosis, edema normal mental status, non-focal exam depressed Results - Laboratory Findings CBC and BMP: 07/23/17 04:26 07/23/17 04:26 ABG ABG pH 7.32 pH Units (7.32-7.45) D 07/19/17 00:43 ABG pCO2 46 mmHg (35-45) H 07/19/17 00:43 ABG pO2 78 mmHg (85-104) L 07/19/17 00:43 ABG O2 Saturation 94 % (95-98) L 07/19/17 00:43 PT/INR, D-dimer PT 20.9 Seconds (9.4-12.1) H D 02/22/18 19:01 Abnormal lab findings: Abnormal lab results RBC 3.64 M/mcL (3.82-4.97) L 07/23/17 04:26 Hgb 11.2 g/dL (11.5-15.4) L 07/23/17 04:26 Hct 34.4 % (35.3-44.9) L 07/23/17 04:26 MPV 9.0 fL (9.4-12.4) L 07/23/17 04:26 PT 20.9 Seconds (9.4-12.1) H D 07/19/17 19:01 APTT 53.2 Seconds (26.0-36.0) H 07/19/17 07:50 ABG pCO2 46 mmHg (35-45) H 07/19/17 00:43 ABG pO2 78 mmHg (85-104) L 07/19/17 00:43 ABG O2 Saturation 94 % (95-98) L 07/19/17 00:43 BUN 39 mg/dL (6-20) H 07/23/17 04:26 Creatinine 1.30 mg/dL (0.60-1.20) H 07/23/17 04:26 Est GFR ( Amer) 52 (> 60) L 07/23/17 04:26 Est GFR (Non-Af Amer) 43 (> 60) L 07/23/17 04:26 BUN/Creatinine Ratio 30 (6-26) H 07/23/17 04:26 Glucose 122 mg/dL (70-105) H 07/23/17 04:26 POC Glucose 125 (58-89) H 07/23/17 00:26 Phosphorus 5.2 mg/dL (2.7-4.5) H 07/19/17 03:00 Ferritin 181 ng/ml (10-120) H 07/20/17 04:34 Myoglobin 165 ng/mL (25-58) H 07/18/17 21:45 B-Natriuretic Peptide 218 pg/mL (Less than 100) H 07/18/17 21:45 Globulin 4.1 g/dL (2.4-3.5) H 07/19/17 03:00 Albumin/Globulin Ratio 0.8 (1.1-2.2) L 07/19/17 03:00 Vitamin B12 > 1500 pg/mL (250-1100) H 07/20/17 04:34 Folate > 22.3 ng/mL (3.0-16.0) H 07/20/17 04:34 Urine Protein 30 mg/dL (Neg-Trace) H 07/18/17 21:30 Urine Bilirubin Small (Negative) H 07/18/17 21:30 Microalb/Creat Ratio 67 mcg/mg (Less than 30) H 07/20/17 04:00 Protein/Creatinin Ratio 0.69 mg/mg (0.00-0.20) H 07/20/17 04:00 Urine Total Protein 121 mg/dL (1-14) H 07/20/17 04:00 Staphylococcus sp PCR DETECTED (Not Detect) A 07/18/17 21:45 - Clinical Findings Intake & Output: Intake & Output 07/22/17 07/23/17 07/23/17 23:59 07:59 15:59 Intake Total 210 / 210 Output Total 850 / 850 350 / 350 75 / 75 Balance -640 / -640 -350 / -350 -75 / -75 Consult Discharge Plan - Plan Referrals: Ashwin Ellington, PAC [Primary Care Provider] -
[2017-07-23] MEDS: *HR* Warfarin 5 MG TABLET PO SCH (16:33)
[2017-07-23] MEDS ORDERED: Chlorhexidine Rinse 15 ML MOUTHWASH MM SCH (21:00)
[2017-07-23] MEDS: traZODone 50 MG TABLET PO SCH (21:18)
[2017-07-24 06:01] LABS: INR 1.4; Prothrombin Time 14.8 Seconds (9.4-12.1)
[2017-07-24] MEDS: Insulin LISPRO 300 UNITS/3 ML VIAL SQ SCH ×4 (08:09→20:23)
[2017-07-24] MEDS: Nystatin Cream 15 GM TUBE TP SCH ×2 (08:28→20:26)
[2017-07-24] MEDS: Pantoprazole 40 MG VIAL IVP SCH (08:29)
[2017-07-24] MEDS: Cefepime HCl 1,000 MG in Water for inj. (sterile) 20 ML 10 ML IVP SCH ×2 (08:29→22:50)
[2017-07-24 08:41] LABS: Basophils # 0.1 K/mcL (0.0-0.2); Basophils % 0.8 %; Eosinophils # 0.3 K/mcL (0.0-0.6); Hematocrit 36.3 % (35.3-44.9); Hemoglobin 11.6 g/dL (11.5-15.4); Immature Granulocytes % 4.2 % (0-4); Lymphocytes # 3.8 K/mcL (0.6-4.6); Lymphocytes % 34.1 %; Mean Corpuscular Hemoglobin 30.4 pg (28.0-33.3); Mean Platelet Volume 9.1 fL (9.4-12.4); Monocytes # 0.7 K/mcL (0.0-1.3); Monocytes % 5.9 %; Neutrophils # 5.8 K/mcL (1.6-8.9); Platelet Count 356 K/mcL (140-400); Red Blood Count 3.82 M/mcL (3.82-4.97); Red Cell Distribution Width 13.6 % (11.5-14.5)
[2017-07-24] MEDS: *HR* Enoxaparin 120 MG/0.8 ML SYRINGE SQ SCH ×2 (11:25→22:51)
--- NOTE | 2017-07-24 12:28 | Internal Med Progress Note ---
Date of Encounter: 07/24/17 Time of Encounter: 10:30 - Assessment and plan (1) Acute hypoxemic respiratory failure Current Visit: No Status: Resolved Assessment and plan: Resolved. Patient is no longer requiring supplemental oxygen. (2) Acute kidney injury superimposed on CKD Current Visit: Yes Status: Acute Assessment and plan: Patient with history of CKD III,, acute injury most likely due to medications and fluid balance during ICU stay. Patient did receive dialysis on arrival due to severe hyperkalemia secondary to renal dysfunction as well as CHRISTIANO inhibitor and potassium sparing diuretic use. She is being evaluated by nephrology. Continue to avoid nephrotoxins and continue IV fluid hydration as tolerated. Stat labs were ordered this morning at 7:47 AM. At the time of this dictation, labs are still not available and resulted. We will continue to monitor. (3) Afib Current Visit: Yes Status: Chronic Assessment and plan: Rate controlled. Patient is being bridged from Lovenox to Coumadin. Patient denies chest pain. INR is currently subtherapeutic at 1.4 today. Pharmacy is dosing warfarin. Qualifiers: Atrial fibrillation type: paroxysmal Qualified Code(s): I48.0 - Paroxysmal atrial fibrillation (4) Altered mental status Current Visit: Yes Status: Resolved Assessment and plan: Patient is alert and oriented 3, answers questions appropriately. Per at bedside, patient has returned to her baseline. Qualifiers: Altered mental status type: unspecified Qualified Code(s): R41.82 - Altered mental status, unspecified (5) Anemia Current Visit: Yes Status: Resolved Assessment and plan: Anemia has resolved today. Hemoglobin has returned to 11.6. Continue to monitor. Qualifiers: Anemia type: B12 deficiency Qualified Code(s): D51.0 - Vitamin B12 deficiency anemia due to intrinsic factor deficiency (6) Bacteremia Current Visit: No Status: Ruled-out (7) CKD (chronic kidney disease) stage 3, GFR 30-59 ml/min Current Visit: Yes Status: Chronic Assessment and plan: Chronic. Plan as above. Patient is being followed by nephrology. (8) COPD (chronic obstructive pulmonary disease) Current Visit: Yes Status: Chronic Assessment and plan: Chronic. No acute exacerbation at this time. Lungs are clear the patient is no longer requiring supplemental oxygen. Continue home medications and nebulizer treatments as scheduled. Qualifiers: COPD type: unspecified COPD Qualified Code(s): J44.9 - Chronic obstructive pulmonary disease, unspecified (9) DVT prophylaxis Current Visit: Yes Status: Acute Assessment and plan: Patient being bridged from Lovenox to warfarin. Encourage patient to be up at bedside, ambulating in room, participate in PT/OT. (10) Morbid obesity with BMI of 40.0-44.9, adult Current Visit: Yes Status: Chronic Assessment and plan: Chronic. Encourage lifestyle modification changes. - Time Spent With Patient less than 15 minutes - Subjective Interval history: Patient was seen and assessed at that time 10:30 AM. was at bedside. All questions were answered. Patient is alert and oriented. She is not requiring any supplemental oxygen. She denies pain. She denies headache, chest pain, nausea, vomiting, diarrhea. She denies any new peripheral edema or urinary symptoms. She denies fever or chills, no abdominal pain, nausea, vomiting, diarrhea. She is aware plan of care, we will assess for discharge tomorrow. - Constitutional Vitals: Temp Pulse Resp BP Pulse Ox 98.2 F 89 17 136/81 93 07/24/17 11:10 07/24/17 11:10 07/24/17 11:10 07/24/17 11:10 07/24/17 11:10 General appearance: Present: cooperative, mild distress (Movement of extremities when touching patient during treatment and examination.), morbidly obese, pleasant, no acute distress, answers questions appropriately - Head Head exam: Present: atraumatic, normal inspection, normocephalic - Eye Eye exam: Present: normal appearance, conjuntiva pink, sclera anicteric - Neck Neck exam general surgery: Present: normal inspection, supple, trachea midline. Absent: lymphadenopathy, tenderness - Respiratory Respiratory exam: Present: CTAB. Absent: accessory muscle use, chest wall tenderness, rales, respiratory distress, rhonchi, wheezes - Cardiovascular Cardiovascular exam: Present: RRR, +S1, +S2. Absent: diastolic murmur, gallop, rubs, systolic murmur - GI/Abdominal GI/Abdominal exam: Present: normal bowel sounds, soft. Absent: distended, hepatomegaly, tenderness - Extremities Exam Extremities exam: Present: normal inspection, warm, radial pulses palpable and symmetrical. Absent: calf tenderness, cyanotic, pedal edema, tenderness - Neurological Exam Neurological exam: Present: alert, oriented X3, no focal deficits, strengths equal and symetr throughout. Absent: facial droop, speech deficit - Skin Skin exam: Present: dry, intact, normal color, warm. Absent: rash Internal Medicine: Result - Labs CBC & Chem 7: 07/24/17 08:20 07/23/17 04:26 Labs: Short CBC 07/24/17 Range/Units 08:20 WBC 11.2 H (4.3-11.1) K/mcL Hgb 11.6 (11.5-15.4) g/dL Hct 36.3 (35.3-44.9) % Plt Count 356 (140-400) K/mcL Neutrophils # 5.8 (1.6-8.9) K/mcL - ABG Interpretation ABG results: ABG ABG pH 7.32 pH Units (7.32-7.45) D 07/19/17 00:43 ABG pCO2 46 mmHg (35-45) H 07/19/17 00:43 ABG pO2 78 mmHg (85-104) L 07/19/17 00:43 ABG O2 Saturation 94 % (95-98) L 07/19/17 00:43 PT/INR, D-dimer PT 14.8 Seconds (9.4-12.1) H 07/24/17 05:34 Consult Discharge Plan - Plan Referrals: Ashwin Ellington, PAC [Primary Care Provider] -
[2017-07-24 13:48] LABS: Calcium 9.7 mg/dL (8.6-10.3); Carbon Dioxide 23 mEq/L (23-29); Chloride 102 mEq/L (98-107); Potassium 4.3 mEq/L (3.5-5.1); Sodium 132 mEq/L (136-145)
[2017-07-24 13:54] LABS: BUN/Creatinine Ratio 29 (6-26); Blood Urea Nitrogen 28 mg/dL (6-20); Glucose 147 mg/dL (70-105); Osmolality,Calculated 282 (280-300); eGFR For Non-African Americans > 60 (> 60)
[2017-07-24] MEDS: Levofloxacin 750 MG/150 ML 750 MG/150 ML BAG IVPB SCH (14:47)
[2017-07-24] MEDS: *HR* Warfarin 5 MG TABLET PO SCH (17:58)
[2017-07-24] MEDS ORDERED: Warfarin perPT PO PRN (18:00)
[2017-07-24] MEDS: OXYCODONE Oral CONC 10 MG/0.5 ML ORAL.SYG SL PRN (20:25)
[2017-07-24] MEDS: traZODone 50 MG TABLET PO SCH (20:27)
--- NOTE | 2017-07-24 23:07 | Nephrology Progress Note ---
Date of Encounter: 07/24/17 Time of Encounter: 11:00 - Assessment and Plan (1) Acute renal failure Current Visit: Yes Status: Acute Patient with nonoliguiric acute kidney injury that is likely multifactorial. Patient presented with multiple nephrotoxic agents. She received dialysis the night of admission secondary to severe hyperkalemia that was secondary to renal dysfunction along with ongoing CHRISTIANO-I and potassium sparing diuretic use. No need for dialysis today. Patient's renal function continues to improve with good urine output. Avoid nephrotoxins. Agree with hydration as tolerated. I do not anticipate the need for additional dialysis. I anticipate recovery. Qualifiers: Acute renal failure type: unspecified Qualified Code(s): N17.9 - Acute kidney failure, unspecified (2) Septic shock Current Visit: Yes Status: Acute Resolved. Secondary to pneumonia. (3) Anemia Current Visit: Yes Status: Resolved Monitor. Iron, vitamin b12 and folate are replete. Qualifiers: Anemia type: B12 deficiency Qualified Code(s): D51.0 - Vitamin B12 deficiency anemia due to intrinsic factor deficiency (4) Altered mental status Current Visit: Yes Status: Resolved Resolved. Per primary team. Qualifiers: Altered mental status type: unspecified Qualified Code(s): R41.82 - Altered mental status, unspecified (5) Acute respiratory failure Current Visit: Yes Status: Acute Patient with HCAP and on antibiotics. Qualifiers: Qualified Code(s): J96.00 - Acute respiratory failure, unspecified whether with hypoxia or hypercapnia Subjective Principal diagnosis: MARIBEL Interval history: Patient seen and evaluated. She has no new complaint. She feels much better and is asking when she can go home. Objective - Vital Signs Vital signs: Vital Signs Temp Pulse Resp BP Pulse Ox 07/24/17 19:29 99.0 F 85 18 185/91 91 07/24/17 16:10 98.4 F 96 18 161/95 94 07/24/17 13:17 89 17 136/81 93 07/24/17 11:10 98.2 F 89 17 136/81 93 07/24/17 07:52 97.6 F 78 18 133/62 94 07/24/17 03:57 98.0 F 53 15 115/70 95 Intake and Output 07/24/17 07/24/17 07/24/17 07:59 15:59 23:59 Intake Total 410 / 410 Balance 410 / 410 Intake: IV Fluids Maxipime 1,000 MG In Water for inj. (sterile) 10 ML @ 150 mls/ hr IVP Q12H [facility] Rx#:[id number] Oral 400 / 400 Other: Meal Lunch Percent of Meal Consumed 100% Weight 119.748 kg Blood Glucose* 116 161 127 Patient Weight 07/24/17 23:59 Weight 119.748 kg - General Appearance General appearance: Present: well-developed, well-nourished, obese Neck: Present: supple Cardiology: Present: regular rate Gastrointestinal: Present: obese Neurologic: Present: alert and oriented x3 Psychiatric: Present: mood/affect appropriate - Lab 07/24/17 08:20 07/24/17 13:26 Most recent lab results ABG pH 7.32 pH Units (7.32-7.45) D 07/19/17 00:43 ABG pCO2 46 mmHg (35-45) H 07/19/17 00:43 ABG pO2 78 mmHg (85-104) L 07/19/17 00:43 ABG HCO3 24 mEq/L (21-27) 07/19/17 00:43 ABG O2 Saturation 94 % (95-98) L 07/19/17 00:43 Calcium 9.7 mg/dL (8.6-10.3) 07/24/17 13:26 Phosphorus 5.2 mg/dL (2.7-4.5) H 07/19/17 03:00 Magnesium 1.8 mg/dL (1.6-2.6) 07/23/17 04:26 Urine Creatinine 175 mg/dL 07/20/17 04:00 Urine Sodium 52.7 mEq/L 07/18/17 21:30 Urine Total Protein 121 mg/dL (1-14) H 07/20/17 04:00 Consult Discharge Plan - Plan Referrals: Ashwin Ellington, PAC [Primary Care Provider] -
[2017-07-25 05:46] LABS: Basophils # 0.1 K/mcL (0.0-0.2); Eosinophils # 0.4 K/mcL (0.0-0.6); Eosinophils % 2.9 %; Hematocrit 33.3 % (35.3-44.9); Hemoglobin 11.1 g/dL (11.5-15.4); Immature Granulocytes % 4.3 % (0-4); Lymphocytes # 4.1 K/mcL (0.6-4.6); Lymphocytes % 33.2 %; Mean Corpuscular HGB Conc 33.3 g/dL (31.6-35.5); Mean Corpuscular Hemoglobin 30.6 pg (28.0-33.3); Mean Corpuscular Volume 91.7 fL (83.0-100.0); Monocytes # 0.8 K/mcL (0.0-1.3); Monocytes % 6.7 %; Neutrophils # 6.4 K/mcL (1.6-8.9); Platelet Count 301 K/mcL (140-400); Red Blood Count 3.63 M/mcL (3.82-4.97); Red Cell Distribution Width 13.5 % (11.5-14.5); Segmented Neutrophils % 51.9 %
[2017-07-25 05:51] LABS: INR 1.4; Prothrombin Time 14.7 Seconds (9.4-12.1)
[2017-07-25] MEDS ORDERED: Levofloxacin 750 MG/150 ML 750 MG/150 ML BAG IVPB SCH (06:00)
[2017-07-25 06:07] LABS: BUN/Creatinine Ratio 26 (6-26); Blood Urea Nitrogen 23 mg/dL (6-20); Calcium 9.3 mg/dL (8.6-10.3); Carbon Dioxide 26 mEq/L (23-29); Chloride 104 mEq/L (98-107); Glucose 159 mg/dL (70-105); Osmolality,Calculated 287 (280-300); Potassium 3.7 mEq/L (3.5-5.1); Sodium 135 mEq/L (136-145); eGFR For Non-African Americans > 60 (> 60)
[2017-07-25] MEDS: Pantoprazole 40 MG VIAL IVP SCH (08:20)
[2017-07-25] MEDS: Insulin LISPRO 300 UNITS/3 ML VIAL SQ SCH ×5 (08:20→21:28)
[2017-07-25] MEDS: Cefepime HCl 1,000 MG in Water for inj. (sterile) 20 ML 10 ML IVP SCH ×2 (08:21→21:29)
[2017-07-25] MEDS: Nystatin Cream 15 GM TUBE TP SCH ×2 (08:22→21:29)
[2017-07-25 09:45] LABS: Bilirubin,Urine Negative (Negative); Blood,Urine Large (Negative); Color,Urine Yellow (Yellow); Glucose,Urine (UA) Normal (Normal); Ketones,Urine Negative (Negative); Leukocyte Esterase,Urine Negative (Negative); Nitrite,Urine Negative (Negative); PH,Urine 5.5 pH Units (5.0-8.0); Protein,Urine Trace mg/dL (Neg-Trace); Specific Gravity,Urine 1.024 (1.010-1.025); Urobilinogen,Urine Normal (Normal)
[2017-07-25 09:47] LABS: Hyaline Casts,Urine Few per lpf (None-Few)
[2017-07-25 09:49] LABS: Clarity,Urine Hazy (Clear)
[2017-07-25 10:04] LABS: Squamous Epithelial Cell,Urine Many per lpf (None-Few); WBC,Urine 0-3 per hpf (0-3)
[2017-07-25 10:05] LABS: Bacteria,Urine Few per hpf (None-Few); RBC,Urine 15-30 per hpf (0-3)
[2017-07-25] MEDS: *HR* Enoxaparin 120 MG/0.8 ML SYRINGE SQ SCH ×2 (12:11→21:29)
[2017-07-25] MEDS: Levofloxacin 750 MG/150 ML 750 MG/150 ML BAG IVPB SCH (15:35)
[2017-07-25 16:29] LABS: Basophils # 0.2 K/mcL (0.0-0.2); Basophils % 1.3 %; Eosinophils # 0.3 K/mcL (0.0-0.6); Eosinophils % 1.9 %; Hematocrit 36.5 % (35.3-44.9); Hemoglobin 12.4 g/dL (11.5-15.4); Immature Granulocytes % 4.7 % (0-4); Lymphocytes # 4.5 K/mcL (0.6-4.6); Lymphocytes % 31.3 %; Mean Corpuscular Hemoglobin 30.7 pg (28.0-33.3); Mean Corpuscular Volume 90.3 fL (83.0-100.0); Monocytes % 7.2 %; Neutrophils # 7.6 K/mcL (1.6-8.9); Nucleated Red Blood Cells 0.1 /100 WBC (0); Platelet Count 363 K/mcL (140-400); Red Blood Count 4.04 M/mcL (3.82-4.97); Red Cell Distribution Width 13.6 % (11.5-14.5); Segmented Neutrophils % 53.6 %
--- NOTE | 2017-07-25 17:02 | Internal Med Progress Note ---
Date of Encounter: 07/25/17 Time of Encounter: 09:15 - Assessment and plan (1) Acute kidney injury superimposed on CKD Current Visit: Yes Status: Acute Assessment and plan: Patient with history of CKD III,, acute injury most likely due to medications and fluid balance during ICU stay. Patient did receive dialysis on arrival due to severe hyperkalemia secondary to renal dysfunction as well as CHRISTIANO inhibitor and potassium sparing diuretic use. She is being evaluated by nephrology. Continue to avoid nephrotoxins and continue IV fluid hydration as tolerated. Renal function has returned to WNL. We will continue to monitor. (2) Afib Current Visit: Yes Status: Chronic Assessment and plan: Rate controlled. Patient is being bridged from Lovenox to Coumadin. Patient denies chest pain. INR is remains subtherapeutic at 1.4 today. Pharmacy is dosing warfarin. Qualifiers: Atrial fibrillation type: paroxysmal Qualified Code(s): I48.0 - Paroxysmal atrial fibrillation (3) Altered mental status Current Visit: Yes Status: Resolved Assessment and plan: Patient is alert and oriented 3, answers questions appropriately. Resolved. Qualifiers: Altered mental status type: unspecified Qualified Code(s): R41.82 - Altered mental status, unspecified (4) Anemia Current Visit: Yes Status: Resolved Assessment and plan: Anemia has resolved today. Continues to improve, 14.2 now. Continue to monitor. Qualifiers: Anemia type: B12 deficiency Qualified Code(s): D51.0 - Vitamin B12 deficiency anemia due to intrinsic factor deficiency (5) CKD (chronic kidney disease) stage 3, GFR 30-59 ml/min Current Visit: Yes Status: Chronic Assessment and plan: Chronic. Plan as above. Patient is being followed by nephrology. (6) COPD (chronic obstructive pulmonary disease) Current Visit: Yes Status: Chronic Assessment and plan: Chronic. No acute exacerbation at this time. Lungs are clear the patient is no longer requiring supplemental oxygen. Pt with leukocytosis today, repeat CXR negative. Continue home medications and nebulizer treatments as scheduled. Continue telemetry Qualifiers: COPD type: unspecified COPD Qualified Code(s): J44.9 - Chronic obstructive pulmonary disease, unspecified (7) DVT prophylaxis Current Visit: Yes Status: Acute Assessment and plan: Patient being bridged from Lovenox to warfarin. Encourage patient to be up at bedside, ambulating in room, participate in PT/OT. Pharmacy dosing Warfarin. (8) Morbid obesity with BMI of 40.0-44.9, adult Current Visit: Yes Status: Chronic Assessment and plan: Chronic. Encourage lifestyle modification changes. (9) SIRS (systemic inflammatory response syndrome) Current Visit: Yes Status: Acute Assessment and plan: Patient with increasing leukocytosis, uncertain origin of infection. Patient was treated for pneumonia and was intubated in the ICU with a CVC. Patient is tachycardic, tachypneic, with leukocytosis. Plan as above (10) Leucocytosis Current Visit: No Status: Chronic Assessment and plan: Pt with increasing leukocytosis since yesterday. Pt was deescalated from Vancomycin to Levaquin for pna. WBC increased to 14.2 today. Urine is negative for infection. CXR showed blunting of right CP angle was questionable small right pleural effusion which is new from prior exam. Patient has been afebrile, she is tachycardic with rate 107, she is tachypneic with a rate of 20. Blood pressure is normotensive. Blood cultures were drawn today, concerned for possible infection from CVC insertion. It was removed prior to her presenting to this floor. Continue to monitor vitals, patient condition, labs in the a.m. Qualifiers: Leukocytosis type: unspecified Qualified Code(s): D72.829 - Elevated white blood cell count, unspecified - Time Spent With Patient less than 15 minutes - Subjective Interval history: Patient was seen and assessed at that time 0915 AM. was at bedside. All questions were answered. Patient is alert and oriented. She is not requiring any supplemental oxygen. She denies pain. She denies headache, chest pain, nausea, vomiting, diarrhea. She denies any new peripheral edema or urinary symptoms. She denies fever or chills, no abdominal pain, nausea, vomiting, diarrhea. Pt is aware of increasing leukocytosis and SIRS criteria, will assess overnight and check labs again in the a.m. - Constitutional Vitals: Temp Pulse Resp BP Pulse Ox 98.5 F 107 20 140/92 94 07/25/17 16:39 07/25/17 16:39 07/25/17 16:39 07/25/17 16:39 07/25/17 16:39 General appearance: Present: cooperative, mild distress (Movement of extremities when touching patient during treatment and examination.), morbidly obese, pleasant, no acute distress, answers questions appropriately - Head Head exam: Present: atraumatic, normal inspection, normocephalic - Eye Eye exam: Present: normal appearance, conjuntiva pink, sclera anicteric - Neck Neck exam general surgery: Present: supple, trachea midline. Absent: lymphadenopathy, tenderness - Respiratory Respiratory exam: Present: CTAB. Absent: accessory muscle use, decreased breath sounds, rales, respiratory distress, rhonchi, wheezes - Cardiovascular Cardiovascular exam: Present: RRR, +S1, +S2. Absent: diastolic murmur, gallop, rubs, systolic murmur - GI/Abdominal GI/Abdominal exam: Present: normal bowel sounds, soft, no peritoneal signs. Absent: distended, hepatomegaly, tenderness - Extremities Exam Extremities exam: Present: normal capillary refill, normal inspection, warm, radial pulses palpable and symmetrical. Absent: calf tenderness, cyanotic, pedal edema, tenderness - Neurological Exam Neurological exam: Present: alert, oriented X3, no focal deficits. Absent: facial droop, speech deficit - Skin Skin exam: Present: dry, intact, normal color, warm. Absent: rash Internal Medicine: Result - Labs CBC & Chem 7: 07/25/17 15:55 07/25/17 05:40 Labs: Short CBC 07/25/17 07/25/17 Range/Units 05:40 15:55 WBC 12.4 H 14.2 H (4.3-11.1) K/mcL Hgb 11.1 L 12.4 (11.5-15.4) g/dL Hct 33.3 L 36.5 (35.3-44.9) % Plt Count 301 363 (140-400) K/mcL Neutrophils # 6.4 7.6 (1.6-8.9) K/mcL BMP 07/25/17 05:40 Sodium 135 L Potassium 3.7 Chloride 104 Carbon Dioxide 26 BUN 23 H Creatinine 0.87 Glucose 159 H Calcium 9.3 Urine 07/25/17 Range/Units 09:33 Urine Color Yellow (Yellow) Urine Clarity Hazy A (Clear) Urine pH 5.5 (5.0-8.0) pH Units Ur Specific [place] 1.024 (1.010-1.025) Urine Protein Trace (Neg-Trace) mg/dL Urine Glucose (UA) Normal (Normal) mg/dL - ABG Interpretation ABG results: ABG ABG pH 7.32 pH Units (7.32-7.45) D 07/19/17 00:43 ABG pCO2 46 mmHg (35-45) H 07/19/17 00:43 ABG pO2 78 mmHg (85-104) L 07/19/17 00:43 ABG O2 Saturation 94 % (95-98) L 07/19/17 00:43 PT/INR, D-dimer PT 14.7 Seconds (9.4-12.1) H 07/25/17 05:40 - Impressions Impressions Chest X-Ray 07/25/17 12:02 IMPRESSION: Blunting of right CP angle, questioning a small right pleural effusion, new from prior exam. D/ / 07/25/2017 16:17:13 Lawrence [facility] / [facility] Interpreting Provider: Lawrence Olvera MD Consult Discharge Plan - Plan Referrals: Ashwin Ellington, PAC [Primary Care Provider] -
[2017-07-25] MEDS: *HR* Warfarin 5 MG TABLET PO SCH (18:13)
[2017-07-25] MEDS: traZODone 50 MG TABLET PO SCH (21:32)
[2017-07-25] MEDS: OXYCODONE Oral CONC 10 MG/0.5 ML ORAL.SYG SL PRN (21:45)
--- NOTE | 2017-07-25 22:43 | Nephrology Progress Note ---
Date of Encounter: 07/25/17 Time of Encounter: 22:38 - Assessment and Plan (1) Acute renal failure Current Visit: Yes Status: Acute Patient with nonoliguiric acute kidney injury that is likely multifactorial. Patient presented with multiple nephrotoxic agents. She received dialysis the night of admission secondary to severe hyperkalemia that was secondary to renal dysfunction along with ongoing CHRISTIANO-I and potassium sparing diuretic use. No need for dialysis today. Patient's renal function has improved. Her eGFR is greater than 60. Avoid nephrotoxins. She has mild hematuria of unclear etiology. Have her PCP repeat urinalysis in 6-8 weeks. If there is still hematuria she should be referred to urology. She can follow up with nephrology as needed. Will sign off. Call with questions. Qualifiers: Acute renal failure type: unspecified Qualified Code(s): N17.9 - Acute kidney failure, unspecified (2) Anemia Current Visit: Yes Status: Resolved Monitor. Iron, vitamin b12 and folate are replete. Qualifiers: Anemia type: B12 deficiency Qualified Code(s): D51.0 - Vitamin B12 deficiency anemia due to intrinsic factor deficiency (3) Altered mental status Current Visit: Yes Status: Resolved Resolved. Per primary team. Qualifiers: Altered mental status type: unspecified Qualified Code(s): R41.82 - Altered mental status, unspecified Subjective Principal diagnosis: MARIBEL Interval history: Patient seen and evaluated. She has no new complaint. She feels much better and is asking when she can go home. Objective - Vital Signs Vital signs: Vital Signs Temp Pulse Resp BP Pulse Ox 07/25/17 19:06 98.2 F 100 15 169/101 95 07/25/17 16:39 98.5 F 107 20 140/92 94 07/25/17 11:26 99.3 F 75 18 151/93 95 07/25/17 07:39 98.3 F 65 18 133/87 97 07/25/17 03:10 97.4 F L 83 16 147/94 93 07/24/17 23:40 97.6 F 91 16 112/76 94 Intake and Output 07/25/17 07/25/17 07/25/17 07:59 15:59 23:59 Intake Total 250 / 250 800 / 800 Output Total 0 / 0 Balance 250 / 250 800 / 800 Intake: IV Fluids 10 / 10 Maxipime 1,000 MG In Water for inj. (sterile) 10 ML @ 150 mls/ hr IVP Q12H [facility] Rx#:[id number] Oral 240 / 240 800 / 800 Output: Urine 0 / 0 Other: Meal Breakfast Percent of Meal Consumed 50% Weight 117.299 kg Blood Glucose* 127 161 131 Patient Weight 07/25/17 23:59 Weight 117.299 kg - General Appearance General appearance: Present: well-developed, well-nourished EENT: Present: ATNC Neck: Present: supple Integumentary: Present: warm and dry Neurologic: Present: alert and oriented x3 Psychiatric: Present: mood/affect appropriate - Lab 07/25/17 15:55 07/25/17 05:40 Most recent lab results ABG pH 7.32 pH Units (7.32-7.45) D 07/19/17 00:43 ABG pCO2 46 mmHg (35-45) H 07/19/17 00:43 ABG pO2 78 mmHg (85-104) L 07/19/17 00:43 ABG HCO3 24 mEq/L (21-27) 07/19/17 00:43 ABG O2 Saturation 94 % (95-98) L 07/19/17 00:43 Calcium 9.3 mg/dL (8.6-10.3) 07/25/17 05:40 Phosphorus 5.2 mg/dL (2.7-4.5) H 07/19/17 03:00 Magnesium 1.8 mg/dL (1.6-2.6) 07/23/17 04:26 Urine Creatinine 175 mg/dL 07/20/17 04:00 Urine Sodium 52.7 mEq/L 07/18/17 21:30 Urine Total Protein 121 mg/dL (1-14) H 07/20/17 04:00 Consult Discharge Plan - Plan Referrals: Ashwin Ellington, PAC [Primary Care Provider] -
[2017-07-26 04:24] LABS: Basophils # 0.1 K/mcL (0.0-0.2); Basophils % 0.9 %; Eosinophils # 0.3 K/mcL (0.0-0.6); Hematocrit 34.4 % (35.3-44.9); Hemoglobin 11.5 g/dL (11.5-15.4); Immature Granulocytes % 4.5 % (0-4); Lymphocytes # 4.8 K/mcL (0.6-4.6); Lymphocytes % 37.6 %; Mean Corpuscular HGB Conc 33.4 g/dL (31.6-35.5); Mean Corpuscular Volume 92.7 fL (83.0-100.0); Monocytes # 0.8 K/mcL (0.0-1.3); Monocytes % 6.6 %; Neutrophils # 6.2 K/mcL (1.6-8.9); Platelet Count 319 K/mcL (140-400); Red Blood Count 3.71 M/mcL (3.82-4.97); Red Cell Distribution Width 13.8 % (11.5-14.5); Segmented Neutrophils % 48.4 %
[2017-07-26 04:28] LABS: INR 1.4; Prothrombin Time 15.7 Seconds (9.4-12.1)
[2017-07-26 04:44] LABS: BUN/Creatinine Ratio 26 (6-26); Blood Urea Nitrogen 20 mg/dL (6-20); Calcium 9.3 mg/dL (8.6-10.3); Carbon Dioxide 23 mEq/L (23-29); Chloride 104 mEq/L (98-107); Glucose 144 mg/dL (70-105); Osmolality,Calculated 287 (280-300); Potassium 3.4 mEq/L (3.5-5.1); Sodium 136 mEq/L (136-145); eGFR For Non-African Americans > 60 (> 60)
[2017-07-26] MEDS: Pantoprazole 40 MG VIAL IVP SCH (08:57)
[2017-07-26] MEDS: Insulin LISPRO 300 UNITS/3 ML VIAL SQ SCH ×3 (08:57→17:29)
[2017-07-26] MEDS: Nystatin Cream 15 GM TUBE TP SCH (08:58)
[2017-07-26] MEDS: Cefepime HCl 1,000 MG in Water for inj. (sterile) 20 ML 10 ML IVP SCH (10:26)
[2017-07-26 10:41] VITALS: BP 160/100
[2017-07-26] MEDS: *HR* Enoxaparin 120 MG/0.8 ML SYRINGE SQ SCH (11:52)
[2017-07-26] MEDS: OXYCODONE Oral CONC 10 MG/0.5 ML ORAL.SYG SL PRN (12:47)
[2017-07-26] MEDS: Levofloxacin 750 MG/150 ML 750 MG/150 ML BAG IVPB SCH (15:13)
--- NOTE | 2017-07-26 15:22 | Discharge Summary ---
- NOTES TO OUTPATIENT PROVIDER Notes to Outpatient Provider: pt to have CBC in 1 week. Pt will need close follow up for pneumonia and sepsis. Orders not resulted at time of discharge: Pending orders 07/25/17 17:15 Culture,Blood [BC] Stat Culture,Blood,Additional [BC] Stat 07/27/17 04:00 PT/INR [Prothrombin Time INR] [COAG] AM 0400 07/28/17 04:00 PT/INR [Prothrombin Time INR] [COAG] AM 0400 Date of Encounter: 07/26/17 Time of Encounter: 11:35 - Discharge Diagnosis (1) Acute kidney injury superimposed on CKD Priority: Secondary Status: Acute Comments: Resolved. Renal function has returned to WNL. 0.78/>60 (2) Afib Priority: Primary Status: Chronic Comments: Rate controlled. Pt will be sent home on Coumadin. INR will need to be adjusted by PCP. Continue BB. Qualifiers: Atrial fibrillation type: paroxysmal Qualified Code(s): I48.0 - Paroxysmal atrial fibrillation (3) Altered mental status Priority: Secondary Status: Resolved Comments: Resolved. Qualifiers: Altered mental status type: unspecified Qualified Code(s): R41.82 - Altered mental status, unspecified (4) Anemia Priority: Secondary Status: Resolved Comments: Resolved. Hgb 11.5 Qualifiers: Anemia type: B12 deficiency Qualified Code(s): D51.0 - Vitamin B12 deficiency anemia due to intrinsic factor deficiency (5) CKD (chronic kidney disease) stage 3, GFR 30-59 ml/min Priority: Secondary Status: Chronic Comments: Chronic. Labs within normal limits.0.78/>60. Avoid nephrotoxins and follow with PCP and nephrology. (6) COPD (chronic obstructive pulmonary disease) Priority: Secondary Status: Chronic Comments: Chronic. No acute exacerbation at this time. Lungs are clear the patient is no longer requiring supplemental oxygen. Pt with leukocytosis today, repeat CXR negative. Continue home medications and nebulizer treatments as scheduled. Qualifiers: COPD type: unspecified COPD Qualified Code(s): J44.9 - Chronic obstructive pulmonary disease, unspecified (7) DVT prophylaxis Priority: Secondary Status: Acute Comments: Patient will be discharged with warfarin. INR is currently subtherapeutic, pt will need to follow up with PCP for close monitoring and follow up. (8) Morbid obesity with BMI of 40.0-44.9, adult Priority: Secondary Status: Chronic Comments: Chronic. Encourage lifestyle modifications changes. (9) SIRS (systemic inflammatory response syndrome) Priority: Secondary Status: Acute Comments: Patient with leukocytosis, no fever, no tachypnea, normotensive. Patient does have tachycardia with rate in the mid 80s to high 90s. I discussed the case with pulmonology, he is not concerned with leukocytosis and feels that it is reactive to disease process and hospitalization. Clinically, patient is stable and appears well. She states that she feels well. Patient will be discharged home and follow up with primary care. (10) Leucocytosis Priority: Secondary Status: Chronic Comments: Improving today. Patient will have labs redrawn in 1 week. Most likely reactive to hospitalization and status. Patient reports that she has had leukocytosis that waxes and wanes in the past. She is followed with oncology. I discussed the case with pulmonology, they did not feel that any more testing was necessary and the patient was stable to go home. Clinically, patient is stable and appears well. Her vitals are stable, she is not requiring supplemental oxygen. She is afebrile. I will send patient with a prescription for CBC in 1 week. Qualifiers: Leukocytosis type: unspecified Qualified Code(s): D72.829 - Elevated white blood cell count, unspecified Hospital course: Ms. Millan is a 57 year old female - Time Spent with Patient Total time spent providing and/or coordinating discharge services: - Discharge Medications Prescriptions: Levofloxacin [Levaquin] 750 mg PO DAILY #5 tablet Home Medications: Aspirin Enteric Coated [Aspirin EC] 81 mg PO DAILY 12/30/14 [History] Atorvastatin [Lipitor] 40 mg PO HS 12/30/14 [History] Nitroglycerin [Nitrostat] 0.4 mg PO Q5M PRN 12/30/14 [History] Sotalol HCl [Betapace] 80 mg PO BID 12/30/14 [History] Gabapentin [Neurontin] 600 mg PO TID 10/11/15 [History] Prazosin HCl [Minipress] 5 mg PO HS 10/11/15 [History] Albuterol Sulfate [Ventolin Hfa] 2 puff IH QID PRN 10/12/15 [History] Cholecalciferol (D-3) [Vitamin D] 1,000 unit PO BID 10/12/15 [History] Lisinopril [Zestril] 40 mg PO DAILY 10/12/15 [History] Oxybutynin [Ditropan] 5 mg PO BID 10/12/15 [History] Ranolazine [Ranexa] 500 mg PO BID #60 tab.er.12h 10/15/15 [Rx] Folic Acid 1 mg PO DAILY 02/29/16 [History] Warfarin [Coumadin] 5 mg PO DAILY 02/29/16 [History] Buspirone HCl [Buspar] 15 mg PO DAILY 07/17/16 [History] Levothyroxine [Synthroid] 200 mcg PO QAM 07/17/16 [History] OxyCODONE/APAP 7.5/325 [Percocet 7.5/325 MG] 1 tab PO Q6H PRN 07/17/16 [History] Spironolactone [Aldactone] 25 mg PO DAILY 07/17/16 [History] Trazodone HCl 100 mg PO HS 07/17/16 [History] Ipratropium/Albuterol Neb [Duoneb] 3 ml IH [id number] PRN #0 inhsol 11/03/16 [Rx] Nystatin POWDER [Nystop] 1 appl TP BID bottle 11/03/16 [Rx] Insulin ASPART [Novolog Flexpen] 0 unit SQ TIDWM MDD PER SLIDING SCALE 12/05/16 [History] Oxygen 3 l .ROUTE CONT 12/05/16 [History] Furosemide [Lasix] 40 mg PO QAM #30 tab 12/08/16 [Rx] Prazosin [Minipress] 2 mg PO QAM 04/27/17 [History] Quetiapine Fumarate [Seroquel] 500 mg PO HS 04/27/17 [History] Isosorbide MONOnitrate (24 HR) [Imdur] 60 mg PO DAILY #30 tab.er.24h 04/30/17 [ Rx] Alogliptin Benzoate [Alogliptin] 12.5 mg PO DAILY 07/19/17 [History] Insulin Glargine,Hum.rec.anlog [Basaglar Kwikpen U-100] 25 unit SQ HS 07/19/17 [ History] LORazepam [Ativan] 1 mg PO BID PRN 07/19/17 [History] Leucovorin/Pyridox/Mecobalamin [Folinic-Plus Caplet] 1 cap PO DAILY 07/19/17 [ History] Levothyroxine [Synthroid] 25 mcg PO QAM 07/19/17 [History] Metformin HCl [Glucophage] 1,000 mg PO BID 07/19/17 [History] Venlafaxine XR (24 HR) [Effexor XR] 75 mg PO TID 07/19/17 [History] amLODIPine [Norvasc] 10 mg PO DAILY 07/19/17 [History] Levofloxacin [Levaquin] 750 mg PO DAILY #5 tablet 07/26/17 [Rx] Allergies/Adverse Reactions: 3 Allergy/AdvReac Type Severity Reaction Status Date / Time Latex, Natural Rubber Allergy Rash Verified 04/27/17 12:55 prednisone Allergy Rash Verified 04/27/17 12:55 Zolpidem [From Ambien] AdvReac Hallucinati Verified 04/27/17 12:55 ng tape Allergy Rash Uncoded 04/27/17 12:55 Date of admission: 07/19/17 00:19 Primary care physician: Ashwin Ellington Consults: 07/19/17 01:01 Consult to Pulmonology [CONS] Routine Consulting Provider: [facility] [place] Reason for Consult: ICU admission, vent mgmt Time Notified: 01:05 Call Completed: Yes 07/19/17 01:15 Consult to Dialysis [CONS] ONCE 07/21/17 10:15 Consult to Nutrition [CONS] Routine Comment: Consulting Provider: NUTRITION Reason for Dietary Consult: Tube Feed Start & Manage 07/23/17 08:30 Consult to Occupational Therapy [CONS] Routine Comment: Evaluate, develop and implement POC Reason for Consult: sedentary, non-focal weakness Consult to Physical Therapy [CONS] Routine Comment: Evaluate, develop and implement POC Reason for Consult: sedentary, non-focal weakness 07/23/17 10:30 Consult to Invasive Line Access Team [CONS] Routine Reason for Consult: limited access Line Type: EPIV Time Notified: 10:30 Call Completed: Yes 07/24/17 16:15 Consult to Pastoral Services [CONS] Routine Comment: 07/25/17 02:47 Consult to Emergency Vehicle Driver [CONS] Routine Reason for SW Consult: Pt request Discharging clinician: Barbara Rapp Anticipated date of discharge: 07/26/17 - Constitutional Vitals: Temp Pulse Resp BP Pulse Ox 97.3 F L 98 16 160/100 92 07/26/17 10:37 07/26/17 10:37 07/26/17 10:37 07/26/17 10:37 07/26/17 10:37 General appearance: Present: cooperative, mild distress (Movement of extremities when touching patient during treatment and examination.), morbidly obese, pleasant, no acute distress, answers questions appropriately - Head Head exam: Present: atraumatic, normal inspection, normocephalic - Eye Eye exam: Present: normal appearance, PERRL, conjuntiva pink, sclera anicteric Pupils: Present: PERRL - Neck Neck exam general surgery: Present: supple, trachea midline. Absent: lymphadenopathy, tenderness - Respiratory Respiratory exam: Present: CTAB. Absent: accessory muscle use, chest wall tenderness, rales, respiratory distress, rhonchi, wheezes - Cardiovascular Cardiovascular exam: Present: RRR, +S1, +S2. Absent: diastolic murmur, gallop, rubs, systolic murmur - GI/Abdominal GI/Abdominal exam: Present: normal bowel sounds, soft. Absent: distended, hepatomegaly, tenderness - Extremities Exam Extremities exam: Present: normal capillary refill, normal inspection, warm, radial pulses palpable and symmetrical. Absent: calf tenderness, cyanotic, pedal edema, tenderness - Neurological Exam Neurological exam: Present: alert, oriented X3, no focal deficits. Absent: facial droop, speech deficit - Skin Skin exam: Present: dry, intact, normal color, warm. Absent: rash - Patient Status Disposition: Home, Self-Care Condition: Good Functional capacity at discharge: independent ambulation Overall status at discharge: patient is progressing back to baseline - Discharge Instructions Follow Up With: Ashwin Ellington PAC [Primary Care Provider] - Additional Instructions: Please follow with her primary care provider in the next 7-10 days for recheck. He will need close monitoring for your Coumadin. Taking her antibiotics as directed, once daily until gone. Mr. the aortic drinking plenty of fluids. Return to normal diet and activities as tolerated. Return to the emergency department as needed for any other problems or concerns , or if her symptoms return or worsen. - Diet and Activity Activity: increase activity as tolerated Diet: diabetic diet
[2017-07-26] MEDS ORDERED: *HR* Warfarin 7.5 MG TABLET PO ONE (18:00)
--- NOTE | 2017-07-26 18:41 | Physician Discharge Referral ---
Home Health/Hosp Referral Info Transfer to: Home Health Provider in Charge Post Discharge: PCP - Diagnosis (1) Acute kidney injury superimposed on CKD Priority: Primary Status: Acute (2) Afib Priority: Secondary Status: Chronic (3) Altered mental status Priority: Secondary Status: Resolved (4) Anemia Priority: Secondary Status: Resolved (5) CKD (chronic kidney disease) stage 3, GFR 30-59 ml/min Priority: Secondary Status: Chronic (6) COPD (chronic obstructive pulmonary disease) Priority: Secondary Status: Chronic (7) DVT prophylaxis Priority: Secondary Status: Acute (8) Morbid obesity with BMI of 40.0-44.9, adult Priority: Secondary Status: Chronic (9) SIRS (systemic inflammatory response syndrome) Priority: Secondary Status: Acute (10) Leucocytosis Priority: Secondary Status: Chronic - Respiratory Orders Smoking Cessation: Smoking cessation has been advised. For more information, call the [place] Tobacco Quit Line at 4-628-QTQJ-NOW. - Diet/Nutrition Diet/Nutrition Orders: Regular - Activity Activity Orders: Up ad yunior - Services Needed Following services are medically necessary services: Nursing, Home Health Aide, Physical Therapy, Occupational Therapy - Transfer Medications Prescriptions: Levofloxacin [Levaquin] 750 mg PO DAILY #5 tablet Home Medications: Aspirin Enteric Coated [Aspirin EC] 81 mg PO DAILY 12/30/14 [History] Atorvastatin [Lipitor] 40 mg PO HS 12/30/14 [History] Nitroglycerin [Nitrostat] 0.4 mg PO Q5M PRN 12/30/14 [History] Sotalol HCl [Betapace] 80 mg PO BID 12/30/14 [History] Gabapentin [Neurontin] 600 mg PO TID 10/11/15 [History] Prazosin HCl [Minipress] 5 mg PO HS 10/11/15 [History] Albuterol Sulfate [Ventolin Hfa] 2 puff IH QID PRN 10/12/15 [History] Cholecalciferol (D-3) [Vitamin D] 1,000 unit PO BID 10/12/15 [History] Lisinopril [Zestril] 40 mg PO DAILY 10/12/15 [History] Oxybutynin [Ditropan] 5 mg PO BID 10/12/15 [History] Ranolazine [Ranexa] 500 mg PO BID #60 tab.er.12h 10/15/15 [Rx] Folic Acid 1 mg PO DAILY 02/29/16 [History] Warfarin [Coumadin] 5 mg PO DAILY 02/29/16 [History] Buspirone HCl [Buspar] 15 mg PO DAILY 07/17/16 [History] Levothyroxine [Synthroid] 200 mcg PO QAM 07/17/16 [History] OxyCODONE/APAP 7.5/325 [Percocet 7.5/325 MG] 1 tab PO Q6H PRN 07/17/16 [History] Spironolactone [Aldactone] 25 mg PO DAILY 07/17/16 [History] Trazodone HCl 100 mg PO HS 07/17/16 [History] Ipratropium/Albuterol Neb [Duoneb] 3 ml IH [id number] PRN #0 inhsol 11/03/16 [Rx] Nystatin POWDER [Nystop] 1 appl TP BID bottle 11/03/16 [Rx] Insulin ASPART [Novolog Flexpen] 0 unit SQ TIDWM MDD PER SLIDING SCALE 12/05/16 [History] Oxygen 3 l .ROUTE CONT 12/05/16 [History] Furosemide [Lasix] 40 mg PO QAM #30 tab 12/08/16 [Rx] Prazosin [Minipress] 2 mg PO QAM 04/27/17 [History] Quetiapine Fumarate [Seroquel] 500 mg PO HS 04/27/17 [History] Isosorbide MONOnitrate (24 HR) [Imdur] 60 mg PO DAILY #30 tab.er.24h 04/30/17 [ Rx] Alogliptin Benzoate [Alogliptin] 12.5 mg PO DAILY 07/19/17 [History] Insulin Glargine,Hum.rec.anlog [Basaglar Kwikpen U-100] 25 unit SQ HS 07/19/17 [ History] LORazepam [Ativan] 1 mg PO BID PRN 07/19/17 [History] Leucovorin/Pyridox/Mecobalamin [Folinic-Plus Caplet] 1 cap PO DAILY 07/19/17 [ History] Levothyroxine [Synthroid] 25 mcg PO QAM 07/19/17 [History] Metformin HCl [Glucophage] 1,000 mg PO BID 07/19/17 [History] Venlafaxine XR (24 HR) [Effexor XR] 75 mg PO TID 07/19/17 [History] amLODIPine [Norvasc] 10 mg PO DAILY 07/19/17 [History] Levofloxacin [Levaquin] 750 mg PO DAILY #5 tablet 07/26/17 [Rx] Allergies/Adverse Reactions: 3 Allergy/AdvReac Type Severity Reaction Status Date / Time Latex, Natural Rubber Allergy Rash Verified 04/27/17 12:55 prednisone Allergy Rash Verified 04/27/17 12:55 Zolpidem [From Ambien] AdvReac Hallucinati Verified 04/27/17 12:55 ng tape Allergy Rash Uncoded 04/27/17 12:55 Certification: Further, I certify that my clinical findings support that this patient is homebound (i.e. absences from home require considerable and taxing effort and are for medical reasons or holiness services or infrequently or short duration when for other reasons) because: Homebound Reason: Patient requires assistance of a person or device to safely leave home, Severity of cardiac or pulmonary status limits activity tolerance Attestation: My signature below is to certify that this patient is under my care and that I, or nurse practitioner, or a physician's speech pathology assistant working with me, has a face-to -face encounter with this patient.
[2017-07-26] MEDS ORDERED: FLUARIX QUAD 2017-18 36MOS UP/PF 0.5 ML SYRINGE IM ONE (18:45)
== END 2017-07-26 18:45 | disposition home or self-care (01) | DRG 720 ==
LOC: EMEROO 20:16 → ICNU 07-19 00:19 → 3BNU 07-23 13:39
PROVIDERS: ADMIT Pediatrics; ATTEND Family Medicine

== ENCOUNTER 2019-03-09 10:43 | Inpatient (IN) ==
[2019-03-09] MEDS ORDERED: Aspirin 81 MG TAB.CHEW PO STA (10:52)
[2019-03-09 11:10] LABS: Basophils % 0.4 %; Eosinophils # 0.1 K/mcL (0.0-0.6); Eosinophils % 1.5 %; Hemoglobin 13.2 g/dL (11.5-15.4); Immature Granulocytes % 0.7 % (0-4); Lymphocytes # 2.6 K/mcL (0.6-4.6); Lymphocytes % 29.1 %; Mean Corpuscular HGB Conc 32.2 g/dL (31.6-35.5); Mean Corpuscular Hemoglobin 29.5 pg (28.0-33.3); Mean Corpuscular Volume 91.7 fL (83.0-100.0); Mean Platelet Volume 12.8 fL (9.4-12.4); Monocytes # 0.4 K/mcL (0.0-1.3); Monocytes % 4.6 %; Neutrophils # 5.7 K/mcL (1.6-8.9); Platelet Count 149 K/mcL (140-400); Red Blood Count 4.47 M/mcL (3.82-4.97); Red Cell Distribution Width 14.1 % (11.5-14.5); Segmented Neutrophils % 63.7 %; White Blood Count 8.9 K/mcL (4.3-11.1)
[2019-03-09 11:19] LABS: Prothrombin Time 11.1 Seconds (9.4-12.1)
[2019-03-09 11:32] LABS: BUN/Creatinine Ratio 32 (6-26); Blood Urea Nitrogen 23 mg/dL (6-20); Calcium 8.9 mg/dL (8.6-10.3); Carbon Dioxide 20 mEq/L (23-29); Chloride 108 mEq/L (98-107); Glucose 166 mg/dL (70-105); Osmolality,Calculated 291 (280-300); Sodium 137 mEq/L (136-145); Troponin I < 0.03 ng/mL (< 0.04); eGFR For African Americans > 60 (> 60); eGFR For Non-African Americans > 60 (> 60)
[2019-03-09 11:36] LABS: Alanine Aminotransferase 35 Units/L (7-52); Albumin 3.9 g/dL (3.5-5.7); Albumin/Globulin Ratio 1.1 (1.1-2.2); Alkaline Phosphatase 112 Units/L (34-104); Aspartate Amino Transferase 80 Units/L (13-39); Bilirubin,Direct 0.1 mg/dL (0.0-0.2); Bilirubin,Indirect 0.2 mg/dL (0.0-1.2); Bilirubin,Total 0.3 mg/dL (0.3-1.0); Globulin 3.7 g/dL (2.4-3.5); Lipase 53 Units/L (11-82); Total Protein 7.6 g/dL (6.4-8.9)
[2019-03-09] MEDS ORDERED: *HR* FentaNYL (PF) 100 MCG/2 ML VIAL IVP ONE ×2 (12:09→13:14)
[2019-03-09] MEDS ORDERED: Famotidine 20 MG/2 ML VIAL IVP ONE (13:17)
[2019-03-09] MEDS ORDERED: GI Cocktail 40 ML EACH PO ONE (13:17)
[2019-03-09] MEDS ORDERED: *HR* OxyCODONE Immed Rel 5 MG TABLET PO PRN (13:20)
[2019-03-09] MEDS ORDERED: *HR* HYDROcodone/Acet 5/325 mg TABLET PO PRN (13:20)
[2019-03-09] MEDS ORDERED: Ondansetron ODT 4 MG TAB.RAPDIS SL PRN (13:20)
[2019-03-09] MEDS ORDERED: Acetaminophen 325 MG TABLET PO PRN (13:20)
[2019-03-09] MEDS ORDERED: Naloxone 0.4 MG/ML INJ IVP PRN (13:20)
[2019-03-09] MEDS ORDERED: Mag Hydrox/Al Hydrox/Simeth 30 ML UDC PO PRN (13:20)
[2019-03-09] MEDS ORDERED: MOM Conc 10 ML UD.LIQ PO PRN (13:20)
[2019-03-09] MEDS ORDERED: NON-FORMULARY MEDICATION 1 EACH EACH (Oxygen 2 L) SCH (13:30)
[2019-03-09] MEDS ORDERED: Isosorbide MONOnitrate (24 HR) 30 MG TAB.ER.24H PO ONE (14:00)
[2019-03-09] MEDS: Gabapentin 400 MG CAPSULE PO SCH ×3 (15:36→21:24)
[2019-03-09] MEDS: hydrOXYzine pamoate 25 MG CAPSULE PO SCH ×2 (15:36→21:24)
[2019-03-09] MEDS ORDERED: Furosemide 20 MG TABLET PO SCH (17:00)
[2019-03-09] MEDS ORDERED: NON-FORMULARY MEDICATION 1 EACH EACH (Topiramate [Topamax] 50 MG) PO SCH (21:00)
[2019-03-09] MEDS ORDERED: traZODone 50 MG TABLET PO SCH (21:00)
[2019-03-09] MEDS: Ranolazine 500 MG TAB.ER.12H PO SCH (21:23)
[2019-03-09] MEDS: Topiramate 100 MG TABLET PO SCH (21:24)
[2019-03-10] MEDS ORDERED: tiZANidine 4 MG TABLET PO PRN (00:02)
[2019-03-10] MEDS ORDERED: traMADol 50 MG TABLET PO ONE (00:04)
[2019-03-10 02:11] LABS: Hematocrit 38.2 % (35.3-44.9); Hemoglobin 12.3 g/dL (11.5-15.4); Mean Corpuscular HGB Conc 32.2 g/dL (31.6-35.5); Mean Corpuscular Hemoglobin 29.8 pg (28.0-33.3); Mean Corpuscular Volume 92.5 fL (83.0-100.0); Mean Platelet Volume 9.9 fL (9.4-12.4); Platelet Count 275 K/mcL (140-400); Red Blood Count 4.13 M/mcL (3.82-4.97); Red Cell Distribution Width 14.2 % (11.5-14.5); White Blood Count 8.5 K/mcL (4.3-11.1)
[2019-03-10 02:21] LABS: Prothrombin Time 11.5 Seconds (9.4-12.1)
[2019-03-10 02:32] LABS: BUN/Creatinine Ratio 25 (6-26); Blood Urea Nitrogen 26 mg/dL (6-20); Calcium 8.7 mg/dL (8.6-10.3); Carbon Dioxide 22 mEq/L (23-29); Chloride 109 mEq/L (98-107); Chol/HDL Ratio 5.4 (0-4.9); Cholesterol 141 mg/dL (< 200); Glucose 210 mg/dL (70-105); HDL Cholesterol 26 mg/dL (40-59); LDL Cholesterol,Calculated 53 mg/dL (0-99); Magnesium 1.8 mg/dL (1.6-2.6); Osmolality,Calculated 303 (280-300); Sodium 141 mEq/L (136-145); Triglycerides 308 mg/dL (< 150); eGFR For African Americans > 60 (> 60); eGFR For Non-African Americans 55 (> 60)
[2019-03-10] MEDS ORDERED: Regadenoson 0.4 MG/5 ML SYRINGE IVP ONE (06:08)
[2019-03-10] MEDS: Gabapentin 400 MG CAPSULE PO SCH ×4 (07:30→15:39)
[2019-03-10] MEDS: Ranolazine 500 MG TAB.ER.12H PO SCH ×2 (07:41→19:49)
[2019-03-10] MEDS: Topiramate 100 MG TABLET PO SCH ×2 (07:42→19:49)
[2019-03-10] MEDS: hydrOXYzine pamoate 25 MG CAPSULE PO SCH (07:47)
[2019-03-10] MEDS: Folic Acid 1 MG TABLET PO SCH (07:48)
[2019-03-10] MEDS: Aspirin Enteric Coated 81 MG Tablet PO SCH (07:49)
[2019-03-10] MEDS ORDERED: Furosemide 40 MG TABLET PO SCH (08:00)
[2019-03-10] MEDS ORDERED: Lisinopril 20 MG TABLET PO SCH (09:00)
[2019-03-10] MEDS ORDERED: amLODIPine 5 MG TABLET PO SCH (09:00)
[2019-03-10] MEDS ORDERED: Isosorbide MONOnitrate (24 HR) 30 MG TAB.ER.24H PO SCH ×2 (09:00→11:24)
[2019-03-10] MEDS ORDERED: 0.9 % Sodium Chloride 500 ML IV PRN (10:03)
[2019-03-10] MEDS ORDERED: 0.9 % Sodium Chloride 500 ML ONE (10:06)
[2019-03-10 10:46] LABS: ABG Base Excess -6 mEq/L (-2 to 3); ABG HCO3 20 mEq/L (21-27); ABG Oxygen Saturation 100 % (95-98); ABG PCO2 39 mmHg (35-45); ABG PH 7.32 pH Units (7.32-7.45); ABG PO2 213 mmHg (85-104); ABG TCO2 21 mEq/L (20-26)
[2019-03-10] MEDS: *HR* Heparin 5,000 UNIT/ML VIAL SQ SCH ×2 (13:21→21:56)
[2019-03-10] MEDS: 0.9 % Sodium Chloride 1,000 ML IVC SCH ×2 (13:21→18:40)
[2019-03-10 13:34] LABS: Hematocrit 35.9 % (35.3-44.9); Hemoglobin 11.4 g/dL (11.5-15.4); Mean Corpuscular HGB Conc 31.8 g/dL (31.6-35.5); Mean Corpuscular Hemoglobin 30.1 pg (28.0-33.3); Mean Corpuscular Volume 94.7 fL (83.0-100.0); Mean Platelet Volume 11.1 fL (9.4-12.4); Platelet Count 209 K/mcL (140-400); Red Blood Count 3.79 M/mcL (3.82-4.97); Red Cell Distribution Width 14.3 % (11.5-14.5); White Blood Count 9.3 K/mcL (4.3-11.1)
[2019-03-10] MEDS ORDERED: Isovue-370 500 ML BOTTLE IVP ONE (13:47)
[2019-03-10 13:54] LABS: Alanine Aminotransferase 100 Units/L (7-52); Albumin 3.5 g/dL (3.5-5.7); Albumin/Globulin Ratio 1.1 (1.1-2.2); Alkaline Phosphatase 128 Units/L (34-104); Aspartate Amino Transferase 84 Units/L (13-39); BUN/Creatinine Ratio 27 (6-26); Bilirubin,Total 0.2 mg/dL (0.3-1.0); Blood Urea Nitrogen 32 mg/dL (6-20); Calcium 8.5 mg/dL (8.6-10.3); Carbon Dioxide 23 mEq/L (23-29); Chloride 109 mEq/L (98-107); Globulin 3.1 g/dL (2.4-3.5); Glucose 161 mg/dL (70-105); Magnesium 1.9 mg/dL (1.6-2.6); Osmolality,Calculated 298 (280-300); Potassium 4.4 mEq/L (3.5-5.1); Sodium 139 mEq/L (136-145); Total Protein 6.6 g/dL (6.4-8.9); Troponin I < 0.03 ng/mL (< 0.04); eGFR For African Americans 58 (> 60); eGFR For Non-African Americans 48 (> 60)
[2019-03-10 14:29] LABS: Bilirubin,Urine Small (Negative); Blood,Urine Negative (Negative); Clarity,Urine Clear (Clear); Color,Urine Yellow (Yellow); Glucose,Urine (UA) 100 mg/dL (Normal); Ketones,Urine Negative (Negative); Leukocyte Esterase,Urine Negative (Negative); Nitrite,Urine Negative (Negative); PH,Urine 5.5 pH Units (5.0-8.0); Protein,Urine Negative (Neg-Trace); Specific Gravity,Urine 1.024 (1.010-1.025); Urobilinogen,Urine Normal (Normal)
[2019-03-11 02:20] LABS: Basophils % 0.5 %; Eosinophils # 0.2 K/mcL (0.0-0.6); Eosinophils % 1.8 %; Hematocrit 35.6 % (35.3-44.9); Hemoglobin 11.4 g/dL (11.5-15.4); Immature Granulocytes % 0.5 % (0-4); Lymphocytes # 2.9 K/mcL (0.6-4.6); Lymphocytes % 34.9 %; Mean Corpuscular Hemoglobin 29.9 pg (28.0-33.3); Mean Corpuscular Volume 93.4 fL (83.0-100.0); Monocytes # 0.4 K/mcL (0.0-1.3); Monocytes % 4.5 %; Neutrophils # 4.7 K/mcL (1.6-8.9); Platelet Count 177 K/mcL (140-400); Red Blood Count 3.81 M/mcL (3.82-4.97); Red Cell Distribution Width 14.4 % (11.5-14.5); Segmented Neutrophils % 57.8 %; White Blood Count 8.2 K/mcL (4.3-11.1)
[2019-03-11 02:42] LABS: BUN/Creatinine Ratio 25 (6-26); Blood Urea Nitrogen 21 mg/dL (6-20); Calcium 8.2 mg/dL (8.6-10.3); Carbon Dioxide 21 mEq/L (23-29); Chloride 111 mEq/L (98-107); Glucose 127 mg/dL (70-105); Osmolality,Calculated 295 (280-300); Potassium 4.1 mEq/L (3.5-5.1); Sodium 140 mEq/L (136-145); eGFR For African Americans > 60 (> 60); eGFR For Non-African Americans > 60 (> 60)
[2019-03-11 02:55] LABS: Thyroid Stimulating Hormone 1.525 mcIU/mL (0.340-5.600)
[2019-03-11] MEDS: 0.9 % Sodium Chloride 1,000 ML IVC SCH (03:10)
[2019-03-11] MEDS: *HR* Heparin 5,000 UNIT/ML VIAL SQ SCH ×3 (06:14→22:35)
[2019-03-11] MEDS: Topiramate 100 MG TABLET PO SCH ×2 (07:43→20:26)
[2019-03-11] MEDS: Folic Acid 1 MG TABLET PO SCH (07:43)
[2019-03-11] MEDS: Aspirin Enteric Coated 81 MG Tablet PO SCH (07:44)
[2019-03-11] MEDS: Ranolazine 500 MG TAB.ER.12H PO SCH ×2 (07:44→20:25)
[2019-03-11] MEDS ORDERED: Isosorbide MONOnitrate (24 HR) 30 MG TAB.ER.24H PO SCH (09:00)
[2019-03-11] MEDS ORDERED: Isosorbide MONOnitrate (24 HR) 60 MG TAB.ER.24H PO SCH (09:45)
[2019-03-11] MEDS ORDERED: Mag Hydrox/Al Hydrox/Simeth 30 ML UDC PO PRN (10:40)
[2019-03-11] MEDS ORDERED: Naloxone 0.4 MG/ML INJ IVP PRN (10:40)
[2019-03-11] MEDS ORDERED: MOM Conc 10 ML UD.LIQ PO PRN (10:40)
[2019-03-11] MEDS ORDERED: 0.9 % Sodium Chloride 500 ML IV PRN (10:40)
[2019-03-11] MEDS ORDERED: Ondansetron ODT 4 MG TAB.RAPDIS SL PRN (10:40)
[2019-03-11] MEDS: *HR* HYDROcodone/Acet 5/325 mg TABLET PO PRN ×2 (13:03→18:44)
[2019-03-12] MEDS: *HR* HYDROcodone/Acet 5/325 mg TABLET PO PRN ×2 (04:30→21:49)
[2019-03-12] MEDS: *HR* Heparin 5,000 UNIT/ML VIAL SQ SCH (04:31)
[2019-03-12 06:18] LABS: Hematocrit 37.4 % (35.3-44.9); Hemoglobin 12.1 g/dL (11.5-15.4); Mean Corpuscular HGB Conc 32.4 g/dL (31.6-35.5); Mean Corpuscular Hemoglobin 29.8 pg (28.0-33.3); Mean Corpuscular Volume 92.1 fL (83.0-100.0); Platelet Count 228 K/mcL (140-400); Red Blood Count 4.06 M/mcL (3.82-4.97); Red Cell Distribution Width 14.1 % (11.5-14.5); White Blood Count 8.3 K/mcL (4.3-11.1)
[2019-03-12] MEDS: Topiramate 100 MG TABLET PO SCH ×2 (08:26→20:49)
[2019-03-12] MEDS: Folic Acid 1 MG TABLET PO SCH (08:26)
[2019-03-12] MEDS: Ranolazine 500 MG TAB.ER.12H PO SCH ×2 (08:26→20:48)
[2019-03-12] MEDS: Aspirin Enteric Coated 81 MG Tablet PO SCH (08:27)
[2019-03-12] MEDS: Acetaminophen 325 MG TABLET PO PRN ×2 (08:27→14:38)
[2019-03-12] MEDS: Isosorbide MONOnitrate (24 HR) 60 MG TAB.ER.24H PO SCH (08:28)
[2019-03-12 12:29] LABS: INR 1.1; Prothrombin Time 12.2 Seconds (9.4-12.1)
[2019-03-12] MEDS: Nitroglycerin 0.4 MG TAB.SUBL SL PRN ×2 (13:53→13:58)
[2019-03-12] MEDS ORDERED: Warfarin perPT PO PRN (18:00)
[2019-03-12] MEDS ORDERED: *HR* Warfarin 5 MG TABLET PO ONE (18:00)
[2019-03-13 05:03] LABS: Hematocrit 41.4 % (35.3-44.9); Hemoglobin 13.1 g/dL (11.5-15.4); Mean Corpuscular HGB Conc 31.6 g/dL (31.6-35.5); Mean Corpuscular Hemoglobin 30.5 pg (28.0-33.3); Mean Corpuscular Volume 96.5 fL (83.0-100.0); Mean Platelet Volume 10.1 fL (9.4-12.4); Platelet Count 231 K/mcL (140-400); Red Blood Count 4.29 M/mcL (3.82-4.97); Red Cell Distribution Width 14.6 % (11.5-14.5); White Blood Count 11.5 K/mcL (4.3-11.1)
[2019-03-13 05:11] LABS: Prothrombin Time 11.4 Seconds (9.4-12.1)
[2019-03-13 05:18] LABS: BUN/Creatinine Ratio 24 (6-26); Blood Urea Nitrogen 17 mg/dL (6-20); Calcium 9.6 mg/dL (8.6-10.3); Carbon Dioxide 20 mEq/L (23-29); Chloride 110 mEq/L (98-107); Glucose 151 mg/dL (70-105); Osmolality,Calculated 286 (280-300); Sodium 136 mEq/L (136-145); eGFR For African Americans > 60 (> 60); eGFR For Non-African Americans > 60 (> 60)
[2019-03-13] MEDS: Topiramate 100 MG TABLET PO SCH (09:08)
[2019-03-13] MEDS: Ranolazine 500 MG TAB.ER.12H PO SCH (09:08)
[2019-03-13] MEDS: Folic Acid 1 MG TABLET PO SCH (09:09)
[2019-03-13] MEDS: Isosorbide MONOnitrate (24 HR) 60 MG TAB.ER.24H PO SCH (09:09)
[2019-03-13] MEDS: Aspirin Enteric Coated 81 MG Tablet PO SCH (09:09)
[2019-03-13] MEDS ORDERED: Warfarin perPT PO PRN (11:30)
[2019-03-13 11:52] VITALS: BP 117/72
[2019-03-13] MEDS ORDERED: *HR* Warfarin 5 MG TABLET PO ONE (18:00)
== END 2019-03-13 12:28 | disposition home or self-care (01) | DRG 302 ==
LOC: EMEROOARM 10:43 → 3BNU 10:43 → ICNU 03-10 10:57 → SUATTDRO 03-10 12:26 → 2ANU 03-11 10:04
PROVIDERS: ADMIT Internal Medicine; ATTEND Family Medicine

== ENCOUNTER 2020-07-03 22:32 | Inpatient (IN) ==
[2020-07-03] MEDS ORDERED: Oxymetazoline Nasal SPRAY BOTTLE NS STA (22:42)
[2020-07-03] MEDS ORDERED: Lidocaine Viscous Oral Soln 15 ML SOLUTION MM STA (22:43)
[2020-07-03 23:14] LABS: Hemoglobin 10.8 g/dL (11.5-15.4)
[2020-07-03 23:16] LABS: Hematocrit 34.4 % (35.3-44.9); Immature Platelets 0.8 % (1.1-6.1); Mean Corpuscular HGB Conc 31.4 g/dL (31.6-35.5); Mean Corpuscular Hemoglobin 26.7 pg (28.0-33.3); Mean Corpuscular Volume 84.9 fL (83.0-100.0); Platelet Count 259 K/mcL (140-400); Red Blood Count 4.05 M/mcL (3.82-4.97); Red Cell Distribution Width 15.5 % (11.5-14.5); White Blood Count 8.7 K/mcL (4.3-11.1)
[2020-07-03 23:23] LABS: INR 5.6; Prothrombin Time 62.1 Seconds (9.4-12.1)
[2020-07-04 00:12] LABS: BUN/Creatinine Ratio 29 (6-26); Blood Urea Nitrogen 20 mg/dL (6-20); Calcium 8.7 mg/dL (8.6-10.3); Carbon Dioxide 21 mEq/L (23-29); Chloride 109 mEq/L (98-107); Glucose 215 mg/dL (70-105); Osmolality,Calculated 295 (280-300); Potassium 3.6 mEq/L (3.5-5.1); Sodium 138 mEq/L (136-145); eGFR For African Americans > 60 (> 60); eGFR For Non-African Americans > 60 (> 60)
[2020-07-04 00:13] LABS: Troponin I < 0.03 ng/mL (< 0.04)
[2020-07-04] MEDS ORDERED: Naloxone 0.4 MG/ML INJ IVP PRN (02:18)
[2020-07-04] MEDS ORDERED: D5% in Water 1,000 ML IVC PRN (06:13)
[2020-07-04] MEDS ORDERED: *HR* Dextrose 50 % in Water (Vial) 50 ML VIAL IVP PRN (06:13)
[2020-07-04] MEDS ORDERED: Dextrose Gel 15 GM/37.5 ML TUBE PO PRN ×2 (06:13)
[2020-07-04 06:42] LABS: Troponin I < 0.03 ng/mL (< 0.04)
[2020-07-04 06:51] LABS: INR 5.4; Prothrombin Time 60.1 Seconds (9.4-12.1)
[2020-07-04 06:58] LABS: Alanine Aminotransferase 9 Units/L (7-52); Albumin 3.6 g/dL (3.5-5.7); Albumin/Globulin Ratio 1.1 (1.1-2.2); Alkaline Phosphatase 74 Units/L (34-104); Aspartate Amino Transferase 21 Units/L (13-39); BUN/Creatinine Ratio 33 (6-26); Bilirubin,Total 0.1 mg/dL (0.3-1.0); Blood Urea Nitrogen 23 mg/dL (6-20); Calcium 8.4 mg/dL (8.6-10.3); Carbon Dioxide 14 mEq/L (23-29); Chloride 110 mEq/L (98-107); Globulin 3.2 g/dL (2.4-3.5); Glucose 197 mg/dL (70-105); Osmolality,Calculated 293 (280-300); Potassium 4.2 mEq/L (3.5-5.1); Sodium 137 mEq/L (136-145); Total Protein 6.8 g/dL (6.4-8.9); eGFR For African Americans > 60 (> 60); eGFR For Non-African Americans > 60 (> 60)
[2020-07-04 07:20] LABS: Basophils # 0.1 K/mcL (0.0-0.2); Basophils % 0.6 %; Eosinophils # 0.3 K/mcL (0.0-0.6); Eosinophils % 3.2 %; Hematocrit 32.3 % (35.3-44.9); Hemoglobin 10.2 g/dL (11.5-15.4); Immature Granulocytes % 0.6 % (0-4); Lymphocytes # 3.3 K/mcL (0.6-4.6); Lymphocytes % 34.7 %; Mean Corpuscular HGB Conc 31.6 g/dL (31.6-35.5); Mean Corpuscular Volume 85.4 fL (83.0-100.0); Mean Platelet Volume 12.2 fL (9.4-12.4); Monocytes # 0.5 K/mcL (0.0-1.3); Monocytes % 5.8 %; Neutrophils # 5.2 K/mcL (1.6-8.9); Platelet Count 153 K/mcL (140-400); Red Blood Count 3.78 M/mcL (3.82-4.97); Red Cell Distribution Width 15.5 % (11.5-14.5); Segmented Neutrophils % 55.1 %; White Blood Count 9.4 K/mcL (4.3-11.1)
[2020-07-04] MEDS: Insulin LISPRO 300 UNITS/3 ML VIAL SUBQ SCH ×4 (08:35→19:54)
[2020-07-04] MEDS ORDERED: Isovue-370 500 ML BOTTLE IVP ONE (09:23)
[2020-07-04] MEDS: Acetaminophen 325 MG TABLET PO PRN (12:11)
[2020-07-04] MEDS: *HR* OxyCODONE/APAP 5/325 TABLET PO PRN ×2 (15:36→23:30)
[2020-07-04] MEDS: traZODone 50 MG TABLET PO SCH (19:40)
[2020-07-04] MEDS: Isosorbide MONOnitrate (24 HR) 60 MG TAB.ER.24H PO SCH (19:40)
[2020-07-04] MEDS: Topiramate 100 MG TABLET PO SCH (19:41)
[2020-07-04] MEDS: Ranolazine 500 MG TAB.ER.12H PO SCH (19:41)
[2020-07-05 02:48] LABS: Basophils % 0.4 %; Hemoglobin 10.1 g/dL (11.5-15.4); Immature Granulocytes % 0.4 % (0-4)
[2020-07-05 02:50] LABS: Eosinophils # 0.3 K/mcL (0.0-0.6); Hematocrit 31.9 % (35.3-44.9); Immature Platelets 0.9 % (1.1-6.1); Lymphocytes # 2.8 K/mcL (0.6-4.6); Mean Corpuscular HGB Conc 31.7 g/dL (31.6-35.5); Mean Corpuscular Hemoglobin 26.7 pg (28.0-33.3); Mean Corpuscular Volume 84.4 fL (83.0-100.0); Mean Platelet Volume 13.1 fL (9.4-12.4); Monocytes # 0.7 K/mcL (0.0-1.3); Monocytes % 6.3 %; Platelet Count 243 K/mcL (140-400); Red Blood Count 3.78 M/mcL (3.82-4.97); Red Cell Distribution Width 15.3 % (11.5-14.5); Segmented Neutrophils % 64.9 %; White Blood Count 11.2 K/mcL (4.3-11.1)
[2020-07-05 02:54] LABS: INR 5.7; Prothrombin Time 62.4 Seconds (9.4-12.1)
[2020-07-05 03:03] LABS: BUN/Creatinine Ratio 23 (6-26); Blood Urea Nitrogen 17 mg/dL (6-20); Calcium 8.7 mg/dL (8.6-10.3); Carbon Dioxide 23 mEq/L (23-29); Chloride 106 mEq/L (98-107); Glucose 262 mg/dL (70-105); Osmolality,Calculated 291 (280-300); Potassium 3.6 mEq/L (3.5-5.1); Sodium 135 mEq/L (136-145); eGFR For African Americans > 60 (> 60); eGFR For Non-African Americans > 60 (> 60)
[2020-07-05 03:20] LABS: Neutrophils # 7.3 K/mcL (1.6-8.9); Platelet Estimate Normal (Normal)
[2020-07-05] MEDS ORDERED: Regadenoson 0.4 MG/5 ML SYRINGE IVP ONE (06:14)
[2020-07-05] MEDS ORDERED: *HR* Phytonadione 5 MG TABLET PO ONE (07:47)
[2020-07-05] MEDS: Topiramate 100 MG TABLET PO SCH ×2 (11:50→20:41)
[2020-07-05] MEDS: Ranolazine 500 MG TAB.ER.12H PO SCH ×2 (11:50→20:41)
[2020-07-05] MEDS: *HR* OxyCODONE/APAP 5/325 TABLET PO PRN ×2 (11:50→20:41)
[2020-07-05] MEDS: Insulin LISPRO 300 UNITS/3 ML VIAL SUBQ SCH ×4 (12:08→20:54)
[2020-07-05 20:35] LABS: Hemoglobin 11.2 g/dL (11.5-15.4)
[2020-07-05 20:37] LABS: Hematocrit 35.9 % (35.3-44.9)
[2020-07-05] MEDS: Saline Nasal Spray 44 ML BOTTLE NS SCH ×2 (20:40→20:46)
[2020-07-05] MEDS: traZODone 50 MG TABLET PO SCH (20:41)
[2020-07-05] MEDS: Isosorbide MONOnitrate (24 HR) 60 MG TAB.ER.24H PO SCH (20:41)
[2020-07-05] MEDS: Nitroglycerin 0.4 MG TAB.SUBL SL PRN ×2 (22:06→22:13)
[2020-07-06 04:14] LABS: INR 1.8; Prothrombin Time 20.4 Seconds (9.4-12.1)
[2020-07-06 04:17] LABS: BUN/Creatinine Ratio 20 (6-26); Blood Urea Nitrogen 12 mg/dL (6-20); Calcium 8.9 mg/dL (8.6-10.3); Carbon Dioxide 19 mEq/L (23-29); Chloride 107 mEq/L (98-107); Glucose 264 mg/dL (70-105); Osmolality,Calculated 287 (280-300); Potassium 3.6 mEq/L (3.5-5.1); Sodium 134 mEq/L (136-145); eGFR For African Americans > 60 (> 60); eGFR For Non-African Americans > 60 (> 60)
[2020-07-06 04:21] LABS: Basophils # 0.1 K/mcL (0.0-0.2); Basophils % 0.5 %; Eosinophils # 0.1 K/mcL (0.0-0.6); Eosinophils % 0.9 %; Hematocrit 34.6 % (35.3-44.9); Hemoglobin 10.6 g/dL (11.5-15.4); Immature Granulocytes % 0.9 % (0-4); Immature Platelets 1.4 % (1.1-6.1); Lymphocytes # 3.3 K/mcL (0.6-4.6); Lymphocytes % 26.2 %; Mean Corpuscular HGB Conc 30.6 g/dL (31.6-35.5); Mean Corpuscular Hemoglobin 25.9 pg (28.0-33.3); Mean Corpuscular Volume 84.4 fL (83.0-100.0); Monocytes # 0.7 K/mcL (0.0-1.3); Neutrophils # 8.2 K/mcL (1.6-8.9); Platelet Count 224 K/mcL (140-400); Red Cell Distribution Width 15.4 % (11.5-14.5); Segmented Neutrophils % 65.5 %; White Blood Count 12.4 K/mcL (4.3-11.1)
[2020-07-06] MEDS ORDERED: *HR* Metoprolol 5 MG/5 ML VIAL IVP ONE ×3 (05:10→10:24)
[2020-07-06] MEDS: *HR* Enoxaparin 120 MG/0.8 ML SYRINGE SQ SCH ×2 (09:21→18:42)
[2020-07-06] MEDS: Insulin LISPRO 300 UNITS/3 ML VIAL SUBQ SCH ×4 (09:21→20:36)
[2020-07-06] MEDS: Topiramate 100 MG TABLET PO SCH ×2 (09:23→20:09)
[2020-07-06] MEDS: Ranolazine 500 MG TAB.ER.12H PO SCH ×2 (09:23→20:09)
[2020-07-06] MEDS: Saline Nasal Spray 44 ML BOTTLE NS SCH ×4 (09:23→20:12)
[2020-07-06] MEDS: *HR* OxyCODONE/APAP 5/325 TABLET PO PRN (09:27)
[2020-07-06] MEDS: Nitroglycerin 0.4 MG TAB.SUBL SL PRN (09:27)
[2020-07-06 09:32] LABS: INR 1.5; Prothrombin Time 17.1 Seconds (9.4-12.1)
[2020-07-06] MEDS: Ondansetron 4 MG/2 ML VIAL IVP PRN (12:29)
[2020-07-06] MEDS: Gabapentin 400 MG CAPSULE PO SCH ×3 (14:41→20:07)
[2020-07-06 17:35] LABS: INR 1.3
[2020-07-06 17:37] LABS: BUN/Creatinine Ratio 17 (6-26); Blood Urea Nitrogen 15 mg/dL (6-20); Calcium 9.4 mg/dL (8.6-10.3); Carbon Dioxide 20 mEq/L (23-29); Chloride 107 mEq/L (98-107); Glucose 204 mg/dL (70-105); Osmolality,Calculated 289 (280-300); Potassium 4.1 mEq/L (3.5-5.1); Sodium 136 mEq/L (136-145); eGFR For African Americans > 60 (> 60); eGFR For Non-African Americans > 60 (> 60)
[2020-07-06 17:39] LABS: Troponin I < 0.03 ng/mL (< 0.04)
[2020-07-06] MEDS ORDERED: Isovue-370 500 ML BOTTLE IVP ONE (17:57)
[2020-07-06 18:07] LABS: Basophils % 0.4 %; Immature Platelets 1.5 % (1.1-6.1)
[2020-07-06 18:14] LABS: Basophils # 0.1 K/mcL (0.0-0.2); Eosinophils # 0.1 K/mcL (0.0-0.6); Eosinophils % 0.5 %; Hematocrit 37.4 % (35.3-44.9); Immature Granulocytes % 0.5 % (0-4); Lymphocytes # 2.9 K/mcL (0.6-4.6); Lymphocytes % 22.7 %; Mean Corpuscular HGB Conc 32.1 g/dL (31.6-35.5); Mean Corpuscular Hemoglobin 26.5 pg (28.0-33.3); Mean Corpuscular Volume 82.7 fL (83.0-100.0); Monocytes # 0.8 K/mcL (0.0-1.3); Monocytes % 6.3 %; Neutrophils # 8.9 K/mcL (1.6-8.9); Red Blood Count 4.52 M/mcL (3.82-4.97); Red Cell Distribution Width 15.6 % (11.5-14.5); Segmented Neutrophils % 69.6 %; White Blood Count 12.8 K/mcL (4.3-11.1)
[2020-07-06] MEDS: traZODone 50 MG TABLET PO SCH (20:08)
[2020-07-06] MEDS: Isosorbide MONOnitrate (24 HR) 60 MG TAB.ER.24H PO SCH (20:09)
[2020-07-07 00:47] LABS: Eosinophils % 0.6 %; Hemoglobin 10.7 g/dL (11.5-15.4); Immature Granulocytes % 0.7 % (0-4)
[2020-07-07 00:49] LABS: Basophils # 0.1 K/mcL (0.0-0.2); Basophils % 0.4 %; Eosinophils # 0.1 K/mcL (0.0-0.6); Hematocrit 34.2 % (35.3-44.9); Lymphocytes # 2.8 K/mcL (0.6-4.6); Lymphocytes % 21.6 %; Mean Corpuscular HGB Conc 31.3 g/dL (31.6-35.5); Mean Corpuscular Hemoglobin 26.4 pg (28.0-33.3); Mean Corpuscular Volume 84.4 fL (83.0-100.0); Monocytes # 0.9 K/mcL (0.0-1.3); Monocytes % 6.7 %; Neutrophils # 9.1 K/mcL (1.6-8.9); Red Blood Count 4.05 M/mcL (3.82-4.97); Red Cell Distribution Width 15.8 % (11.5-14.5)
[2020-07-07 00:52] LABS: INR 1.4; Prothrombin Time 15.5 Seconds (9.4-12.1)
[2020-07-07 01:07] LABS: BUN/Creatinine Ratio 19 (6-26); Blood Urea Nitrogen 19 mg/dL (6-20); Carbon Dioxide 20 mEq/L (23-29); Chloride 107 mEq/L (98-107); Glucose 176 mg/dL (70-105); Osmolality,Calculated 289 (280-300); Potassium 4.2 mEq/L (3.5-5.1); Sodium 136 mEq/L (136-145); eGFR For African Americans > 60 (> 60); eGFR For Non-African Americans 56 (> 60)
[2020-07-07] MEDS: *HR* Enoxaparin 120 MG/0.8 ML SYRINGE SQ SCH ×2 (06:25→17:59)
[2020-07-07] MEDS: Insulin LISPRO 300 UNITS/3 ML VIAL SUBQ SCH ×4 (08:48→21:36)
[2020-07-07] MEDS: Saline Nasal Spray 44 ML BOTTLE NS SCH ×4 (08:49→20:31)
[2020-07-07] MEDS: Ondansetron 4 MG/2 ML VIAL IVP PRN ×2 (08:49→18:01)
[2020-07-07] MEDS: *HR* OxyCODONE/APAP 5/325 TABLET PO PRN ×2 (08:49→18:01)
[2020-07-07] MEDS: Gabapentin 400 MG CAPSULE PO SCH ×4 (08:50→20:18)
[2020-07-07] MEDS: Topiramate 100 MG TABLET PO SCH ×2 (08:50→20:19)
[2020-07-07] MEDS: Ranolazine 500 MG TAB.ER.12H PO SCH ×2 (08:50→20:19)
[2020-07-07 13:22] LABS: Bacteria,Urine Moderate per hpf (None-Few); Bilirubin,Urine Negative (Negative); Blood,Urine Negative (Negative); Clarity,Urine Turbid (Clear); Color,Urine Yellow (Yellow); Glucose,Urine (UA) Normal (Normal); Granular Casts,Urine Few per lpf (None Seen); Hyaline Casts,Urine Few per lpf (None Seen); Ketones,Urine Negative (Negative); Leukocyte Esterase,Urine Large (Negative); Mucus,Urine Few per lpf (None-Few); Nitrite,Urine Positive (Negative); Protein,Urine 30 mg/dL (Neg-Trace); Specific Gravity,Urine > 1.030 (1.010-1.025); Squamous Epithelial Cell,Urine Moderate per hpf (None-Few); Transitional Epi Cells,Urine Few per hpf (None-Few); Urobilinogen,Urine Normal (Normal); WBC,Urine 30-50 per hpf (0-3)
[2020-07-07] MEDS: Ampicillin/Sulbactam 1,500 MG in 0.9 % Sodium Chloride Mini Bag 100 ML IVPB SCH ×2 (15:43→20:31)
[2020-07-07] MEDS: *HR* Warfarin 2.5 MG TABLET PO ONE (17:59)
[2020-07-07] MEDS ORDERED: Ampicillin/Sulbactam 1,500 MG in 0.9 % Sodium Chloride Mini Bag 100 ML IVPB SCH (18:00)
[2020-07-07] MEDS ORDERED: Warfarin perPT PO PRN (18:00)
[2020-07-07] MEDS: Nystatin POWDER 30 GM BOTTLE TP SCH ×2 (18:50→21:36)
[2020-07-07] MEDS: Isosorbide MONOnitrate (24 HR) 60 MG TAB.ER.24H PO SCH (20:19)
[2020-07-07] MEDS: traZODone 50 MG TABLET PO SCH (20:19)
[2020-07-08] MEDS: Ampicillin/Sulbactam 1,500 MG in 0.9 % Sodium Chloride Mini Bag 100 ML IVPB SCH ×5 (02:00→20:55)
[2020-07-08 05:08] LABS: INR 1.1; Prothrombin Time 13.2 Seconds (9.4-12.1)
[2020-07-08 05:09] LABS: Basophils # 0.1 K/mcL (0.0-0.2); Basophils % 0.6 %; Eosinophils # 0.3 K/mcL (0.0-0.6); Eosinophils % 3.3 %; Hematocrit 31.5 % (35.3-44.9); Hemoglobin 9.8 g/dL (11.5-15.4); Immature Granulocytes % 0.8 % (0-4); Lymphocytes % 29.8 %; Mean Corpuscular HGB Conc 31.1 g/dL (31.6-35.5); Mean Corpuscular Hemoglobin 26.6 pg (28.0-33.3); Mean Corpuscular Volume 85.6 fL (83.0-100.0); Mean Platelet Volume 12.5 fL (9.4-12.4); Monocytes # 0.7 K/mcL (0.0-1.3); Monocytes % 6.7 %; Platelet Count 161 K/mcL (140-400); Red Blood Count 3.68 M/mcL (3.82-4.97); Red Cell Distribution Width 15.7 % (11.5-14.5); Segmented Neutrophils % 58.8 %; White Blood Count 10.1 K/mcL (4.3-11.1)
[2020-07-08] MEDS: *HR* Enoxaparin 120 MG/0.8 ML SYRINGE SQ SCH (05:36)
[2020-07-08] MEDS: *HR* Enoxaparin 40 MG/0.4 ML SYRINGE SQ SCH (06:22)
[2020-07-08] MEDS: Gabapentin 400 MG CAPSULE PO SCH ×4 (08:22→20:55)
[2020-07-08] MEDS: Topiramate 100 MG TABLET PO SCH ×2 (08:22→20:55)
[2020-07-08] MEDS: Ranolazine 500 MG TAB.ER.12H PO SCH ×2 (08:22→20:56)
[2020-07-08] MEDS: Saline Nasal Spray 44 ML BOTTLE NS SCH ×4 (08:23→21:04)
[2020-07-08] MEDS: Nystatin POWDER 30 GM BOTTLE TP SCH ×3 (08:23→21:04)
[2020-07-08] MEDS: Insulin LISPRO 300 UNITS/3 ML VIAL SUBQ SCH ×4 (08:24→21:03)
[2020-07-08] MEDS: Ondansetron 4 MG/2 ML VIAL IVP PRN (09:01)
[2020-07-08] MEDS: *HR* OxyCODONE/APAP 5/325 TABLET PO PRN ×2 (11:21→21:08)
[2020-07-08] MEDS: Isosorbide MONOnitrate (24 HR) 60 MG TAB.ER.24H PO SCH (20:56)
[2020-07-08] MEDS: traZODone 50 MG TABLET PO SCH (20:56)
[2020-07-09 04:25] LABS: Hematocrit 30.5 % (35.3-44.9); Hemoglobin 9.3 g/dL (11.5-15.4); Immature Platelets 1.4 % (1.1-6.1); Mean Corpuscular HGB Conc 30.5 g/dL (31.6-35.5); Mean Corpuscular Hemoglobin 26.3 pg (28.0-33.3); Mean Corpuscular Volume 86.2 fL (83.0-100.0); Mean Platelet Volume 12.4 fL (9.4-12.4); Red Blood Count 3.54 M/mcL (3.82-4.97); Red Cell Distribution Width 15.7 % (11.5-14.5); White Blood Count 9.1 K/mcL (4.3-11.1)
[2020-07-09 04:30] LABS: INR 1.1; Prothrombin Time 12.9 Seconds (9.4-12.1)
[2020-07-09] MEDS: *HR* Enoxaparin 40 MG/0.4 ML SYRINGE SQ SCH (06:09)
[2020-07-09] MEDS: Ampicillin/Sulbactam 1,500 MG in 0.9 % Sodium Chloride Mini Bag 100 ML IVPB SCH ×3 (08:15→19:32)
[2020-07-09] MEDS: Insulin LISPRO 300 UNITS/3 ML VIAL SUBQ SCH ×4 (08:16→19:42)
[2020-07-09] MEDS: Gabapentin 400 MG CAPSULE PO SCH ×4 (08:17→19:33)
[2020-07-09] MEDS: Topiramate 100 MG TABLET PO SCH ×2 (08:17→19:33)
[2020-07-09] MEDS: Ranolazine 500 MG TAB.ER.12H PO SCH ×2 (08:17→19:33)
[2020-07-09] MEDS: Saline Nasal Spray 44 ML BOTTLE NS SCH ×4 (08:18→19:34)
[2020-07-09] MEDS: Nystatin POWDER 30 GM BOTTLE TP SCH ×3 (08:19→19:34)
[2020-07-09] MEDS: *HR* OxyCODONE/APAP 5/325 TABLET PO PRN ×2 (10:00→23:28)
[2020-07-09 10:16] LABS: Bacteria,Urine Few per hpf (None-Few); Bilirubin,Urine Negative (Negative); Blood,Urine Negative (Negative); Clarity,Urine Clear (Clear); Color,Urine Yellow (Yellow); Glucose,Urine (UA) >=1000 mg/dL (Normal); Ketones,Urine Negative (Negative); Leukocyte Esterase,Urine Small (Negative); Mucus,Urine Few per lpf (None-Few); Nitrite,Urine Positive (Negative); Protein,Urine Trace mg/dL (Neg-Trace); RBC,Urine 0-3 per hpf (0-3); Specific Gravity,Urine 1.027 (1.010-1.025); Squamous Epithelial Cell,Urine Few per hpf (None-Few); Urobilinogen,Urine Normal (Normal)
[2020-07-09] MEDS: Isosorbide MONOnitrate (24 HR) 60 MG TAB.ER.24H PO SCH (19:34)
[2020-07-09] MEDS: traZODone 50 MG TABLET PO SCH (19:34)
[2020-07-09] MEDS: Insulin DETEMIR 100 UNIT/ML X5UNITS SUBQ SCH (19:43)
[2020-07-09] MEDS ORDERED: Warfarin perPT PO PRN (20:48)
[2020-07-09] MEDS ORDERED: *HR* Warfarin 2.5 MG TABLET PO ONE (21:00)
[2020-07-10] MEDS: Ampicillin/Sulbactam 1,500 MG in 0.9 % Sodium Chloride Mini Bag 100 ML IVPB SCH ×4 (01:19→21:52)
[2020-07-10 04:14] LABS: Hematocrit 32.1 % (35.3-44.9); Hemoglobin 9.9 g/dL (11.5-15.4); Mean Corpuscular HGB Conc 30.8 g/dL (31.6-35.5); Mean Corpuscular Hemoglobin 26.6 pg (28.0-33.3); Mean Corpuscular Volume 86.3 fL (83.0-100.0); Mean Platelet Volume 11.3 fL (9.4-12.4); Platelet Count 160 K/mcL (140-400); Red Blood Count 3.72 M/mcL (3.82-4.97); Red Cell Distribution Width 15.9 % (11.5-14.5); White Blood Count 9.4 K/mcL (4.3-11.1)
[2020-07-10 04:22] LABS: INR 1.1; Prothrombin Time 12.3 Seconds (9.4-12.1)
[2020-07-10 04:36] LABS: BUN/Creatinine Ratio 27 (6-26); Blood Urea Nitrogen 17 mg/dL (6-20); Calcium 8.7 mg/dL (8.6-10.3); Carbon Dioxide 25 mEq/L (23-29); Chloride 108 mEq/L (98-107); Glucose 194 mg/dL (70-105); Osmolality,Calculated 295 (280-300); Potassium 3.8 mEq/L (3.5-5.1); Sodium 139 mEq/L (136-145); eGFR For African Americans > 60 (> 60); eGFR For Non-African Americans > 60 (> 60)
[2020-07-10] MEDS ORDERED: *HR* Enoxaparin 40 MG/0.4 ML SYRINGE SQ SCH (06:00)
[2020-07-10] MEDS: *HR* OxyCODONE/APAP 5/325 TABLET PO PRN ×2 (07:22→19:45)
[2020-07-10] MEDS: Topiramate 100 MG TABLET PO SCH ×2 (08:24→21:54)
[2020-07-10] MEDS: Ranolazine 500 MG TAB.ER.12H PO SCH ×2 (08:24→21:54)
[2020-07-10] MEDS: Gabapentin 400 MG CAPSULE PO SCH ×4 (08:25→21:54)
[2020-07-10] MEDS: Saline Nasal Spray 44 ML BOTTLE NS SCH ×4 (08:26→22:43)
[2020-07-10] MEDS: Insulin LISPRO 300 UNITS/3 ML VIAL SUBQ SCH ×4 (08:26→21:43)
[2020-07-10] MEDS: Nystatin POWDER 30 GM BOTTLE TP SCH ×3 (08:28→22:43)
[2020-07-10] MEDS: Acetaminophen 325 MG TABLET PO PRN (17:35)
[2020-07-10] MEDS ORDERED: Gadolinium Contrast Agent (WT Based) IV PRN (17:59)
[2020-07-10] MEDS ORDERED: *HR* Warfarin 2.5 MG TABLET PO ONE (18:00)
[2020-07-10] MEDS: *HR* Enoxaparin 120 MG/0.8 ML SYRINGE SQ SCH (21:52)
[2020-07-10] MEDS: traZODone 50 MG TABLET PO SCH (21:54)
[2020-07-10] MEDS: Isosorbide MONOnitrate (24 HR) 60 MG TAB.ER.24H PO SCH (21:54)
[2020-07-10] MEDS: *HR* Warfarin 2.5 MG TABLET PO ONE (21:55)
[2020-07-10] MEDS: Insulin DETEMIR 100 UNIT/ML X5UNITS SUBQ SCH (21:55)
[2020-07-11] MEDS: Ampicillin/Sulbactam 1,500 MG in 0.9 % Sodium Chloride Mini Bag 100 ML IVPB SCH ×3 (01:46→13:18)
[2020-07-11] MEDS: *HR* OxyCODONE/APAP 5/325 TABLET PO PRN ×2 (01:48→21:29)
[2020-07-11] MEDS: *HR* Enoxaparin 120 MG/0.8 ML SYRINGE SQ SCH ×2 (05:39→17:49)
[2020-07-11] MEDS: Ranolazine 500 MG TAB.ER.12H PO SCH ×2 (08:13→20:38)
[2020-07-11] MEDS: Gabapentin 400 MG CAPSULE PO SCH ×4 (08:13→20:38)
[2020-07-11] MEDS: Topiramate 100 MG TABLET PO SCH ×2 (08:13→20:38)
[2020-07-11] MEDS: Nystatin POWDER 30 GM BOTTLE TP SCH ×3 (08:15→20:40)
[2020-07-11] MEDS: Insulin LISPRO 300 UNITS/3 ML VIAL SUBQ SCH ×4 (08:17→20:39)
[2020-07-11] MEDS: Saline Nasal Spray 44 ML BOTTLE NS SCH ×4 (08:20→20:40)
[2020-07-11 09:52] LABS: INR 1.2; Prothrombin Time 13.8 Seconds (9.4-12.1)
[2020-07-11] MEDS: Acetaminophen 325 MG TABLET PO PRN (15:07)
[2020-07-11] MEDS ORDERED: *HR* Warfarin 3 MG TABLET PO ONE (18:00)
[2020-07-11] MEDS: traZODone 50 MG TABLET PO SCH (20:38)
[2020-07-11] MEDS: Isosorbide MONOnitrate (24 HR) 60 MG TAB.ER.24H PO SCH (20:38)
[2020-07-11] MEDS: Insulin DETEMIR 100 UNIT/ML X5UNITS SUBQ SCH (20:44)
[2020-07-12 01:28] LABS: Basophils # 0.1 K/mcL (0.0-0.2); Basophils % 0.7 %; Eosinophils # 0.3 K/mcL (0.0-0.6); Eosinophils % 2.9 %; Hematocrit 29.3 % (35.3-44.9); Immature Granulocytes % 1.2 % (0-4); Immature Platelets 1.3 % (1.1-6.1); Lymphocytes # 3.9 K/mcL (0.6-4.6); Lymphocytes % 37.9 %; Mean Corpuscular HGB Conc 30.7 g/dL (31.6-35.5); Mean Corpuscular Volume 84.7 fL (83.0-100.0); Monocytes # 0.6 K/mcL (0.0-1.3); Monocytes % 6.1 %; Neutrophils # 5.3 K/mcL (1.6-8.9); Nucleated Red Blood Cells 0.3 /100 WBC (0); Platelet Count 243 K/mcL (140-400); Red Blood Count 3.46 M/mcL (3.82-4.97); Red Cell Distribution Width 15.9 % (11.5-14.5); Segmented Neutrophils % 51.2 %; White Blood Count 10.3 K/mcL (4.3-11.1)
[2020-07-12 01:29] LABS: INR 1.2; Prothrombin Time 14.3 Seconds (9.4-12.1)
[2020-07-12] MEDS: *HR* Enoxaparin 120 MG/0.8 ML SYRINGE SQ SCH (05:43)
[2020-07-12] MEDS: Insulin LISPRO 300 UNITS/3 ML VIAL SUBQ SCH ×4 (08:54→21:17)
[2020-07-12] MEDS: Topiramate 100 MG TABLET PO SCH ×2 (08:55→21:17)
[2020-07-12] MEDS: Ranolazine 500 MG TAB.ER.12H PO SCH ×2 (08:55→21:16)
[2020-07-12] MEDS: Saline Nasal Spray 44 ML BOTTLE NS SCH ×4 (08:56→21:18)
[2020-07-12] MEDS: Nystatin POWDER 30 GM BOTTLE TP SCH ×3 (08:56→21:18)
[2020-07-12] MEDS: Gabapentin 400 MG CAPSULE PO SCH ×4 (08:56→21:16)
[2020-07-12] MEDS: *HR* OxyCODONE/APAP 5/325 TABLET PO PRN ×2 (09:53→21:17)
[2020-07-12] MEDS: Ondansetron 4 MG/2 ML VIAL IVP PRN (18:18)
[2020-07-12 19:32] LABS: Adenovirus Not Detected (Not Detect); Bordetella Pertussis Not Detected (Not Detect); Chlamydophila pneumoniae Not Detected (Not Detect); Coronavirus 229E Not Detected (Not Detect); Coronavirus HKU1 Not Detected (Not Detect); Coronavirus NL63 Not Detected (Not Detect); Coronavirus OC43 Not Detected (Not Detect); Human Metapneumovirus Not Detected (Not Detect); Human Rhinovirus/Enterovirus Not Detected (Not Detect); Influenza A Subtype 2009 H1 Not Detected (Not Detect); Influenza B Not Detected (Not Detect); Mycoplasma pneumoniae Not Detected (Not Detect); Parainfluenza Virus 1 Not Detected (Not Detect); Parainfluenza Virus 2 Not Detected (Not Detect); Parainfluenza Virus 3 Not Detected (Not Detect); Parainfluenza Virus 4 Not Detected (Not Detect); Respiratory Syncytial Virus Not Detected (Not Detect); SARS-CoV-2 Not Detected (Not Detect)
[2020-07-12] MEDS: traZODone 50 MG TABLET PO SCH (21:16)
[2020-07-12] MEDS: Isosorbide MONOnitrate (24 HR) 60 MG TAB.ER.24H PO SCH (21:17)
[2020-07-12] MEDS: Insulin DETEMIR 100 UNIT/ML X5UNITS SUBQ SCH (21:18)
[2020-07-12 21:19] LABS: FACV Specimen WHOLE BLOOD
[2020-07-13] MEDS: Acetaminophen 325 MG TABLET PO PRN (01:56)
[2020-07-13] MEDS: *HR* OxyCODONE/APAP 5/325 TABLET PO PRN (03:49)
[2020-07-13] MEDS ORDERED: Bacitracin 50,000 UNIT, Polymyxin B Sulfate 500,000 UNIT, Sodium Chloride IRRigation 1,... IR ONE ×2 (07:15→17:30)
[2020-07-13] MEDS: Insulin LISPRO 300 UNITS/3 ML VIAL SUBQ SCH ×2 (07:33→11:47)
[2020-07-13 07:57] LABS: Fac V Leiden R506Q Mut Result NEGATIVE
[2020-07-13] MEDS: Topiramate 100 MG TABLET PO SCH (08:58)
[2020-07-13] MEDS: Nystatin POWDER 30 GM BOTTLE TP SCH ×2 (08:58→15:11)
[2020-07-13] MEDS: Ranolazine 500 MG TAB.ER.12H PO SCH (08:58)
[2020-07-13] MEDS: Gabapentin 400 MG CAPSULE PO SCH ×2 (08:58→15:10)
[2020-07-13] MEDS: Saline Nasal Spray 44 ML BOTTLE NS SCH ×2 (08:58→15:10)
[2020-07-13] MEDS ORDERED: Dexamethasone 4 MG/ML VIAL ONE (12:45)
[2020-07-13] MEDS ORDERED: *HR* Midazolam HCl 2 MG/2 ML VIAL ONE (12:45)
[2020-07-13] MEDS ORDERED: *HR* Rocuronium Bromide 50 MG/5 ML VIAL ONE (12:45)
[2020-07-13] MEDS ORDERED: Lidocaine -MPF 2% 2 ML VIAL ONE (12:45)
[2020-07-13] MEDS ORDERED: *HR* Succinylcholine 200 MG/10 ML VIAL IVP ONE (12:45)
[2020-07-13] MEDS ORDERED: *HR* Propofol 200 MG/20 ML VIAL IVP ONE (12:45)
[2020-07-13] MEDS ORDERED: Lidocaine HCL 4 ML Topical Solution (Laryng-O-Jet Kit Sterile Pak) TP ONE (12:45)
[2020-07-13] MEDS ORDERED: Ondansetron 4 MG/2 ML VIAL ONE (12:45)
[2020-07-13] MEDS ORDERED: *HR* FentaNYL (PF) 100 MCG/2 ML VIAL ONE (12:45)
[2020-07-13] MEDS ORDERED: *HR* Phenylephrine 10 MG/ML VIAL ONE (13:41)
[2020-07-13] MEDS ORDERED: *HR* Remifentanil 1 MG VIAL IVP ONE ×3 (13:41→16:37)
[2020-07-13] MEDS ORDERED: *HR* Vasopressin 20 UNIT/ML VIAL ONE (13:46)
[2020-07-13] MEDS ORDERED: ceFAZolin 2,000 MG in Water for inj. (sterile) 20 ML IVP ONE (14:18)
[2020-07-13] MEDS ORDERED: Nitroglycerin 0.4 MG TAB.SUBL SL PRN ×2 (14:19→18:44)
[2020-07-13] MEDS ORDERED: Ondansetron 4 MG/2 ML VIAL IVP PRN (14:19)
[2020-07-13] MEDS ORDERED: *HR* FentaNYL (PF) 100 MCG/2 ML VIAL IVP PRN (14:19)
[2020-07-13] MEDS ORDERED: Albuterol 2.5 MG/3 ML NEBULIZER IH PRN (14:19)
[2020-07-13] MEDS ORDERED: Naloxone 0.4 MG/ML INJ IVP PRN ×2 (14:19→18:44)
[2020-07-13] MEDS ORDERED: *HR* HYDROMORPHONE 2 MG/ML VIAL ONE (15:13)
[2020-07-13] MEDS ORDERED: *HR* Magnesium Sulfate 1 GM/2 ML VIAL ONE (16:13)
[2020-07-13] MEDS ORDERED: Sugammadex Sodium 200 MG/2 ML VIAL IV ONE (16:15)
[2020-07-13] MEDS ORDERED: Acetaminophen IV 1,000 MG/100 ML BAG IVPB ONE (16:25)
[2020-07-13] MEDS ORDERED: *HR* Labetalol 20 MG/4 ML SYRINGE IVP ONE (16:26)
[2020-07-13] MEDS ORDERED: *HR* Metoprolol 5 MG/5 ML VIAL IVP ONE (16:34)
[2020-07-13] MEDS ORDERED: Acetaminophen 325 MG TABLET PO PRN (18:44)
[2020-07-13] MEDS ORDERED: *HR* HYDROcodone/Acet 5/325 mg TABLET PO PRN (18:44)
[2020-07-13] MEDS: hydrOXYzine pamoate 25 MG CAPSULE PO SCH (20:31)
[2020-07-13] MEDS: *HR* Metformin 500 MG TABLET PO SCH (20:31)
[2020-07-13] MEDS: CeFAZolin 2 GM/120 ML BAG IVPB SCH (23:08)
[2020-07-13] MEDS: *HR* OxyCODONE Immed Rel 5 MG TABLET PO PRN (23:50)
[2020-07-14] MEDS: Ringers Solution, Lactated 1,000 ML IVC SCH ×2 (02:10→11:54)
[2020-07-14] MEDS: *HR* OxyCODONE Immed Rel 5 MG TABLET PO PRN ×4 (03:50→17:01)
[2020-07-14 04:28] LABS: Hematocrit 32.3 % (35.3-44.9); Hemoglobin 10.1 g/dL (11.5-15.4); Immature Platelets 1.4 % (1.1-6.1); Mean Corpuscular HGB Conc 31.3 g/dL (31.6-35.5); Mean Corpuscular Hemoglobin 26.2 pg (28.0-33.3); Mean Corpuscular Volume 83.9 fL (83.0-100.0); Mean Platelet Volume 13.4 fL (9.4-12.4); Red Blood Count 3.85 M/mcL (3.82-4.97); Red Cell Distribution Width 15.6 % (11.5-14.5); White Blood Count 12.5 K/mcL (4.3-11.1)
[2020-07-14 04:45] LABS: BUN/Creatinine Ratio 29 (6-26); Blood Urea Nitrogen 16 mg/dL (6-20); Calcium 9.3 mg/dL (8.6-10.3); Carbon Dioxide 23 mEq/L (23-29); Chloride 104 mEq/L (98-107); Glucose 231 mg/dL (70-105); Osmolality,Calculated 293 (280-300); Potassium 3.9 mEq/L (3.5-5.1); Sodium 137 mEq/L (136-145); eGFR For African Americans > 60 (> 60); eGFR For Non-African Americans > 60 (> 60)
[2020-07-14] MEDS ORDERED: *HR* Enoxaparin 120 MG/0.8 ML SYRINGE SQ SCH (06:00)
[2020-07-14] MEDS: CeFAZolin 2 GM/120 ML BAG IVPB SCH (06:08)
[2020-07-14] MEDS: Gabapentin 400 MG CAPSULE PO SCH ×4 (07:54→22:00)
[2020-07-14] MEDS: Insulin LISPRO 300 UNITS/3 ML VIAL SUBQ SCH ×4 (07:54→22:02)
[2020-07-14] MEDS: Saline Nasal Spray 44 ML BOTTLE NS SCH (07:54)
[2020-07-14] MEDS ORDERED: Dextrose Gel 15 GM/37.5 ML TUBE PO PRN ×2 (08:14)
[2020-07-14] MEDS ORDERED: D5% in Water 1,000 ML IVC PRN (08:14)
[2020-07-14] MEDS ORDERED: *HR* Dextrose 50 % in Water (Vial) 50 ML VIAL IVP PRN (08:14)
[2020-07-14] MEDS: Aspirin Enteric Coated 81 MG Tablet PO SCH (08:15)
[2020-07-14] MEDS: Isosorbide MONOnitrate (24 HR) 60 MG TAB.ER.24H PO SCH (08:16)
[2020-07-14] MEDS: hydrOXYzine pamoate 25 MG CAPSULE PO SCH ×2 (08:17→22:01)
[2020-07-14] MEDS: *HR* Metformin 500 MG TABLET PO SCH (08:18)
[2020-07-14] MEDS: Topiramate 100 MG TABLET PO SCH ×2 (12:29→22:00)
[2020-07-14] MEDS ORDERED: Cefdinir 300 MG CAPSULE PO SCH (12:30)
[2020-07-14] MEDS ORDERED: Ondansetron 4 MG/2 ML VIAL IVP PRN (14:03)
[2020-07-14] MEDS: *HR* Enoxaparin 120 MG/0.8 ML SYRINGE SQ SCH (18:16)
[2020-07-14] MEDS: Ranolazine 500 MG TAB.ER.12H PO SCH (22:00)
[2020-07-14] MEDS: traZODone 50 MG TABLET PO SCH (22:00)
[2020-07-14] MEDS: Insulin DETEMIR 100 UNIT/ML X5UNITS SUBQ SCH (22:02)
[2020-07-15 04:30] LABS: INR 1.3; Prothrombin Time 14.6 Seconds (9.4-12.1)
[2020-07-15 04:34] LABS: Hemoglobin 9.2 g/dL (11.5-15.4)
[2020-07-15 04:36] LABS: Basophils # 0.1 K/mcL (0.0-0.2); Basophils % 0.6 %; Eosinophils # 0.2 K/mcL (0.0-0.6); Eosinophils % 1.8 %; Hematocrit 29.6 % (35.3-44.9); Immature Granulocytes % 0.9 % (0-4); Immature Platelets 1.3 % (1.1-6.1); Lymphocytes # 3.4 K/mcL (0.6-4.6); Lymphocytes % 34.3 %; Mean Corpuscular HGB Conc 31.1 g/dL (31.6-35.5); Mean Corpuscular Hemoglobin 26.4 pg (28.0-33.3); Mean Corpuscular Volume 84.8 fL (83.0-100.0); Mean Platelet Volume 13.5 fL (9.4-12.4); Monocytes # 0.7 K/mcL (0.0-1.3); Monocytes % 6.5 %; Neutrophils # 5.6 K/mcL (1.6-8.9); Platelet Count 266 K/mcL (140-400); Red Blood Count 3.49 M/mcL (3.82-4.97); Red Cell Distribution Width 15.9 % (11.5-14.5); Segmented Neutrophils % 55.9 %
[2020-07-15] MEDS: *HR* Enoxaparin 120 MG/0.8 ML SYRINGE SQ SCH ×2 (06:20→17:19)
[2020-07-15] MEDS: Insulin LISPRO 300 UNITS/3 ML VIAL SUBQ SCH ×4 (09:41→21:18)
[2020-07-15] MEDS: hydrOXYzine pamoate 25 MG CAPSULE PO SCH ×2 (09:41→21:20)
[2020-07-15] MEDS: Aspirin Enteric Coated 81 MG Tablet PO SCH (09:41)
[2020-07-15] MEDS: Topiramate 100 MG TABLET PO SCH ×2 (09:41→21:21)
[2020-07-15] MEDS: Gabapentin 400 MG CAPSULE PO SCH ×4 (09:41→21:19)
[2020-07-15] MEDS: Isosorbide MONOnitrate (24 HR) 60 MG TAB.ER.24H PO SCH (09:41)
[2020-07-15] MEDS: Ranolazine 500 MG TAB.ER.12H PO SCH ×2 (09:41→21:21)
[2020-07-15] MEDS: *HR* OxyCODONE Immed Rel 5 MG TABLET PO PRN (12:45)
[2020-07-15] MEDS ORDERED: Warfarin perPT PO PRN (18:00)
[2020-07-15] MEDS ORDERED: *HR* Warfarin 2.5 MG TABLET PO ONE (18:00)
[2020-07-15] MEDS: Insulin DETEMIR 100 UNIT/ML X5UNITS SUBQ SCH (21:21)
[2020-07-15] MEDS: traZODone 50 MG TABLET PO SCH (21:31)
[2020-07-16 04:05] LABS: Hematocrit 30.9 % (35.3-44.9); Monocytes % 5.6 %; Red Cell Distribution Width 15.9 % (11.5-14.5)
[2020-07-16 04:07] LABS: Basophils # 0.1 K/mcL (0.0-0.2); Basophils % 0.5 %; Eosinophils # 0.3 K/mcL (0.0-0.6); Eosinophils % 2.7 %; Hemoglobin 9.5 g/dL (11.5-15.4); Immature Granulocytes % 0.6 % (0-4); Immature Platelets 1.6 % (1.1-6.1); Lymphocytes # 2.6 K/mcL (0.6-4.6); Mean Corpuscular HGB Conc 30.7 g/dL (31.6-35.5); Mean Corpuscular Hemoglobin 25.9 pg (28.0-33.3); Mean Corpuscular Volume 84.2 fL (83.0-100.0); Monocytes # 0.6 K/mcL (0.0-1.3); Neutrophils # 6.4 K/mcL (1.6-8.9); Platelet Count 247 K/mcL (140-400); Red Blood Count 3.67 M/mcL (3.82-4.97); Segmented Neutrophils % 64.6 %; White Blood Count 9.9 K/mcL (4.3-11.1)
[2020-07-16 04:14] LABS: INR 1.4
[2020-07-16 04:19] LABS: BUN/Creatinine Ratio 26 (6-26); Blood Urea Nitrogen 13 mg/dL (6-20); Calcium 8.8 mg/dL (8.6-10.3); Carbon Dioxide 23 mEq/L (23-29); Chloride 107 mEq/L (98-107); Glucose 155 mg/dL (70-105); Osmolality,Calculated 289 (280-300); Potassium 3.5 mEq/L (3.5-5.1); Sodium 138 mEq/L (136-145); eGFR For African Americans > 60 (> 60); eGFR For Non-African Americans > 60 (> 60)
[2020-07-16] MEDS: *HR* OxyCODONE Immed Rel 5 MG TABLET PO PRN ×2 (05:23→11:05)
[2020-07-16] MEDS: *HR* Enoxaparin 120 MG/0.8 ML SYRINGE SQ SCH ×2 (05:23→17:43)
[2020-07-16] MEDS: Aspirin Enteric Coated 81 MG Tablet PO SCH (08:22)
[2020-07-16] MEDS: Insulin LISPRO 300 UNITS/3 ML VIAL SUBQ SCH ×4 (08:22→20:12)
[2020-07-16] MEDS: hydrOXYzine pamoate 25 MG CAPSULE PO SCH ×2 (08:22→20:08)
[2020-07-16] MEDS: Gabapentin 400 MG CAPSULE PO SCH ×4 (08:23→20:07)
[2020-07-16] MEDS: Isosorbide MONOnitrate (24 HR) 60 MG TAB.ER.24H PO SCH (08:23)
[2020-07-16] MEDS: Ranolazine 500 MG TAB.ER.12H PO SCH ×2 (08:23→20:08)
[2020-07-16] MEDS: Topiramate 100 MG TABLET PO SCH ×2 (08:23→20:08)
[2020-07-16] MEDS ORDERED: *HR* Warfarin 4 MG TABLET PO ONE (18:00)
[2020-07-16] MEDS ORDERED: *HR* Warfarin 2.5 MG TABLET PO ONE (18:00)
[2020-07-16] MEDS: traZODone 50 MG TABLET PO SCH (20:08)
[2020-07-16] MEDS: Insulin DETEMIR 100 UNIT/ML X5UNITS SUBQ SCH (20:12)
[2020-07-17] MEDS: *HR* Enoxaparin 120 MG/0.8 ML SYRINGE SQ SCH ×2 (06:01→16:12)
[2020-07-17] MEDS: Isosorbide MONOnitrate (24 HR) 60 MG TAB.ER.24H PO SCH (08:08)
[2020-07-17 08:10] LABS: Hematocrit 34.6 % (35.3-44.9); Hemoglobin 10.5 g/dL (11.5-15.4)
[2020-07-17] MEDS: Ranolazine 500 MG TAB.ER.12H PO SCH ×2 (08:12→20:57)
[2020-07-17] MEDS: Gabapentin 400 MG CAPSULE PO SCH ×4 (08:12→20:57)
[2020-07-17] MEDS: Aspirin Enteric Coated 81 MG Tablet PO SCH (08:12)
[2020-07-17 08:13] LABS: INR 1.5; Prothrombin Time 17.3 Seconds (9.4-12.1)
[2020-07-17] MEDS: Topiramate 100 MG TABLET PO SCH ×2 (08:13→20:57)
[2020-07-17] MEDS: hydrOXYzine pamoate 25 MG CAPSULE PO SCH ×2 (08:13→20:56)
[2020-07-17] MEDS: Insulin LISPRO 300 UNITS/3 ML VIAL SUBQ SCH ×4 (08:13→20:55)
[2020-07-17] MEDS ORDERED: *HR* Warfarin 4 MG TABLET PO ONE (18:00)
[2020-07-17] MEDS: traZODone 50 MG TABLET PO SCH (20:56)
[2020-07-17] MEDS: Insulin DETEMIR 100 UNIT/ML X5UNITS SUBQ SCH (20:57)
[2020-07-18 06:13] LABS: Hematocrit 36.9 % (35.3-44.9); Hemoglobin 11.3 g/dL (11.5-15.4)
[2020-07-18 06:16] LABS: INR 1.5
[2020-07-18] MEDS: *HR* Enoxaparin 120 MG/0.8 ML SYRINGE SQ SCH ×2 (06:21→17:04)
[2020-07-18] MEDS: Topiramate 100 MG TABLET PO SCH ×2 (08:01→20:25)
[2020-07-18] MEDS: Aspirin Enteric Coated 81 MG Tablet PO SCH (08:01)
[2020-07-18] MEDS: hydrOXYzine pamoate 25 MG CAPSULE PO SCH (08:01)
[2020-07-18] MEDS: Isosorbide MONOnitrate (24 HR) 60 MG TAB.ER.24H PO SCH (08:02)
[2020-07-18] MEDS: Gabapentin 400 MG CAPSULE PO SCH ×3 (08:02→17:03)
[2020-07-18] MEDS: Ranolazine 500 MG TAB.ER.12H PO SCH ×2 (08:02→21:00)
[2020-07-18] MEDS: Insulin LISPRO 300 UNITS/3 ML VIAL SUBQ SCH ×4 (08:08→21:00)
[2020-07-18 08:53] LABS: Hematocrit 36.7 % (35.3-44.9); Hemoglobin 11.4 g/dL (11.5-15.4)
[2020-07-18 08:55] LABS: INR 1.5; Prothrombin Time 17.6 Seconds (9.4-12.1)
[2020-07-18 09:08] LABS: BUN/Creatinine Ratio 25 (6-26); Blood Urea Nitrogen 15 mg/dL (6-20); Calcium 9.6 mg/dL (8.6-10.3); Carbon Dioxide 23 mEq/L (23-29); Chloride 106 mEq/L (98-107); Glucose 178 mg/dL (70-105); Magnesium 1.6 mg/dL (1.6-2.6); Osmolality,Calculated 291 (280-300); Potassium 4.2 mEq/L (3.5-5.1); Sodium 138 mEq/L (136-145); eGFR For African Americans > 60 (> 60); eGFR For Non-African Americans > 60 (> 60)
[2020-07-18] MEDS: Saline Nasal Spray 44 ML BOTTLE NS SCH ×4 (10:32→21:00)
[2020-07-18] MEDS ORDERED: Oxymetazoline Nasal SPRAY BOTTLE NS SCH (11:03)
[2020-07-18] MEDS ORDERED: 0.9 % Sodium Chloride 500 ML ONE (11:44)
[2020-07-18] MEDS: *HR* OxyCODONE Immed Rel 5 MG TABLET PO PRN ×2 (17:34→21:40)
[2020-07-18] MEDS ORDERED: *HR* Warfarin 4 MG TABLET PO ONE (18:00)
[2020-07-18] MEDS: traZODone 50 MG TABLET PO SCH (20:18)
[2020-07-18 21:15] LABS: Hematocrit 33.2 % (35.3-44.9); Hemoglobin 10.3 g/dL (11.5-15.4)
[2020-07-18] MEDS: Insulin DETEMIR 100 UNIT/ML X5UNITS SUBQ SCH (22:01)
[2020-07-19] MEDS: Saline Nasal Spray 44 ML BOTTLE NS SCH ×6 (01:04→20:56)
[2020-07-19 03:37] LABS: Basophils # 0.1 K/mcL (0.0-0.2); Basophils % 0.6 %; Eosinophils # 0.3 K/mcL (0.0-0.6); Eosinophils % 2.8 %; Hematocrit 35.1 % (35.3-44.9); Hemoglobin 10.7 g/dL (11.5-15.4); Immature Granulocytes % 0.7 % (0-4); Lymphocytes % 32.3 %; Mean Corpuscular HGB Conc 30.5 g/dL (31.6-35.5); Mean Corpuscular Hemoglobin 25.8 pg (28.0-33.3); Mean Corpuscular Volume 84.8 fL (83.0-100.0); Mean Platelet Volume 11.2 fL (9.4-12.4); Monocytes # 0.7 K/mcL (0.0-1.3); Monocytes % 5.9 %; Neutrophils # 7.1 K/mcL (1.6-8.9); Platelet Count 302 K/mcL (140-400); Red Blood Count 4.14 M/mcL (3.82-4.97); Red Cell Distribution Width 15.9 % (11.5-14.5); Segmented Neutrophils % 57.7 %; White Blood Count 12.2 K/mcL (4.3-11.1)
[2020-07-19 03:41] LABS: INR 1.6; Prothrombin Time 18.1 Seconds (9.4-12.1)
[2020-07-19 03:54] LABS: BUN/Creatinine Ratio 27 (6-26); Blood Urea Nitrogen 19 mg/dL (6-20); Calcium 9.5 mg/dL (8.6-10.3); Carbon Dioxide 24 mEq/L (23-29); Chloride 105 mEq/L (98-107); Glucose 168 mg/dL (70-105); Osmolality,Calculated 292 (280-300); Potassium 3.4 mEq/L (3.5-5.1); Sodium 138 mEq/L (136-145); eGFR For African Americans > 60 (> 60); eGFR For Non-African Americans > 60 (> 60)
[2020-07-19] MEDS: *HR* Enoxaparin 120 MG/0.8 ML SYRINGE SQ SCH ×2 (06:23→17:14)
[2020-07-19] MEDS ORDERED: Potassium Chloride 40 MEQ, Lidocaine 1% 2 ML in 0.9 % Sodium Chloride 500 ML IVPB ONE (07:25)
[2020-07-19] MEDS: Aspirin Enteric Coated 81 MG Tablet PO SCH (08:22)
[2020-07-19] MEDS: Topiramate 100 MG TABLET PO SCH ×2 (08:22→20:56)
[2020-07-19] MEDS: Insulin LISPRO 300 UNITS/3 ML VIAL SUBQ SCH ×4 (08:31→20:32)
[2020-07-19] MEDS ORDERED: Barium Sulfate 1 TAB TABLET PO ONE (10:29)
[2020-07-19] MEDS ORDERED: E-Z-HD (BARIUM SULF) SUSPENSION PO ONE (10:29)
[2020-07-19] MEDS ORDERED: E-Z-PAQUE (BARIUM SULF) SUSP 1 BOTTLE PO ONE (10:29)
[2020-07-19] MEDS: Isosorbide MONOnitrate (24 HR) 60 MG TAB.ER.24H PO SCH (11:08)
[2020-07-19] MEDS: Ranolazine 500 MG TAB.ER.12H PO SCH ×2 (11:09→20:57)
[2020-07-19] MEDS: *HR* OxyCODONE Immed Rel 5 MG TABLET PO PRN (15:00)
[2020-07-19] MEDS: Insulin DETEMIR 100 UNIT/ML X5UNITS SUBQ SCH (20:55)
[2020-07-19] MEDS: traZODone 50 MG TABLET PO SCH (20:56)
[2020-07-19] MEDS ORDERED: Permethrin Cream Rinse 60 ML LIQUID TP ONE (23:17)
[2020-07-20 01:20] LABS: Basophils # 0.1 K/mcL (0.0-0.2); Basophils % 0.7 %; Eosinophils # 0.3 K/mcL (0.0-0.6); Eosinophils % 2.4 %; Hematocrit 35.5 % (35.3-44.9); Hemoglobin 11.2 g/dL (11.5-15.4); Immature Granulocytes % 0.5 % (0-4); Lymphocytes % 28.7 %; Mean Corpuscular HGB Conc 31.5 g/dL (31.6-35.5); Mean Corpuscular Hemoglobin 26.2 pg (28.0-33.3); Mean Corpuscular Volume 83.1 fL (83.0-100.0); Mean Platelet Volume 11.4 fL (9.4-12.4); Monocytes # 0.6 K/mcL (0.0-1.3); Monocytes % 5.3 %; Neutrophils # 6.6 K/mcL (1.6-8.9); Platelet Count 289 K/mcL (140-400); Red Blood Count 4.27 M/mcL (3.82-4.97); Red Cell Distribution Width 15.9 % (11.5-14.5); Segmented Neutrophils % 62.4 %; White Blood Count 10.5 K/mcL (4.3-11.1)
[2020-07-20 01:22] LABS: INR 1.7; Prothrombin Time 19.5 Seconds (9.4-12.1)
[2020-07-20 01:37] LABS: BUN/Creatinine Ratio 25 (6-26); Blood Urea Nitrogen 15 mg/dL (6-20); Calcium 9.5 mg/dL (8.6-10.3); Carbon Dioxide 18 mEq/L (23-29); Chloride 107 mEq/L (98-107); Glucose 155 mg/dL (70-105); Osmolality,Calculated 290 (280-300); Sodium 138 mEq/L (136-145); eGFR For African Americans > 60 (> 60); eGFR For Non-African Americans > 60 (> 60)
[2020-07-20] MEDS: Saline Nasal Spray 44 ML BOTTLE NS SCH ×6 (01:53→20:47)
[2020-07-20] MEDS ORDERED: *HR* Metoprolol 5 MG/5 ML VIAL IVP ONE ×2 (05:11→05:14)
[2020-07-20 05:46] LABS: Magnesium 1.7 mg/dL (1.6-2.6)
[2020-07-20 06:00] LABS: Thyroid Stimulating Hormone 4.252 mcIU/mL (0.340-5.600)
[2020-07-20] MEDS ORDERED: *HR* Metoprolol 5 MG/5 ML VIAL IVP PRN (06:14)
[2020-07-20] MEDS: *HR* Enoxaparin 120 MG/0.8 ML SYRINGE SQ SCH ×2 (06:46→17:31)
[2020-07-20] MEDS: Insulin LISPRO 300 UNITS/3 ML VIAL SUBQ SCH ×4 (08:00→20:47)
[2020-07-20] MEDS: Aspirin Enteric Coated 81 MG Tablet PO SCH (08:50)
[2020-07-20] MEDS: Isosorbide MONOnitrate (24 HR) 60 MG TAB.ER.24H PO SCH (08:50)
[2020-07-20] MEDS: Topiramate 100 MG TABLET PO SCH ×2 (08:51→20:21)
[2020-07-20] MEDS: Ranolazine 500 MG TAB.ER.12H PO SCH ×2 (08:51→20:20)
[2020-07-20] MEDS ORDERED: Permethrin Cream Rinse 60 ML LIQUID TP ONE (10:44)
[2020-07-20] MEDS ORDERED: Isovue-370 500 ML BOTTLE IVP ONE (11:07)
[2020-07-20] MEDS: *HR* Metoprolol 5 MG/5 ML VIAL IVP SCH ×3 (12:43→23:22)
[2020-07-20] MEDS ORDERED: Acetaminophen IV 1,000 MG/100 ML BAG IVPB ONE (14:23)
[2020-07-20 15:22] LABS: Hemoglobin 11.6 g/dL (11.5-15.4)
[2020-07-20] MEDS: traZODone 50 MG TABLET PO SCH (20:20)
[2020-07-20] MEDS: *HR* OxyCODONE Immed Rel 5 MG TABLET PO PRN (20:20)
[2020-07-20] MEDS: Insulin DETEMIR 100 UNIT/ML X5UNITS SUBQ SCH (20:21)
[2020-07-20 21:25] LABS: Hematocrit 39.5 % (35.3-44.9); Hemoglobin 12.3 g/dL (11.5-15.4)
[2020-07-21] MEDS: Saline Nasal Spray 44 ML BOTTLE NS SCH ×7 (00:53→23:50)
[2020-07-21 03:07] LABS: Basophils # 0.1 K/mcL (0.0-0.2); Basophils % 0.5 %; Eosinophils # 0.1 K/mcL (0.0-0.6); Eosinophils % 0.9 %; Immature Granulocytes % 0.7 % (0-4); Lymphocytes # 2.9 K/mcL (0.6-4.6); Lymphocytes % 31.4 %; Mean Corpuscular HGB Conc 30.8 g/dL (31.6-35.5); Mean Corpuscular Hemoglobin 26.1 pg (28.0-33.3); Mean Corpuscular Volume 84.8 fL (83.0-100.0); Mean Platelet Volume 12.2 fL (9.4-12.4); Monocytes # 0.5 K/mcL (0.0-1.3); Neutrophils # 5.6 K/mcL (1.6-8.9); Platelet Count 236 K/mcL (140-400); Red Cell Distribution Width 16.2 % (11.5-14.5); Segmented Neutrophils % 61.5 %; White Blood Count 9.2 K/mcL (4.3-11.1)
[2020-07-21 03:13] LABS: INR 1.9; Prothrombin Time 21.9 Seconds (9.4-12.1)
[2020-07-21 03:25] LABS: BUN/Creatinine Ratio 24 (6-26); Blood Urea Nitrogen 17 mg/dL (6-20); Calcium 9.1 mg/dL (8.6-10.3); Carbon Dioxide 19 mEq/L (23-29); Chloride 108 mEq/L (98-107); Glucose 214 mg/dL (70-105); Osmolality,Calculated 294 (280-300); Potassium 3.3 mEq/L (3.5-5.1); Sodium 138 mEq/L (136-145); eGFR For African Americans > 60 (> 60); eGFR For Non-African Americans > 60 (> 60)
[2020-07-21] MEDS: *HR* Metoprolol 5 MG/5 ML VIAL IVP SCH ×4 (05:12→23:50)
[2020-07-21] MEDS: *HR* Enoxaparin 120 MG/0.8 ML SYRINGE SQ SCH ×2 (05:42→17:52)
[2020-07-21] MEDS ORDERED: Potassium Chloride 20 MEQ, Lidocaine 1% 2 ML in 0.9 % Sodium Chloride 250 ML IVPB ONE (08:08)
[2020-07-21 09:06] LABS: Hematocrit 36.1 % (35.3-44.9)
[2020-07-21] MEDS: Aspirin Enteric Coated 81 MG Tablet PO SCH (09:17)
[2020-07-21] MEDS: Topiramate 100 MG TABLET PO SCH ×2 (09:17→21:19)
[2020-07-21] MEDS: Isosorbide MONOnitrate (24 HR) 60 MG TAB.ER.24H PO SCH (09:18)
[2020-07-21] MEDS: Ranolazine 500 MG TAB.ER.12H PO SCH ×2 (09:18→21:18)
[2020-07-21] MEDS: Insulin LISPRO 300 UNITS/3 ML VIAL SUBQ SCH ×4 (09:21→21:07)
[2020-07-21] MEDS ORDERED: Warfarin perPT PO PRN (18:00)
[2020-07-21] MEDS: traZODone 50 MG TABLET PO SCH (21:18)
[2020-07-21] MEDS: Insulin DETEMIR 100 UNIT/ML X5UNITS SUBQ SCH (21:19)
[2020-07-22 02:20] LABS: Basophils # 0.1 K/mcL (0.0-0.2); Basophils % 0.7 %; Eosinophils # 0.1 K/mcL (0.0-0.6); Eosinophils % 1.4 %; Hematocrit 35.3 % (35.3-44.9); Hemoglobin 10.7 g/dL (11.5-15.4); Immature Granulocytes % 0.4 % (0-4); Lymphocytes # 3.8 K/mcL (0.6-4.6); Lymphocytes % 40.6 %; Mean Corpuscular HGB Conc 30.3 g/dL (31.6-35.5); Mean Corpuscular Hemoglobin 25.2 pg (28.0-33.3); Mean Corpuscular Volume 83.3 fL (83.0-100.0); Mean Platelet Volume 11.6 fL (9.4-12.4); Monocytes # 0.5 K/mcL (0.0-1.3); Monocytes % 4.9 %; Neutrophils # 4.8 K/mcL (1.6-8.9); Platelet Count 271 K/mcL (140-400); Red Blood Count 4.24 M/mcL (3.82-4.97); Red Cell Distribution Width 16.1 % (11.5-14.5); White Blood Count 9.2 K/mcL (4.3-11.1)
[2020-07-22 02:34] LABS: BUN/Creatinine Ratio 31 (6-26); Blood Urea Nitrogen 20 mg/dL (6-20); Calcium 8.8 mg/dL (8.6-10.3); Carbon Dioxide 17 mEq/L (23-29); Chloride 108 mEq/L (98-107); Glucose 140 mg/dL (70-105); Osmolality,Calculated 289 (280-300); Potassium 3.8 mEq/L (3.5-5.1); Sodium 137 mEq/L (136-145); eGFR For African Americans > 60 (> 60); eGFR For Non-African Americans > 60 (> 60)
[2020-07-22] MEDS: Saline Nasal Spray 44 ML BOTTLE NS SCH ×3 (05:14→12:17)
[2020-07-22] MEDS: *HR* Metoprolol 5 MG/5 ML VIAL IVP SCH ×2 (05:48→12:03)
[2020-07-22] MEDS: *HR* Enoxaparin 120 MG/0.8 ML SYRINGE SQ SCH (05:48)
[2020-07-22] MEDS: Aspirin Enteric Coated 81 MG Tablet PO SCH (08:33)
[2020-07-22] MEDS: Topiramate 100 MG TABLET PO SCH (08:33)
[2020-07-22] MEDS: Ranolazine 500 MG TAB.ER.12H PO SCH (08:33)
[2020-07-22] MEDS: Insulin LISPRO 300 UNITS/3 ML VIAL SUBQ SCH ×2 (08:33→12:20)
[2020-07-22] MEDS: Isosorbide MONOnitrate (24 HR) 60 MG TAB.ER.24H PO SCH (08:34)
[2020-07-22 09:57] LABS: INR 2.1; Prothrombin Time 24.3 Seconds (9.4-12.1)
[2020-07-22] MEDS: Gabapentin 400 MG CAPSULE PO SCH (12:17)
[2020-07-22 12:23] VITALS: BP 147/81
[2020-07-22] MEDS ORDERED: *HR* Warfarin 5 MG TABLET PO ONE ×2 (14:15→18:00)
[2020-07-22] MEDS ORDERED: *HR* Enoxaparin 120 MG/0.8 ML SYRINGE SQ SCH (18:00)
== END 2020-07-22 15:53 | disposition home health service (06) | DRG 472 ==
LOC: EMEROOARM 22:32 → 3ANU 22:32 → SUATTDRO 07-04 01:22 → 3ANU 07-04 02:03 → SUATTDRO 07-05 16:28 → 2NNU 07-18 12:48
PROVIDERS: ADMIT Family Medicine; ATTEND General Practice

== ENCOUNTER 2020-11-09 10:00 | Observation (INO) ==
[2020-11-16] MEDS ORDERED: Naloxone 0.4 MG/ML INJ IVP PRN (09:50)
[2020-11-16 11:14] LABS: INR 1.9; Prothrombin Time 21.6 Seconds (9.4-12.1)
[2020-11-16 12:22] LABS: BUN/Creatinine Ratio 17 (6-26); Blood Urea Nitrogen 11 mg/dL (6-20); Calcium 9.2 mg/dL (8.6-10.3); Carbon Dioxide 20 mEq/L (23-29); Chloride 108 mEq/L (98-107); Glucose 112 mg/dL (70-105); Osmolality,Calculated 290 (280-300); Potassium 3.6 mEq/L (3.5-5.1); Sodium 140 mEq/L (136-145); eGFR For African Americans > 60 (> 60); eGFR For Non-African Americans > 60 (> 60)
[2020-11-16 13:27] LABS: Mean Platelet Volume 10.9 fL (9.4-12.4)
[2020-11-16 13:29] LABS: Basophils # 0.1 K/mcL (0.0-0.2); Basophils % 0.7 %; Eosinophils # 0.2 K/mcL (0.0-0.6); Eosinophils % 1.8 %; Hematocrit 32.3 % (35.3-44.9); Hemoglobin 9.8 g/dL (11.5-15.4); Immature Granulocytes % 0.6 % (0-4); Lymphocytes % 33.9 %; Mean Corpuscular HGB Conc 30.3 g/dL (31.6-35.5); Mean Corpuscular Hemoglobin 23.3 pg (28.0-33.3); Mean Corpuscular Volume 76.7 fL (83.0-100.0); Monocytes # 0.5 K/mcL (0.0-1.3); Monocytes % 5.6 %; Neutrophils # 5.1 K/mcL (1.6-8.9); Red Blood Count 4.21 M/mcL (3.82-4.97); Red Cell Distribution Width 20.9 % (11.5-14.5); Segmented Neutrophils % 57.4 %; White Blood Count 8.9 K/mcL (4.3-11.1)
[2020-11-16] MEDS: Acetaminophen 325 MG TABLET PO PRN (14:16)
[2020-11-16] MEDS ORDERED: *HR* Dextrose 50 % in Water (Vial) 50 ML VIAL IVP PRN (14:35)
[2020-11-16] MEDS ORDERED: D5% in Water 1,000 ML IVC PRN (14:35)
[2020-11-16] MEDS ORDERED: Dextrose Gel 15 GM/37.5 ML TUBE PO PRN ×2 (14:35)
[2020-11-16] MEDS ORDERED: Furosemide 40 MG TABLET PO PRN (15:46)
[2020-11-16] MEDS ORDERED: Nitroglycerin 0.4 MG TAB.SUBL SL PRN (15:46)
[2020-11-16] MEDS: Insulin LISPRO 300 UNITS/3 ML VIAL SUBQ SCH (15:59)
[2020-11-16] MEDS: *HR* OxyCODONE/APAP 5/325 TABLET PO PRN (17:11)
[2020-11-16] MEDS: Gabapentin 400 MG CAPSULE PO SCH ×2 (17:15→21:02)
[2020-11-16] MEDS ORDERED: *HR* Warfarin 5 MG TABLET PO ONE (18:00)
[2020-11-16] MEDS ORDERED: Warfarin perPT PO PRN (18:00)
[2020-11-16] MEDS: *HR* Metformin 500 MG TABLET PO SCH (18:29)
[2020-11-16] MEDS ORDERED: PRAZOSIN HCL 5 MG PO SCH (21:00)
[2020-11-16] MEDS: Topiramate 100 MG TABLET PO SCH (21:02)
[2020-11-16] MEDS: Ranolazine 500 MG TAB.ER.12H PO SCH (21:03)
[2020-11-17] MEDS: *HR* OxyCODONE/APAP 5/325 TABLET PO PRN ×2 (02:57→18:35)
[2020-11-17 06:52] LABS: INR 2.1
[2020-11-17] MEDS: Ranolazine 500 MG TAB.ER.12H PO SCH ×2 (08:14→20:46)
[2020-11-17] MEDS: ARIPiprazole 10 MG TABLET PO SCH (08:14)
[2020-11-17] MEDS: Isosorbide MONOnitrate (24 HR) 60 MG TAB.ER.24H PO SCH (08:14)
[2020-11-17] MEDS: Topiramate 100 MG TABLET PO SCH ×2 (08:14→20:46)
[2020-11-17] MEDS: Insulin LISPRO 300 UNITS/3 ML VIAL SUBQ SCH ×3 (08:14→17:24)
[2020-11-17] MEDS: *HR* Metformin 500 MG TABLET PO SCH (08:14)
[2020-11-17] MEDS: Aspirin Enteric Coated 81 MG Tablet PO SCH (08:14)
[2020-11-17] MEDS: Gabapentin 400 MG CAPSULE PO SCH ×4 (08:15→20:46)
[2020-11-17] MEDS ORDERED: Isovue-370 500 ML BOTTLE IVP ONE (11:52)
[2020-11-17] MEDS: Acetaminophen 325 MG TABLET PO PRN (15:18)
[2020-11-17] MEDS ORDERED: *HR* Warfarin 5 MG TABLET PO ONE (18:00)
[2020-11-18 04:21] LABS: INR 2.4; Prothrombin Time 27.4 Seconds (9.4-12.1)
[2020-11-18] MEDS: *HR* OxyCODONE/APAP 5/325 TABLET PO PRN ×2 (05:48→20:50)
[2020-11-18] MEDS ORDERED: Isovue-370 500 ML BOTTLE IVP ONE (08:53)
[2020-11-18 09:17] LABS: BUN/Creatinine Ratio 24 (6-26); Blood Urea Nitrogen 17 mg/dL (6-20); Calcium 9.4 mg/dL (8.6-10.3); Carbon Dioxide 22 mEq/L (23-29); Chloride 109 mEq/L (98-107); Glucose 161 mg/dL (70-105); Osmolality,Calculated 289 (280-300); Potassium 3.8 mEq/L (3.5-5.1); Sodium 137 mEq/L (136-145); eGFR For African Americans > 60 (> 60); eGFR For Non-African Americans > 60 (> 60)
[2020-11-18 09:34] LABS: Alanine Aminotransferase 8 Units/L (7-52); Albumin 3.8 g/dL (3.5-5.7); Albumin/Globulin Ratio 1.1 (1.1-2.2); Alkaline Phosphatase 76 Units/L (34-104); Aspartate Amino Transferase 13 Units/L (13-39); Bilirubin,Indirect 0.2 mg/dL (0.0-1.0); Bilirubin,Total 0.2 mg/dL (0.3-1.0); Globulin 3.6 g/dL (2.4-3.5); Total Protein 7.4 g/dL (6.4-8.9)
[2020-11-18] MEDS: Topiramate 100 MG TABLET PO SCH ×2 (09:38→20:41)
[2020-11-18] MEDS: Aspirin Enteric Coated 81 MG Tablet PO SCH (09:38)
[2020-11-18] MEDS: Ranolazine 500 MG TAB.ER.12H PO SCH ×2 (09:38→20:41)
[2020-11-18] MEDS: Gabapentin 400 MG CAPSULE PO SCH ×4 (09:38→20:41)
[2020-11-18] MEDS: ARIPiprazole 10 MG TABLET PO SCH (09:38)
[2020-11-18] MEDS: Isosorbide MONOnitrate (24 HR) 60 MG TAB.ER.24H PO SCH (09:39)
[2020-11-18] MEDS: Insulin LISPRO 300 UNITS/3 ML VIAL SUBQ SCH ×3 (09:39→15:35)
[2020-11-18 10:27] LABS: Basophils # 0.1 K/mcL (0.0-0.2); Basophils % 0.5 %; Eosinophils # 0.2 K/mcL (0.0-0.6); Eosinophils % 2.5 %; Hematocrit 34.4 % (35.3-44.9); Immature Granulocytes % 0.4 % (0-4); Lymphocytes # 3.8 K/mcL (0.6-4.6); Lymphocytes % 38.9 %; Mean Corpuscular Hemoglobin 24.4 pg (28.0-33.3); Mean Corpuscular Volume 76.3 fL (83.0-100.0); Mean Platelet Volume 10.5 fL (9.4-12.4); Monocytes # 0.6 K/mcL (0.0-1.3); Monocytes % 6.2 %; Platelet Count 289 K/mcL (140-400); Red Blood Count 4.51 M/mcL (3.82-4.97); Red Cell Distribution Width 21.1 % (11.5-14.5); Segmented Neutrophils % 51.5 %; White Blood Count 9.6 K/mcL (4.3-11.1)
[2020-11-18 14:41] LABS: Bilirubin,Urine Negative (Negative); Blood,Urine Negative (Negative); Clarity,Urine Clear (Clear); Color,Urine Light-Yellow (Yellow); Glucose,Urine (UA) Normal (Normal); Ketones,Urine Negative (Negative); Leukocyte Esterase,Urine Moderate (Negative); Mucus,Urine Few per lpf (None-Few); Nitrite,Urine Positive (Negative); Protein,Urine Negative (Neg-Trace); RBC,Urine 0-3 per hpf (0-3); Specific Gravity,Urine > 1.030 (1.010-1.025); Squamous Epithelial Cell,Urine Few per hpf (None-Few); Urobilinogen,Urine Normal (Normal); WBC,Urine 15-30 per hpf (0-3)
[2020-11-18] MEDS: Acetaminophen 325 MG TABLET PO PRN (15:42)
[2020-11-18 17:48] LABS: Adenovirus F 40/41 PCR Not detected (Not detect); Astrovirus PCR Not detected (Not detect); C.difficile Toxin A/B Gene PCR Not detected (Not detect); Campylobacter by PCR Not detected (Not detect); Cryptosporidium by PCR Not detected (Not detect); Cyclospora cayetanensis PCR Not detected (Not detect); E. coli O157 by PCR Not detected (Not detect); Entamoeba histolytica PCR Not detected (Not detect); Enteroaggregative E.coli(EAEC) Not detected (Not detect); Enteropathogenic E.coli(EPEC) Not detected (Not detect); Enterotoxigenic E.coli (ETEC) Not detected (Not detect); Giardia lamblia PCR Not detected (Not detect); Norovirus GI/GII PCR Not detected (Not detect); Plesiomonas shigelloides PCR Not detected (Not detect); Rotavirus A PCR Not detected (Not detect); Salmonella PCR Not detected (Not detect); Sapovirus PCR Not detected (Not detect); Shig/EnteroinvasiveE coli EIEC Not detected (Not detect); Shigalike tox-prod E coli STEC Not detected (Not detect); Vibrio PCR Not detected (Not detect); Vibrio cholerae PCR Not detected (Not detect); Yersinia enterocolitica PCR Not detected (Not detect)
[2020-11-18] MEDS ORDERED: *HR* Warfarin 4 MG TABLET PO ONE (18:00)
[2020-11-19 01:07] LABS: INR 2.1; Prothrombin Time 23.4 Seconds (9.4-12.1)
[2020-11-19] MEDS: Insulin LISPRO 300 UNITS/3 ML VIAL SUBQ SCH ×2 (07:53→11:58)
[2020-11-19] MEDS: Aspirin Enteric Coated 81 MG Tablet PO SCH (07:56)
[2020-11-19] MEDS: ARIPiprazole 10 MG TABLET PO SCH (07:56)
[2020-11-19] MEDS: Topiramate 100 MG TABLET PO SCH (07:56)
[2020-11-19] MEDS: Ranolazine 500 MG TAB.ER.12H PO SCH (07:56)
[2020-11-19] MEDS: Gabapentin 400 MG CAPSULE PO SCH ×2 (07:56→11:51)
[2020-11-19 10:48] VITALS: BP 110/72
[2020-11-19] MEDS: *HR* OxyCODONE/APAP 5/325 TABLET PO PRN (11:51)
[2020-11-19] MEDS ORDERED: *HR* Warfarin 3 MG TABLET PO ONE (18:00)
== END 2020-11-19 13:45 | disposition home or self-care (01) ==
LOC: CDU → 3BNU 11-18 07:45
PROVIDERS: ADMIT Internal Medicine Clinical Cardiac Electrophysiology; ATTEND Internal Medicine Clinical Cardiac Electrophysiology